=== PATIENT | male | born 1950 | race Caucasian/White ===

== ENCOUNTER 2018-02-26 09:21 | Day surgery (SDC) | payer BC, SELFPAY ==
[2018-02-26 09:40] VITALS: BP 147/73; PULSE 65; RESP 16; TEMP 36.6; O2SAT 96
[2018-02-26] MEDS: Lactated Ringers 1,000 ML 80 ML IV (09:59)
--- NOTE | 2018-02-26 12:24 | ROE_ITS ---
Date of service: 02/26/18 Time of Service: 12:22 Operative Note DATE OF PROCEDURE: 02/26/18 PRE-OP DIAGNOSIS: Dysphagia POST-OP DIAGNOSIS: same PROCEDURE: Esophagogastroduodenoscopy with dilitation SURGEON: Jack Fine ANESTHESIA: MAC (Narciso Castillo, SENIOR PYTHON DEVELOPER: ASA 2 Mallampati class III) ESTIMATED BLOOD LOSS: 1 PATHOLOGY: other (1. Duodenal biopsies 2. Esophageal biopsies at 24 cm) COMPLICATIONS: None Patient was transported to: same day Patient's condition: stable Implants: Cypress esophageal dilation balloon used for 2 thang, 54 Bulgarian, 18 mm, dilation. Indications: 67-year-old male who returns for follow-up EGD after 6 months from last EGD which was performed for dysphagia. Biopsies at the time demonstrated reactive squamous tissue with ulceration. He has been doing well since the procedure, and reports near complete resolution of his dysphagia. Esophagogastroduodenoscopy and dilation procedure were reviewed with him again, and the risks of the procedure were discussed. All his questions were answered to his satisfaction. Consent was obtained to proceed with EGD and possible esophageal dilatation. Findings: In examining the upper gastrointestinal tract from the oropharynx to the third portion of the duodenum, several small polyps were identified in the first portion of the duodenum just past the pylorus which were biopsied by cold forceps. Again noted in the mid esophagus was a area of tightness associated with what appeared to be an ulceration multiple biopsies were taken from this it was then dilated up to 54 Bulgarian, or 18 mm. Procedure Description: The patient was brought to the procedure room. Monitoring for telemetry, end- tidal CO2, O2 saturation, blood pressure were applied. An appropriate timeout was taken reviewing the patient's identification, allergies, medications,and procedure. Sedation was titrated for effect by the SENIOR PYTHON DEVELOPER, and a bite block placed to protect the patient's teeth and the endoscope. An Olympus variable stiffness endoscope was advanced from the oropharynx to the third portion of the duodenum without difficulty. The scope was then withdrawn in circumferential manner from the duodenum back to the oropharynx. In performing withdrawal of the scope, the duodenum appeared grossly normal, except for several small polyps located in the first portion of the duodenum just past the pylorus. These were biopsied. The scope was then withdrawn into the gastric antrum and retroflexed to examine the entire stomach. No abnormalities of the gastric antrum, anterior, posterior surfaces of the stomach , lesser curvature, greater curvature, and fundus were noted. The scope was then withdrawn to the GE junction which I measured at 34 cm cm The Z line was at 34 cm cm and appeared regular. I withdrew the scope through the remainder of the esophagus. In this esophagus at 24 cm again was noted a small ulceration and narrowing for which the scope had difficulty at first passing. I did take multiple biopsies from around the ulceration site, and circumferentially around the esophagus at this level. I then performed dilation of the esophagus at 24 cm using a Cypress standard size dilation balloon. I dilated the esophagus up to 18 mm then 20 mm, at 2 thang and then 6 thang respectively. The patient did experience some desaturation at this point and possible laryngeal spasm. The procedure was halted momentarily Y the patient was aggressively oxygenated. Once patient was stable, I re?examined the esophagus from the GE junction back to the oropharynx. The scope easily passed through the esophagus, I felt no more dilation was necessary. The scope was then withdrawn terminating the endoscopy. Plan: We will await pathology before making further recommendations.
--- NOTE | 2018-02-26 12:24 | W.PM.DSUDISC ---
Discharge Plan Disposition Patient Disposition: HOME Condition: Good Discharge Details Reason For Visit: Dysphagia Attending Provider: Jack Fine Primary Care Provider: Timmy Iglesias Home Meds and New Rx's Prescriptions: Continue aspirin [Aspirin Low-Strength] 81 MG tablet,chewable 81 mg PO DAILY RF: 0 CENTRUM SILVER TABLET 1 EACH tablet 1 ea PO DAILY RF: 0 amlodipine 5 MG tablet 1 - 2 tab PO DIRECTED Qty: 270 RF: 3 chlorthalidone 50 MG tablet 25 mg PO DAILY Qty: 45 RF: 3 potassium chloride 20 MEQ tablet,ER particles/crystals 1.5 tab PO DAILY Qty: 145 RF: 4 lisinopril 40 MG tablet 40 mg PO DAILY Qty: 90 RF: 3 metoprolol tartrate [Lopressor] 50 MG tablet 1.5 tab PO BID Qty: 270 RF: 3 doxazosin [Cardura] 8 MG tablet 8 mg PO HS RF: 0 Discharge Instructions Instructions: Upper Endoscopy (DC), Esophageal Dilation (DC) Activity:: Activity as Tolerated Diet:: As Tolerated Discharge Orders Discharge Orders: Discharge Order (Routine); Ordered 02/26/18 Ordered By: Jack Fine DS: Diagnosis Discharge Diagnosis (1) Dysphagia: Status: Acute
--- NOTE | 2018-02-26 12:40 | BOWEL_PTH ---
PATIENT: Manuel Crystal LOC: [facility] U#:[id number] AGE/SX: 67/M ROOM: RE02/26/[address]: Jack Fine DO : 1950 BED: DIS: 02/26/2018 SPEC #: [id number] RECD: 02/26/18 16:42 STATUS: TAMMY REQ #: [id number] KADEN: 02/26/18 12:[address]: Jack Fine DEPT: Surgical Specimen RECD BY: Jennifer Callejas ENTERED: 02/26/18 16:44 SP TYPE: Bowel OTHR DR: Timmy Iglesias MD Tissues: 1 - BIOPSY BOWEL 2 - ESOPHAGUS BIOPSY Procedures: GROSS AND MICRO LEVEL 4 Comments: [id number]
--- NOTE | 2018-02-26 13:11 | W.PM.DSUDISC ---
Discharge Plan Disposition Patient Disposition: HOME Condition: Good Discharge Details Reason For Visit: Dysphagia Attending Provider: Jack Fine Primary Care Provider: Timmy Iglesias Home Meds and New Rx's Prescriptions: Continue aspirin [Aspirin Low-Strength] 81 MG tablet,chewable 81 mg PO DAILY RF: 0 CENTRUM SILVER TABLET 1 EACH tablet 1 ea PO DAILY RF: 0 amlodipine 5 MG tablet 1 - 2 tab PO DIRECTED Qty: 270 RF: 3 chlorthalidone 50 MG tablet 25 mg PO DAILY Qty: 45 RF: 3 potassium chloride 20 MEQ tablet,ER particles/crystals 1.5 tab PO DAILY Qty: 145 RF: 4 lisinopril 40 MG tablet 40 mg PO DAILY Qty: 90 RF: 3 metoprolol tartrate [Lopressor] 50 MG tablet 1.5 tab PO BID Qty: 270 RF: 3 doxazosin [Cardura] 8 MG tablet 8 mg PO HS RF: 0 Discharge Instructions Instructions: Upper Endoscopy (DC), Esophageal Dilation (DC) Stand Alone Forms: DSU Post EGD Instructions, Obie Miguel (DSU) Activity:: Activity as Tolerated Diet:: As Tolerated Discharge Orders Discharge Orders: Discharge Order (Routine); Ordered 02/26/18 Ordered By: Jack Fine Discharge Data Discharge Date/Time-TO BE ENTERED AT DEPARTURE: 02/26/18 14:10 Discharge Comment: DC'D HOME WITH VIA PRIVATE CAR DS: Diagnosis Discharge Diagnosis (1) Dysphagia: Status: Acute
[2018-02-26 13:48] VITALS: BP 134/77; PULSE 66; RESP 18; TEMP 37.7; O2SAT 97
== END 2018-02-26 14:10 | disposition home or self-care (01) ==
PROVIDERS: PCP Family Medicine; Visit Provider Surgery
PROC: 0DJ68ZZ Inspection of Stomach, Via Natural or Artificial Opening Endoscopic (ICD-10-PCS; CPT 43235; principal; 2018-02-26 11:30)
DX: Z09 Encounter for follow-up examination after completed treatment for conditions other than malignant neoplasm (principal); K22.10 Ulcer of esophagus without bleeding; K20.0 Eosinophilic esophagitis; K22.2 Esophageal obstruction; K31.89 Other diseases of stomach and duodenum; E11.9 Type 2 diabetes mellitus without complications; I10 Essential (primary) hypertension
CPT/HCPCS: 43239; 43249; 88305; J2250; J3010

== ENCOUNTER 2018-04-10 09:55 | Outpatient (CLI) | payer BC, MEDICARE, SELFPAY ==
[2018-04-10 13:22] LABS: CREATININE 1.85 mg/dL (0.70-1.30); Estimated GFR 36.76 (mL/min/1.73m2)
[2018-04-10 13:32] LABS: Hemoglobin A1C 6.4 % (4.5-6.2)
== END 2018-04-10 10:15 ==
PROVIDERS: PCP Family Medicine; Visit Provider Family Medicine
DX: E11.9 Type 2 diabetes mellitus without complications (principal); N28.9 Disorder of kidney and ureter, unspecified
CPT/HCPCS: 36415; 82565; 83036

== ENCOUNTER 2018-04-16 10:44 | Outpatient (REF) | payer BC, MEDICARE, SELFPAY ==
--- NOTE | 2018-04-16 10:30 | SKI_PTH ---
PATIENT: Manuel Crystal LOC: [facility] U#:[id number] AGE/SX: 67/M ROOM: RE04/16/[address]: Timmy Iglesias MD : 1950 BED: DIS: 04/16/2018 SPEC #: [id number] RECD: 04/16/18 13:02 STATUS: TAMMY RECasimiro #: [id number] KADEN: 04/16/18 10:[address]: Timmy Iglesias DEPT: Surgical Specimen RECD BY: Jennifer Callejas Tissues: 1 - SKIN BIOPSY(SHAVE/PUNCH) Procedures: SKIN LEVEL 4 Comments: [id number]
== END 2018-04-16 11:04 ==
LOC: LBN 10:44
PROVIDERS: PCP Family Medicine; Visit Provider Family Medicine
DX: D22.5 Melanocytic nevi of trunk
CPT/HCPCS: 88305

== ENCOUNTER 2019-04-15 01:54 | Outpatient (CLI) | payer BC, SELFPAY ==
[2019-04-15 13:02] LABS: Hemoglobin A1C 7.6 % (4.5-6.2)
[2019-04-15 13:50] LABS: CREATININE 2.06 mg/dL (0.70-1.30); Calculated LDL 108 mg/dL; Cholesterol 164 mg/dL (<200); Estimated GFR 32.37 (mL/min/1.73m2); HDL Cholesterol 34 mg/dL (40-60); Potassium 3.6 mmol/L (3.5-5.1); Triglyceride 111 mg/dL (<150)
== END 2019-04-15 02:14 ==
PROVIDERS: PCP Family Medicine; Visit Provider Family Medicine
DX: I10 Essential (primary) hypertension (principal); E11.9 Type 2 diabetes mellitus without complications
CPT/HCPCS: 36415; 80061; 82565; 83036; 84132

== ENCOUNTER 2020-04-14 13:32 | Outpatient (REF) | payer BC, SELFPAY ==
[2020-04-14 13:47] LABS: CREATININE 2.29 mg/dL (0.70-1.30); Calculated LDL 108 mg/dL (<100); Cholesterol 174 mg/dL (<200); Estimated GFR 28.56 (mL/min/1.73m2); HDL Cholesterol 34 mg/dL (40-60); Potassium 3.8 mmol/L (3.5-5.1); Triglyceride 164 mg/dL (<150)
[2020-04-14 13:50] LABS: Hemoglobin A1C 7.1 % (<5.7)
== END 2020-04-14 13:52 ==
LOC: LBN 13:32
PROVIDERS: PCP Family Medicine; Visit Provider Family Medicine
DX: E11.65 Type 2 diabetes mellitus with hyperglycemia (principal); E78.5 Hyperlipidemia, unspecified
CPT/HCPCS: 80061; 82565; 83036; 84132

== ENCOUNTER 2020-10-28 20:48 | Outpatient (REF) | payer BC, SELFPAY ==
[2020-10-29 17:48] LABS: PSA, Screening 1.7 ng/mL (0.0-4.5)
== END 2020-10-28 20:49 | disposition home or self-care (01) ==
LOC: LBN 20:48
PROVIDERS: PCP Family Medicine; Visit Provider Nurse Practitioner Family
DX: R33.9 Retention of urine, unspecified (principal); Z12.5 Encounter for screening for malignant neoplasm of prostate
CPT/HCPCS: 84153

== ENCOUNTER 2020-10-29 16:46 | Outpatient (REF) | payer BC, SELFPAY | END 2020-10-29 16:47 | disposition home or self-care (01) | LOC: LBN 16:46 | PROVIDERS: PCP Family Medicine; Visit Provider Nurse Practitioner Family | DX: R33.9 Retention of urine, unspecified (principal) | CPT/HCPCS: 87086 ==

== ENCOUNTER 2021-04-25 03:28 | Outpatient (CLI) | payer BC, SELFPAY ==
[2021-04-25 08:04] LABS: Hemoglobin A1C 6.7 % (<5.7)
[2021-04-25 08:59] LABS: CREATININE 2.5 mg/dL (0.70-1.30); Calculated LDL 106 mg/dL (<100); Cholesterol 163 mg/dL (<200); Estimated GFR 25.74 (mL/min/1.73m2); HDL Cholesterol 36 mg/dL (40-60); Potassium 3.7 mmol/L (3.5-5.1); Triglyceride 108 mg/dL (<150)
== END 2021-04-25 03:29 | disposition home or self-care (01) ==
LOC: LBO 03:29
PROVIDERS: PCP Family Medicine; Visit Provider Family Medicine
DX: I10 Essential (primary) hypertension (principal); E78.5 Hyperlipidemia, unspecified; R73.9 Hyperglycemia, unspecified
CPT/HCPCS: 36415; 80061; 82565; 83036; 84132

== ENCOUNTER 2021-11-01 02:55 | Outpatient (CLI) | payer BC, SELFPAY ==
[2021-11-01 13:02] LABS: CREATININE 2.4 mg/dL (0.70-1.30)
== END 2021-11-01 02:56 | disposition home or self-care (01) ==
LOC: LOS 02:55
PROVIDERS: PCP Family Medicine; Visit Provider Family Medicine
DX: I10 Essential (primary) hypertension (principal)
CPT/HCPCS: 36415; 82565

== ENCOUNTER 2022-04-11 03:41 | Outpatient (CLI) | payer BC, SELFPAY ==
[2022-04-11 12:01] LABS: Hemoglobin A1C 6.7 % (<5.7)
[2022-04-11 12:08] LABS: Anion Gap 9.7 mmol/L (3-11); BUN 40 mg/dL (7-18); CO2 26.3 mmol/L (21.0-32.0); CREATININE 2.6 mg/dL (0.70-1.30); Calcium 8.5 mg/dL (8.5-10.1); Calculated LDL 89 mg/dL (<100); Chloride 102 mmol/L (98-107); Cholesterol 158 mg/dL (<200); Estimated GFR 25.72 (mL/min/1.73m2); Glucose 148 mg/dL (74-106); HDL Cholesterol 37 mg/dL (40-60); Potassium 3.7 mmol/L (3.5-5.1); Sodium 138 mmol/L (136-145); Triglyceride 164 mg/dL (<150)
== END 2022-04-11 03:42 | disposition home or self-care (01) ==
PROVIDERS: PCP Family Medicine; Visit Provider Family Medicine
DX: E87.1 Hypo-osmolality and hyponatremia (principal); E78.5 Hyperlipidemia, unspecified; R73.9 Hyperglycemia, unspecified
CPT/HCPCS: 36415; 80048; 80061; 83036

== ENCOUNTER 2022-04-18 09:53 | Outpatient (CLI) | payer BC, SELFPAY ==
[2022-04-18 12:41] LABS: ALT 29 U/L (16-63); AST 29 U/L (15-37)
[2022-06-30 07:44] LABS: Lab Add On Test DONE
== END 2022-04-18 09:54 | disposition home or self-care (01) ==
LOC: LOS 09:53
PROVIDERS: PCP Family Medicine; Referring Provider Family Medicine; Visit Provider Family Medicine
DX: Z12.5 Encounter for screening for malignant neoplasm of prostate (principal); E78.5 Hyperlipidemia, unspecified; K76.0 Fatty (change of) liver, not elsewhere classified
CPT/HCPCS: 36415; 84450; 84460

== ENCOUNTER 2022-07-27 04:16 | Outpatient (CLI) | payer BC, SELFPAY ==
[2022-07-27 11:43] LABS: AST 27 U/L (15-37)
[2022-07-27 16:00] LABS: Lab Add On Test DONE
[2022-07-27 16:28] LABS: Calculated LDL 48 mg/dL (<100); Cholesterol 106 mg/dL (<200); HDL Cholesterol 35 mg/dL (40-60); Triglyceride 115 mg/dL (<150)
== END 2022-07-27 04:17 | disposition home or self-care (01) ==
LOC: LBO 04:16
PROVIDERS: PCP Family Medicine; Visit Provider Family Medicine
DX: E11.69 Type 2 diabetes mellitus with other specified complication (principal); E78.5 Hyperlipidemia, unspecified; K76.0 Fatty (change of) liver, not elsewhere classified
CPT/HCPCS: 36415; 80061; 84450

== ENCOUNTER 2023-02-01 08:30 | Day surgery (SDC) | payer BC, SELFPAY ==
--- NOTE | 2023-01-31 20:31 | W.PM.DSUDISC ---
Date of service: 02/01/23 Time of Service: 10:25 Discharge Plan Disposition Patient Disposition: Home Condition: Good Discharge Details Reason For Visit: Screening colonoscopy Attending Provider: Dakota Hendrix Primary Care Provider: Timmy Iglesias Home Meds and New Rx's Prescriptions: Continued CENTRUM SILVER TABLET 1 EACH tablet 1 ea PO DAILY potassium chloride 20 mEq tablet,ER particles/crystals 30 meq PO DAILY Qty: 145 4RF Rx Instructions: 30 meq daily amlodipine 5 mg tablet 5 - 10 mg PO BID Qty: 270 3RF Rx Instructions: TAKE 5 MG AM AND 10 MG HS lisinopril 40 mg tablet 40 mg PO DAILY Qty: 90 3RF atorvastatin 10 mg tablet 10 mg PO DAILY Qty: 90 3RF doxazosin [Cardura] 8 mg tablet 8 mg PO HS Qty: 90 3RF Rx Instructions: 1 TAB DAILY omeprazole 40 mg capsule,delayed release(DR/EC) 40 mg PO DAILY Qty: 90 3RF Farxiga 10 mg tablet 10 mg PO DAILY Qty: 30 2RF chlorthalidone 50 mg tablet See Rx Instructions .ROUTE .COMPLEX Qty: 90 3RF Dose Instruction: TAKE ONE TABLET BY MOUTH DAILY Rx Instructions: TAKE ONE TABLET BY MOUTH DAILY metoprolol tartrate 50 mg tablet See Rx Instructions .ROUTE .COMPLEX Qty: 270 3RF Dose Instruction: TAKE ONE AND ONE-HALF TABLETS BY MOUTH TWO TIMES A DAY Rx Instructions: TAKE ONE AND ONE-HALF TABLETS BY MOUTH TWO TIMES A DAY Discontinued bisacodyl [Dulcolax (bisacodyl)] 5 mg tablet,delayed release (DR/EC) 5 mg PO ONCE Qty: 4 0RF Rx Instructions: Take per colonoscopy instructions provided by ordering providers office Discharge Instructions Instructions: Diverticulosis (GEN), Diverticulosis Diet (GEN), Colorectal Polyps (GEN) Additional Instructions: Manuel, we were able to complete your colonoscopy today without any difficulty. I did find and removed 2 polyps. I will send them off to the pathologist, and be in touch when I have the results of the pathology report regarding the nature of the tissue (similar to your previous experience). Incidentally, you also have some diverticulosis. Diverticuli are weak spots in the colon wall that typically accumulate with age. Generally speaking, the best way to manage them is to maintain a balanced diet that is rich in fiber. Avoiding dehydration and constipation type symptoms is also useful. Have attached some general information here regarding diverticulosis. If you have any questions in the meantime, please do not hesitate to call. 1. If tolerated, consume a soft, low fiber diet for 1-2 days. 2. Do not drive, drink alcohol, operate machinery, make critical decisions, or do activities that require coordination or balance for 24 hours. 3. Because air was put into your colon during the procedure, expelling air from your rectum (passing gas or farting) is normal. 4. You may not have a bowel movement for 1-3 days because of the colonoscopy prep. This is normal. 5. Go directly to the emergency room if you notice any of the following: Develop chills (warm to touch), or if you have a thermometer and your temperature is above 101 Difficulty breathing or difficultly swallowing Persistent vomiting Severe abdominal pain, other than gas cramps Severe chest pain Black, tarry stools Any bleeding ? exceeding one tablespoon 6. Call your physician if the site where your intravenous was started becomes red, swollen, painful, and warm to touch. 7. Your physician has reviewed your pre-procedure medications. Please continue to take those medications as previously ordered. You will be given specific information/education regarding any changes to your medications before leaving. Activity:: Activity as Tolerated Diet:: As Tolerated Discharge Orders Discharge Orders: Discharge Order (Routine); Ordered 01/31/23 Ordered By: Dakota Hendrix DS: Diagnosis Discharge Diagnosis (1) Encounter for screening colonoscopy: Status: Acute Asessment and Plan: I will follow-up on polypectomy results
--- NOTE | 2023-01-31 20:33 | W.COLOREPORT ---
Date of service: 02/01/23 Time of Service: 10: Colonoscopy Report Date of procedure: 02/01/23 Pre-op diagnosis general: screening colonoscopy Post-op diagnosis procedure note: other (Diverticulosis, colon polyps) Procedure: Colonoscopy with polypectomy Surgeon: Dakota Hendrix Anesthesia Type: General:No Airway Estimated blood loss (mL): 5 Pathology: other (Colon polyp at 110 cm, colon polyp at 50 cm) Complications: None Disposition: same day Indications: Manuel is 72 years old and he needs another screening colonoscopy Prep: Miralax/Dulcolax Procedure Start Time: :53 Procedure End Time: :13 Retraction Time: 12 Findings: Diverticulosis, 0.25 cm polyp at 110 cm, 0.25 cm polyp at 50 cm Procedure Description: After the induction of monitored anesthetic care, and with the patient in left lateral decubitus position, I began by performing an external anorectal exam.? Perineum and skin were normal, as was the anal verge.? There was no evidence of external hemorrhoids.? Next, I performed a digital rectal exam.? I did not appreciate any abnormal findings.? Next, I advanced a colonoscope into the rectal vault.? I performed retroflexion.? This looked normal.? Using insufflation, I then advanced the colonoscope beyond the rectal folds and into the sigmoid colon before advancing towards the cecum.? There was sigmoid diverticulosis. The quality of the prep was adequate.? The scope was noted to be in the cecum by identification of the ileocecal valve and appendiceal orifice.? I then began withdrawing the colonoscope using repeated irrigation as necessary for full evaluation of the colonic mucosa. Around 110 cm from the anal verge I identified a 0.25 cm polyp. ?It appeared sessile in character. ?I was able to remove this with a cold forcep polypectomy. ?I examined the site, and there was minimal bleeding. ?Similarly, I found another 0.25 cm polyp around 50 cm from the anal verge. This was also removed with cold forceps without any difficulty. Once this was completed, I continued to withdraw the scope and examine the remainder of the colonic mucosa.?Once the scope was withdrawn to the level of the rectum, great care was taken to examine portions of the rectal folds.? Finally, the scope was withdrawn and the patient was brought to the same-day surgery recovery unit as the anesthetic wore off. ?The findings and instructions were shared with the patient prior to discharge.
[2023-02-01 08:46] VITALS: BP 132/72; PULSE 71; RESP 16; TEMP 36.5; O2SAT 94
[2023-02-01] MEDS: Lactated Ringers 1,000 ML 80 ML IV (09:00)
--- NOTE | 2023-02-01 09:22 | W.ANESPRE ---
General Info Date of Service Date Performed: 02/01/23 Height: 5 ft 11 in Weight: 123.377 kg Body Mass Index (BMI): 37.9 Surgical Procedure: Operation Date: 02/01/23 09:50 Proposed Procedure Side Surgeon alon Hendrix MD Meds Allergies and Home Medications Allergies Allergy/AdvReac Type Severity Reaction Status Date / Time No Known Allergies Allergy Verified 02/01/23 08:50 Home Medication Medication Instructions Recorded Centrum Silver Tablet 1 ea PO DAILY 10/05/12 potassium chloride 20 mEq 30 meq PO DAILY #145 tab-caps 05/22/22 tablet,extended release(part/cryst) amlodipine 5 mg tablet 5 - 10 mg PO BID #270 tab-caps 06/08/22 lisinopril 40 mg tablet 40 mg PO DAILY #90 tab-caps 06/08/22 atorvastatin 10 mg tablet 10 mg PO DAILY #90 tabs 08/01/22 doxazosin 8 mg tablet (Cardura) 8 mg PO HS #90 tabs 08/22/22 omeprazole 40 mg capsule,delayed 40 mg PO DAILY #90 caps 09/18/22 release dapagliflozin propanediol 10 mg 10 mg PO DAILY #30 tabs 10/28/22 tablet (Farxiga) chlorthalidone 50 mg tablet See Rx Instructions .Route 12/08/22 .COMPLEX #90 tabs metoprolol tartrate 50 mg tablet See Rx Instructions .Route 12/08/22 .COMPLEX #270 tabs Current Visit Medications: Current Medications Generic Name Dose Route Start Last Admin Trade Name Freq PRN Reason Stop Dose Admin Hyoscyamine Sulfate 0.125 mg 01/31/23 20:35 Hyoscyamine 0.125 Mg Sl/Oral/Chew SL 03/02/23 20:34 DIRECTED PRN Ringer's Solution 1,000 mls @ 80 mls/hr 02/01/23 06:00 02/01/23 09:00 IV 02/01/23 23:59 80 mls/hr INFUSION RONY Administration IV Miscellaneous Supplies 1 each 02/01/23 06:00 Iv Access IV 02/01/23 23:59 DIRECTED RONY Ondansetron HCl 4 mg 01/31/23 20:35 Ondansetron 4 Mg/2 Ml Vial IVP 03/02/23 20:34 Q4H PRN PRN Nausea / Vomiting Sodium Chloride 0 ml 02/01/23 06:00 Normal Saline Flush 10 Ml Syr IV 02/01/23 23:59 PRN PRN Sodium Chloride 0 ml 02/01/23 06:00 Normal Saline 10 Ml Vial IJ 02/01/23 23:59 DIRECTED PRN Sterile Water 0 ml 02/01/23 06:00 Water,Injection,Sterile 10 Ml Vial IJ 02/01/23 23:59 DIRECTED PRN PFSH Active Problems Active Problems: Problem Status Onset Code Encounter for screening colonoscopy Z12.11 Abdominal wall hernia 10/20/15 K43.9 Abnormal renal function 04/11/13 N28.9 Diabetes mellitus 10/07/12 E11.9 Diverticulosis of colon without diverticulitis 06/17/12 K57.30 Erectile dysfunction 04/13/14 N52.9 Essential hypertension 04/10/13 I10 Hemorrhoids 06/17/12 K64.9 Kidney stone 04/11/13 N20.0 Dysphagia R13.10 Eosinophilic esophagitis ~02/26/18 K20.0 Diabetic retinopathy E11.319 Tinea pedis B35.3 Retention of urine R33.9 Urinary tract infection N39.0 Hyperlipidemia associated with type 2 diabetes mellitus E11.69, E78.5 Screening for colon cancer Z12.11 Obesity E66.9 Medical History Medical History Diverticulosis large intestine w/o perforation or abscess w/bleeding DM (diabetes mellitus) Essential hypertension Impaired renal function Obesity (BMI 30-39.9) Surgical History Surgical History Cholecystectomy Colonoscopy - MAC (06/07/12) DR. 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 Tobacco Smoking/Tobacco Use Status: Never Passive smoking exposure: Yes Second hand exposure: Yes Alcohol Alcohol Intake: current Alcohol intake frequency: holidays/special occasions only Alcohol type: beer and hard liquor Substance Use Substance use: Never Substance use type: does not use Vital Signs and Lab Results Vital Signs Most Recent Vital Signs in EMR: Most Recent Vital Signs Temp Pulse Resp BP Pulse Ox 36.5 C 71 16 132/72 94 02/01/23 08:46 02/01/23 08:46 02/01/23 08:46 02/01/23 08:46 02/01/23 08:46 Point of Care Results Point of Care Results: Finger Stick Blood Glucose 133 02/01/23 08:41 Lab Results Blood Type / Crossmatch: No Data to Display Complete Blood Count: No Data to Display Complete Metabolic Panel: No Data to Display Liver Function Panel: No Data to Display Coagulation Panel: No Data to Display Cardiac Panel: No Data to Display Arterial Blood Gas: No Data to Display Venous Blood Gas: No Data to Display Pancreas Panel: No Data to Display Thyroid Panel: No Data to Display Infectious Disease: No Data to Display Blood Cultures: No Data to Display Toxicology Panel: No Data to Display Anesthesia Assessment and Plan Anesthesia History Personal History: No History of Anesthesia Complications Family History: No Family History of Anesthesia Complications Exercise Tolerance Exercise Tolerance: Metabolic Equivalents>4 Pertinent Negatives Pertinent Negatives: No Symptoms of GERD, No Major Cardiovascular Symptoms or Complaints and No Major Pulmonary Symptoms or Complaints Cardiac & Pulmonary Exam Cardiac Exam: Normal S1/S2 Heart Sounds Pulmonary Exam: Clear Bilateral Breath Sounds Implantable Cardiac Device Does patient have a Pacemaker or an ICD?: No Airway Exam Known Difficult Airway: No Mallampati Class: 2 Mouth Opening: Normal (> 3cm) Thyromental Distance: Less than 3 cm Neck Range of Motion: Full ROM Neck Circumference: Normal Teeth Condition: Generalized Poor Dentition ASA Classification ASA Score: ASA 2 Emergency Case?: No NPO Status NPO Status: NPO Clears >2 hours, Solids >8 hours Anesthesia Plan Resuscitation Status: Full Code Anesthesia Technique: General Anesthesia Airway Planned: Natural Airway Monitors Used: Standard Monitors
[2023-02-01 09:24] VITALS: BMI 37.9
--- NOTE | 2023-02-01 10:04 | BOWEL_PTH ---
PATIENT: Manuel Crystal LOC: [facility] U#:[id number] AGE/SX: 72/M ROOM: RE02/01/[address]: Dakota Hendrix MD : 1950 BED: DIS: 02/01/2023 SPEC #: [id number] RECD: 02/01/23 13:12 STATUS: CYNTHIAYvrose RE #: [id number] KADEN: 02/01/23 10:[address]: Dakota Hendrix DEPT: Surgical Specimen RECD BY: Jennifer Callejas ENTERED: 02/01/23 13:13 SP TYPE: Bowel OTHR DR: Timmy Iglesias MD Tissues: 1 - BIOPSY BOWEL 2 - BIOPSY BOWEL Procedures: GROSS AND MICRO LEVEL 4 Comments: [id number]
[2023-02-01 10:21] VITALS: BP 84/58; PULSE 73; RESP 24; TEMP 36.5; O2SAT 93
[2023-02-01 10:55] VITALS: BP 123/72; PULSE 66; RESP 16; TEMP 36.7; O2SAT 95
--- NOTE | 2023-02-01 11:20 | W.ANESPOSTOP ---
Postoperative Evaluation Date, Time and Location Date Performed: 02/01/23 Time Performed: 11:20 Patient Location: Day Surgery Unit Vital Signs Most Recent Imported Vital Signs: Most Recent Vital Signs Temp Pulse Resp BP Pulse Ox 36.7 C 66 16 123/72 95 02/01/23 10:55 02/01/23 10:55 02/01/23 10:55 02/01/23 10:55 02/01/23 10:55 Pain Score Most Recent Pain Score: Most Recent Pain Score Pain Level 0 02/01/23 10:55 Assessment Mental Status: Awake (Alert & Oriented to Patient Baseline) Airway and Respiratory Function: Patent airway with normal (patient baseline) respiratory exam Cardiovascular Function: Hemodynamically Stable Hydration Status: Adequately Hydrated Nausea & Vomiting: No Nausea or Vomiting Pain: Pt. Denies Any Pain Peripheral Nerve Block: Patient did not receive a nerve block
== END 2023-02-01 11:14 | disposition home or self-care (01) ==
PROVIDERS: PCP Family Medicine; Visit Provider Surgery
PROC: 0DJD8ZZ Inspection of Lower Intestinal Tract, Via Natural or Artificial Opening Endoscopic (ICD-10-PCS; CPT 45378; principal; 2023-02-01 09:45)
DX: Z12.11 Encounter for screening for malignant neoplasm of colon (principal); D12.3 Benign neoplasm of transverse colon; K57.30 Diverticulosis of large intestine without perforation or abscess without bleeding
CPT/HCPCS: 45380; 88305

== ENCOUNTER 2023-06-06 04:40 | Outpatient (CLI) | payer BC, SELFPAY ==
[2023-06-06 12:52] LABS: BUN 45 mg/dL (7-18); CREATININE 2.5 mg/dL (0.70-1.30); Calcium 8.6 mg/dL (8.5-10.1); Chloride 97 mmol/L (98-107); Glucose 264 mg/dL (74-106); Potassium 3.8 mmol/L (3.5-5.1); Sodium 134 mmol/L (136-145)
== END 2023-06-06 04:41 | disposition home or self-care (01) ==
LOC: LOS 04:44
PROVIDERS: PCP Family Medicine; Visit Provider Family Medicine
DX: E87.1 Hypo-osmolality and hyponatremia (principal); I10 Essential (primary) hypertension; E11.9 Type 2 diabetes mellitus without complications
CPT/HCPCS: 36415; 80048

== ENCOUNTER 2024-04-22 13:55 | Emergency (ER) | payer MEDICARE, SELFPAY ==
[2024-04-22] VITALS (40 sets, daily range): BP systolic 89–135; BP diastolic 47–65; PULSE 70–88; RESP 17–29; TEMP 36.2–36.6; O2SAT 92–100
--- NOTE | 2024-04-22 14:15 | RT.EKG_ITS ---
APPROVED REPORT Exam: Resting ECG Reason for Exam: epigastric pain Patient Location: E HR:81 bpm ECG Measurements Heart Rate 81 AXIS PA 249 P 34 QRSd 111 QRS -28 QT 385 T 15 QTc 449 Conclusion Sinus rhythm...normal P axis, V-rate 60- 99 Ventricular premature complex...V complex w/ short R-R interval Physician: no stemi
[2024-04-22] MEDS: Lactated Ringers 1,000 ML 1000 ML IV (14:30)
[2024-04-22 14:36] LABS: Abs Immature Grans 0.15 10^3/uL (0.0-0.06); Absolute Eosinophil Count 0.06 10^3/uL (0.0-0.7); Absolute Monocyte Count 1.28 10^3/uL (0.1-0.8); Absolute Neutrophil Count 16.05 10^3/uL (1.2-6.7); Basophils % 0.3 %; Eosinophils % 0.3 %; HCT 37.3 % (40.0-50.0); HGB 13.5 g/dL (13.5-17.5); Immature Grans % 0.8 %; Lymphocytes % 5.4 %; MCH 32.1 pg (27.0-33.0); MCHC 36.2 % (32.0-36.0); MCV 89 fL (80-95); MPV 9.5 fL (8.0-11.0); Monocytes % 6.9 %; Neutrophils % 86.3 %; Platelet Count 170 10^3/uL (130-400); RBC 4.21 10^6/uL (4.36-5.78); RDW 12.3 % (11.8-14.1); RDW-SD 39.8 fL
[2024-04-22 14:41] LABS: Absolute Basophil Count 0.06 10^3/uL (0.0-0.2)
--- NOTE | 2024-04-22 14:56 | W.ED.GENAD ---
Discharge Plan Disposition Patient Disposition: Home Condition: Good Discharge Details Clinical Impression: Dehydration, Hyponatremia, Acute hypokalemia, Hypocalcemia Primary Care Provider: Timmy Iglesias ED Provider: Rayray Jalloh Home Meds and New Rx's Prescriptions: No Action doxazosin [Cardura] 8 mg tablet 8 mg PO HS Qty: 90 3RF CENTRUM SILVER TABLET 1 EACH tablet 1 ea PO DAILY amlodipine 5 mg tablet 5 - 10 mg PO BID Qty: 270 3RF Rx Instructions: TAKE 5 MG AM AND 10 MG HS lisinopril 40 mg tablet 40 mg PO DAILY Qty: 90 3RF metoprolol tartrate 50 mg tablet See Rx Instructions .ROUTE .COMPLEX Qty: 270 3RF Dose Instruction: TAKE ONE AND ONE-HALF TABLETS BY MOUTH TWO TIMES A DAY Rx Instructions: TAKE ONE AND ONE-HALF TABLETS BY MOUTH TWO TIMES A DAY chlorthalidone 50 mg tablet See Rx Instructions .ROUTE .COMPLEX Qty: 90 3RF Dose Instruction: TAKE ONE TABLET BY MOUTH DAILY Rx Instructions: TAKE ONE TABLET BY MOUTH DAILY omeprazole 40 mg capsule,delayed release(DR/EC) 40 mg PO DAILY Qty: 90 3RF atorvastatin 10 mg tablet 10 mg PO DAILY Qty: 90 3RF potassium chloride 20 mEq tablet,ER particles/crystals 30 meq PO DAILY Qty: 145 4RF Rx Instructions: 30 meq daily dapagliflozin propanediol [Farxiga] 10 mg tablet 10 mg PO DAILY Qty: 90 3RF Discharge Instructions Instructions: Hypokalemia, Dehydration, Adult ED, Hyponatremia Additional Instructions: At this time your renal function is transitioning towards an improved state. Your sodium and potassium are improving but are still slightly low. You have elected to continued therapy at home. Please do the following over the next 2 to 3 days. 1) in regards to your slightly low sodium, please hydrate yourself well with Gatorade or Powerade electrolyte solutions. Drink 5 to 6 cups of this per day for the next 2 to 3 days. Drink a total of 10 to 12 cups/day of fluids to stay well-hydrated. 2) in regards to your slightly low potassium, please resume taking your oral potassium 20 mEq every day. Please stick to a diet high in potassium like bananas, legumes and avocados. 3) in regards to your low calcium, please take 2 or 3 Tums twice daily for the next 2 or 3 days to help increase your calcium level. Please get your blood work redrawn prior to following up with your primary care provider at the end of this week to recheck your levels to make sure they are heading in the right direction. If they have not normalized you may need to change your dietary protocol. Please follow-up closely with your primary care provider in regards to this. If you notice any worsening of your symptoms, or any new symptoms such as vomiting, diarrhea, fever, chills, shortness of breath, chest pain, numbness, weakness, or fainting , please return immediately to the emergency department for reevaluation. Please follow up with your primary care provider as soon as possible for reassessment and reevaluation. As always, it was a pleasure participating in your medical care today. Referrals: Timmy Iglesias MD [Primary Care Provider] - [facility] General Date/Time Provider Initiated Documentation: 04/22/24 14:00. [facility] Narrative: This is a pleasant 73-year-old male with a past medical history of type 2 diabetes, hypertension, high cholesterol, left sided kidney failure secondary to a stone, previous esophageal stricture requiring dilatation, cholecystectomy, who presents today for evaluation of nausea vomiting diarrhea and left-sided neck pain. Patient states that for the past week he has had vomiting. He has had 7 persistent days of vomiting, initially multiple episodes per day, and now 1 episode every few hours with dry heaving. He has not been able to eat or keep anything down. He has also had 4 days of diarrhea, however this has been improving over the last 24 hours. Additionally the patient states that he developed some left-sided neck pain last night which she describes as a stabbing sensation. It is slightly improved since last night, but still mildly persistent. He denies any numbness or tingling vision changes or headache. Around the time that the neck sensation was severe he also had some pleuritic chest pain and diminished/shallow breathing during the evening at that time. At this time he denies any chest pain. He denies any cough. He denies any hematemesis or hematochezia. He denies any other complaints at this time. Related Data Home Medications ?Medication ?Instructions ?Recorded ?Confirmed Centrum Silver Tablet 1 ea PO DAILY 10/05/12 04/22/24 amlodipine 5 mg tablet 5 - 10 mg (1 - 2 x 5 mg) PO BID 11/28/23 04/22/24 #270 tab-caps atorvastatin 10 mg tablet 10 mg PO DAILY #90 tabs 11/28/23 04/22/24 chlorthalidone 50 mg tablet See Rx Instructions .Route 11/28/23 04/22/24 .COMPLEX #90 tabs lisinopril 40 mg tablet 40 mg PO DAILY #90 tab-caps 11/28/23 04/22/24 metoprolol tartrate 50 mg tablet See Rx Instructions .Route 11/28/23 04/22/24 .COMPLEX #270 tabs omeprazole 40 mg capsule,delayed 40 mg PO DAILY #90 caps 11/28/23 04/22/24 release doxazosin 8 mg tablet (Cardura) 8 mg PO HS #90 tabs 11/29/23 04/22/24 potassium chloride 20 mEq 30 meq (1.5 x 20 mEq) PO DAILY 12/13/23 04/22/24 tablet,extended release(part/cryst) #145 tab-caps dapagliflozin propanediol 10 mg 10 mg PO DAILY #90 tabs 02/07/24 04/22/24 tablet (Farxiga) Previous Rx's ?Medication ?Instructions ?Recorded amlodipine 5 mg tablet 5 - 10 mg (1 - 2 x 5 mg) PO BID 11/28/23 #270 tab-caps atorvastatin 10 mg tablet 10 mg PO DAILY #90 tabs 11/28/23 chlorthalidone 50 mg tablet See Rx Instructions .Route 11/28/23 .COMPLEX #90 tabs lisinopril 40 mg tablet 40 mg PO DAILY #90 tab-caps 11/28/23 metoprolol tartrate 50 mg tablet See Rx Instructions .Route 11/28/23 .COMPLEX #270 tabs omeprazole 40 mg capsule,delayed 40 mg PO DAILY #90 caps 11/28/23 release doxazosin 8 mg tablet (Cardura) 8 mg PO HS #90 tabs 11/29/23 potassium chloride 20 mEq 30 meq (1.5 x 20 mEq) PO DAILY 12/13/23 tablet,extended release(part/cryst) #145 tab-caps dapagliflozin propanediol 10 mg 10 mg PO DAILY #90 tabs 02/07/24 tablet (Farxiga) Allergies Allergy/AdvReac Type Severity Reaction Status Date / Time No Known Allergies Allergy Verified 04/22/24 14:02 General Stated Complaint: Nausea/Vomit/Diar NICOLE: 3 Review of Systems All systems reviewed & are unremarkable except as noted in HPI and below Exam Narrative Exam Narrative: 1.Const: Well-nourished, Well-developed, appearing stated age 2.Eyes: PERRL, no conjunctival injection, and symmetrical lids. 3.ENT: Atraumatic external nose and ears. Dry MM. Neck: Symmetric, trachea midline, No thyromegaly. 4.CVS: +S1/S2, Peripheral pulses 2+ and equal in all extremities. Brisk capillary refill in all extremities. 5.RESP: Unlabored respiratory effort. Clear to auscultation bilaterally. No wheezes rales or rhonchi 6.GI: Soft, Nontender/Nondistended, No hepatosplenomegaly. No guarding or rebound. Moderate size nontender nonerythematous nondistended periumbilical hernia. 7.MSK: Normocephalic/Atraumatic, Extremities w/o deformity or ttp No cyanosis or clubbing, Normal movement of all extremities 8.Skin: Warm, Dry. No rashes or lesions. 9.Neuro: seeing eye dog teacher II-XII grossly intact. Sensation grossly intact, no focal neurologic deficits. 10.Psych: (AAO) x3. Appropriate mood and affect Course Vital Signs Vital signs: Vital Signs Temperature 36.2 C L 04/22/24 13:56 Pulse 88 04/22/24 13:56 Respiratory Rate 20 04/22/24 13:56 Blood Pressure 93/64 L 04/22/24 13:56 Pulse Oximetry 96 04/22/24 13:56 Temperature 36.2 C L 04/22/24 13:56 Temperature Source Oral 04/22/24 13:56 Pulse 88 04/22/24 13:56 Respiratory Rate 20 04/22/24 13:56 Blood Pressure 93/64 L 04/22/24 13:56 Blood Pressure Position Sitting 04/22/24 13:56 Pulse Oximetry 96 04/22/24 13:56 Oxygen Delivery Method Room Air 04/22/24 13:56 Oxygen Flow Rate 0 04/22/24 13:56 Pain Level 3 04/22/24 13:56 Lab/Test Results Lab/Test Results: Laboratory Tests Range/Units 04/22/24 14:15 WBC (4.4-10.8) 10^3/uL 18.60 H RBC (4.36-5.78) 10^6/uL 4.21 L Hgb (13.5-17.5) g/dL 13.5 Hct (40.0-50.0) % 37.3 L MCV (80-95) fL 89 MCH (27.0-33.0) pg 32.1 MCHC (32.0-36.0) % 36.2 H RDW (11.8-14.1) % 12.3 Plt Count (130-400) 10^3/uL 170 MPV (8.0-11.0) fL 9.5 Immature Gran % % 0.8 Neutrophils % % 86.3 Lymphocytes % % 5.4 Monocytes % % 6.9 Eosinophils % % 0.3 Basophils % % 0.3 Nucleated RBC % (0.0-0.3) % 0.0 Absolute Neutrophils (1.2-6.7) 10^3/uL 16.05 H Absolute Lymphocytes (1.2-3.4) 10^3/uL 1.00 L Absolute Monocytes (0.1-0.8) 10^3/uL 1.28 H Absolute Eosinophils (0.0-0.7) 10^3/uL 0.06 Absolute Basophils (0.0-0.2) 10^3/uL 0.06 Medical Decision Making This is a pleasant 73-year-old male with a past medical history of type 2 diabetes, hypertension, high cholesterol, left sided kidney failure secondary to a stone, previous esophageal stricture requiring dilatation, cholecystectomy, who presents today for evaluation of nausea vomiting diarrhea and left-sided neck pain. Patient states that for the past week he has had vomiting. He has had 7 persistent days of vomiting, initially multiple episodes per day, and now 1 episode every few hours with dry heaving. He has not been able to eat or keep anything down. He has also had 4 days of diarrhea, however this has been improving over the last 24 hours. Additionally the patient states that he developed some left-sided neck pain last night which she describes as a stabbing sensation. It is slightly improved since last night, but still mildly persistent. He denies any numbness or tingling vision changes or headache. Around the time that the neck sensation was severe he also had some pleuritic chest pain and diminished/shallow breathing during the evening at that time. At this time he denies any chest pain. He denies any cough. He denies any hematemesis or hematochezia. He denies any other complaints at this time. Exam demonstrates no abnormal lung sounds, no carotid bruits, no abdominal tenderness. There is evidence of a periumbilical hernia, but this is nontender nondistended not erythematous. Suspect the patient has an episode of gastroenteritis that initially brought about his symptoms, however pancreatitis is on the differential although does not drink alcohol. Diverticulitis unlikely. Symptoms appear inconsistent with acute mesenteric ischemia, or volvulus or obstruction given his persistent bowel movements. The neck pain and atypical chest sensation is also unexpected. However differential certainly does include aspiration pneumonia, less likely Boerhaave tear. Neck pain is concerning for carotid pathology, including dissection although this is unlikely. Unfortunately patient's renal function is notably poor, with a creatinine of 3 and a GFR of 21. Will evaluate for these concerning etiologies, but we will have to get an ultrasound of the neck for further assessment. Will get CT imaging of the chest and abdomen. 4:57 PM Laboratory workup has returned, patient's white count is 18.6, moderate left shift but no bandemia. Electrolytes demonstrate a mild hyponatremia, mild hypokalemia, slightly worsening renal function with a creatinine of 3. Lipase minimally elevated at 80, troponin normal. Transaminases normal. On reassessment patient feels improved. He continues to deny any abdominal pain or chest pain at this time. CT scan of the abdomen shows evidence of some fat-containing hernias, with mild stranding but he is notably nontender on palpation there. Carotid and vertebral artery ultrasound shows no evidence of dissection. He does have a small pericardial effusion, but no large pneumonia and no evidence of large infiltrate. No clear evidence of significant small bowel obstruction, additionally he is still having bowel movements. I do feel that the patient may be able to continue outpatient management. He has received a liter of lactated ringer, and is now getting a liter of normal saline for the hyponatremia. Will get a repeat basic metabolic panel once this in the potassium is done, will monitor closely and reassess. 8 PM Repeat evaluation demonstrates a normalized blood pressure at 130/60, moist mucous membranes, normal heart rate, afebrile, clinically the patient states he is feeling much better. He feels well and is requesting to go home. He is performed p.o. trial and has not had any vomiting whatsoever. Patient's electrolytes have improved, sodium is now 129, potassium 3.4, and creatinine has improved to 2.8. Calcium has decreased with all of the hydration. Calcium has decreased with all dehydration. I did discuss with the patient continued hydration, continued potassium replacement, calcium at this time patient states that he feels current and would prefer to go home. He is tolerating p.o. well, and will be able to take additional medications at home. He states he does not want any Zofran for nausea at home as this is notably diminished. I discussed the advantages of staying for continued IV hydration and continued electrolyte replacement he understands but politely declines. Understanding this will recommend the following for continued home management. Recommend drinking an electrolyte rich solution like Gatorade or Powerade daily for the next 2 or 3 days to help with the slightly low sodium. Recommend taking his oral potassium as prescribed, as well as eating a potassium rich diet for the next 2 or 3 days. For his low calcium will recommend eating a few Tums with each meal. And understanding that all of this is slightly less ideal, I have written a lab order form for outpatient electrolyte recheck. Will recommend that he gets these done just prior to seeing his primary care doctor within the next 48 to 72 hours. If his electrolytes are still off he will need to come back for further replacement. Patient understands this. Patient otherwise looks well, with no signs of dysrhythmia, altered mental status, severe weakness, or other abnormalities. Patient stable for discharge. Discussed red flags which to return. I have extensively reviewed the treatment plan and discharge instructions with the patient. I have addressed all patient concerns at this time. The patient was made aware of what symptoms to monitor for that would warrant a return to the emergency department. Discussed the plan with the patient, they demonstrate verbal understanding and agreement with our assessment and plan at this time. The documentation in this chart was dictated using Circle dictation software. Please excuse any dictation errors. FINDINGS: CHEST: LUNGS: There are mild benign-appearing increased markings in the left lower lobe posterior basal segment and inferior lingular segment of the left lung. There is a tiny amount of left pleural fluid versus mild pleural thickening.. No ominous lung masses. MEDIASTINUM: No obvious hilar nor mediastinal adenopathy. There is some circumferential mural thickening of the lower esophagus. No evidence of esophageal rupture nor pneumomediastinum (as per request). Small hiatal hernia. CARDIAC: Heart size is normal. There is a small pericardial effusion with maximum thickness 7-8 mm.The diameter of the ascending thoracic aorta is slightly prominent measuring 3.9 cm. Diameter of the aortic arch and descending thoracic aorta are are upper normal. OSSEOUS: No significant osseous lesions.No fractures.. ABDOMEN: ABDOMINAL WALL/GI: There are 2 adjacent anterior abdominal wall para-supraumbilical hernia sacs which contains mesenteric fat which exhibits some streaking but no fluid levels. There is a small bowel loop evident near the neck of 1 of these hernia sacs but not within the actual sac. Nevertheless, there does appear to be an element of transition point in the bowel diameter at this level with mildly dilated small bowel loops below this level. Also some mild mesenteric streaking at this level. No free air. No ascites.. LIVER: There are no obvious focal hepatic lesions evident of this noninfused study. GALLBLADDER/BILIARY: The gallbladder surgically absent. CBD is not dilated. PANCREAS: Pancreatic head is partially obscured by duodenal diverticulum. No evidence of pancreatic mass nor dilatation of the pancreatic duct. SPLEEN: Spleen is not enlarged. No obvious intrasplenic lesions. ADRENALS: There are no significant adrenal masses. KIDNEYS: The left kidney is atrophic. There are prominent calculi in the lower pole calyx of the left kidney, the largest measuring 1.7 cm size. There are no radiopaque calculi seen within the nondilated left ureter nor within the urinary bladder. There are no calculi in the opposite-right kidney. There is a benign cyst in the anterior cortex of the right kidney which measures 7 by 7 cm with a single mural calcification noted. No other significant focal findings in the right kidney and no hydronephrosis nor hydroureter.. Urinary bladder appears unremarkable. ABDOMINAL AORTA: Abdominal aorta is not enlarged. LYMPH NODES: There is no retroperitoneal nor para-aortic adenopathy. PELVIS: LYMPH NODES: There is no intrapelvic nor inguinal adenopathy. GI: No evidence of appendicitis.No evidence of sigmoid diverticulitis. URINARY BLADDER: No calculi nor obvious masses evident REPRODUCTIVE: Mildly enlarged prostate. Seminal vesicles unremarkable. No obturator adenopathy. OSSEOUS: No significant osseous lesions. IMPRESSION: 1. There is a small pericardial effusion evident. 2. There are 2 adjacent para-supra umbilical hernias which contain mesenteric fat which exhibits some streaking. There are no bowel loops within the hernia sacs but 1 small bowel loop is immediately adjacent to the neck of 1 of the hernia sacs and there are a few mildly dilated small bowel loop with some adjacent mesenteric streaking, consistent with an element of small bowel obstruction at this level. This probably explains the patient's vomiting 3. There is a small hiatal hernia and some circumferential thickening of the lower esophagus. Probable element of esophagitis. Should be further investigated with endoscopy. There is no evidence of pneumomediastinum, as per request. 4. Left kidney is atrophic and contains calculi. There are no calculi in the opposite-right kidney. However, there is a 7 cm cyst incidentally noted in the right kidney. Bosniak type 2, containing a mural calcification. 5. Left lower lobe and lingular segment findings as described above. Appropriate follow-up recommended if there is any recent history of aspiration. Findings discussed by phone with ER physician 04/22/2024 at 4:15 p.m. FINDINGS: CAROTID ARTERIES: There is only mild plaque at the level carotid bulbs and proximal internal carotid arteries. There are no elevated velocities. VERTEBRAL ARTERIES: Antegrade flow was demonstrated in both vertebral arteries.. Measurements: R Bulb: 77.6cm/s PS / 14.1cm/s ED R CCA: 84.3cm/s PS / 15.5cm/s ED R ECA: 88cm/s PS / 0cm/s ED R ICA Prox: 67.2cm/s PS / 16.7cm/s ED R ICA Mid: 84.7cm/s PS / 19.2cm/s ED R ICA Distal: 91.1cm/s PS /14cm/s ED R Vert: 58.7cm/s PS / 11.4cm/s ED R SVR: 1.1 R DVR: 0.9 L Bulb: 51.7cm/s PS / 15cm/s ED L CCA: 89.3cm/s PS / 17.8cm/s ED L ECA: 89.6cm/s PS / 0cm/s ED L ICA Prox: 65cm/s PS / 17.4cm/s ED L ICA Mid: 72.5cm/s PS / 19.9cm/s ED L ICA Distal: 89.7cm/s PS / 24.8cm/s ED L Vert: 61cm/s PS / 12.3cm/s ED L SVR: 1 L DVR: 1.4 IMPRESSION: Mild plaque. No elevated velocities. This implies that amount of stenosis in the carotid arteries is less than 50 percent bilaterally. Visually estimated amount of stenosis is less than 20 percent bilaterally. Antegrade flow is demonstrated in both vertebral arteries. Quality:SDOH Health Related Social Needs: Health related social needs inadequate housing(Z59.1) Health related social needs details all good PFSH All Active Problems (Updated 04/22/24 @ 19:36 by Rayray Jalloh DO) Hypocalcemia (Acute) Acute hypokalemia (Acute) Hyponatremia (Acute) Dehydration (Acute) Vomiting (Acute) Tubular adenoma (Acute ~02/01/23) Encounter for screening colonoscopy (Acute) Abdominal wall hernia (Acute 10/20/15) Abnormal renal function (Acute 04/11/13) Atrophic Left Kidney Nephrectomy Diabetes mellitus (Acute 10/07/12) Diverticulosis of colon without diverticulitis (Acute 06/17/12) Erectile dysfunction (Acute 04/13/14) Essential hypertension (Acute 04/10/13) Hemorrhoids (Acute 06/17/12) Kidney stone (Acute 04/11/13) Dysphagia (Acute) Eosinophilic esophagitis (Acute ~02/26/18) 02/26/18; DR. AYON Diabetic retinopathy (Acute) 04/22/18 [place]; MILD IN THE RIGHT EYE-kb Tinea pedis (Acute) Retention of urine (Acute) Urinary tract infection (Acute) Hyperlipidemia associated with type 2 diabetes mellitus (Acute) Screening for colon cancer (Acute) Obesity (Chronic) Medical History Obesity (BMI 30-39.9) Impaired renal function Essential hypertension DM (diabetes mellitus) Diverticulosis large intestine w/o perforation or abscess w/bleeding Surgical History 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 AYON; COLON POLYP;DIVERTICULOSIS; GRADE 2 HEMORRHOIDS Cholecystectomy Family History Mother , AGE 95 Hypertension Father , AGE 88 Hypertension Stroke Sister , 85 No problems noted. Brother , AGE 75 Crohn's disease Brother Melanoma Maternal Grandfather , AGE 74 Heart disease Paternal Grandfather , AGE 88 No problems noted. Maternal Grandmother , AGE 48 Heart disease Paternal Grandmother No problems noted. Son No problems noted. Son No problems noted. Social History Smoking/Tobacco Use Status: Never Second Hand Exposure: Yes Smoking risk assessment performed?: Yes Alcohol Intake: current Alcohol Intake frequency: holidays/special occasions only Alcohol type: beer and hard liquor Drug use: Never Substance use type: does not use Caregiver/Support person: No Household members: spouse Housing: house Communication Needs: None Do you need help understanding health information?: Never Pets and animals: Yes Pets and animals: dog(s) Sexually active: No Do you think of yourself as: straight/heterosexual Current gender identity: male What is your relationship status?: How often do you talk on the phone with friends or family?: once per week How often do you get together with friends or relatives?: once per week How often do you attend episcopalian or latter day services?: decline to answer Do you belong to any clubs or organized social groups?: no Panel score (0-1 are the most socially isolated patients): 1 What type of physical activity do you participate in: none Frequency: does not exercise Tamiko/Alevism: None Special tamkio needs: No Seatbelt use: always Helmet use: Yes Helmet use: sometimes Drive intox or ride w/intox 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
--- NOTE | 2024-04-22 15:00 | DI.CT_ITS ---
Exam(s) CT CHEST/ABD/PEL WO EXAM: CT CHEST/ABD/PEL WO CLINICAL HISTORY: Retching, vomiting, rule out Boerhaave's. TECHNIQUE: Imaging Protocol: Axial computed tomography images with coronal and sagittal reformatted images were created and reviewed CONTRAST MATERIAL: Intravenous: none Oral: None COMPARISON: CR ABDOMEN FLAT PLATE from 09/03/2013 FINDINGS: CHEST: LUNGS: There are mild benign-appearing increased markings in the left lower lobe posterior basal segm ent and inferior lingular segment of the left lung. There is a tiny amount of left pleural fluid danni sandra mild pleural thickening.. No ominous lung masses. MEDIASTINUM: No obvious hilar nor mediastinal adenopathy. There is some circumferential mural thicken ing of the lower esophagus. No evidence of esophageal rupture nor pneumomediastinum (as per request) . Small hiatal hernia. CARDIAC: Heart size is normal. There is a small pericardial effusion with maximum thickness 7-8 mm.T he diameter of the ascending thoracic aorta is slightly prominent measuring 3.9 cm. Diameter of the aortic arch and descending thoracic aorta are are upper normal. OSSEOUS: No significant osseous lesions.No fractures.. ABDOMEN: ABDOMINAL WALL/GI: There are 2 adjacent anterior abdominal wall para-supraumbilical hernia sacs which contains mesenteri c fat which exhibits some streaking but no fluid levels. There is a small bowel loop evident near th e neck of 1 of these hernia sacs but not within the actual sac. Nevertheless, there does appear to b e an element of transition point in the bowel diameter at this level with mildly dilated small bowel loops below this level. Also some mild mesenteric streaking at this level. No free air. No ascites .. LIVER: There are no obvious focal hepatic lesions evident of this noninfused study. GALLBLADDER/BILIARY: The gallbladder surgically absent. CBD is not dilated. PANCREAS: Pancreatic head is partially obscured by duodenal diverticulum. No evidence of pancreatic mass nor dilatation of the pancreatic duct. SPLEEN: Spleen is not enlarged. No obvious intrasplenic lesions. ADRENALS: There are no significant adrenal masses. KIDNEYS: The left kidney is atrophic. There are prominent calculi in the lower pole calyx of the lef t kidney, the largest measuring 1.7 cm size. There are no radiopaque calculi seen within the nondila brendon left ureter nor within the urinary bladder. There are no calculi in the opposite-right kidney. There is a benign cyst in the anterior cortex of the right kidney which measures 7 by 7 cm with a sin gle mural calcification noted. No other significant focal findings in the right kidney and no hydron ephrosis nor hydroureter.. Urinary bladder appears unremarkable. ABDOMINAL AORTA: Abdominal aorta is not enlarged. LYMPH NODES: There is no retroperitoneal nor para-aortic adenopathy. PELVIS: LYMPH NODES: There is no intrapelvic nor inguinal adenopathy. GI: No evidence of appendicitis.No evidence of sigmoid diverticulitis. URINARY BLADDER: No calculi nor obvious masses evident REPRODUCTIVE: Mildly enlarged prostate. Seminal vesicles unremarkable. No obturator adenopathy. OSSEOUS: No significant osseous lesions. IMPRESSION: 1. There is a small pericardial effusion evident. 2. There are 2 adjacent para-supra umbilical hernias which contain mesenteric fat which exhibits some streaking. There are no bowel loops within the hernia sacs but 1 small bowel loop is immediately ad jacent to the neck of 1 of the hernia sacs and there are a few mildly dilated small bowel loop with s ome adjacent mesenteric streaking, consistent with an element of small bowel obstruction at this leve l. This probably explains the patient's vomiting 3. There is a small hiatal hernia and some circumferential thickening of the lower esophagus. Probab le element of esophagitis. Should be further investigated with endoscopy. There is no evidence of p neumomediastinum, as per request. 4. Left kidney is atrophic and contains calculi. There are no calculi in the opposite-right kidney. However, there is a 7 cm cyst incidentally noted in the right kidney. Bosniak type 2, containing a mural calcification. 5. Left lower lobe and lingular segment findings as described above. Appropriate follow-up recommen ded if there is any recent history of aspiration. Findings discussed by phone with ER physician 04/22/2024 at 4:15 p.m. RADIATION DOSE DELIVERED: 891.75mGy.cm Total DLP DATA REPOSITORY: All CT scans at this facility are submitted to the National Radiology Data Registry (NRDR) Dose Index Registry (DIR) with the [employer] ([employer]). RADIATION OPTIMIZATION: All CT scans at this facility use at least one of these dose optimization te chniques: automated exposure control; mA and/or kV adjustment per patient size (includes targeted exa ms where dose is matched to clinical indication); or iterative reconstruction.
[2024-04-22 15:02] LABS: ALT 23 U/L (16-63); AST 19 U/L (15-37); Albumin 3.4 g/dL (3.4-5.0); Alkaline Phosphatase 64 U/L (46-116); Anion Gap 12.1 mmol/L (3-11); BUN 56 mg/dL (7-18); Bilirubin, Total 1.09 mg/dL (0.2-1.0); CO2 24.9 mmol/L (21.0-32.0); Chloride 89 mmol/L (98-107); Glucose 163 mg/dL (74-106); Lipase 80 U/L (<78); Potassium 3.3 mmol/L (3.5-5.1); Sodium 126 mmol/L (136-145); Total Protein 7.5 g/dL (6.4-8.2); Troponin I 8 ng/L (<or=76)
[2024-04-22 15:07] LABS: Calcium 7.6 mg/dL (8.5-10.1)
[2024-04-22 15:39] LABS: Troponin I 7 ng/L (<or=76)
--- NOTE | 2024-04-22 15:45 | DI.US_ITS ---
Exam(s) US CAROTID EXAM: US CAROTID CLINICAL HISTORY: Attention left carotid for dissection. TECHNIQUE: Ultrasound carotids performed using grayscale, color-flow, and spectral Doppler imaging. COMPARISON: US RENAL ULTRASOUND(P) from 09/15/2013 FINDINGS: CAROTID ARTERIES: There is only mild plaque at the level carotid bulbs and proximal internal carotid arteries. There a re no elevated velocities. VERTEBRAL ARTERIES: Antegrade flow was demonstrated in both vertebral arteries.. Measurements: R Bulb: 77.6cm/s PS / 14.1cm/s ED R CCA: 84.3cm/s PS / 15.5cm/s ED R ECA: 88cm/s PS / 0cm/s ED R ICA Prox: 67.2cm/s PS / 16.7cm/s ED R ICA Mid: 84.7cm/s PS / 19.2cm/s ED R ICA Distal: 91.1cm/s PS /14cm/s ED R Vert: 58.7cm/s PS / 11.4cm/s ED R SVR: 1.1 R DVR: 0.9 L Bulb: 51.7cm/s PS / 15cm/s ED L CCA: 89.3cm/s PS / 17.8cm/s ED L ECA: 89.6cm/s PS / 0cm/s ED L ICA Prox: 65cm/s PS / 17.4cm/s ED L ICA Mid: 72.5cm/s PS / 19.9cm/s ED L ICA Distal: 89.7cm/s PS / 24.8cm/s ED L Vert: 61cm/s PS / 12.3cm/s ED L SVR: 1 L DVR: 1.4 IMPRESSION: Mild plaque. No elevated velocities. This implies that amount of stenosis in the carotid arteries i s less than 50 percent bilaterally. Visually estimated amount of stenosis is less than 20 percent bi laterally. Antegrade flow is demonstrated in both vertebral arteries. Criteria for Carotid Stenosis: Normal: ICA PSV <125 cm/s no plaque or intimal thickening is visible. <50% stenosis: ICA PSV <125 cm/s and plaque or intimal thickening is visible. 50-69% stenosis: ICA PSV is 125-250 cm/s and plaque is visible. >70% stenosis to near occlusion: ICA PSV >250 cm/s with visible plaque and luminal narrowing. DATA REPOSITORY:
[2024-04-22] MEDS: Normal Saline 1,000 ML 1000 ML IV (16:17)
[2024-04-22] MEDS: POTASSIUM CHLORIDE 20 MEQ/100 ML BAG 50 MEQ IV_INF (16:18)
[2024-04-22 18:38] LABS: Lab Add On Test DONE
[2024-04-22 18:41] LABS: Anion Gap 9.5 mmol/L (3-11); BUN 54 mg/dL (7-18); CO2 24.5 mmol/L (21.0-32.0); CREATININE 2.8 mg/dL (0.70-1.30); Calcium 7.1 mg/dL (8.5-10.1); Chloride 95 mmol/L (98-107); Estimated GFR 23.24 (mL/min/1.73m2); Glucose 129 mg/dL (74-106); Potassium 3.4 mmol/L (3.5-5.1); Sodium 129 mmol/L (136-145)
[2024-04-22 19:00] LABS: Magnesium 1.6 mg/dL (1.8-2.4)
== END 2024-04-22 19:41 | disposition home or self-care (01) ==
PROVIDERS: Emergency Provider Student in an Organized Health Care Education/Training Program; PCP Family Medicine
DX: E87.1 Hypo-osmolality and hyponatremia (principal); E86.0 Dehydration; E87.6 Hypokalemia; E83.51 Hypocalcemia; E11.9 Type 2 diabetes mellitus without complications; I10 Essential (primary) hypertension; E78.00 Pure hypercholesterolemia, unspecified
CPT/HCPCS: 36415; 71250; 80048; 80053; 83690; 93005; 96361; 96365; 96366; 99285; 74176; 83735; 84484; 85025; 93010; 93880; J3480

== ENCOUNTER 2024-04-28 12:18 | Outpatient (CLI) | payer MEDICARE, SELFPAY ==
[2024-04-28 12:04] LABS: Abs Immature Grans 0.06 10^3/uL (0.0-0.06); Absolute Basophil Count 0.04 10^3/uL (0.0-0.2); Absolute Eosinophil Count 0.03 10^3/uL (0.0-0.7); Absolute Monocyte Count 0.75 10^3/uL (0.1-0.8); Absolute Neutrophil Count 7.68 10^3/uL (1.2-6.7); Basophils % 0.4 %; Eosinophils % 0.3 %; HCT 37.5 % (40.0-50.0); HGB 13.2 g/dL (13.5-17.5); Immature Grans % 0.6 %; Lymphocytes % 10.5 %; MCH 31.3 pg (27.0-33.0); MCHC 35.2 % (32.0-36.0); MCV 89 fL (80-95); MPV 8.4 fL (8.0-11.0); Monocytes % 7.8 %; Neutrophils % 80.4 %; Platelet Count 232 10^3/uL (130-400); RBC 4.22 10^6/uL (4.36-5.78); RDW 12.3 % (11.8-14.1); RDW-SD 39.6 fL; WBC 9.56 10^3/uL (4.4-10.8)
--- OUTSIDE RECORDS SUMMARY | 2024-04-28 12:20 | XMS_ITS | Encounter Summary ---
Author Organization [facility] Address [address] [place] [id number] Care Team Providers Care Internal Medicine Physician Name Role Phone Maurizio Nathan MD Primary Care Provider [phone] Encounter Details Date Type Department Care Team (Latest Contact Info) Description 02/26/2018 14:11 EDT - 02/26/2018 23:59 EDT Hospital Encounter [address] [id number] Unknown, Provider, MD Discharge Disposition: Home or Self Care Social History Tobacco Use Types Packs/Day Years Used Date Smoking Tobacco: Never Assessed Sex and Gender Information Value Date Recorded Sex Assigned at Not on file Legal Sex Male 18:26 EST Gender Identity Not on file Sexual Orientation Not on file documented as of this encounter Discharge Disposition Disposition Code Departure Means Destination Home or Self Half-Way documented in this encounter Plan of Treatment Not on file documented as of this encounter Visit Diagnoses Not on filedocumented in this encounter Care Teams Internal Medicine Physician Relationship Specialty Start Date End Date Maurizio Nathan MD [address] [place] [id number] PCP - General 06/12/12 02/28/18 documented as of this encounter
--- OUTSIDE RECORDS SUMMARY | 2024-04-28 12:20 | XMS_ITS | Encounter Summary ---
Author Organization [facility] Address [facility] [place] [address] Care Team Providers Care Manager Planning Name Role Phone Timmy Iglesias MD Primary Care Provider [phone] Reason for Visit * Auth/Cert Specialty Diagnoses / Procedures Referred By Contsamra t Referred To Contact Diagnoses EE (IVCS) Procedures PRO UPPER GI ENDOSCOPY, DIAGNOSTIC EGD, UPPER GI ENDOSCOPY Referral ID Status Reason Start Date Expiration Date Visits Re quested Visits Authorized [id number] 1 1 Encounter Details Date Type Department Care Team (Late st Contact Info) Description 06/20/2018 11:30 AM EST - 06/20/2018 12:00 PM EST Surgery [place] [address] Filiberto Brambila MD [facility] [place] [address] EGD WITH BIOPSY (WRVU 2.39) Social History Tobacco Use Types Packs/Day Years Used Date Smoking Tobacco: Never Smokeless Tobacco: Never Comments:per MD office note 7.22.11 Alcohol Use Standard Drinks/Week Comments Yes 0 (1 standard drink = 0.6 oz pur e alcohol) 1X/month Sex and Gender Information Value Date Recorded Sex Assigned at Not on file Gender Identity Not on file Sexual Orientation Not on file documented as of this encounter Last Filed Vital Signs Vital Sign Reading Time Taken Comments Blood Pressure 136/80 06/20/2018 12:00 PM EST Pulse 62 06/20/2018 11:30 AM EST Temperature 36.6 ??C (97.9 ??F) 06/20/2018 10:[address] Respiratory Rate 16 06/20/2018 12:00 PM EST Oxygen Saturation 93% 06/20/2018 12:00 PM EST Inhaled Oxygen Concentration - - Weight - - Height - - Body Mass Index - - documented in this encounter Discharge Instructions * Discharge Instructions* Natasha Rocha RN - 06/20/2018 11:46 AM EST UPPER GI ENDOSCOPY WHAT TO EXPECT AFTER THE PROCEDURE After the test you may feel a little more gassy or bloated than usual, this is normal. ACTIVITY Because of the sedation that you received Your judgement and reaction time are affected ?? Go home and rest quietly for the remainder of the day. You may resume your normal activities tomorrow. ?? Change from one position to the next slowly. You may lose your balance unexpectedly Be careful on stairs, as you may be unsteady on your feet. FOR THE NEXT 24 HRS ?? DO NOT DRIVE OR OPERATE ANY MACHINERY ?? DO NOT DRINK ALCOHOLIC BEVERAGES ?? DO NOT SIGN LEGAL DOCUMENTS ?? If you are a smoker: DO NOT SMOKE WHILE YOU ARE ALONE Diet ?? Start by eating small portions of foods that ordinarily will not upset your stomach. Be gentle with what you choose to start with. ?? Drink plenty of fluids ( unless otherwise told not to) Medications You may have a mild sore throat. Ice chips, popsicles, over the counter throat lozenges or spray may help numb your throat. This procedure should not cause a fever. IV SITE-- slight redness or tenderness is normal, you can use warm compresses if you get concerned.If the tenderness +/or redness increases or foul drainage and a red streak occurs, please contact your PCP immediately. WHEN SHOULD YOU CALL FOR HELP? Call 911 anytime you think that you need emergency care. For example, call if: You passed out (lost consciousness). You cough up blood. You vomit blood or what looks like coffee grounds. You pass maroon or very bloody stools. Call your healthcare provider or seek immediate medical attention if: You have trouble swallowing. You have belly pain. Your stools are black or tarlike or have streaks of blood. You are sick to your stomach or cannot keep fluids down. Watch closely for changes in your health, and be sure to contact your doctor IF Your throat still hurts after a day or two You do not get better as expected. Sunday-Sunday Same Day Endo [phone] 7a-8p Otherwise contact [phone] and ask to speak to the assistant professor of biology service station operator Follow-up care is a matos part of your treatment and safety. Be sure to make and go to all appointments, and call your doctor if you are having problems. Instructions have been reviewed and patient expresses understanding documented in this encounter Medications at Time of Discharge Medication Sig Dispensed Refills Start Date End Date lisinopril (PRINIVIL;ZESTRIL) 20 mg tabletIndications:HTN (hypertension) Take 2 tablets by mouth daily. 180 tablet 3 04/01/2013 potassium chloride SA (K-DUR;KLOR-CON) 20 mEq tabletIndications:Hypok alemia Take 1 tablet by mouth daily. 90 tablet 2 12/27/2011 amlodipine (NORVASC) 5 mg tablet Take by mouth. TAKE 5MG IN THE AM AND 10 MG IN THE PM 270 tablet 3 06/23/2011 doxazosin (CARDURA) 2 mg tablet Take 4 tablets by mouth nightly. 120 tablet 4 04/13/2011 metoprolol succinate (TOPROL-XL) 50 mg 24 hr tablet Take 75 mg by mouth daily. aspirin 81 mg EC tablet Take 81 mg by mouth daily. multivitamin with minerals (THERA-M) 9-0.4 mg tablet Take 1 tablet by mouth daily. chlorthalidone (HYGROTEN) 50 mg tabletIndications:HTN (hypertension) Take 0.5 tablets by mouth daily. 90 tablet 3 04/01/2013 omeprazole (PRILOSEC) 40 mg Capsule, Delayed Release(E.C.) Take 1 capsule by mouth daily. 30 capsule 11 05/09/2018 11/26/2018 documented as of this encounter H&P Notes * Filiberto Brambila MD - 06/20/2018 10:46 AM EST Gastroenterology and Hepatology Pre-Procedure History and Physical Exam Procedure: Colonoscopy: EGD Indication: eoe screen Patient Active Problem List Diagnosis Code ??? HTN (hypertension) I10 ??? CKD (chronic kidney disease) N18.9 ??? DMII (diabetes mellitus, type 2) E11.9 ??? Nephrolithiasis N20.0 EXAM: HEENT: Airway examined, oropharynx clear Mallampati Score: II (soft palate, uvula, fauces visible) LUNGS: Clear to auscultation HEART: Regular rate and rhythm, normal S1, S2 ABDOMEN: Normal bowel sounds, soft, non tender, non distended, A/P Proceed with the planned endoscopic procedure. ASA 2 - Patient with mild systemic disease with no functional limitations Sedation Plan: moderate (conscious sedation) Risks and benefits of the procedure explained to the patient. Consent signed. documented in this encounter Plan of Treatment Not on file documented as of this encounter Procedures Procedure Name Priority Date/Time Associated Diagnosis Comments SURGICAL PATHOLOGY REPORT Routine 06/20/2018 11:31 AM EST SPECIMEN TO PATHOLOGY Routine 06/20/2018 11:31 AM EST SPECIMEN TO PATHOLOGY Routine 06/20/2018 11:31 AM EST SPECIMEN TO PATHOLOGY Routine 06/20/2018 11:31 AM EST SPECIMEN TO PATHOLOGY Routine 06/20/2018 11:31 AM EST SPECIMEN TO PATHOLOGY Routine 06/20/2018 11:31 AM EST SPECIMEN TO PATHOLOGY Routine 06/20/2018 11:31 AM EST EGD,WITH DILATION ESOPHAGUS WITH BALLOON,< 30 MM (WRVU 2.67) 06/20/2018 11:02 AM EST EE (eosinophilic esophagitis) EGD WITH BIOPSY (WRVU 2.39) 06/20/2018 11:02 AM EST EE (eosinophilic esophagitis) UPPER GI ENDOSCOPY Routine 06/20/2018 10 :56 AM EST documented in this encounter Results * Surgical Pathology Report (06/20/2018 11:31 AM EST) Final Diagnosis [id number] ? Location: 4T; EA11; A The signing pathologist has (i) examined the relevant preparation(s) for the specimen(s) and (ii) rendered or confirmed the diagnosis(es). . ?Surgical Pathology DIAGNOSIS A - 38 cm, biopsy: - Oxyntocardiac mucosa negative for intestinal metaplasia. B - Esophagus 35 cm, biopsy: - Armas's esophagus, negative for dysplasia. C - Esophagus 33 cm, biopsy: - Armas's esophagus, negative for dysplasia. D - Esophagus 30 cm, biopsy: - Armas's esophagus, negative for dysplasia. E - Esophagus 28 cm, biopsy: - Armas's esophagus, negative for dysplasia. F - Esophagus, biopsy: - ??Squamous mucosa negative for diagnostic abnormality. - A small fragment of ?? Armas's esophagus, negative for dysplasia (contaminant?). Electronically signed by: ??Isiah Storm MD Verified: ??06/24/2018 ?Pathologist Performed at: ??-[facility] [place] [facility] [place], [place], [place] CLINICAL INFORMATION Specimen Submitted: A - 38 cm biopsies B - 35 cm esophageal biopsies C - 33 cm esophageal biopsies D - 30 cm esophageal biopsies E - 28 cm esophageal biopsies F - Esophageal bx's Clinical History and Diagnosis: Normal-appearing mid/proximal esophagus; R/O EOE SPECIMEN PROCESSING A - Labeled/Fixative: 38 cm biopsies, formalin. Quantity/Size: Five, ranging from 0.2-0.4 cm. Tissue Description: Soft, red tissues. Sections/Processi ng: Submitted en toto ??in 1 cassette labeled A1. B - Labeled/Fixative: 35 cm esophageal biopsies, formalin. Quantity/Size: Multiple, averaging 0.2 cm. Tissue Description: Soft, red tissues. Sections/Processi ng: Submitted en toto ??in 2 cassettes labeled B1-B2. C - Labeled/Fixative: 33 cm esophageal biopsies, formalin. Quantity/Size: Multiple, averaging 0.3 cm. Tissue Description: Soft, red tissues. Sections/Processi ng: Submitted en toto ??in 2 cassettes labeled C1-C2. . SPECIMEN PROCESSING D - Labeled/Fixative: 30 cm esophageal biopsies, formalin. Quantity/Size: Multiple, ranging from 0.1-0.3 cm. Tissue Description: Soft, red tissues. Sections/Processi ng: Submitted en toto ??in 2 cassettes labeled D1-D2. E - Labeled/Fixative: 28 cm esophageal biopsies, formalin. Quantity/Size: Multiple, ranging from 0.1-0.3 cm. Tissue Description: Soft, red tissues. Sections/Processi ng: Submitted en toto ??in 3 cassettes labeled E1-E3. F - Labeled/Fixative: Esophageal BX, formalin. Quantity/Size: Four, averaging 0.4 cm. Tissue Description: Soft, white tissues. Sections/Processi ng: Submitted en toto ??in 1 cassette labeled F1. ??sns 06/24/2018 2:40 PM EST [facility] GI Biopsy 06/20/2018 11:3 1 AM EST 06/20/2018 11:31 AM EST GI Biopsy 06/20/2018 11:3 1 AM EST 06/20/2018 11:31 AM EST GI Biopsy 06/20/2018 11:3 1 AM EST 06/20/2018 11:31 AM EST GI Biopsy 06/20/2018 11:3 1 AM EST 06/20/2018 11:31 AM EST GI Biopsy 06/20/2018 11:3 1 AM EST 06/20/2018 11:31 AM EST GI Biopsy 06/20/2018 11:3 1 AM EST 06/20/2018 11:31 AM EST Filiberto Brambila MD PATHOLOGY/CYTOLOGY O RDERABLES [facility] [place] [place] [address] * Specimen to Pathology (06/20/2018 11:31 AM EST) AP Specimen 06/20/2018 11:3 1 AM EST 06/20/2018 11:31 AM EST Narrative [facility] - 06/20/2018 11:31 AM EST Specimen requisition ordered. ??Separate Pathology report to follow Filiberto Brambila MD PATHOLOGY/[place] [address] * Specimen to Pathology (06/20/2018 11:31 AM EST) AP Specimen 06/20/2018 11:3 1 AM EST 06/20/2018 11:31 AM EST Narrative [facility] - 06/20/2018 11:31 AM EST Specimen requisition ordered. ??Separate Pathology report to follow Filiberto Brambila MD PATHOLOGY/[place] [address] * Specimen to Pathology (06/20/2018 11:31 AM EST) AP Specimen 06/20/2018 11:3 1 AM EST 06/20/2018 11:31 AM EST Narrative [facility] - 06/20/2018 11:31 AM EST Specimen requisition ordered. ??Separate Pathology report to follow Filiberto Brambila MD PATHOLOGY/CYTOLOGY O CEZAR Performing Organization Address City/[facility]/[place] [address] * Specimen to Pathology (06/20/2018 11:31 AM EST) AP Specimen 06/20/2018 11:3 1 AM EST 06/20/2018 11:31 AM EST Narrative [facility] - 06/20/2018 11:31 AM EST Specimen requisition ordered. ??Separate Pathology report to follow Filiberto Brambila MD PATHOLOGY/[place] [address] * Specimen to Pathology (06/20/2018 11:31 AM EST) AP Specimen 06/20/2018 11:3 1 AM EST 06/20/2018 11:31 AM EST Narrative [facility] - 06/20/2018 11:31 AM EST Specimen requisition ordered. ??Separate Pathology report to follow Filiberto Brambila MD PATHOLOGY/CYTOLOGY O CEZAR Performing Organization Address [facility] [place] [address] * Specimen to Pathology (06/20/2018 11:31 AM EST) AP Specimen 06/20/2018 11:3 1 AM EST 06/20/2018 11:31 AM EST Narrative [facility] - 06/20/2018 11:31 AM EST Specimen requisition ordered. ??Separate Pathology report to follow Filiberto Brambila MD PATHOLOGY/CYTOLOGY O CEZAR Performing Organization Address [facility] [place] [address] * UPPER GI ENDOSCOPY (06/20/2018 10:56 AM EST) UPPER GI ENDOSCOPY [facility] ___ Procedure Date: 06/20/2018 10:56 AM ? Patient Name: Manuel Crystal ? N: [id number] ? Date of : 1950 ? Age: 68 ? Order #: [id number] ? Instrument Name: [id number] ? ___ Procedure: ? Upper GI endoscopy Indications: ? Pt with h/o esophageal stricture ? dilated and EoE, now on PPI and Asx Providers: ? Filiberto Brambila MD, Lesley Suarez, ? JEAN PAUL, Edinson Lindsay MD: ?Timmy Iglesias MD, Tracia ? MD Misael Medicines: ? Midazolam 4 mg IV, Fentanyl 150 ? micrograms IV Complications: ? No immediate complications. ___ Procedure: ? The procedure, indications, benefits, ? risks and alternatives were explained ? to the patient. Specifically ? discussed were potential ? complications including, but not ? limited to, bleeding, perforation, ? infection, missing a cancer, and ? adverse medication reactions. The ? Endoscope was introduced through the ? mouth, and advanced to the third part ? of duodenum. The patient tolerated ? the procedure well. The upper GI ? endoscopy was accomplished without ? difficulty. The patient tolerated the ? procedure well. ? Findings: ? A medium-sized hiatal hernia was present from 38-44 ? cm. ? One benign-appearing, intrinsic ring like stenosis ? was found 26 cm from the incisors just above a long ? segment of Armas's. This did not offer any ? resistance to the passage of the scope.. The stenosis ? was traversed. A TTS dilator was passed through the ? scope. Dilation with a 15-16.5-18 mm balloon dilator ? was performed to 15 mm. This dilated the stenosis ? creating a small confined mucosal disruption. ? The esophagus and gastroesophageal junction were ? examined with white light. There were esophageal ? mucosal changes suspicious for long-segment Armas's ? esophagus. These changes involved the mucosa at the ? upper extent of the gastric folds (38 cm from the ? incisors) extending to the Z-line (26 cm from the ? incisors). The maximum longitudinal extent of these ? esophageal mucosal changes was 12 cm in length. ? Mucosa was biopsied with a cold forceps for histology ? in 4 quadrants 8 bx at each site at intervals of 2 cm ? at 28, 30, 33, 35 and 38 cm from the incisors. A ? total of 5 specimen bottles were sent to pathology. ? The normal appearing mid and proximal esophagus was ? biopsied to r/o EoE ? The stomach was normal. ? The examined duodenum was normal. ? Moderate Sedation: ? I was present during the intraservice time as ? documented by the sedation RN. Impression: ?- Medium-sized hiatal hernia. ? - Benign-appearing esophageal ? stenosis. Dilated to 15 mm. ? - Esophageal mucosal changes ? suspicious for long-segment Armas's ? esophagus. Biopsied. ? - Normal stomach. ? - Normal examined duodenum. Recommendation: ?- Await pathology results. ? Continue PPI ? Attending Participation: ? I personally performed the entire procedure. ? Filiberto Brambila MD 06/20/2018 11:46:34 AM This report has been signed electronically. Number of Addenda: 0 Note Initiated On: 06/20/2018 10:56 AM PROVATION 06/20/2018 10:5 6 AM EST Timmy Iglesias MD GENERAL SURGICAL ORDERABLES PROVATION documented in this encounter Visit Diagnoses Diagnosis EE (eosinophilic esophagitis) Eosinophilic esophagitis documented in this encounter Administered Medications Inactive Administered Medications - up to 3 most recent administrations Medication Order MAR Action Action Date Dose Rate Site fentaNYL 50 mcg/mL multi-dose injection ONCE PRN, Starting on Esperanza 06/20/18 at 1106, Until Es[place]anza 06/20/18 at 1418, Intra-Operative (Intra-Procedure), Routine Given 06/20/2018 11:14 AM EST 50 mcg Right Arm Given 06/20/2018 11:10 AM EST 50 mcg R ight Arm Given 06/20/2018 11:06 AM EST 50 mcg R ight Arm midazolam (PF) (VERSED) multi-dose injection ONCE PRN, Starting on [place]anza 06/20/18 at 1106, Until [place] 06/20/18 at 1418, Intra-Operative (Intra-Procedure), Routine Given 06/20/2018 11:24 AM EST 0.5 mg Righ t Arm Given 06/20/2018 11:20 AM EST 0.5 mg R ight Arm Given 06/20/2018 11:13 AM EST 1 mg R ight Arm documented in this encounter Active and Recently Administered Medications Times are shown in EST. PRN Medication Order 06/18/2018 06/19/2018 06/20/2018 fentaNYL 50 mcg/mL multi-dose injection (CANCELED) ONCE PRN, Starting on [place] 06/20/18 at 1106, Until [place] 06/20/18 at 1418, Intra-Operative (Intra-Procedure), Routine 1106 (Given - Provid er: Lesley Suarez RN)1110 (Given - Provider: Lesley Suarez RN)1114 (Given - Provider: Lesley Suarez RN) midazolam (PF) (VERSED) multi-dose injection (CANCELED) ONCE PRN, Starting on [place] 06/20/18 at 1106, Until [place] 06/20/18 at 1418, Intra-Operative (Intra-Procedure), Routine 1106 (Given - Provid er: Lesley Suarez RN)1110 (Given - Provider: Lesley Suarez RN)1113 (Given - Provider: Lesley Suarez RN)1120 (Given - Provider: Lesley Suarez RN)1124 (Given - Provider: Lesley Suarez RN) documented in this encounter Care Teams Manager Planning Relationship Specialty Start Date End Date Timmy Iglesias MD [address] [place] [address] PCP - General Family Medicine 05/09/18 documented as of this encounter
--- OUTSIDE RECORDS SUMMARY | 2024-04-28 12:20 | XMS_ITS | Encounter Summary ---
[place] [address] Care Team Providers Care Rod Cup Filler Name Role Phone Timmy Iglesias MD Primary Care Provider [phone] Reason for Visit * Reason Onset Date Comments Medication Refill 11/26/2018 Encounter Details Date Type Department Care Team (Late st Contact Info) Description 11/26/2018 Refill [place] [id number] Paloma Montesinos CMA Social History Tobacco Use Types Packs/Day Years [...] on file documented as of this encounter Plan of Treatment Not on file documented as of this encounter Visit Diagnoses Not on filedocumented in this encounter Care Teams Rod Cup Filler Relationship Specialty Start Date End Date Timmy Iglesias MD [address] [place] [address] [address] [place] [address] PCP - General Family Medicine 05/09/18 documented as of this encounter
--- OUTSIDE RECORDS SUMMARY | 2024-04-28 12:20 | XMS_ITS | Encounter Summary ---
Author Organization [facility] [place] [address] Care Team Providers Care Litigation Support Analyst Name Role Phone Maurizio Daniel MD Primary Care Provider [phone] Encounter Details Date Type Department Care Team (Late st Contact Info) Description 04/01/2013 1:30 PM EST Follow-Up [place] [id number] Poncho Wilkinson MD Graber, Martha L, MD CKD (chronic kidney disease); Nephrolithiasis; HTN (hypertension) Discharge Disposition: Home Social History Tobacco Use Types Packs/Day Years Used Date Smoking Tobacco: Never Comments:per MD office note 7.22.11 Alcohol Use Standard Drinks/Week Comments Not Asked 0 (1 standard drink = 0.6 oz pur e alcohol) Sex and Gender Information Value Date Recorded Sex Assigned at Not on file Gender Identity Not on file Sexual Orientation Not on file documented as of this encounter Last Filed Vital Signs Vital Sign Reading Time Taken Comments Blood Pressure 166/98 04/01/2013 1:42 PM EST Pulse 75 04/01/2013 1:42 PM EST Temperature - - Respiratory Rate - - Oxygen Saturation - - Inhaled Oxygen Concentration - - Weight 119.7 kg (264 lb) 04/01/2013 1:42 PM EST Height - - Body Mass Index 33.9 12/26/2011 2:33 PM EDT documented in this encounter Progress Notes * David Ortiz MD - 04/12/2013 11:00 AM EST The patient was examined together with the renal fellow and I agree with his ecellent note which accurately reflects our findings and assessment * Poncho Wilkinson MD - 04/01/2013 1:57 PM EST [facility] Nephrology/Hypertension Follow Up Manuel Crystal [id number] 1950 ID: 62 y.o. male for Hypertension PAST MEDICAL HX: 1. HTN -for last >15 yrs, difficult to control 2. DM for >10 yrs -diet controlled -no retinopathy, neuropathy, gastroparesis 3. Kidney stone-recent stone removal 4. Obesity 5. Presumed Hemochromatosis -used to have phlebotomies in the past 6. CKD stage 3 -likely from HTN, obstructive uropathy Subjective: Doing well overall, no new complaints. BP at home ~ 145/85. Diabetes is well controlled. Following low salt diet but eating more and has gained some weight. Denies nausea, vomiting, abdominal pain, hematuria, dysuria, or other LTUS ROS: -no fever, chills, night sweats -no headache, blurring of vision, diplopia -no dysphagia, hearing problems -no chest pain, palpitation, no CARDONA, orthopnea -no cough or SOB -no abdominal pain, nausea, vomiting or diarrhea -no LE swelling Medications: Prior to Admission medications Medication Sig Start Date End Date Taking? Authorizing Provider potassium chloride SA (K-DUR;KLOR-CON) 20 mEq tablet Take 1 tablet by mouth daily. 12/27/11 Yes Poncho Wilkinson MD amlodipine (NORVASC) 5 mg tablet Take by mouth. TAKE 5MG IN THE AM AND 10 MG IN THE PM 06/23/11 Yes Shiva Hylton MD doxazosin (CARDURA) 2 mg tablet Take 4 tablets by mouth nightly. 04/13/11 Yes Shiva Hylton MD metoprolol succinate (TOPROL-XL) 50 mg 24 hr tablet Take 75 mg by mouth daily. Yes Peter Thakkar MD lisinopril-hydrochlorothiazide (ZESTORETIC) 20-25 mg per tablet Take 1 tablet by mouth daily. Yes Peter Thakkar MD lisinopril (PRINIVIL;ZESTRIL) 20 mg tablet Take 20 mg by mouth daily. Yes ProviderPeter MD sildenafil (VIAGRA) 25 mg tablet Take 25 mg by mouth as needed. Yes Peter Thakkar MD aspirin 81 mg EC tablet Take 81 mg by mouth daily. Yes Provider, MD Peter multivitamin with minerals (THERA-M) 9-0.4 mg tablet Take 1 tablet by mouth daily. Yes Provider, MD Peter Allergies / ADRs: No Known Allergies PHYSICAL EXAM: Filed Vitals: 04/01/13 1342 BP: 166/98 Pulse: 75 Gen - AAO x 3 in NAD Skin - No rash, no lesions HEENT - MMM Chest: Lungs clear to auscultation, no wheezes/ rhonchi/ crackles. Heart - S1/S2 normal, no murmur, gallop, or rub. JVP not elevated. Abd - Soft. + BS. No bruit. Non tender. No organomegaly. Ext - Warm. No cyanosis. No dependent edema. Labs/ Imaging: Lab Results Component Value Date WBC 9.3 12/26/2011 HGB 13.1* 12/26/2011 HCT 37.2* 12/26/2011 MCV 91.2 12/26/2011 PLATELET 175 12/26/2011 Lab Results Component Value Date CREATININE 1.79* 04/01/2013 BUN 20 04/01/2013 NA 132* 04/01/2013 K 3.6 04/01/2013 CL 93* 04/01/2013 CO2 28 04/01/2013 Lab Results Component Value Date PTH 57 10/03/2011 CALCIUM 9.0 04/01/2013 PHOS 2.6 10/03/2011 Prot/cr ratio: 0.3 Impression/ Plan: 1. CKD stage 3: likely from hypertensive nephrosclerosis vs obstructive nephropathy. Renal duplex negative for FERNANDO. Cr 1.79 today, stable. UPEP normal, SPEP with slight increase in gamma. BP is usually high in the office but normal at home. high at office but on normal range at home. No anemia, proteinuria or secondary hyperparathyroidism 2. HTN- Plan to switch regimen to lisinopril 40 mg PO daily and start chlorthalidone 25 mg PO dailyinstead of HCTZ 3. Nephrolithiasis- left kidney s/p removal with repeat scan showing non functional kidney per patient. No new issues 4. Hypokalemia- stable K, continue kcl Plan: - Switch to lisinopril 40 mg PM and chlorthalidone 25 mg AM - Continue amlodipine, doxazosin and metoprolol - Continue Kcl - Low salt diet - Avoid nephrotoxins Follow up: 6 months Seen and Discussed w/ Dr. Angel Nguyen MD Nephrology Fellow Pager# [phone] MAURIZIO DANIEL MD [address] [place] [id number] documented in this encounter Plan of Treatment Not on file documented as of this encounter Procedures Procedure Name Priority Date/Time Associated Diagnosis Comments BASIC METABOLIC PANEL STAT 04/01/2013 12:58 PM EST CKD (chronic kidney disease) Nephrolithiasis HTN (hypertension) PROTEIN/CREATININE RATIO, URINE Routine 04/01/2013 12:57 PM EST CKD (chronic kidney disease) Nephrolithiasis HTN (hypertension) documented in this encounter Results * (ABNORMAL) Basic Metabolic Panel (non-fasting) (04/01/2013 12:58 PM EST) [facility] Glucose 114 60 - 199 mg/dL CERNER MILLENNIUM Comment:Diabetes: >=200 mg/d L plus symptoms Blood Urea Nitrogen 20 10 - 20 mg/dL CERNER MILLENNIUM Creatinine 1.79(H) 0.80 - 1.50 mg/dL CERNER MILLENNIUM Comment: Please note that the pediatric reference intervals supplied above were not validated at [facility]. Results from pediatric patients should be interpreted in conjunction to the patient's age, height and muscle mass. Sodium 132(L) 135 - 145 mmol/L CERNER MILLENNIUM Potassium 3.6 3.5 - 5.0 mmol/L CERNER MILLENNIUM Comment: Please note: ??Patients with WBC >100,000 may have falsely elevated Potassium levels. ??For accurate Potassium quantification in these patients send serum separator tube (gold top) for subsequent determinations. ??Contact the Clinical Chemistry Laboratory if there are any questions. Chloride 93(L) 98 - 107 mmol/L CERNER MILLENNIUM Carbon Dioxide 28 22 - 31 mmol/L CERNER MILLENNIUM Anion Gap 11 5 - 15 mmol/L CERNER MILLENNIUM Calcium 9.0 8.5 - 10.5 mg/dL CERNER MILLENNIUM Est Glomerular Filtration Rate 39(L) >=60 CERNER MILLENNIUM Comment: This estimated GFR (eGFR) value was calculated using the MDRD equation which has been validated on patients between the ages of 18 and 70. The MDRD should not be used to assess kidney function in patients < 18 years of age or in patients with extremes of body mass, or in patients with acute kidney failure. This value should be multiplied by 1.2 for patients. For further information please copy and paste the following links into your internet browser. http://www.nkdep.nih.gov/lab-evaluation.shtml http://www.kidney.org/professionals/ Blood specimen (specimen) 04/01/2013 12:58 PM EST 04/01/2013 1:05 PM EST Narrative Resulting Agency Comment Spec In Lab Karina Cruz MD CHEMISTRY ORDERABLES Performing Organization Address City/[facility]/ZIP Co de Phone Number MARIA TERESA JOHNSENNIUM * (ABNORMAL) Protein/Creatinine Ratio, urine (04/01/2013 12:57 PM EST) Creatinine, Urine 53 mg/dL CERNER MILLENNIUM Protein, Urine 14(H) 0 - 12 mg/dL CERNER MILLENNIUM Protein / Creatinine Ratio, Urine 0.3 ratio CERNER MILLENNIUM Urine specimen (specimen) 04/01/2013 12:57 PM EST 04/01/2013 1:08 PM EST Narrative Resulting Agency Comment Spec In Lab Karina Cruz MD URINE ORDERABLES MARIA TERESA MONTILLAIUM documented in this encounter Visit Diagnoses Diagnosis CKD (chronic kidney disease) Chronic kidney disease, unspecified Nephrolithiasis Calculus of kidney HTN (hypertension) Unspecified essential hypertension documented in this encounter Care Teams Litigation Support Analyst Relationship Specialty Start Date End Date Maurizio Daniel MD [address] [place] [address] PCP - General 11/25/10 05/08/18 documented as of this encounter
--- OUTSIDE RECORDS SUMMARY | 2024-04-28 12:20 | XMS_ITS | Encounter Summary ---
Author Organization [facility] [place] [address] Care Team Providers Care Boilermaking Supervisor Name Role Phone Timmy Iglesias MD Primary Care Provider [phone] Encounter Details Date Type Department Care Team (Latest Contact Info) Description 06/26/2018 12:30 PM EST Office [place] [address] Patrick Douglas APRN [facility] [place] [address] Gastroesophageal reflux disease without esophagitis Social History Tobacco Use Types Packs/Day Years [...] Sign Reading Time Taken Comments Blood Pressure 172/80 06/26/2018 12:32 PM EST Pulse 88 06/26/2018 12:32 PM EST Temperature - - Respiratory Rate - - Oxygen Saturation - - Inhaled Oxygen Concentration - - Weight 127 kg (280 lb) 06/26/2018 12:32 PM EST Height 185.4 cm (6' 1) 06/26/2018 12:32 PM EST Body Mass Index 36.94 06/26/2018 12:32 PM EST documented in this encounter Progress Notes * Patrick Douglas RN - 06/26/2018 12:30 PM EST _27___minutes of this_32___-minute visit were spent in face to face discussion and/or counseling the patient, regarding symptoms and treatment options as detailed below. Pt is here for follow up regarding progress with medical regimen. Egd: was present during the intraservice time as ?documented by the sedation RN. Impression: ?- Medium-sized hiatal hernia. ?- Benign-appearing esophageal ?stenosis. Dilated to 15 mm. 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 Biopsied. ?- Normal stomach. ?- Normal examined duodenum. Recommendation: ?- Await pathology results. ?Continue PPI Bx: 38 cm, biopsy: - Oxyntocardiac mucosa negative [...] ?? Armas's esophagus, negative for dysplasia (contaminant?). Pt is taking Omeprazole 40mg qd. Pt doing well. No reflux, dysphagia, odynophagia, n/v. Tolerating diet. Weight stable. Plan: 1. Gerd/Barretts: omeprazole 40mg qd; gerd diet and lifestyle modifications. Repeat egd in 2 years. 2. Pt to call gi prn documented in this encounter Plan of Treatment Not on file documented as of this encounter Visit Diagnoses Diagnosis Gastroesophageal reflux disease without esophagitis Esophageal reflux documented in this encounter Care Teams Boilermaking Supervisor Relationship Specialty Start Date End Date Timmy Iglesias MD [address] [place] [address] PCP - General Family Medicine 05/09/18 documented as of this encounter
--- OUTSIDE RECORDS SUMMARY | 2024-04-28 12:20 | XMS_ITS | Encounter Summary ---
[place] [address] Care Team Providers Care Water Pollution Scientist Name Role Phone Maurizio Nathan MD Primary Care Provider [phone] Encounter Details Date Type Department Care Team (Late st Contact Info) Description 07/09/2012 3:30 PM EST Follow-Up Nephrology [place] [phone] Poncho Wilkinson MD Hebert, Albert J, MD [address] [place] [phone] Karina Cruz MD CKD (chronic kidney disease) (Primary Dx) Discharge Disposition: Home Social History Tobacco Use [...] Sign Reading Time Taken Comments Blood Pressure 142/82 07/09/2012 3:04 PM EST Pulse 96 07/09/2012 3:04 PM EST Temperature - - Respiratory Rate - - Oxygen Saturation - - Inhaled Oxygen Concentration - - Weight 115.7 kg (255 lb) 07/09/2012 3:04 PM EST Height - - Body Mass Index 32.74 12/26/2011 2:33 PM EDT documented in this encounter Progress Notes * Karina Cruz MD - 08/01/2012 4:12 PM EDT Nephrology Attending Manuel Denise Bonilla was seen and examined with the Renal Fellow Dr Nguyen The data and chart were reviewed. My findings and recommendations are accurately detailed in the note above. The findings, recommendations, and plan for ongoing care were discussed with the patient and the Renal Fellow * Poncho Wilkinson MD - 07/09/2012 3:10 PM EST [facility] Nephrology/Hypertension Follow Up Manuel Crystal [id number] 1950 ID: 62 y.o. male for follow-up in HTN/CKD PAST MEDICAL HX: 1. HTN -for last >15 yrs, difficult to control 2. DM for >10 yrs -diet controlled -no retinopathy, neuropathy, gastroparesis 3. Kidney stone-recent stone removal 4. Obesity 5. Presumed Hemochromatosis -used to have phlebotomies in the past 6. CKD stage 3 -likely from HTN, obstructive uropathy Subjective: Mr Crystal comes back for 6-month follow-up. Doing well overall, no new complaints. BP ~140s at home.Weight stable, no swelling in the legs, no change in UOP, no hematuria, dysuria, back pain or LTUS. ROS: -no fever, chills, night sweats -no headache, blurring of vision, diplopia -no dysphagia, hearing problems -no chest pain, palpitation, no CARDONA, orthopnea -no cough or SOB -no abdominal pain, nausea, vomiting or diarrhea -no rash -no neuropathy -no LE swelling -no change in mood -no heat or cold intolerance Medications: Prior to Admission medications Medication Sig [...] Take 75 mg by mouth daily. Yes ProviderPeter MD lisinopril-hydrochlorothiazide (ZESTORETIC) 20-25 mg per tablet Take 1 tablet by mouth daily. Yes ProviderPeter MD lisinopril (PRINIVIL;ZESTRIL) 20 mg tablet Take 20 mg by mouth daily. Yes ProviderPeter MD sildenafil (VIAGRA) 25 mg tablet Take 25 mg by mouth as needed. Yes Provider, MD Peter aspirin 81 mg EC tablet Take 81 mg by mouth daily. Yes ProviderPeter MD multivitamin with minerals (THERA-M) 9-0.4 mg tablet Take 1 tablet by mouth daily. Yes Provider, MD Peter Allergies / ADRs: No Known Allergies PHYSICAL EXAM: Filed Vitals: 07/09/12 1504 BP: 142/82 Pulse: 96 Gen - AAO x 3 in NAD Skin - No rash HEENT - Moist mucous membranes Chest: Lungs clear to auscultation, no wheezes/ [...] 12/26/2011 Lab Results Component Value Date CREATININE 1.86* 07/09/2012 BUN 27* 07/09/2012 NA 135 07/09/2012 K 3.3* 07/09/2012 CL 98 07/09/2012 CO2 24 07/09/2012 Lab Results Component Value Date PTH 57 10/03/2011 CALCIUM 8.9 07/09/2012 PHOS 2.6 10/03/2011 Impression/ Plan: 1. CKD stage 3: likely from hypertensive nephrosclerosis vs obstructive nephropathy. Renal duplex negative for FERNANDO. Cr 1.86 today and stable. UPEP normal, SPEP with slight increase in gamma. BP high at office but on normal range at home. No anemia, proteinuria or secondary hyperparathyroidism 2. HTN-well controlled at home 3. Nephrolithiasis- left kidney s/p removal with repeat scan showing non functional kidney per patient. No new issues 4. Hypokalemia- likely in setting of diuretic use. Hyperaldosteronism has been r/o different times.Will continue supplementation and repeat BMP in one month Plan: - Continue current BP medications - Continue KCl 40 meq PO daily - Repeat BMP in one month - Avoid nephrotoxins Follow-up: 6 months Seen and discussed with Dr. Nancy Nguyen MD Nephrology Fellow Pager# [phone] Maurizio Nathan MD [address] [facility] [phone] documented in this encounter Plan of Treatment Not on file documented as of this encounter Procedures Procedure Name Priority Date/Time Associated Diagnosis Comments BASIC METABOLIC PANEL Routine 07/09/2012 3:40 PM EST CKD (chronic kidney disease) documented in this encounter Results * (ABNORMAL) Basic Metabolic Panel (non-fasting) (07/09/2012 3:40 PM EST) [facility] Glucose 160 60 - 199 mg/dL CERNER MILLENNIUM Comment:Diabetes: >=200 mg/d L plus symptoms Blood Urea Nitrogen 27(H) 10 - 20 mg/dL CERNER MILLENNIUM Creatinine 1.86(H) 0.80 - 1.50 mg/dL CERNER MILLENNIUM Comment: Please note that the pediatric reference intervals supplied above were not validated at [facility]. Results from pediatric patients should be interpreted in conjunction to the patient's age, height and muscle mass. Sodium 135 135 - 145 mmol/L CERNER MILLENNIUM Potassium 3.3(L) 3.5 - 5.0 mmol/L CERNER MILLENNIUM Comment: Please note: ??Patients with WBC >100,000 may have falsely elevated Potassium levels. ??For accurate Potassium quantification in these patients send serum separator tube (gold top) for subsequent determinations. ??Contact the Clinical Chemistry Laboratory if there are any questions. Chloride 98 98 - 107 mmol/L CERNER MILLENNIUM Carbon Dioxide 24 22 - 31 mmol/L CERNER MILLENNIUM Anion Gap 13 5 - 15 mmol/L CERNER MILLENNIUM Calcium 8.9 8.5 - 10.5 mg/dL CERNER MILLENNIUM Est Glomerular Filtration Rate 37(L) >=60 CERNER MILLENNIUM Comment: The National Kidney Disease Education Program (NKDEP) has recommended all laboratories report estimated GFR (eGFR) along with plasma creatinine measurements to assist you with recognition of early kidney disease. Caveats: ??Plasma creatinine should be at steady-state (unchanged within the past week). For patients multiply eGFR by 1.2. The MDRD equation was developed using patients between the ages of 18 and 70 years. ?? The MDRD equation has not been validated for patients < 18 years of age and should not be used to assess renal function in the pediatric population. ??The MDRD eGFR equation will also overestimate the true GFR of patients above the age of 70. ??This overestimation is variable but increases with age. At present, NKDEP does NOT recommend using the MDRD equation for drug dosing purposes and pharmacists should continue to use their current dosing methods. In addition, numerical eGFR values greater than 60 ml/min/1.73 square meters should be treated as > 60, and not an exact number due to greater inaccuracies at these higher values. Per NKDEP, they classify normal renal function as any GFR >60ml/min/1.73 square meters; chronic kidney disease when GFR <60, and renal failure when GFR <15. ??This calculation may not be valid for patients with atypical muscle mass (very lean or obese), acute renal failure, and in patients with diabetic kidney disease. References: http://nkdep.nih.gov/resources/NKDEP_Suggestn4Labs_0606_508.pdf http://www.kidney.org/professionals/kls/pdf/faq_gfr.pdf Mary K, Tenisha NA, Carlita AK, Anson TS, Elena AD, Annabella SANDIE. Relative performance of the MDRD and CKD-EPI equations for estimating glomerular filtration rate among patients with varied clinical presentations. Clin J Am Soc Nephrol;6:1963-72. Blood specimen (specimen) 07/09/2012 3:40 PM EST 07/09/2012 3:48 PM EST Narrative Resulting Agency Comment Spec In Lab Karina Cruz MD CHEMISTRY ORDERABLES Performing Organization Address City/State/[facility] Co nm Phone Number MARIA TERESA [facility] documented in this encounter Visit Diagnoses Diagnosis CKD (chronic kidney disease)- Primary Chronic kidney disease, unspecified documented in this encounter Care Teams Water Pollution Scientist Relationship Specialty Start Date End Date Maurizio Nathan MD [address] [place] [address] PCP - General 11/25/10 05/08/18 documented as of this encounter
--- OUTSIDE RECORDS SUMMARY | 2024-04-28 12:20 | XMS_ITS | Encounter Summary ---
Author Organization [facility] Address [facility] [place] [address] Care Team Providers Care Cassandra Developer Name Role Phone Timmy Iglesias MD Primary Care Provider [phone] Reason for Visit * Reason Comments Medication Refill Encounter Details Date Type Department Care Team (Late st Contact Info) Description 10/03/2019 Refill [place] [address] Patrick Douglas APRN [facility] [place] [address] Social History Tobacco Use Types Packs/Day Years [...] on filedocumented in this encounter Care Teams Cassandra Developer Relationship Specialty Start Date End Date Timmy Iglesias MD [address] [place] [address] [address] [place], [place] [address] PCP - General Family Medicine 05/09/18 documented as of this encounter
--- OUTSIDE RECORDS SUMMARY | 2024-04-28 12:20 | XMS_ITS | Encounter Summary ---
Author Organization [facility] Address [address] [place] [address] Care Team Providers Care Personnel Arbitrator Name Role Phone Unknown, Provider Primary Care Provider Unava ilable Encounter Details Date Type Department Care Team (Late st Contact Info) Description 06/07/2012 Results Only [facility] [phone] Saul Ayon, DO [address] [place] [address] Social History Tobacco Use Types Packs/Day Years [...] Priority Date/Time Associated Diagnosis Comments SURGICAL PATHOLOGY Routine 06/07/2012 12 :01 EST documented in this encounter Results * SURGICAL PATHOLOGY (06/07/2012 12:01 EST) Pathology Report: SURGICAL PATHOLOGY REPORT Reports generated via electronic interface contain original data; however they are lacking the format of the original report. Caution should be taken when reading/interpreti ng unformatted reports. Name: ? ROLAND CRYSTAL ? Accession #: ? [id number] ? : ? 1950 (Age: 61) ??M ? Collect Date: ? 06/07/2012 ? Location: ? [facility] ? Receive Date: ? 06/07/2012 ? Provider: SAUL AYON DO Copy to: CHRISTY DANIEL MD ? Final Pathologic Diagnosis: ? Colon, sigmoid, polyp, biopsy: - Colonic mucosa with reactive lymphoid aggregate. ??See comment. Comment: ? Deeper sections have been reviewed. ??(Dr. Haque)/[facility] Document reviewed and electronically signed by: VEE LINDO MD Report ??Date: 06/11/2012 13:24 By the signature above, the attending physician certifies that he/she has personally conducted a gross and/or microscopic examination of the described specimens and rendered or confirmed the above diagnosis. Specimen(s) Received: ? Sigmoid colon polyp Clinical History: ? Screening colonoscopy Gross Description: ? Received in formalin labelled Bonilla, Roland and sigmoid colon polyp is a gonzalez-pink, irregular soft tissue fragment measuring 0.4 x 0.3 x 0.2 cm, the specimen is entirely submitted as (1). ??(Ole Watts)/[facility] End of Report SHERRIE MARTE 06/07/2012 12:0 1 EST 06/07/2012 12:01 EST us Saul Ayon DO PATHOLOGY ORDERABLES Final Res ult SHERRIE MARTE [address] [place] [address] documented in this encounter Visit Diagnoses Not on filedocumented in this encounter Care Teams Personnel Arbitrator Relationship Specialty Start Date End Date Unknown, Provider, PCP - General 06/10/12 06/11/12 documented as of this encounter
--- OUTSIDE RECORDS SUMMARY | 2024-04-28 12:20 | XMS_ITS | Encounter Summary ---
Author Organization [facility] Address [address] [place] [address] Care Team Providers Care Wastewater Technician Name Role Phone Timmy Iglesias MD Primary Care Provider [phone] Encounter Details Date Type Department Care Team (Late st Contact Info) Description 10/29/2020 Lab Requisition [facility] Pathology & Laboratory Medicine - [address] [id number] Outr Resulting Lab, Provider Social History Tobacco Use Types Packs/Day Years Used Date Smoking Tobacco: Never Assessed Interpersonal Safety Answer Date Record ed Physically Hurt Never 12/07/2019 Verbally Threaten Not on file 12/07/2019 Sex and Gender Information Value Date Recorded Sex Assigned at Not on file Legal Sex Male 18:26 EST Gender Identity Not on file Sexual Orientation Not on file documented as of this encounter Plan of Treatment Not on file documented as of this encounter Procedures Procedure Name Priority Date/Time Associated Diagnosis Comments PSA TOTAL, DIAGNOSTIC Routine 10/28/2020 14:00 EDT documented in this encounter Results * PSA TOTAL, DIAGNOSTIC (10/28/2020 14:00 EDT) PSA 1.7 0.0 - 4.5 ng/mL 10/29/2020 17:45 EDT [facility] Blood VENOUS BLOOD / Unknown 10/28/2020 14:00 EDT 10/29/2020 16:32 EDT Narrative [facility] - 10/29/2020 17:45 EDT NOTE: Serum PSA concentration should not be interpreted as absolute evidence for the presence or absence of malignant disease. Assayed on Siemens ADVIA Centaur XPT using chemiluminescent technology.??Values obtained by using different assay methods cannot be used interchangeably. us Provider Outr Resulting Lab CHEMISTRY & BLOOD GA S ORDERABLES Final Result [facility] [address] [place] [address] documented in this encounter Visit Diagnoses Not on filedocumented in this encounter Care Teams Wastewater Technician Relationship Specialty Start Date End Date Timmy Iglesias MD [address] [place] [id number] PCP - General 03/01/18 documented as of this encounter
--- OUTSIDE RECORDS SUMMARY | 2024-04-28 12:20 | XMS_ITS | Encounter Summary ---
Author Organization [facility] Address [address] [place] [address] Care Team Providers Care Flooring Machine Feeder Name Role Phone Timmy Iglesias MD Primary Care Provider [phone] Encounter Details Date Type Department Care Team (Late st Contact Info) Description 02/01/2023 Lab Requisition [facility] Pathology & Laboratory Medicine - [address] [address] Dakota Hendrix MD [address] [place] [address], [address] [place], [place] [id number] Encounter for screening for malignant neoplasm of colon Social History Tobacco Use Types Packs/Day Years [...] Priority Date/Time Associated Diagnosis Comments SURGICAL PATHOLOGY Today 02/01/2023 10 :04 EDT Encounter for screening for malignant neoplasm of colon documented in this encounter Results * SURGICAL PATHOLOGY (02/01/2023 10:04 EDT) Note to Patient The following pathology results have been interpreted by your pathologist and may be available to you before your health provider has had the opportunity to review them. Please allow time for your provider to receive these results and explore management options, if applicable. 02/02/2023 16:27 [facility] Final Diagnosis A. COLON, 110 CMS, POLYP, BIOPSY: - Tubular adenoma. B. COLON, 50 CMS, POLYP, BIOPSY: - Hyperplastic polyp. 02/02/2023 16:27 [facility] Attestation By the signature below, the attending physician certifies that they have 1) personally conducted a gross and/or microscopic examination of the described specimen(s), and/or personally interpreted the results of laboratory testing of the described specimen(s), and 2) personally rendered or confirmed the above diagnosis. 02/02/2023 16:27 [facility] at 1626 Clinical History History polyps 02/02/2023 16:27 [facility] Gross Description A. Received in formalin labelled with proper patient identification (initials D, P) and polyp @ 110 cm is a gonzalez lobulated tissue, 0.5 x 0.3 x 0.2 cm. Entirely submitted in A1. B. Received in formalin labelled with proper patient identification (initials D, P) and polyp @ 50 is a gonzalez lobulated tissue, 0.4 x 0.3 x 0.2 cm. Entirely submitted in B1. YAN AN(ASCP) 02/02/2023 7:38 02/02/2023 16:27 [facility] Performing Lab [facility] 02/02/2023 16:27 [facility] Scanned Images 02/02/2023 16:27 [facility] Tissue COLON STRUCTURE / Unknown 02/01/2023 10:04 EDT 02/01/2023 18:02 EDT Tissue specimen (specimen) COLON STRUCTURE / Unknown 02/01/2023 10:04 EDT 02/01/2023 18:02 EDT us Dakota Hendrix MD PATHOLOGY ORDERABLES Final Resu lt [facility] [address] [place] [address] documented in this encounter Visit Diagnoses Diagnosis Encounter for screening for malignant neoplasm of colon Special screening for malignant neoplasms, colon documented in this encounter Care Teams Flooring Machine Feeder Relationship Specialty Start Date End Date Timmy Iglesias MD [address] [place] [address] PCP - General 03/01/18 documented as of this encounter
--- OUTSIDE RECORDS SUMMARY | 2024-04-28 12:20 | XMS_ITS | Encounter Summary ---
Author Organization [facility] Address [facility] [place] [address] Care Team Providers Care Saw Runner Name Role Phone Timmy Iglesias MD Primary Care Provider [phone] Reason for Visit * Auth/Cert Specialty Diagnoses / Procedures Referred By Contsamra t Referred To Contact Diagnoses EE (IVCS) Procedures PRO UPPER GI ENDOSCOPY, DIAGNOSTIC EGD, UPPER GI ENDOSCOPY Referral ID Status Reason Start Date Expiration Date Visits Re quested Visits Authorized [id number] 1 1 Encounter Details Date Type Department Care Team (Latest Contact Info) Description 06/20/2018 10:13 AM EST - 06/20/2018 12:18 PM EST Hospital Encounter [place] [address] Filiberto Brambila MD [facility] [place] [address] Discharge Disposition: Home Social History Tobacco Use [...] better as expected. Sunday-Sunday Same Day Endo [phone]-8p Otherwise contact [phone] and ask to speak to the training and development specialist career technical education instructor Follow-up care is a matos part of [...] Report (06/20/2018 11:31 AM EST) Final Diagnosis [id number] ? Location: 4T; EA11; A The signing [...] Storm MD Verified: ??06/24/2018 ?Pathologist Performed at: ??-[facility] Dept. of Pathology, [place], [place] CLINICAL INFORMATION Specimen Submitted: A - [...] labeled F1. ??sns 06/24/2018 2:40 PM EST [facility] GI Biopsy 06/20/2018 11:3 1 [...] AM EST Filiberto Brambila MD PATHOLOGY/CYTOLOGY O CEZAR [facility] [place] [address] * Specimen to Pathology (06/20/2018 11:31 AM EST) AP Specimen 06/20/2018 11:3 1 AM EST 06/20/2018 11:31 AM EST Narrative [facility] - 06/20/2018 11:31 AM EST Specimen requisition ordered. ??Separate Pathology report to follow Filiberto Brambila MD PATHOLOGY/[place] [address] * Specimen to Pathology (06/20/2018 11:31 AM EST) AP Specimen 06/20/2018 11:3 1 AM EST 06/20/2018 11:31 AM EST Narrative [facility] - 06/20/2018 11:31 AM EST Specimen requisition ordered. ??Separate Pathology report to follow Filiberto Brambila MD PATHOLOGY/[place] [address] * Specimen to Pathology (06/20/2018 11:31 AM EST) AP Specimen 06/20/2018 11:3 1 AM EST 06/20/2018 11:31 AM EST Narrative [facility] - 06/20/2018 11:31 AM EST Specimen requisition ordered. ??Separate Pathology report to follow Filiberto Brambila MD PATHOLOGY/[place] [address] * Specimen to Pathology (06/20/2018 11:31 AM EST) AP Specimen 06/20/2018 11:3 1 AM EST 06/20/2018 11:31 AM EST Narrative [facility] - 06/20/2018 11:31 AM EST Specimen requisition ordered. ??Separate Pathology report to follow Filiberto Brambila MD PATHOLOGY/[place] [address] * Specimen to Pathology (06/20/2018 11:31 AM EST) AP Specimen 06/20/2018 11:3 1 AM EST 06/20/2018 11:31 AM EST Narrative [facility] - 06/20/2018 11:31 AM EST Specimen requisition ordered. ??Separate Pathology report to follow Filiberto Brambila MD PATHOLOGY/CYTOLOGY O CEZAR Performing Organization Address [facility] [place] [address] * Specimen to Pathology (06/20/2018 11:31 AM EST) AP Specimen 06/20/2018 11:3 1 AM EST 06/20/2018 11:31 AM EST Narrative [facility] - 06/20/2018 11:31 AM EST Specimen requisition ordered. ??Separate Pathology report to follow Filiberto Brambila MD PATHOLOGY/CYTOLOGY O CEZAR Performing Organization Address [facility] [place] [address] * UPPER GI ENDOSCOPY (06/20/2018 10:56 AM EST) UPPER GI ENDOSCOPY [facility] Endoscopy ___ Procedure Date: 06/20/2018 10:56 AM ? Patient Name: Manuel Crystal ? N: [id number] ? Date of : 1950 ? Age: 68 ? Order #: [id number] ? Instrument Name: [id number] ? ___ Procedure: ? Upper GI endoscopy Indications: ? Pt with h/o esophageal stricture ? dilated and EoE, now on PPI and Asx Providers: ? Filiberto Brambila MD, Lesley Suarez, ? RN, Edinson Lindsay MD: ?Timmy Iglesias MD, Tracia [...] PROVATION documented in this encounter Visit Diagnoses Not on filedocumented in this encounter Active and Recently Administered [...] Routine 1106 (Given - Provid er: Lesley Suarez, JEAN PAUL)1110 (Given - Provider: Lesley Suarez RN)1113 (Given - Provider: Lesley Suarez RN)1120 (Given - Provider: Lesley Suarez RN)1124 (Given - Provider: Lesley Suarez RN) documented in this encounter Care Teams Saw Runner Relationship Specialty Start Date End Date Timmy Iglesias MD [address] [place] [address] PCP - General Family Medicine 05/09/18 documented as of this encounter
--- OUTSIDE RECORDS SUMMARY | 2024-04-28 12:20 | XMS_ITS | Clinical Summary ---
Author Organization [facility] Address [address] [place] [address] Care Team Providers Care Yard Conductor Name Role Phone Timmy Iglesias MD Primary Care Provider [phone] Social History Tobacco Use Types Packs/Day Years Used Date Smoking Tobacco: Never Assessed Interpersonal Safety Answer Date Record ed Physically Hurt Never 12/07/2019 Verbally Threaten Not on file 12/07/2019 Sex and Gender Information Value Date Recorded Sex Assigned at Not on file Legal Sex Male 18:26 EST Gender Identity Not on file Sexual Orientation Not on file Plan of Treatment Health Maintenance Due Date Last Done Comments Hepatitis C Screen 1950 Fall Risk Screening 2016 COVID-19 Vaccine (2023- season) 2024 RSV Immunization ( o r 60+ Years) (1 - 1-dose 75+ series) 2026 Insurance [employer] [id number] Care Teams Yard Conductor Relationship Specialty Start Date End Date Timmy Iglesias MD [address] [place] [address] PCP - General 03/01/18
--- OUTSIDE RECORDS SUMMARY | 2024-04-28 12:20 | XMS_ITS | Clinical Summary ---
Author Organization [facility] Address [facility] [place] [address] Care Team Providers Care Polisher Sand Name Role Phone Timmy Iglesias MD Primary Care Provider [phone] Allergies No known active allergies Medications Medication Sig Dispensed Refills Start Date End Date Status metoprolol succinate (TOPROL-XL) 50 mg 24 hr tablet Take 75 mg by mouth daily. Active aspirin 81 mg EC tablet Take 81 mg by mouth daily. Active multivitamin with minerals (THERA-M) 9-0.4 mg tablet Take 1 tablet by mouth daily. Active doxazosin (CARDURA) 2 mg tablet Take 4 tablets by mouth nightly. 120 tablet 4 04/13/2011 Active amlodipine (NORVASC) 5 mg tablet Take by mouth. TAKE 5MG IN THE AM AND 10 MG IN THE PM 270 tablet 3 06/23/2011 Active potassium chloride SA (K-DUR;KLOR-CON) 20 mEq tabletIndications:Hy pokalemia Take 1 tablet by mouth daily. 90 tablet 2 12/27/2011 Active lisinopril (PRINIVIL;ZESTRIL) 20 mg tabletIndications:HT N (hypertension) Take 2 tablets by mouth daily. 180 tablet 3 04/01/2013 Active chlorthalidone (HYGROTEN) 50 mg tabletIndications:HT N (hypertension) Take 0.5 tablets by mouth daily. 90 tablet 3 04/01/2013 Active omeprazole (PriLOSEC) 40 mg Capsule, Delayed Release(E.C.) TAKE ONE CAPSULE BY MOUTH DAILY 90 capsule 3 10/03/2019 Active Active Problems Problem Noted Date Diagnosed Date CKD (chronic kidney disease) 02/15/2011 DMII (diabetes mellitus, type 2) 02/15/2011 Nephrolithiasis 02/15/2011 HTN (hypertension) 11/28/2010 Social History Tobacco Use Types Packs/Day Years Used Date Smoking Tobacco: Never Smokeless Tobacco: Never Comments:per MD office note 7.22.11 Alcohol Use Standard Drinks/Week Comments Yes 0 (1 standard drink = 0.6 oz pur e alcohol) 1X/month Sex and Gender Information Value Date Recorded Sex Assigned at Not on file Gender Identity Not on file Sexual Orientation Not on file Last Filed Vital Signs Vital Sign Reading Time Taken Comments Blood Pressure 172/80 06/26/2018 12:32 PM EST Pulse 88 06/26/2018 12:32 PM EST Temperature 36.6 ??C (97.9 ??F) 06/20/2018 10:[address] Respiratory Rate 16 06/20/2018 12:00 PM EST Oxygen Saturation 93% 06/20/2018 12:00 PM EST Inhaled Oxygen Concentration - - Weight 127 kg (280 lb) 06/26/2018 12:32 PM EST Height 185.4 cm (6' 1) 06/26/2018 12:32 PM EST Body Mass Index 36.94 06/26/2018 12:32 PM EST Plan of Treatment Health Maintenance Due Date Last Done Comments CT Colonography 1950 Colonoscopy 1950 Colorectal Cancer Screening 1950 FIT DNA 1950 FIT 1950 Sigmoidoscopy (10 year) with FIT yearly 1950 Sigmoidoscopy 1950 DM Hemoglobin A1c 1961 DM Opthalmology Exam 1961 DM Urine Microalbumin yearly 1961 Hepatitis C Screening 1969 Lipid Screening 1969 Tetanus/Diphtheria/Pertussis Vaccines (1 - Tdap) 1970 Pneumoccocal Vaccine: 65+ (1 of 1 - PCV) 2001 Zoster vaccine (1 of 2) 2001 DM Creatinine yearly 04/01/2014 04/01/2013, 07/09/2012, 12/26/2011, Additional history exists Covid-19 Vaccine ( - 2023-2 5 season) 2024 Influenza (Flu) vaccine (1 o f 1 - Influenza standard series) 01/06/2024 Procedures Procedure Name Priority Date/Time Associated Diagnosis Comments BASIC METABOLIC PANEL STAT 04/01/2013 12:58 PM EST CKD (chronic kidney disease) Nephrolithiasis HTN (hypertension) from Last 3 Months or Most Recently Relevant to Health Maintenance Results * (ABNORMAL) Basic Metabolic Panel (non-fasting) (04/01/2013 12:58 PM EST) Glucose 114 60 - 199 mg/dL CERNER MILLENNIUM Comment:Diabetes: >=200 mg/d L plus symptoms Blood Urea Nitrogen 20 10 - 20 mg/dL CERNER MILLENNIUM Creatinine 1.79(H) 0.80 - 1.50 mg/dL CERNER MILLENNIUM Comment: Please note that the pediatric reference intervals supplied above were not validated at [facility]. Results from pediatric patients should be interpreted [...] In Lab Karina Cruz MD CHEMISTRY ORDERABLES CERNER MILLENNIUM from Last 3 Months or Most Recently Relevant to Health Maintenance Advance Directives Documents on File Type Date Recorded Patient Supplier Quality Engineer Expl anation Advance Directives and Livin g Will 06/20/2018 4:28 PM Care Teams Polisher Sand Relationship Specialty Start Date End Date Timmy Iglesias MD [address] [place], [place] [address] PCP - General Family Medicine 05/09/18
--- OUTSIDE RECORDS SUMMARY | 2024-04-28 12:20 | XMS_ITS | Encounter Summary ---
Author Organization [facility] Address [address] [place] [address] Care Team Providers Care Shot Hole Driller Name Role Phone Maurizio Nathan MD Primary Care Provider [phone] Encounter Details Date Type Department Care Team (Late st Contact Info) Description 02/26/2018 Results Only [facility] [phone] Saul Ayon, DO [address] [place] [address] Social History Tobacco Use Types [...] Date/Time Associated Diagnosis Comments SURGICAL PATHOLOGY Routine 02/26/2018 8:19 EDT documented in this encounter Results * SURGICAL PATHOLOGY (02/26/2018 8:19 EDT) Pathology Report: SURGICAL PATHOLOGY REPORT Reports generated via electronic interface contain original data; however they are lacking the format of the original report. Caution should be taken when reading/interpreti ng unformatted reports. Name: ? ROLAND CRYSTAL ? Accession #: ? [id number] ? : ? 1950 (Age: 67) ??M ? Collect Date: ? 02/26/2018 ? Location: ? [facility] ? Receive Date: ? 02/26/2018 ? Provider: SAUL AYON DO Copy to: DAYTON LORD MD ? Final Pathologic Diagnosis: A. SMALL BOWEL, DUODENUM, BIOPSY: ?- Polypoid heterotopic gastric-oxyntic mucosa. B. ESOPHAGUS, AT 24 CM, BIOPSY: ?- Eosinophilic Esophagitis. ?- See comment. Comment: The esophageal biopsy at 24 cm shows colonic mucosa with up to 37 eosinophils per HPF, eosinophilic microabscess formation, spongiosis, and basal cell hyperplasia. Considering the clinical information provided (dysphagia) and the location of the biopsy (at 24 cm), these histopathologic findings are most consistent with an Allergic/Idiopathi c Eosinophilic Esophagitis. (Dr. Hernandez)/jds ? Document reviewed and electronically signed by: KRISTIN HERNANDEZ MD Report ??Date: 02/28/2018 15:44 By the signature above, the attending physician certifies that he/she has personally conducted a gross and/or microscopic examination of the described specimens and rendered or confirmed the above diagnosis. Specimen(s) Received: A. ??Duodenum (#1) B. ??Esophagus at 24 cm (#2) Clinical History: Dysphagia Gross Description: A. ?Received in formalin labelled with proper patient identification (initials D, P) and bx duodenum is a light gonzalez biopsy measuring 0.3 x 0.2 x 0.2 cm. Submitted intact in block A1. B. ?Received in formalin labelled with proper patient identification (initials D, P) and bx esophagus at 24 cm are two light gonzalez biopsies measuring 0.2 x 0.2 x 0.1 cm and 0.4 x 0.3 x 0.1 cm. Submitted intact in block B1. YAN Triplett (ASCP) 02/27/2018 8:51 AM End of Report [facility] 02/26/2018 8:19 EDT 02/26/2018 8:19 EDT us Saul Ayon DO PATHOLOGY ORDERABLES Final Res ult [facility] [address] [place] [address] documented in this encounter Visit Diagnoses Not on filedocumented in this encounter Care Teams Shot Hole Driller Relationship Specialty Start Date End Date Maurizio Nathan MD [address] [place] [id number] PCP - General 06/12/12 02/28/18 documented as of this encounter
--- OUTSIDE RECORDS SUMMARY | 2024-04-28 12:20 | XMS_ITS | Encounter Summary ---
Author Organization [facility] Address [address] [place] [address] Care Team Providers Care Staffing Associate Name Role Phone Unavailable Primary Care Provider Unavailabl e Encounter Details Date Type Department Care Team (Late st Contact Info) Description 06/29/2000 Results Only [facility] [address] [place] [address] Denny Canada MD [address] [place] [address] Social History Tobacco Use Types Packs/Day Years [...] Date/Time Associated Diagnosis Comments SURGICAL PATHOLOGY Routine 06/29/2000 0:00 EST documented in this encounter Results * SURGICAL PATHOLOGY (06/29/2000 0:00 EST) Pathology Report: SURGICAL PATHOLOGY REPORT Reports generated via electronic interface contain original data; however they are lacking the format of the original report. Caution should be taken when reading/interpreti ng unformatted reports. Name: ? ROLAND CRYSTAL ? Accession #: ? [id number] ? : ? 1950 (Age: 50) ??M ? Collect Date: ? 06/29/2000 ? Location: ? [facility] ? Receive Date: ? 07/03/2000 ? Provider: DENNY CANADA MD Copy to: MEHRDAD GONZALEZ MD ? Final Pathologic Diagnosis: A. ?Vas deferens, left, vasectomy: 1. ?Full cross sections with no pathologic features. B. ?Vas deferens, right, vasectomy: 1. ?Full cross sections with no pathologic features. Document reviewed and electronically signed by: Patricia Mcgee MD Report ??Date: 07/05/2000 15:26 By the signature above, the attending physician certifies that he/she has personally conducted a gross and/or microscopic examination of the described specimens and rendered or confirmed the above diagnosis. Specimen(s) Received: A. ?L vas deferens B. ?R vas deferens Clinical History: ? Vasectomy; clinical diagnosis code: vasectomy Gross Description: ? Received in formalin labelled Bonilla and vas deferens L is a cylindrically shaped piece of soft tissue which measures 1.9 cm in length with an average diameter of 0.3 cm. ??A personal banking representative section is submitted as (A). Received in formalin labelled Bonilla and R vas def is a cylindrically shaped piece of soft tissue which measures 1.3 cm in length with an average diameter of 0.4 cm. ??A personal banking representative cross-section is submitted as (B). ??(Dr. Horner)/[facility] End of Report [facility] 06/29/2000 07/03/2000 14: 29 EST us Denny Canada MD PATHOLOGY ORDERABLES Final Result Performing Organization Address City/State/[facility] Co de Phone Number [facility] [address] [place] [address] documented in this encounter Visit Diagnoses Not on filedocumented in this encounter
--- OUTSIDE RECORDS SUMMARY | 2024-04-28 12:20 | XMS_ITS | Encounter Summary ---
Author Organization [facility] Address [address] [place] [address] Care Team Providers Care Internal Communications Writer Name Role Phone Timmy Iglesias MD Primary Care Provider [phone] Encounter Details Date Type Department Care Team (Latest Contact Info) Description 04/16/2018 10:26 EST - 04/16/2018 23:59 EST Hospital Encounter [address] [address] Unknown, Provider, MD Discharge Disposition: Home or [...] Code Departure Means Destination Home or Self [facility] documented in this encounter Plan of Treatment Not on file documented as of this encounter Visit Diagnoses Not on filedocumented in this encounter Care Teams Internal Communications Writer Relationship Specialty Start Date End Date Timmy Iglesias MD [address] [place] [address] PCP - General 03/01/18 documented as of this encounter
--- OUTSIDE RECORDS SUMMARY | 2024-04-28 12:20 | XMS_ITS | Encounter Summary ---
Author Organization [facility] Address [address] [place] [address] Care Team Providers Care Property Portfolio Officer Name Role Phone Maurizio Nathan MD Primary Care Provider [phone] Encounter Details Date Type Department Care Team (Latest Contact Info) Description 11/23/2017 10:16 EDT - 11/23/2017 23:59 EDT Hospital Encounter [address] [address] Unknown, Provider, MD Discharge Disposition: Home or [...] Code Departure Means Destination Home or Self Longterm documented in this encounter Plan of Treatment Not on file documented as of this encounter Visit Diagnoses Not on filedocumented in this encounter Care Teams Property Portfolio Officer Relationship Specialty Start Date End Date Maurizio Nathan MD [address] [place] [id number] PCP - General 06/12/12 02/28/18 documented as of this encounter
--- OUTSIDE RECORDS SUMMARY | 2024-04-28 12:20 | XMS_ITS | Encounter Summary ---
Author Organization [facility] Address [address] [place] [address] Care Team Providers Care Fly Rail Operator Name Role Phone Timmy Iglesias MD Primary Care Provider [phone] Encounter Details Date Type Department Care Team (Late st Contact Info) Description 04/16/2018 Results Only [facility] [[email or web address] [phone] Timmy Iglesias MD [address] [place] [address] Social History Tobacco Use Types Packs/Day Years [...] Date/Time Associated Diagnosis Comments SURGICAL PATHOLOGY Routine 04/16/2018 19 :52 EST documented in this encounter Results * SURGICAL PATHOLOGY (04/16/2018 19:52 EST) Pathology Report: SURGICAL PATHOLOGY REPORT Reports generated via electronic interface contain original data; however they are lacking the format of the original report. Caution should be taken when reading/interpreti ng unformatted reports. Name: ? ROLAND CRYSTAL ? Accession #: ? [id number] ? : ? 1950 (Age: 67) ??M ? Collect Date: ? 04/16/2018 ? Location: ? [facility] ? Receive Date: ? 04/16/2018 ? Provider: TIMMY IGLESIAS MD Copy to: ? Final Pathologic Diagnosis: SKIN OF BACK, MID, EXCISION: - Architecturally disordered compound nevus with mild cytologic atypia, completely excised. Document reviewed and electronically signed by: ANUP SALDAÑA MD Report ??Date: 04/18/2018 14:31 By the signature above, the attending physician certifies that he/she has personally conducted a gross and/or microscopic examination of the described specimens and rendered or confirmed the above diagnosis. Specimen(s) Received: Not listed Clinical History: Deeply pigmented lesion mid back Gross Description: ? Received in formalin labelled with proper patient identification (initials D, P) and biopsy mid back is an unoriented elliptical excision of light gonzalez skin (1.5 x 0.7 cm and is excised to a depth of 0.3 cm). There is a dark brown macule with irregular borders at one edge that measures 0.8 x 0.7 cm. The margins are inked black. The specimen is serially sectioned and entirely submitted as central sections in blocks 1 and 2 and tips, reverse en face in block 3. YAN Triplett (ASCP) 04/17/2018 7:39 AM End of Report [facility] 04/16/2018 19:5 2 EST 04/16/2018 19:52 EST us Timmy Iglesias MD PATHOLOGY ORDERABLES Sudha odonnell Result [facility] [address] [place] [address] documented in this encounter Visit Diagnoses Not on filedocumented in this encounter Care Teams Fly Rail Operator Relationship Specialty Start Date End Date Timmy Iglesias MD [address] [place] [address] PCP - General 03/01/18 documented as of this encounter
--- OUTSIDE RECORDS SUMMARY | 2024-04-28 12:20 | XMS_ITS | Referral Summary ---
Author Organization [facility] Address [address] [place] [address] Care Team Providers Care Project Administrative Assistant Name Role Phone Timmy Iglesias MD Primary Care Provider [phone] Social History Tobacco Use Types Packs/Day Years Used Date Smoking Tobacco: Never Assessed Interpersonal Safety Answer Date Record ed Physically Hurt Never 12/07/2019 Verbally Threaten Not on file 12/07/2019 Sex and Gender Information Value Date Recorded Sex Assigned at Not on file Legal Sex Male 18:26 EST Gender Identity Not on file Sexual Orientation Not on file Plan of Treatment Not on file Insurance [employer] [id number] Care Teams Project Administrative Assistant Relationship Specialty Start Date End Date Timmy Iglesias MD [address] [place] [address] [address] [place], [place] [id number] [facility] - General 03/01/18
--- OUTSIDE RECORDS SUMMARY | 2024-04-28 12:20 | XMS_ITS | Encounter Summary ---
Author Organization [facility] Address [facility] [place] [address] Care Team Providers Care Chemicals Distiller Name Role Phone Timmy Iglesias MD Primary Care Provider [phone] Reason for Visit * Consultation (Routine) - Specialty Diagnoses / Procedures Referred By Roddy pabon Referred To Contact Gastroenterology Diagnoses Esophageal stricture causing dysphagia, s/p dilation. Recent bx shows EoE. PPI therpay started. Procedures Consult Jack Fine, DO [address] [place] [address] [facility] [address] [place] [address] Referral ID Status Reason Start Date Expiration Date V isits Requested Visits Authorized [id number] 03/06/2018 03/06/2019 1 1 Encounter Details Date Type Department Care Team (Late st Contact Info) Description 05/09/2018 11:00 AM EST Office [place] [address] Patrick Douglas APRN [facility] [place] [address] EE (eosinophilic esophagitis) Social History Tobacco Use Types Packs/Day Years [...] Sign Reading Time Taken Comments Blood Pressure 161/89 05/09/2018 11:07 AM EST Pulse 87 05/09/2018 11:07 AM EST Temperature - - Respiratory Rate - - Oxygen Saturation - - Inhaled Oxygen Concentration - - Weight 127 kg (280 lb) 05/09/2018 11:07 AM EST Height 185.4 cm (6' 1) 05/09/2018 11:07 AM EST Body Mass Index 36.94 05/09/2018 11:07 AM EST documented in this encounter Patient Instructions * Patient Instructions* Patrick Douglas RN - 05/09/2018 11:00 AM EST egd in 6-8 weeks Gif 1-2 weeks after egd documented in this encounter Progress Notes * Patrick Douglas RN - 05/09/2018 11:00 AM EST Section of Gastroenterology and Hepatology [address] [place] [address] .Manuel Crystal : 1950 Patient is here for further evaluation of gastrointestinal symptoms at the request of Jack Fine DO. HPI: Pt is here for dysphagia. Hx of esophageal stricture and EE. The stricture is not new for the pt but the EE dx is. Pt has a long hx of difficulty swallowing but became progressively worse this past year. Hx of regurgitating bolus of food. Pt was having difficulty swallowing. Underwent a barium swallow, which showed a stricture. All per pt. He had an egd in November 2017 at [facility]. He was dilated. Per pt the bx did not show EE. His swallowing improved. Then had another egd in February 2018. This was per recommendation of provider; pt was not having sx. He was dilated and this is when he was dx with EE. Pt took omeprazole 20mg qd for one month. Pt reports his swallowing improved more. About a week after finishing the ppi, his swallowing is slow. needing water to push food. Pt endorses he does not know what heartburn feels like. But if he eats late and lies down he will have a cough. And can experience nasal congestion. On occasion will have regurgitation. No odynophagia, chest pain, n/v. No change in appetite. No food allergies. Weight stable. No post-prandial sx. No chronic nsaids. Reviewed diet. Usually eats late. 7/8pm is supper. Bed is midnight. No lower gi sx. 2015 colonoscopy; [facility]; per pt normal exam. Social History Socioeconomic History ??? Marital status: Spouse name: Not on file ??? Number of children: Not on file ??? Years of education: Not on file ??? Highest education level: Not on file Social Needs ??? Financial resource strain: Not on file ??? Food insecurity - worry: Not on file ??? Food insecurity - inability: Not on file ??? Transportation needs - medical: Not on file ??? Transportation needs - non-medical: Not on file Occupational History ??? Not on file Tobacco Use ??? Smoking status: Never Smoker ??? Tobacco comment: per MD office note 7.22.11 Substance and Sexual Activity ??? Alcohol use: Not on file ??? Drug use: Not on file ??? Sexual activity: Not on file Other Topics Concern ??? Not on file Social History Narrative ??? Not on file Medical History: gerd, esophageal stricture; htn; DM2; ckd Surgical History: cholecystectomy; lithotrypsy; Family History: 1/2 brother: crohns No Known Allergies Current Outpatient Medications: ??? lisinopril (PRINIVIL;ZESTRIL) 20 mg tablet, Take 2 tablets by mouth daily., Disp: 180 tablet, Rfl: 3 ??? chlorthalidone (HYGROTEN) 50 mg tablet, Take 0.5 tablets by mouth daily., Disp: 90 tablet, Rfl:3 ??? potassium chloride SA (K-DUR;KLOR-CON) 20 mEq tablet, Take 1 tablet by mouth daily., Disp: 90 tablet, Rfl: 2 ??? amlodipine (NORVASC) 5 mg tablet, Take by mouth. TAKE 5MG IN THE AM AND 10 MG IN THE PM, Disp: 270 tablet, Rfl: 3 ??? doxazosin (CARDURA) 2 mg tablet, Take 4 tablets by mouth nightly., Disp: 120 tablet, Rfl: 4 ??? metoprolol succinate (TOPROL-XL) 50 mg 24 hr tablet, Take 75 mg by mouth daily., Disp: , Rfl: ??? sildenafil (VIAGRA) 25 mg tablet, Take 25 mg by mouth as needed., Disp: , Rfl: ??? aspirin 81 mg EC tablet, Take 81 mg by mouth daily., Disp: , Rfl: ??? multivitamin with minerals (THERA-M) 9-0.4 mg tablet, Take 1 tablet by mouth daily., Disp: , Rfl: Review of Systems - Negative except General: Cardiac: Resp: GI: see above : MS: Neuro: Skin: Psyche: Sleep: Endo: Impression: 1. EE: restart omeprazole 40mg qd, 30 minutes before breakfast. Repeat upper endoscopy in 6-8 weeks. After these results determine further plan of care. If pathology normal and no further EE, remain with qd ppi. If ongoing EE, then ppi bid and repeat upper endoscopy in 6-8 weeks. 2. Gif in 1-2 weeks after testing. I spent a total of 52 minutes face to face with this patient; 32 minutes were spent counseling the patient in the medical problems described above. Sincerely, Patrick Douglas NP Section of Gastroenterology and Hepatology documented in this encounter Plan of Treatment Scheduled Orders Name Type Priority Associated Diagnoses Orde r Schedule UPPER GI ENDOSCOPY Procedures Routine EE (eosinophilic esophagitis) Ordered: 05/09/2018 documented as of this encounter Visit Diagnoses Diagnosis EE (eosinophilic esophagitis) Eosinophilic esophagitis documented in this encounter Care Teams Chemicals Distiller Relationship Specialty Start Date End Date Timmy Iglesias MD [address] [address] PCP - General Family Medicine 05/09/18 documented as of this encounter
--- OUTSIDE RECORDS SUMMARY | 2024-04-28 12:20 | XMS_ITS | Encounter Summary ---
Author Organization [facility] Address [address] [place] [address] Care Team Providers Care Dewaxer Name Role Phone Maurizio Nathan MD Primary Care Provider [phone] Encounter Details Date Type Department Care Team (Late st Contact Info) Description 11/23/2017 Results Only [facility] [phone] Saul Ayon, DO [address] [place] [address] Social History Tobacco Use Types [...] Date/Time Associated Diagnosis Comments SURGICAL PATHOLOGY Routine 11/23/2017 7:05 EDT documented in this encounter Results * SURGICAL PATHOLOGY (11/23/2017 7:05 EDT) Pathology Report: SURGICAL PATHOLOGY REPORT Reports generated via electronic interface contain original data; however they are lacking the format of the original report. Caution should be taken when reading/interpret ing unformatted reports. Name: ? ROLAND CRYSTAL ? Accession #: ? [id number] ? : ? 1950 (Age: 67) ??M ? Collect Date: ? 11/23/2017 ? Location: ? [facility] ? Receive Date: ? 11/24/2017 ? Provider: SAUL AYON DO Copy to: DAYTON LORD MD ? Final Pathologic Diagnosis: ESOPHAGUS, STRICTURE, BIOPSY: - Benign reactive squamous mucosa with associated ulcer bed. - Negative for malignancy. Comment: The findings appear to be reactive in nature. No malignancy or viral cytopathic effect is identified on multiple levels examined. This case was shown to Dr. Salas, GI pathologist, who concurs with the above diagnosis. Dr. Seaman 11/27/2017 1:55 PM Document reviewed and electronically signed by: RANULFO SEAMAN MD Report ??Date: 11/27/2017 16:45 By the signature above, the attending physician certifies that he/she has personally conducted a gross and/or microscopic examination of the described specimens and rendered or confirmed the above diagnosis. Specimen(s) Received: Esophageal stricture biopsy Clinical History: Dysphagia, esophageal stricture; clinical diagnosis code: ??R13.10 Gross Description: ? Received in formalin labelled with proper patient identification (initials D, P) and esophageal stricture bx are two fragments of gonzalez-pink tissue measuring 0.3 cm and 0.4 cm in greatest dimension. The specimens are submitted entirely in 1. YAN Huertas (ASCP) 11/26/2017 8:28 AM End of Report [facility] 11/23/2017 7:05 EDT 11/24/2017 7:05 EDT us Saul Ayon DO PATHOLOGY ORDERABLES Final Res ult [facility] [address] [place] [address] documented in this encounter Visit Diagnoses Not on filedocumented in this encounter Care Teams Dewaxer Relationship Specialty Start Date End Date Maurizio Nathan MD [address] [place] [address] PCP - General 06/12/12 02/28/18 documented as of this encounter
--- OUTSIDE RECORDS SUMMARY | 2024-04-28 12:21 | XMS_ITS | Encounter Summary ---
Author Organization [facility] [place] [address] Care Team Providers Care Supervisor Coal Handling Name Role Phone Maurizio Nathan MD Primary Care Provider [phone] Encounter Details Date Type Department Care Team (Late st Contact Info) Description 12/19/2010 Orders Only Neph[place] [id number] Shiva Hylton MD CKD (chronic kidney disease) (Primary Dx) Social History Tobacco Use Types Packs/Day Years Used Date Smoking Tobacco: Never Comments:per office note 7.22.11 Alcohol Use Standard Drinks/Week Comments Not Asked 0 (1 standard drink = 0.6 oz pur e alcohol) Sex and Gender Information Value Date Recorded Sex Assigned at Not on file Gender Identity Not on file Sexual Orientation Not on file documented as of this encounter Plan of Treatment Not on file documented as of this encounter Results * Albumin (12/20/2010 11:19 AM EDT) Albumin 4.3 3.2 - 5.2 gm/dL [facility] Sport Universal [facility] Blood specimen (specimen) 12/20/2010 11:19 AM EDT 12/20/2010 11:28 AM EDT Noe Asif MD CHEMISTRY ORDERABLES [facility] * Phosphorus (12/20/2010 11:19 AM EDT) Phosphorus 3.7 2.5 - 4.5 mg/dL [facility] MILLENNIUM Blood specimen (specimen) 12/20/2010 11:19 AM EDT 12/20/2010 11:28 AM EDT Noe Asif MD CHEMISTRY ORDERABLES [facility] MILLENNIUM * (ABNORMAL) Basic Metabolic Panel (non-fasting) (12/20/2010 11:19 AM EDT) Glucose 122 60 - 199 mg/dL CERNER MILLENNIUM Comment:Diabetes: >=200 mg/d L plus symptoms Blood Urea Nitrogen 27(H) 10 - 20 mg/dL CERNER MILLENNIUM Creatinine 1.88(H) 0.80 - 1.50 mg/dL CERNER MILLENNIUM Sodium 134(L) 135 - 145 mmol/L CERNER MILLENNIUM Potassium 3.6 3.5 - 5.0 mmol/L CERNER MILLENNIUM Comment: Please note: ??Patients with WBC >100,000 may have falsely elevated Potassium levels. ??For accurate Potassium quantification in these patients send serum separator tube (gold top) for subsequent determinations. ??Contact the Clinical Chemistry Laboratory if there are any questions. Chloride 94(L) 98 - 107 mmol/L CERNER MILLENNIUM Carbon Dioxide 31 22 - 31 mmol/L CERNER MILLENNIUM Anion Gap 9 5 - 15 mmol/L CERNER MILLENNIUM Calcium 9.4 8.5 - 10.5 mg/dL CERNER MILLENNIUM Est Glomerular Filtration Rate 37(L) >=60 CERNER MILLENNIUM Comment: The National Kidney Disease Education Program (NKDEP) has recommended all laboratories report estimated GFR (eGFR) along with plasma creatinine measurements to assist you with recognition of early kidney disease. Caveats: ??Plasma creatinine should be at steady-state (unchanged within the past week). For patients multiply eGFR by 1.2.MDRD equation has not been validated for pediatric patients and is only valid for patients with age >= 18 years. At present, NKDEP does NOT recommend using [...] with diabetic kidney disease. References: http://nkdep.nih.gov/resources/NKDEP_Suggestn4Labs_0606_508.pdf http://www.kidney.org/professionals/kls/pdf/faq_gfr.pdf Blood specimen (specimen) 12/20/2010 11:19 AM EDT 12/20/2010 11:28 AM EDT Noe Asif MD CHEMISTRY ORDERABLES [facility] * (ABNORMAL) CBC (with Diff) (12/20/2010 11:19 AM EDT) White Blood Cell 8.9 4.0 - 10.0 x10(3)/mc L CERNER MILLENNIUM Red Blood Cell 4.45(L) 4.63 - 6.08 x10(6)/mc L CERNER MILLENNIUM Hemoglobin 13.7 13.7 - 17.5 gm/dL CERNER MILLENNIUM Hematocrit 37.9(L) 40.0 - 51.0 % CERNER MILLENNIUM Mean Cell Volume 85.2 79.0 - 92.0 fL CERNER MILLENNIUM Mean Cell Hemoglobin 30.8 25.6 - 32.2 pg CERNER MILLENNIUM Mean Cell Hemoglobin Concentration 36.1 32.0 - 36.5 gm/dL CERNER MILLENNIUM Platelet 184 145 - 370 x10(3)/mc L CERNER MILLENNIUM RDW Standard Deviation 41.5 35.0 - 46.0 fL CERNER MILLENNIUM RDW coefficient of variation 13.3 10.9 - 14.4 % CERNER MILLENNIUM Mean Platelet Volume 9.4 9.0 - 12.0 fL CERNER MILLENNIUM Blood specimen (specimen) 12/20/2010 11:19 AM EDT 12/20/2010 11:28 AM EDT Noe Asif MD HEMATOLOGY ORDERABLE S Performing Organization Address City/State/[facility] Co de Phone Number [facility] documented in this encounter Visit Diagnoses Diagnosis CKD (chronic kidney disease)- Primary Chronic kidney disease, unspecified documented in this encounter Care Teams Supervisor Coal Handling Relationship Specialty Start Date End Date Maurizio Nathan MD [address] [place] [address] PCP - General 11/25/10 05/08/18 documented as of this encounter
--- OUTSIDE RECORDS SUMMARY | 2024-04-28 12:21 | XMS_ITS | Encounter Summary ---
Author Organization [facility] [place] [address] Care Team Providers Care Occupational Analyst Name Role Phone Maurizio Nathan MD Primary Care Provider [phone] Encounter Details Date Type Department Care Team (Latest Contact Info) Description 12/20/2010 10:00 AM EDT Procedure visit [place] [phone] Adeola Knight, RVT HTN (hypertension) Social History Tobacco Use Types Packs/Day Years [...] Procedure Name Priority Date/Time Associated Diagnosis Comments RENAL DUPLEX COMPLETE Routine 12/20/2010 9:47 AM EDT HTN (hypertension) documented in this encounter Results * Duplex Study Renal Arteries, Bilat (12/20/2010 9:47 AM EDT) VB Text Report Department: Vascular Surgery Lab Patient: [id number] (FRANCISCO JAVIERROLAND) CPT Code: 08885 ICD-9: 401.9 Referring Physician: JEOVANNY GAN Indication: hypertension, hydronephrosis ICD9 Diagnosis Code: 401.9 Definitions: PSV - Peak Systolic Velocity, EDV - End Diastolic Velocity, RAR - Renal Aortic Ratio, RI - Resistive Index, AT - Acceleration Time Findings: Right Flakita Visceral Aorta ?PSV (cm/s): 101 ?EDV (cm/s): 13 Renal Artery Proximal ?PSV (cm/s): 126 ?EDV (cm/s): 27 ?RAR: 1.2 Renal Artery Mid ?PSV (cm/s): 133 ?EDV (cm/s): 31 ?RAR: 1.3 Renal Artery Distal ?PSV (cm/s): 128 ?EDV (cm/s): 26 ?RAR: 1.3 Upper Pole Renal Parenchyma ?PSV (cm/s): 23 ?EDV (cm/s): 7 ?RI: 0.70 Renal Hilum ?AT (ms): 30 Kidney Length ?Length (cm): 12.0 Left Renal Artery Proximal ?PSV (cm/s): 56 ?EDV (cm/s): 0 ?RAR: 0.6 Renal Artery Mid ?PSV (cm/s): 54 ?EDV (cm/s): 0 ?RAR: 0.5 Renal Artery Distal ?PSV (cm/s): 42 ?EDV (cm/s): 10 ?RAR: 0.4 Upper Pole Renal Parenchyma ?PSV (cm/s): 34 ?EDV (cm/s): 6 ?RI: 0.82 Renal Hilum ?AT (ms): 10 Kidney Length ?Length (cm): 11.9 Interpretation: RIGHT: Patent main renal artery, with no evidence of hemodynamically significant stenosis. There is a 4.8cm cyst on the upper pole of the kidney. LEFT: Patent main renal artery, with no evidence of hemodynamically significant stenosis. Doppler waveforms are consistent with abnormally elevated parenchymal resistance. There a large irregular echolucent area throughout the kidney that may represent hydronephrosis and may be the cause of the unilateral parenchymal resistance identified in this kidney. Comparison: No previous study in our vascular lab database for comparison. Accuracy Data: The following statistics are based on comparisons performed [place] [facility] [place] noninvasive renal artery duplex data and arteriographic evaluation of the same patients from [id number]. Q / A Sens. Spec. PPV NPV Accuracy Renal 87% 92% 93% 85% 90% The diagnostic parameters used to identify a hemodynamically significant stenosis (>60% diameter reduction) are a ratio of peak renal velocity peak aortic velocity (renal/aortic ratio) > 3.5 or a peak systolic velocity > 200 cm/sec. Signed by CARMEL THOMAS on 2010-12-23 10:34:32 AM [facility] VB Text Report End of Report [facility] 12/20/2010 9:47 AM EDT Jeovanny Gan MD VASCULAR ORDERABLES [facility] documented in this encounter Visit Diagnoses Diagnosis HTN (hypertension) Unspecified essential hypertension documented in this encounter Care Teams Occupational Analyst Relationship Specialty Start Date End Date Maurizio Nathan MD [address] [place] [address] PCP - General 11/25/10 05/08/18 documented as of this encounter
--- OUTSIDE RECORDS SUMMARY | 2024-04-28 12:21 | XMS_ITS | Encounter Summary ---
Author Organization [facility] Address [facility] [place] [address] Care Team Providers Care Chaser Tar Name Role Phone Maurizio Nathan MD Primary Care Provider [phone] Encounter Details Date Type Department Care Team (Late st Contact Info) Description 04/13/2011 Orders Only Nephrology [facility] [place] [address] Shiva Hylton MD Social History Tobacco Use Types Packs/Day Years Used Date Smoking Tobacco: Never Comments:per MD office note 7.22.11 Alcohol Use Standard Drinks/Week Comments Not Asked 0 (1 standard drink = 0.6 oz pur e alcohol) Sex and Gender Information Value Date Recorded Sex Assigned at Not on file Gender Identity Not on file Sexual Orientation Not on file documented as of this encounter Progress Notes * Shiva Hylton MD - 04/13/2011 2:41 PM EST Patient called with his BP readings. BP is better controlled in 150/80 on average from 160/90 last time. He is tolerating doxazosin well except on occasions when tried to stand up too fast felt mildly lightheaded. I asked him to increase Doxazosin to 8mg daily and continue to follow BP and watch out for any worsening postural hypotension. He will continue rest of his meds. We will see him in f/u in about a month. documented in this encounter Plan of Treatment Not on file documented as of this encounter Visit Diagnoses Not on filedocumented in this encounter Care Teams Chaser Tar Relationship Specialty Start Date End Date Maurizio Nathan MD [address] [place] [address] PCP - General 11/25/10 05/08/18 documented as of this encounter
--- OUTSIDE RECORDS SUMMARY | 2024-04-28 12:21 | XMS_ITS | Encounter Summary ---
Author Organization [facility] [place] [address] Care Team Providers Care Data Capture Specialist Name Role Phone Maurizio Nathan MD Primary Care Provider Encounter Details Date Type Department Care Team (Late st Contact Info) Description 07/18/2011 Telephone Nephrology Hypertension at [facility] [place] [phone] Shiva Hylton MD Social History Tobacco Use [...] on file documented as of this encounter Miscellaneous Notes * Telephone Encounter - Shiva Hylton MD - 07/18/2011 10:08 AM EDT Results of 24 hr ambulatory BP monitoring. Average BP 144/78 MAP 98 HR 74 Nocturnal dipping 8.8% Percent above systolic 78.6% Percent above diastolic 37.5% Called patient, unable to reach him, left voice message and number to call back. Overall BP better but still above goal of <130/80. I would favor increasing night time dose of Lisinopril to 40mg daily. He is already on high doses of doxazosin and risk of worsening orthostasis symptoms micah if used together with PDE-5 inhibitor. Addendum: Patient called back. He states his BP now is in 120s systolic. Occasional lightheadedness. He states he saw his urologist Dr Yeboah recently, had repeat renal scan done which showed 25% function on the left, advised not to have nephrectomy at this time. I suggest no changes in his BP medication for now/ F/U as scheduled in few months. documented in this encounter Plan of Treatment Not on file documented as of this encounter Visit Diagnoses Not on filedocumented in this encounter Care Teams Data Capture Specialist Relationship Specialty Start Date End Date Maurizio Nathan MD [address] [place] [address] PCP - General 11/25/10 05/08/18 documented as of this encounter
--- OUTSIDE RECORDS SUMMARY | 2024-04-28 12:21 | XMS_ITS | Encounter Summary ---
[place] [address] Care Team Providers Care Quality Control Representative Name Role Phone Maurizio Nathna MD Primary Care Provider [phone] Reason for Visit * Reason Onset Date Comments Medication Refill 06/23/2011 Encounter Details Date Type Department Care Team (Late st Contact Info) Description 06/23/2011 Refill [place] [phone] Shobha Gold LPN Social History Tobacco Use Types Packs/Day Years [...] on filedocumented in this encounter Care Teams Quality Control Representative Relationship Specialty Start Date End Date Maurizio Nathan MD [address] [place] [address] PCP - General 11/25/10 05/08/18 documented as of this encounter
--- OUTSIDE RECORDS SUMMARY | 2024-04-28 12:21 | XMS_ITS | Encounter Summary ---
[place] [address] Care Team Providers Care Compensation And Benefits Analyst Name Role Phone Maurizio Nathan MD Primary Care Provider [phone] Encounter Details Date Type Department Care Team (Late st Contact Info) Description 11/29/2010 Orders Only Ne[place] [phone] Social History Tobacco Use Types Packs/Day Years [...] on filedocumented in this encounter Care Teams Compensation And Benefits Analyst Relationship Specialty Start Date End Date Maurizio Nathan MD [address] [place] [address] PCP - General 11/25/10 05/08/18 documented as of this encounter
--- OUTSIDE RECORDS SUMMARY | 2024-04-28 12:21 | XMS_ITS | Encounter Summary ---
[place] [address] Care Team Providers Care Senior International Tax Manager Name Role Phone Maurizio Nathan MD Primary Care Provider [phone] Encounter Details Date Type Department Care Team (Late st Contact Info) Description 06/05/2011 Orders Only [place] [phone] Shiva Hylton MD CKD (chronic kidney disease) [...] documented as of this encounter Results * VIT D Total 25 Hydroxy (06/06/2011 2:38 PM EST) 25-Hydroxy D2 <4.0 ng/mL [facility] Comment: Test Performed by: [facility] [address] [address] Silver Wrapper: Jennifer Castillo, Ph.D. 25-Hydroxy D3 31 ng/mL [facility] Comment: Test Performed by: [employer] [address] [address] Silver Wrapper: Jennifer Castillo, Ph.D. Vitamin D Total 25 OH 31 ng/mL [facility] Comment: -- REFERENCE VALUE -- 25-HYDROXY D TOTAL (D2+D3) Optimum levels in the normal population are 25-80 Test Performed by: [email or web address] [address], [place] [address] Silver Wrapper: Jennifer Castillo, Ph.D. Blood specimen (specimen) 06/06/2011 2:38 PM EST 06/06/2011 3:36 PM EST Pierce Lyons MD CHEMISTRY ORDERABLES Performing Organization Address [facility] de Phone Number CERNER MILLENNIUM * Calcium (06/06/2011 2:37 PM EST) Calcium 9.7 8.5 - 10.5 mg/dL CERNER MILLENNIUM Blood specimen (specimen) 06/06/2011 2:37 PM EST 06/06/2011 2:49 PM EST Pierce Lyons MD CHEMISTRY ORDERABLES Performing Organization Address [facility] Phone Number CERNER MILLENNIUM * PTH (06/06/2011 2:37 PM EST) Parathyroid Hormone 37 15 - 65 pg/mL CERNER MILLENNIUM Blood specimen (specimen) 06/06/2011 2:37 PM EST 06/06/2011 2:49 PM EST Pierce Lyons MD CHEMISTRY ORDERABLES Performing Organization Address [facility] Phone Number CERNER MILLENNIUM * Albumin Level (06/06/2011 2:37 PM EST) Albumin 4.5 3.2 - 5.2 gm/dL CERNER MILLENNIUM Blood specimen (specimen) 06/06/2011 2:37 PM EST 06/06/2011 2:49 PM EST Pierce Lyons MD CHEMISTRY ORDERABLES Performing Organization Address [facility] de Phone Number CERNER MILLENNIUM * Phosphorus (06/06/2011 2:37 PM EST) Phosphorus 3.8 2.5 - 4.5 mg/dL CERNER MILLENNIUM Blood specimen (specimen) 06/06/2011 2:37 PM EST 06/06/2011 2:49 PM EST Pierce Lyons MD CHEMISTRY ORDERABLES CERNER MILLENNIUM * (ABNORMAL) Basic Metabolic Panel (non-fasting) (06/06/2011 2:37 PM EST) Glucose 112 60 - 199 mg/dL CERNER MILLENNIUM Comment:Diabetes: >=200 mg/d L plus symptoms Blood Urea Nitrogen 28(H) 10 - 20 mg/dL CERNER MILLENNIUM Creatinine 1.73(H) 0.80 - 1.50 mg/dL CERNER MILLENNIUM Sodium 139 135 - 145 mmol/L CERNER MILLENNIUM Potassium 3.9 3.5 - 5.0 mmol/L CERNER MILLENNIUM Comment: Please note: ??Patients with WBC >100,000 may have falsely elevated Potassium levels. ??For accurate Potassium quantification in these patients send serum separator tube (gold top) for subsequent determinations. ??Contact the Clinical Chemistry Laboratory if there are any questions. Chloride 98 98 - 107 mmol/L CERNER MILLENNIUM Carbon Dioxide 27 22 - 31 mmol/L CERNER MILLENNIUM Anion Gap 14 5 - 15 mmol/L CERNER MILLENNIUM Calcium 9.7 8.5 - 10.5 mg/dL CERNER MILLENNIUM Est Glomerular Filtration Rate 41(L) >=60 CERNER MILLENNIUM Comment: The National Kidney Disease Education Program (NKDEP) has recommended all laboratories report estimated GFR (eGFR) along with plasma creatinine measurements to assist you with recognition of early kidney disease. Caveats: ??Plasma creatinine should be at steady-state (unchanged within the past week). For patients multiply eGFR by 1.2. The MDRD equation has not been validated for pediatric [...] disease. References: http://nkdep.nih.gov/resources/NKDEP_Suggestn4Labs_0606_508.pdf http://www.kidney.org/professionals/kls/pdf/faq_gfr.pdf Blood specimen (specimen) 06/06/2011 2:37 PM EST 06/06/2011 2:49 PM EST Pierce A Block CHEMISTRY ORDERABLES CERNER MILLENNIUM * (ABNORMAL) CBC (with Diff) (06/06/2011 2:37 PM EST) White Blood Cell 7.3 4.0 - 10.0 x10(3)/mc L CERNER MILLENNIUM Red Blood Cell 4.48(L) 4.63 - 6.08 x10(6)/mc L CERNER MILLENNIUM Hemoglobin 14.5 13.7 - 17.5 gm/dL CERNER MILLENNIUM Hematocrit 39.8(L) 40.0 - 51.0 % CERNER MILLENNIUM Mean Cell Volume 88.8 79.0 - 92.0 fL CERNER MILLENNIUM Mean Cell Hemoglobin 32.4(H) 25.6 - 32.2 pg CERNER MILLENNIUM Mean Cell Hemoglobin Concentration 36.4 32.0 - 36.5 gm/dL CERNER MILLENNIUM Platelet 150 145 - 370 x10(3)/mc L CERNER MILLENNIUM RDW Standard Deviation 40.7 35.0 - 46.0 fL CERNER MILLENNIUM RDW coefficient of variation 12.6 10.9 - 14.4 % CERNER MILLENNIUM Mean Platelet Volume 9.8 9.0 - 12.0 fL CERNER MILLENNIUM Blood specimen (specimen) 06/06/2011 2:37 PM EST 06/06/2011 2:49 PM EST Pierce A Eloy ARCE HEMATOLOGY ORDERABLE S Performing Organization Address City/State/[facility] Phone Number [facility] documented in this encounter Visit Diagnoses Diagnosis CKD (chronic kidney disease)- Primary Chronic kidney disease, unspecified documented in this encounter Care Teams Senior International Tax Manager Relationship Specialty Start Date End Date Maurizio Nathan MD [address] [place] [address] PCP - General 11/25/10 05/08/18 documented as of this encounter
--- OUTSIDE RECORDS SUMMARY | 2024-04-28 12:21 | XMS_ITS | Encounter Summary ---
[place] [address] Care Team Providers Care Engraver Hand Soft Metals Name Role Phone Maurizio Nathan MD Primary Care Provider [phone] Encounter Details Date Type Department Care Team (Late st Contact Info) Description 10/16/2011 Orders Only Ne[place] [phone] Shiva Hylton MD CKD (chronic kidney disease) [...] as of this encounter Visit Diagnoses Diagnosis CKD (chronic kidney disease)- Primary Chronic kidney disease, unspecified documented in this encounter Care Teams Engraver Hand Soft Metals Relationship Specialty Start Date End Date Maurizio Nathan MD [address] [address] PCP - General 11/25/10 05/08/18 documented as of this encounter
--- OUTSIDE RECORDS SUMMARY | 2024-04-28 12:21 | XMS_ITS | Encounter Summary ---
[place] [address] Care Team Providers Care Pick Up Attendant Name Role Phone Maurizio Nathan MD Primary Care Provider [phone] Encounter Details Date Type Department Care Team (Late st Contact Info) Description 11/28/2010 Abstract Neph[place] [phone] Betty Munoz RN Social History Tobacco Use Types Packs/Day Years [...] on filedocumented in this encounter Care Teams Pick Up Attendant Relationship Specialty Start Date End Date Maurizio Nathan MD [address] [place] [address] PCP - General 11/25/10 05/08/18 documented as of this encounter
--- OUTSIDE RECORDS SUMMARY | 2024-04-28 12:21 | XMS_ITS | Encounter Summary ---
Author [place] [address] Care Team Providers Care Cow Puncher Name Role Phone Maurizio Daniel MD Primary Care Provider [phone] Encounter Details Date Type Department Care Team (Late st Contact Info) Description 02/14/2011 2:30 PM EDT Follow-Up [place] [phone] Shiva Hylton MD CKD (chronic kidney disease) stage 3, GFR 30-59 ml/min (Primary Dx); HTN (hypertension); CKD (chronic kidney disease); DMII (diabetes mellitus, type 2); Nephrolithiasis Discharge Disposition: Home Social History Tobacco Use [...] Sign Reading Time Taken Comments Blood Pressure 183/98 02/14/2011 2:31 PM EDT Pulse 77 02/14/2011 2:31 PM EDT Temperature - - Respiratory Rate - - Oxygen Saturation - - Inhaled Oxygen Concentration - - Weight 97.1 kg (214 lb) 02/14/2011 2:31 PM EDT Height 188 cm (6' 2) 02/14/2011 2:31 PM EDT Body Mass Index 27.48 02/14/2011 2:31 PM EDT documented in this encounter Progress Notes * Pierce Lyons MD - 02/15/2011 3:34 PM EDT Renal Staff Addendum: This patient is seen and examined with Dr. Hylton and I agree with his note and make the following additional observations and comments: A very pleasant man with hypertension and apparent stage IIICKG. He recently had intervention for nephrolithiasis. He is not aware that any fragments of stone were captured for analysis? He is to followup with urology. We will try to get records to see if there is a biochemical diagnosis of the stone. In any case, nonspecific strategy in the meantime would be to promote a high urine flow rate. He should target at least 2 L of urine output per day, which generally means an intake of 2.5-3 L per day. We touched him on this. His blood pressure is above target so his alpha stanley was increased. Note that there is a potential interaction with sildenafil. He needs to be aware of this. We advised him of the potential for postural hypotension or more significant hypotension. He issues the medications together without difficulty in the past. Once he is stabilized on his antihypertensives and has recovered completely from his urologic intervention, a 24-hour urine collection for stone risk analysis might be useful. * Shiva Hylton MD - 02/14/2011 4:06 PM EDT Nephrology/Hypertension Clinic Follow-up Note [id number] ID: 60 y.o.year-old male for follow up of CKD and HTN. Past Medical History: 1. HTN -for last >15 yrs, difficult to control 2. DM for >10 yrs -diet controlled -no retinopathy, neuropathy, gastroparesis 3. Kidney stone-left ->5 yrs ago, no intervention for it -symptomatic pain several times 4. Obesity 5. Presumed Hemochromatosis -used to have phlebotomies in the past 6. CKD stage 3 -likely from HTN, obstructive uropathy Current outpatient prescriptions ordered prior to encounter Medication Sig Dispense Refill ??? metoprolol succinate (TOPROL-XL) 50 mg 24 hr tablet Take 75 mg by mouth daily. ??? lisinopril-hydrochlorothiazide (ZESTORETIC) 20-25 mg per tablet Take 1 tablet by mouth daily. ??? lisinopril (PRINIVIL;ZESTRIL) 20 mg tablet Take 20 mg by mouth daily. ??? sildenafil (VIAGRA) 25 mg tablet Take 25 mg by mouth as needed. ??? aspirin 81 mg EC tablet Take 81 mg by mouth daily. ??? multivitamin with minerals (THERA-M) 9-0.4 mg tablet Take 1 tablet by mouth daily. No Known Allergies S: Patient saw his urologist since last visit. He had stone removal (staged procedure) along with stent placement about 3 weeks ago, had stent removed about a week ago. Had mild hematuria perioperatively which has now resolved. No other complains. BP improved to 140/80s briefly after introduction of doxazosin but back up again in 160s/90s at home. No headache. Review of Systems: System Abnormalities Constitutional no fevers, chills, night sweats Eye no blurrry vision or diplopia ENT no dysphagia or hearing problems CV no chest pain or palpitation Resp no cough or SOB GI no abdominal pain or vomiting, no diarrhea no dysuria, frothy urine, hematuria Skin no rash Endocrine no heat or cold intolerance Neurologic no headache, no weakness or numbness Musculoskeletal no joint pain Psych no depression or altered mood Y N All other systems reviewed and negative. x O: Filed Vitals: 02/14/11 1431 BP: 183/98 Pulse: 77 Repeat BP right arm 175/95 Gen: pleasant gentleman, overweight, no distress HEENT: EOMI, PERRL, normal oropharynx Neck: supple, no JVD, no enlarged thyroid, no carotid bruit CVS: S1 S2 normal, RRR, no murmur/rub/gallop Respi: clear to auscultation bilaterally, no wheezing/rales/rhonci Abd: soft, not tender, not distended, BS+ Extr: no pedal edema, pulse 2+ all extremities Skin: no rash Neuro: no focal weakness, loss of sensation, CN II to XII grossly intact Psych: normal affect Labs: Recent Results (from the past 24 hour(s)) CBC (WITH DIFF) Component Value Range ??? WBC 7.3 4.0 - 10.0 (x10(3)/mcL) ??? RBC 4.17 (*) 4.63 - 6.08 (x10(6)/mcL) ??? Hemoglobin 13.2 (*) 13.7 - 17.5 (gm/dL) ??? Hematocrit 36.6 (*) 40.0 - 51.0 (%) ??? MCV 87.8 79.0 - 92.0 (fL) ??? MCH 31.7 25.6 - 32.2 (pg) ??? MCHC 36.1 32.0 - 36.5 (gm/dL) ??? Platelets 152 145 - 370 (x10(3)/mcL) ??? RDWSD 42.7 35.0 - 46.0 (fL) ??? RDWCV 13.4 10.9 - 14.4 (%) ??? MPV 9.6 9.0 - 12.0 (fL) BASIC METABOLIC PANEL (NON-FASTING) Component Value Range ??? Glucose Lvl 138 60 - 199 (mg/dL) ??? BUN 29 (*) 10 - 20 (mg/dL) ??? Creatinine 1.70 (*) 0.80 - 1.50 (mg/dL) ??? Sodium 135 135 - 145 (mmol/L) ??? Potassium 3.5 3.5 - 5.0 (mmol/L) ??? Chloride 96 (*) 98 - 107 (mmol/L) ??? CO2 31 22 - 31 (mmol/L) ??? Anion Gap 8 5 - 15 (mmol/L) ??? Calcium 9.1 8.5 - 10.5 (mg/dL) ? ? Estimated GFR 41 (*) >=60 ALBUMIN Component Value Range ??? Albumin 4.2 3.2 - 5.2 (gm/dL) PHOSPHORUS Component Value Range ??? Phosphorus 3.3 2.5 - 4.5 (mg/dL) A-DIFF Component Value Range ??? Neutrophils % 65.0 34.0 - 71.0 (%) ??? Neutr Abs (ANC) 4.75 1.50 - 6.30 (x10(3)/mcL) ??? Lymphocytes % 20.4 19.0 - 53.0 (%) ??? Lymphocytes Abs 1.5 1.0 - 3.6 (x10(3)/mcL) ??? Monocytes % 10.1 4.0 - 13.0 (%) ??? Monocyte Abs 0.7 0.2 - 1.0 (x10(3)/mcL) ??? Eosinophils % 4.0 0.0 - 7.0 (%) ??? Eosinophils Abs 0.3 0.0 - 0.5 (x10(3)/mcL) ??? Basophils % 0.4 0.0 - 2.0 (%) ??? Basophils Abs 0.0 0.0 - 0.2 (x10(3)/mcL) ??? Immature Gran % 0.10 0.00 - 0.66 (%) ??? Shelly Gran Abs 0.01 0.00 - 0.05 (x10(3)/mcL) A/P: 60 y/o M with HTN and CKD stage 3 likely from hypertensive nephropathy vs obstructive uropathy. CKD stage 3: renal function has improved since last visit, likely following recent urological procedures for obstructing left renal stone. He has mild proteinuria (Pr/Cr ratio ~ 0.4). PTH was normal done recently. Ca, Ph today normal as well. No anemia. He is going to have repeat renal scan in few mths by his urologist, will continue to follow up on periodic interval to assess if renal function continues to improve. HTN: uncontrolled even with multiple medications (TOSIN-I, CCB, beta stanley). Alpha stanley (doxazosin) recently added and we will increase dose to 2mg nightly for now, based on BP readings he will likely need further uptitration, at that time will increase to 4mg daily. He will call us with BP results. RTC in 3 months. CC: MAURIZIO DANIEL MD [address] [place] [id number] documented in this encounter Plan of Treatment Not on file documented as of this encounter Procedures Procedure Name Priority Date/Time Associated Diagnosis Comments DIFFERENTIAL, AUTOMATED Routine 02/14/2011 3:13 PM EDT CBC (WITH DIFF) Routine 02/14/2011 3:13 PM EDT CKD (chronic kidney disease) stage 3, GFR 30-59 ml/min PHOSPHORUS Routine 02/14/2011 3:13 PM EDT CKD (chronic kidney disease) stage 3, GFR 30-59 ml/min ALBUMIN LEVEL Routine 02/14/2011 3:13 PM EDT CKD (chronic kidney disease) stage 3, GFR 30-59 ml/min BASIC METABOLIC PANEL Routine 02/14/2011 3:13 PM EDT CKD (chronic kidney disease) stage 3, GFR 30-59 ml/min documented in this encounter Results * A-DIFF (02/14/2011 3:13 PM EDT) Neutrophil % 65.0 34.0 - 71.0 % CERNER MILLENNIUM Neutrophil Absolute 4.75 1.50 - 6.30 x10(3)/mcL CERNER MILLENNIUM Lymph % 20.4 19.0 - 53.0 % CERNER MILLENNIUM Lymphocytes Abs 1.5 1.0 - 3.6 x10(3)/mcL CERNER MILLENNIUM Monocyte % 10.1 4.0 - 13.0 % CERNER MILLENNIUM Monocyte Abs 0.7 0.2 - 1.0 x10(3)/mcL CERNER MILLENNIUM Eos % 4.0 0.0 - 7.0 % CERNER MILLENNIUM Eosinophils Abs 0.3 0.0 - 0.5 x10(3)/mcL CERNER MILLENNIUM Basophil % 0.4 0.0 - 2.0 % CERNER MILLENNIUM Baso Absolute 0.0 0.0 - 0.2 x10(3)/mcL CERNER MILLENNIUM Immature Gran % 0.10 0.00 - 0.66 % CERNER MILLENNIUM Comment: Immature granulocytes(IG's)percentage and absolute count will include metamyelocytes, myelocytes, and promyelocytes. Blood smears from CBCs yielding IG's will be scanned manually for concordance. If this scan disagrees with the automated IG or if promyelocytes are noted, a manual differential will be performed. Immature Gran Absolute 0.01 0.00 - 0.05 x10(3)/mcL CERNER MILLENNIUM Blood specimen (specimen) 02/14/2011 3:13 PM EDT 02/14/2011 3:17 PM EDT Pierce Lyons MD HEMATOLOGY ORDERABLE S Performing Organization Address [facility] de Phone Number CERNER MILLENNIUM * Phosphorus (02/14/2011 3:13 PM EDT) Phosphorus 3.3 2.5 - 4.5 mg/dL CERNER MILLENNIUM Blood specimen (specimen) 02/14/2011 3:13 PM EDT 02/14/2011 3:17 PM EDT Pierce Lyons MD CHEMISTRY ORDERABLES Performing Organization Address [facility] Phone Number CERNER ANDREASENNIUM * Albumin (02/14/2011 3:13 PM EDT) Albumin 4.2 3.2 - 5.2 gm/dL CERNER MILLENNIUM Blood specimen (specimen) 02/14/2011 3:13 PM EDT 02/14/2011 3:17 PM EDT Pierce Lyons MD CHEMISTRY ORDERABLES Performing Organization Address [facility] Phone Number CERNER MILLENNIUM * (ABNORMAL) Basic Metabolic Panel (non-fasting) (02/14/2011 3:13 PM EDT) Glucose 138 60 - 199 mg/dL CERNER MILLENNIUM Comment:Diabetes: >=200 mg/d L plus symptoms Blood Urea Nitrogen 29(H) 10 - 20 mg/dL CERNER MILLENNIUM Creatinine 1.70(H) 0.80 - 1.50 mg/dL CERNER MILLENNIUM Sodium 135 135 - 145 mmol/L CERNER MILLENNIUM Potassium 3.5 3.5 - 5.0 mmol/L CERNER MILLENNIUM Comment: Please note: ??Patients with WBC >100,000 may have falsely elevated Potassium levels. ??For accurate Potassium quantification in these patients send serum separator tube (gold top) for subsequent determinations. ??Contact the Clinical Chemistry Laboratory if there are any questions. Chloride 96(L) 98 - 107 mmol/L CERNER MILLENNIUM Carbon Dioxide 31 22 - 31 mmol/L CERNER MILLENNIUM Anion Gap 8 5 - 15 mmol/L CERNER MILLENNIUM Calcium 9.1 8.5 - 10.5 mg/dL CERNER MILLENNIUM Est [...] disease. References: http://nkdep.nih.gov/resources/NKDEP_Suggestn4Labs_0606_508.pdf http://www.kidney.org/professionals/kls/pdf/faq_gfr.pdf Blood specimen (specimen) 02/14/2011 3:13 PM EDT 02/14/2011 3:17 PM EDT Pierce Lyons MD CHEMISTRY ORDERABLES MARIA TERESA JOHNSENNIUM * (ABNORMAL) CBC (with Diff) (02/14/2011 3:13 PM EDT) White Blood Cell 7.3 4.0 - 10.0 x10(3)/mc L CERNER MILLENNIUM Red Blood Cell 4.17(L) 4.63 - 6.08 x10(6)/mc L CERNER MILLENNIUM Hemoglobin 13.2(L) 13.7 - 17.5 gm/dL CERNER MILLENNIUM Hematocrit 36.6(L) 40.0 - 51.0 % CERNER MILLENNIUM Mean Cell Volume 87.8 79.0 - 92.0 fL CERNER MILLENNIUM Mean Cell Hemoglobin 31.7 25.6 - 32.2 pg CERNER MILLENNIUM Mean Cell Hemoglobin Concentration 36.1 32.0 - 36.5 gm/dL CERNER MILLENNIUM Platelet 152 145 - 370 x10(3)/mc L CERNER MILLENNIUM RDW Standard Deviation 42.7 35.0 - 46.0 fL CERNER MILLENNIUM RDW coefficient of variation 13.4 10.9 - 14.4 % CERNER MILLENNIUM Mean Platelet Volume 9.6 9.0 - 12.0 fL CERNER MILLENNIUM Blood specimen (specimen) 02/14/2011 3:13 PM EDT 02/14/2011 3:17 PM EDT Pierce Luis Lyons MD HEMATOLOGY ORDERABLE S MARIA TERESA AGUERO documented in this encounter Visit Diagnoses Diagnosis CKD (chronic kidney disease) stage 3, GFR 30-59 ml/min- Primary Chronic kidney disease, Stage III (moderate) HTN (hypertension) Unspecified essential hypertension CKD (chronic kidney disease) Chronic kidney disease, unspecified DMII (diabetes mellitus, type 2) Type II or unspecified type diabetes mellitus without mention of complication, not stated as uncontrolled Nephrolithiasis Calculus of kidney documented in this encounter Care Teams Cow Puncher Relationship Specialty Start Date End Date Maurizio Daniel MD [address] [place] [address] PCP - General 11/25/10 05/08/18 documented as of this encounter
--- OUTSIDE RECORDS SUMMARY | 2024-04-28 12:21 | XMS_ITS | Encounter Summary ---
[facility] [place] [address] Care Team Providers Care School Clerk Name Role Phone Maurizio Daniel MD Primary Care Provider [phone] Encounter Details Date Type Department Care Team (Late st Contact Info) Description 10/03/2011 3:00 PM EDT Follow-Up Nephrology [place] [id number] Shiva Hylton MD CKD (chronic kidney disease) [...] Sign Reading Time Taken Comments Blood Pressure 139/81 10/03/2011 3:08 PM EDT Pulse 97 10/03/2011 3:08 PM EDT Temperature - - Respiratory Rate - - Oxygen Saturation - - Inhaled Oxygen Concentration - - Weight 105.7 kg (233 lb) 10/03/2011 3:08 PM EDT Height - - Body Mass Index 29.92 06/06/2011 3:36 PM EST documented in this encounter Progress Notes * David Anthony MD - 10/03/2011 5:21 PM EDT The patient was examined together with the renal fellow and I agree with the above note, the patient has low potassium levels on recent labs with prior normal renin and aldosterone levels, review of CIS reveal one prior K level that was normal which argues against an inborn condition such as Little's syndrome, not using licorice, no apparent GI losses, will check renin/aldosterone levels again, a recent renal Duplex ultrasound had been non contributory and the most likely cause of hypokalemia seems to remain the HCTZ, started on potassium supplement * David Anthony MD - 10/03/2011 5:16 PM EDTAddended by: DAVID ANTHONY on: 10/03/2011 Modules accepted: Level of Service * Shiva Hylton MD - 10/03/2011 3:36 PM EDT Nephrology/Hypertension Clinic Follow-up Note [id number] ID: 61 y.o.year-old male for follow up of CKD [...] to encounter Medication Sig Dispense Refill ??? amlodipine (NORVASC) 5 mg tablet Take by mouth. TAKE 5MG IN THE AM AND 10 MG IN THE PM 270 tablet 3 ??? doxazosin (CARDURA) 2 mg tablet Take 4 tablets by mouth nightly. 120 tablet 4 ??? metoprolol succinate (TOPROL-XL) 50 mg [...] by mouth daily. No Known Allergies S: BP has been well controlled now ever since June. In 120-130s/70-80s. Has not felt much lightheadedness or dizziness. Mild orthostasis but usually symptoms stable. Has not had episode of low BPs. He is now taking doxazosin 8mg nightly in addition to Amlodipine, Toprol, Lisinopril, HCTZ. Going to see PCP tomorrow. Overall health has been good. No dysuria, hematuria. Saw his urologist in May, had renal scan done which shows non functional left kidney. Had X ray done after that and this will be followed every year. No more stone pain, dysuria, fever, chills. ROS: negative except as outlined above O: Filed Vitals: 10/03/11 1508 BP: 139/81 Pulse: 97 Gen: alert, no distress Eye: no pallor or icterus HENT: mucus membrane moist CVS: S1 S2, RRR, no murmur/rub/gallop Respi: CTAB, no w/r/r Abd: soft, NT Extr: no edema Neuro: no asterixis Labs: Recent Results (from the past 24 hour(s)) CBC (WITH DIFF) Component Value Range ??? WBC 6.8 4.0 - 10.0 (x10(3)/mcL) ??? RBC 3.93 (*) 4.63 - 6.08 (x10(6)/mcL) ??? Hemoglobin 12.5 (*) 13.7 - 17.5 (gm/dL) ??? Hematocrit 35.2 (*) 40.0 - 51.0 (%) ??? MCV 89.6 79.0 - 92.0 (fL) ??? MCH 31.8 25.6 - 32.2 (pg) ??? MCHC 35.5 32.0 - 36.5 (gm/dL) ??? Platelets 144 (*) 145 - 370 (x10(3)/mcL) ??? RDWSD 41.7 35.0 - 46.0 (fL) ??? RDWCV 12.8 10.9 - 14.4 (%) ??? MPV 9.7 9.0 - 12.0 (fL) BASIC METABOLIC PANEL (NON-FASTING) Component Value Range ??? Glucose Lvl 196 60 - 199 (mg/dL) ??? BUN 30 (*) 10 - 20 (mg/dL) ??? Creatinine 1.90 (*) 0.80 - 1.50 (mg/dL) ??? Sodium 135 135 - 145 (mmol/L) ??? Potassium 3.3 (*) 3.5 - 5.0 (mmol/L) ??? Chloride 98 98 - 107 (mmol/L) ??? CO2 25 22 - 31 (mmol/L) ??? Anion Gap 12 5 - 15 (mmol/L) ??? Calcium 8.7 8.5 - 10.5 (mg/dL) ? ? Estimated GFR 36 (*) >=60 ALBUMIN LEVEL Component Value Range ??? Albumin 4.2 3.2 - 5.2 (gm/dL) PTH Component Value Range ??? PTH 57 15 - 65 (pg/mL) PHOSPHORUS Component Value Range ??? Phosphorus 2.6 2.5 - 4.5 (mg/dL) PROTEIN ELECTROPHORESIS, SERUM Component Value Range ??? Total Prot Elec 7.1 6.1 - 8.0 (gm/dL) DIFFERENTIAL, AUTOMATED Component Value Range ??? Neutrophils % 61.6 34.0 - 71.0 (%) ??? Neutr Abs (ANC) 4.18 1.50 - 6.30 (x10(3)/mcL) ??? Lymphocytes % 27.2 19.0 - 53.0 (%) ??? Lymphocytes Abs 1.8 1.0 - 3.6 (x10(3)/mcL) ??? Monocytes % 6.0 4.0 - 13.0 (%) ??? Monocyte Abs 0.4 0.2 - 1.0 (x10(3)/mcL) ??? Eosinophils % 4.7 0.0 - 7.0 (%) ??? Eosinophils Abs 0.3 0.0 - 0.5 (x10(3)/mcL) ??? Basophils % 0.4 0.0 - 2.0 (%) ??? Basophils Abs 0.0 0.0 - 0.2 (x10(3)/mcL) ??? Immature Gran % 0.10 0.00 - 0.66 (%) ??? Shelly Gran Abs 0.01 0.00 - 0.05 (x10(3)/mcL) PROTEIN ELECTROPHORESIS, URINE, RANDOM Component Value Range ??? U Protein Ran 13 (*) 0 - 12 (mg/dL) PROTEIN/CREATININE RATIO, URINE Component Value Range ??? U Creatinine 104 (mg/dL) ??? U Protein Ran 13 (*) 0 - 12 (mg/dL) ??? Prot/Cre Ratio 0.1 (ratio) Impression: 1. CKD stage 3: likely from hypertensive nephrosclerosis vs obstructive nephropathy. Renal duplex negative for FERNANDO. Mild rise in cr today to 1.9 from 1.7 but renal function has improved overall with improvement in his BP. No anemia, proteinuria or secondary hyperparathyroidism 2. HTN-uncontrolled and very high on initial evaluation, he was off all his meds for 10 years, now well controlled on multiple medications 3. Nephrolithiasis- left kidney s/p removal with repeat scan showing non functional kidney per patient- followed closely by urology with serial imaging. No new stones 4. Hypokalemia- likely in setting of diuretic use but r/o hyperaldo as a cause. Last Nu level andaldo/renin level not high and less suspicion for this Plan: -continue Lisinopril, Amlodipine, HCTZ, Toprol -start KCl 20mEq QD, repeat BMP in 1 week. Counseled on diet with high K -add Mg to today's labs -will recheck nu, renin level RTC 3 months. CC: MAURIZIO DANIEL MD [address] [place] [phone] documented in this encounter Plan of Treatment Not on file documented as of this encounter Procedures Procedure Name Priority Date/Time Associated Diagnosis Comments PROTEIN/CREATININE RATIO, URINE Routine 10/03/2011 2:43 PM EDT CKD (chronic kidney disease) PROTEIN ELECTROPHORESIS, URINE, RANDOM Routine 10/03/2011 2:43 PM EDT CKD (chronic kidney disease) PTH Routine 10/03/2011 2:33 PM EDT CKD (chronic kidney disease) DIFFERENTIAL, AUTOMATED Routine 10/03/2011 2:33 PM EDT VITAMIN D, 25-HYDROXY Routine 10/03/2011 2:33 PM EDT CKD (chronic kidney disease) CBC (WITH DIFF) Routine 10/03/2011 2:33 PM EDT CKD (chronic kidney disease) PROTEIN ELECTROPHORESIS, SERUM Routine 10/03/2011 2:33 PM EDT CKD (chronic kidney disease) PHOSPHORUS Routine 10/03/2011 2:33 PM EDT CKD (chronic kidney disease) MAGNESIUM Routine 10/03/2011 2:33 PM EDT ALBUMIN LEVEL Routine 10/03/2011 2:33 PM EDT CKD (chronic kidney disease) BASIC METABOLIC PANEL Routine 10/03/2011 2:33 PM EDT CKD (chronic kidney disease) documented in this encounter Results * (ABNORMAL) Protein/Creatinine Ratio, urine (10/03/2011 2:43 PM EDT) Creatinine, Urine 104 mg/dL [facility] MILLENNIUM Protein, Urine 13(H) 0 - 12 mg/dL [facility]ILLENNI[facility] Protein / Creatinine Ratio, Urine 0.1 ratio [facility] MILLENNI[facility] Urine specimen (specimen) 10/03/2011 2:43 PM EDT 10/03/2011 2:48 PM EDT Narrative Resulting Agency Comment Spec In Lab Karina Cruz MD URINE ORDERABLES [facility]ARD[facility]EN[facility] * (ABNORMAL) Protein Electrophoresis, urine, random (10/03/2011 2:43 PM EDT) Protein, Urine 13(H) 0 - 12 mg/dL CE RNER MILLENNIUM U Albumin 40 % total [facility] MILLENNI[facility] Globulin, Urine 60 % total [facility] MILLENNI[facility] M1 Band, Urine None Detected None Detected % total [facility]ILLENNI[facility] U Scan See Note [facility] Comment:Please see scanned r eport in Chart Review under the [facility] Laboratory Heading. Urine specimen (specimen) 10/03/2011 2:43 PM EDT 10/03/2011 2:48 PM EDT Narrative Resulting Agency Comment Spec In Lab Karina Cruz MD URINE ORDERABLES Performing Organization Address [facility] de Phone Number CERNER MILLENNIUM * MAGNESIUM (10/03/2011 2:33 PM EDT) Magnesium 0.78 0.69 - 1.07 mmol/L [facility] Blood specimen (specimen) 10/03/2011 2:33 PM EDT 10/03/2011 2:45 PM EDT Narrative Resulting Agency Comment Spec In Lab Karina Cruz MD CHEMISTRY ORDERABLES Performing Organization Address [facility] de Phone Number CERNER MILLENNIUM * DIFFERENTIAL, AUTOMATED (10/03/2011 2:33 PM EDT) Neutrophil % 61.6 34.0 - 71.0 % [facility] MILLENNI[facility] Neutrophil Absolute 4.18 1.50 - 6.30 x10(3)/mcL [facility]EN[facility] Lymph % 27.2 19.0 - 53.0 % [facility] Lymphocytes Abs 1.8 1.0 - 3.6 x10(3)/mcL [facility]ILLEN[facility] Monocyte % 6.0 4.0 - 13.0 % [facility]ILLENNI[facility] Monocyte Abs 0.4 0.2 - 1.0 x10(3)/mcL [facility]ILLENNI[facility] Eos % 4.7 0.0 - 7.0 % [facility]EN[facility] Eosinophils Abs 0.3 0.0 - 0.5 x10(3)/mcL [facility]ILLENNI[facility] Basophil % 0.4 0.0 - 2.0 % [facility] MILLENNIUM Baso Absolute 0.0 0.0 - 0.2 x10(3)/mcL [facility] MILLENNI[facility] Immature Gran % 0.10 0.00 - 0.66 % [facility] Comment: Immature granulocytes(IG's)percentage and absolute count will include metamyelocytes, myelocytes, and promyelocytes. Blood smears from CBCs yielding IG's will be scanned manually for concordance. If this scan disagrees with the automated IG or if promyelocytes are noted, a manual differential will be performed. Immature Gran Absolute 0.01 0.00 - 0.05 x10(3)/mcL [facility] Blood specimen (specimen) 10/03/2011 2:33 PM EDT 10/03/2011 2:39 PM EDT Karina Cruz MD HEMATOLOGY ORDERABLE S [facility] * VIT D Total Evaluation (10/03/2011 2:33 PM EDT) Vitamin D Total 25 OH 31 30 - 100 ng/mL [facility] Comment: Deficient <10 ng/mL Insufficient 10 to 29 ng/mL Sufficient 30 to 100 ng/mL Potential Intoxication >100 ng/mL According to the [place] National Osteoporosis Foundation, Vitamin D concentrations >30 ng/mL are sufficient to protect bone health. ??The National Kidney Foundation has similarly stated that patients with Vitamin D concentrations <30ng/mL should be considered to be insufficient or deficient. http://www.kidney.org/professionals/KDOQI/guidelines_bone/Guide7.htm http://www.nof.org/professionals/clinical-guidelines The [employer] iSYS Vitamin D Immunoassay detects both 25-OH Vitamin D2 and 25-OH Vitamin D3, but only a total Vitamin D concentration is reported. Please note, the performing location for this test has changed. ??As of 06/13/2011 the Vitamin D Total, 25 Hydroxy assays are being analyzed by the [facility] Chemistry Laboratory. ??There is NO CHANGE in units. ??Please contact the chemistry laboratory at [phone] with questions. Blood specimen (specimen) 10/03/2011 2:33 PM EDT 10/03/2011 2:39 PM EDT Narrative Resulting Agency Comment Spec In Lab Karnia Cruz MD CHEMISTRY ORDERABLES Performing Organization Address [facility]/ZIP Co de Phone Number MARIA TERESA [facility]NOT[facility] * (ABNORMAL) Protein Electrophoresis, serum (10/03/2011 2:33 PM EDT) Total Prot Electrophoresis 7.1 6.1 - 8.0 gm/dL [facility]ILLENNI[facility] Albumin Electrophoresis 4.33 3.60 - 6.00 gm/dL [facility] MILLENNI[facility] Alpha 1 Globulin 0.17 0.10 - 0.30 gm/dL CERNER MILLENNIUM Alpha 2 Globulin 0.67 0.40 - 0.90 gm/dL [facility]ILLENNI[facility] Beta Globulin 0.58 0.50 - 1.00 gm/dL [facility]ILLEN[facility] Gamma Globulin 1.34(H) 0.50 - 1.30 gm/dL [facility]ILLENNI[facility] M1 Band None Detected None Detected gm/dL [facility]ILLENNIUM Scan See Note [facility] Comment:Please see scanned r eport in Chart Review under the [facility] Laboratory Heading. Blood specimen (specimen) 10/03/2011 2:33 PM EDT 10/03/2011 2:39 PM EDT Narrative Resulting Agency Comment Spec In Lab Karina Cruz MD CHEMISTRY ORDERABLES Performing Organization Address [facility] Co de Phone Number MARIA TERESA MONTILLAI[facility] * Phosphorus (10/03/2011 2:33 PM EDT) Phosphorus 2.6 2.5 - 4.5 mg/dL [facility] MILLENNI[facility] Blood specimen (specimen) 10/03/2011 2:33 PM EDT 10/03/2011 2:39 PM EDT Narrative Resulting Agency Comment Spec In Lab Karina Cruz MD CHEMISTRY ORDERABLES Performing Organization Address City/[facility]/ZIP Co de Phone Number MARIA TERESA MONTILLAIUM * PTH (10/03/2011 2:33 PM EDT) Parathyroid Hormone 57 15 - 65 pg/mL [facility]ILLENNI[facility] Blood specimen (specimen) 10/03/2011 2:33 PM EDT 10/03/2011 2:39 PM EDT Narrative Resulting Agency Comment Spec In Lab Karina Cruz MD CHEMISTRY ORDERABLES Performing Organization Address City/[facility]/ZIP Co de Phone Number CERNER MILLENNIUM * Albumin Level (10/03/2011 2:33 PM EDT) Albumin 4.2 3.2 - 5.2 gm/dL [facility] MILLENNIUM Blood specimen (specimen) 10/03/2011 2:33 PM EDT 10/03/2011 2:39 PM EDT Narrative Resulting Agency Comment Spec In Lab Karina Cruz MD CHEMISTRY ORDERABLES Performing Organization Address [facility] Co de Phone Number CERNER MILLENNIUM * (ABNORMAL) Basic Metabolic Panel (non-fasting) (10/03/2011 2:33 PM EDT) Glucose 196 60 - 199 mg/dL [facility] Comment:Diabetes: >=200 mg/d L plus symptoms Blood Urea Nitrogen 30(H) 10 - 20 mg/dL [facility]ERNER MILLENNIUM Creatinine 1.90(H) 0.80 - 1.50 mg/dL [facility]ERNER MILLENNIUM Sodium [...] - 107 mmol/L CERNER MILLENNIUM Carbon Dioxide 25 22 - 31 mmol/L CERNER MILLENNIUM Anion Gap 12 5 - 15 mmol/L [facility]ERNER MILLENNIUM Calcium 8.7 8.5 - 10.5 mg/dL CERNER MILLENNIUM Est Glomerular Filtration Rate 36(L) >=60 [facility]ERN[facility] MILLENNIUM Comment: The National Kidney [...] J Am Soc Nephrol;6:1963-72. Blood specimen (specimen) 10/03/2011 2:33 PM EDT 10/03/2011 2:39 PM EDT Narrative Resulting Agency Comment Spec In Lab Karina Cruz MD CHEMISTRY ORDERABLES [facility] TER[facility]A [facility] * (ABNORMAL) CBC (with Diff) (10/03/2011 2:33 PM EDT) White Blood Cell 6.8 4.0 - 10.0 x10(3)/mc L CERNER MILLENNIUM Red Blood Cell 3.93(L) 4.63 - 6.08 x10(6)/mc L CERNER MILLENNIUM Hemoglobin 12.5(L) 13.7 - 17.5 gm/dL CERNER MILLENNIUM Hematocrit 35.2(L) 40.0 - 51.0 % CERNER MILLENNIUM Mean Cell Volume 89.6 79.0 - 92.0 fL CERNER MILLENNIUM Mean Cell Hemoglobin 31.8 25.6 - 32.2 pg CERNER MILLENNIUM Mean Cell Hemoglobin Concentration 35.5 32.0 - 36.5 gm/dL CERNER MILLENNIUM Platelet 144(L) 145 - 370 x10(3)/mc L CERNER MILLENNIUM RDW Standard Deviation 41.7 35.0 - 46.0 fL CERNER MILLENNIUM RDW coefficient of variation 12.8 10.9 - 14.4 % CERNER MILLENNIUM Mean Platelet Volume 9.7 9.0 - 12.0 fL [facility]ERNER MILLENNIUM Blood specimen (specimen) 10/03/2011 2:33 PM EDT 10/03/2011 2:39 PM EDT Narrative Resulting Agency Comment Spec In Lab Karina Cruz MD HEMATOLOGY ORDERABLE S MARIA TERESA AGUERO documented in this encounter Visit Diagnoses Diagnosis CKD (chronic kidney disease)- Primary Chronic kidney disease, unspecified documented in this encounter Care Teams School Clerk Relationship Specialty Start Date End Date Maurizio Daniel MD [address] [place] [address] PCP - General 11/25/10 05/08/18 documented as of this encounter
--- OUTSIDE RECORDS SUMMARY | 2024-04-28 12:21 | XMS_ITS | Encounter Summary ---
Author Organization [facility] [place] [address] Care Team Providers Care Nephrologist Name Role Phone Maurizio Nathan MD Primary Care Provider [phone] Encounter Details Date Type Department Care Team (Late st Contact Info) Description 11/30/2010 E-Visit Ne[place] [address] Shiva Hylton MD Social History [...] Telephone Encounter - Shiva Hylton MD - 11/30/2010 5:11 PM EDT Received results from Dr Nathan's office. Renal US from 11/22/10: Moderate to severe hydronephrosis which may be secondary to an obstructing 13mm stone in the renal pelvis. Left renal parenchymal thinning also seen which indicate long standing obstruction. Rt kidney 11.9 cm in size and normal thickness. Labs: Creatinine 1.7 in September 2010--> 2.0 on 11/18-->2.6 last week With rising creatinine in the setting of obstructing left renal stone, would recommend a urology evaluation for stone removal. Discussed with Dr Gan and discussed plan with Dr Nathan who will arrange a referral. documented in this encounter Plan of Treatment Not on file documented as of this encounter Visit Diagnoses Not on filedocumented in this encounter Care Teams Nephrologist Relationship Specialty Start Date End Date Maurizio Nathan MD [address] [place] [address] PCP - General 11/25/10 05/08/18 documented as of this encounter
--- OUTSIDE RECORDS SUMMARY | 2024-04-28 12:21 | XMS_ITS | Encounter Summary ---
[place] [address] Care Team Providers Care Eligibility Manager Name Role Phone Maurizio Nathan MD Primary Care Provider [phone] Encounter Details Date Type Department Care Team (Late st Contact Info) Description 10/02/2011 Orders Only Neph[place] [id number] Shiva Hylton MD CKD (chronic kidney disease) [...] documented as of this encounter Results * (ABNORMAL) Protein/Creatinine Ratio, urine (10/03/2011 2:43 PM EDT) Creatinine, Urine 104 mg/dL CERNER MILLENNIUM Protein, Urine 13(H) 0 - 12 mg/dL CERNER MILLENNIUM Protein / Creatinine Ratio, Urine 0.1 ratio CERNER MILLENNIUM Urine specimen (specimen) 10/03/2011 2:43 PM EDT 10/03/2011 2:48 PM EDT Narrative Resulting Agency Comment Spec In Lab Karina Cruz MD URINE ORDERABLES [facility] * (ABNORMAL) Protein Electrophoresis, urine, random (10/03/2011 2:43 PM EDT) Protein, Urine 13(H) 0 - 12 mg/dL [facility] U Albumin 40 % total [facility] MILLENNIUM Globulin, Urine 60 % total CERNER MILLENNIUM M1 Band, Urine None Detected None Detected % total CERNER MILLENNIUM U Scan See Note [facility] Comment:Please see scanned r eport in Chart Review under the [facility] Laboratory Heading. Urine specimen (specimen) 10/03/2011 2:43 PM EDT 10/03/2011 2:48 PM EDT Narrative Resulting Agency Comment Spec In Lab Karina Cruz MD URINE ORDERABLES [facility] * VIT D Total Evaluation (10/03/2011 2:33 PM EDT) Vitamin D Total 25 OH 31 30 - 100 ng/mL [facility] Comment: Deficient <10 ng/mL Insufficient 10 to [...] Hydroxy assays are being analyzed by the [facility] Chemistry Laboratory. ??There is NO CHANGE in units. ??Please contact the chemistry laboratory at [phone] with questions. Blood specimen (specimen) 10/03/2011 2:33 PM EDT 10/03/2011 2:39 PM EDT Narrative Resulting Agency Comment Spec In Lab Karina Cruz MD CHEMISTRY ORDERABLES Performing Organization Address [facility]/ZIP Co de Phone Number MARIA TERESA JOHNSCRVIUM * (ABNORMAL) Protein Electrophoresis, serum (10/03/2011 2:33 [...] Cruz MD CHEMISTRY ORDERABLES Performing Organization Address [facility] Co de Phone Number MARIA TERESA MONTILLAIUM * Phosphorus (10/03/2011 2:33 PM EDT) Phosphorus 2.6 2.5 - 4.5 mg/dL CERNER MILLENNIUM Blood specimen (specimen) 10/03/2011 2:33 PM EDT 10/03/2011 2:39 PM EDT Narrative Resulting Agency Comment Spec In Lab Karina Cruz MD CHEMISTRY ORDERABLES Performing Organization Address City/[facility]/ZIP Co de Phone Number MARIA TERESA MONTILLAIUM * PTH (10/03/2011 2:33 PM EDT) Parathyroid Hormone 57 15 - 65 pg/mL CERNER MILLENNIUM Blood specimen (specimen) 10/03/2011 2:33 PM EDT 10/03/2011 2:39 PM EDT Narrative Resulting Agency Comment Spec In Lab Karina Cruz MD CHEMISTRY ORDERABLES Performing Organization Address [facility] Co de Phone Number CERNER MILLENNIUM * Albumin Level (10/03/2011 2:33 PM EDT) Albumin 4.2 3.2 - 5.2 gm/dL CERNER MILLENNIUM Blood specimen (specimen) 10/03/2011 2:33 PM EDT 10/03/2011 2:39 PM EDT Narrative Resulting Agency Comment Spec In Lab Karina Cruz MD CHEMISTRY ORDERABLES Performing Organization Address [facility] Co de Phone Number CERNER MILLENNIUM * [...] Karina Cruz MD CHEMISTRY ORDERABLES [facility] TER[facility]A [facility] * (ABNORMAL) CBC (with Diff) (10/03/2011 2:33 [...] unspecified documented in this encounter Care Teams Eligibility Manager Relationship Specialty Start Date End Date Maurizio Nathan MD [address] [place] [address] PCP - General 11/25/10 05/08/18 documented as of this encounter
--- OUTSIDE RECORDS SUMMARY | 2024-04-28 12:21 | XMS_ITS | Encounter Summary ---
[place] [address] Care Team Providers Care Pocket Machine Operator Name Role Phone Maurizio Nathan MD Primary Care Provider [phone] Encounter Details Date Type Department Care Team (Late st Contact Info) Description 12/26/2011 2:30 PM EDT Follow-Up Nephrology [place] [phone] Poncho Wilkinson MD CKD (chronic kidney disease) (Primary Dx); Hypokalemia; Hypertension Discharge Disposition: Home Social History Tobacco Use [...] Sign Reading Time Taken Comments Blood Pressure 153/78 12/26/2011 2:33 PM EDT Pulse 81 12/26/2011 2:33 PM EDT Temperature - - Respiratory Rate - - Oxygen Saturation - - Inhaled Oxygen Concentration - - Weight 109.8 kg (242 lb) 12/26/2011 2:33 PM EDT Height 188 cm (6' 2) 12/26/2011 2:33 PM EDT Body Mass Index 31.07 12/26/2011 2:33 PM EDT documented in this encounter Progress Notes * David Ortiz MD - 12/28/2011 12:42 PM EDT The patient was examined together with the renal fellow and I agree with the above note which accurately reflects our findings and assessment * Poncho Wilkinson MD - 12/26/2011 3:00 PM EDT [facility] Nephrology/Hypertension Follow Up Manuel Crystal [id number] 1950 ID: [id number] y.o. male for follow-up on CKD and HTN PAST MEDICAL HX: 1. HTN -for last >15 yrs, difficult to control 2. DM for >10 yrs -diet controlled -no retinopathy, neuropathy, gastroparesis 3. Kidney stone-recent stone removal 4. Obesity 5. Presumed Hemochromatosis -used to have phlebotomies in the past 6. CKD stage 3 -likely from HTN, obstructive uropathy Subjective: No new complaints, BP high today but patient brings log with BPs at normal range at home. Patient does not have any symptoms at this moment. ROS: -no fever, chills, night sweats -no chest pain, palpitation, no CARDONA, orthopnea -no cough or SOB -no abdominal pain, nausea, vomiting or diarrhea -no LE swelling Medications: Prior to Admission medications Medication Sig Start Date End Date Taking? Authorizing Provider potassium chloride SA (K-DUR;KLOR-CON) 20 mEq tablet Take 1 tablet by mouth daily. 10/03/11 Yes Shiva Hylton MD amlodipine (NORVASC) 5 mg tablet Take by mouth. TAKE 5MG IN THE AM AND 10 MG IN THE PM 06/23/11 Yes Shiva Hylton MD doxazosin (CARDURA) 2 mg tablet Take 4 tablets by mouth nightly. 04/13/11 Yes Shiva Hylton MD metoprolol succinate (TOPROL-XL) 50 mg 24 hr tablet Take 75 mg by mouth daily. Yes Historical Provider, lisinopril-hydrochlorothiazide (ZESTORETIC) 20-25 mg per tablet Take 1 tablet by mouth daily. Yes Historical Provider, lisinopril (PRINIVIL;ZESTRIL) 20 mg tablet Take 20 mg by mouth daily. Yes Historical Provider, sildenafil (VIAGRA) 25 mg tablet Take 25 mg by mouth as needed. Yes Historical Provider, aspirin 81 mg EC tablet Take 81 mg by mouth daily. Yes Historical Provider, multivitamin with minerals (THERA-M) 9-0.4 mg tablet Take 1 tablet by mouth daily. Yes Historical Provider, Allergies / ADRs: No Known Allergies PHYSICAL EXAM: Filed Vitals: 12/26/11 1433 BP: 153/78 Pulse: 81 Gen - AAO x 3 in NAD Skin - No rash Chest: Lungs clear to auscultation, no wheezes/ [...] 175 12/26/2011 Lab Results Component Value Date Sodium 131* 12/26/2011 Potassium 4.4 12/26/2011 Chloride 96* 12/26/2011 CO2 25 12/26/2011 BUN 29* 12/26/2011 Creatinine 1.74* 12/26/2011 Glucose Lvl 125 12/26/2011 Lab Results Component Value Date PTH 57 10/03/2011 CALCIUM 8.6 12/26/2011 PHOS 2.6 10/03/2011 Prot/Cr ratio: 0.3 Impression/ Plan: 1. CKD stage 3: likely from hypertensive nephrosclerosis vs obstructive nephropathy. Renal duplex negative for FERNANDO. Cr down to 1.78. UPEP normal, SPEP with slight increase in gamma. BP high at officebut on normal range at home. No anemia, proteinuria or secondary hyperparathyroidism 2. HTN-well controlled at home, high at office today 3. Nephrolithiasis- left kidney s/p removal with repeat scan showing non functional kidney per patient. No new issues 4. Hypokalemia- likely in setting of diuretic use but r/o hyperaldo as a cause. Last Nu level andaldo/renin level not high and less suspicion for this. We repeated it today, awaiting results. K+ stable on k-evelyne Plan: - Continue BP medications - Continue KCl, prescription mailed to pharmacy ([facility]) - Avoid nephrotoxins - Await nu/renin ratio Follow up: 6 months Seen and Discussed w/ Dr. Angel Nguyen MD Nephrology Fellow Pager# [phone] documented in this encounter Plan of Treatment Not on file documented as of this encounter Procedures Procedure Name Priority Date/Time Associated Diagnosis Comments PROTEIN/CREATININE RATIO, URINE STAT 12/26/2011 1:48 PM EDT CKD (chronic kidney disease) DIFFERENTIAL, AUTOMATED STAT 12/26/2011 1:45 PM EDT ALDOSTERONE STAT 12/26/2011 1:45 PM EDT CKD (chronic kidney disease) CBC (WITH DIFF) STAT 12/26/2011 1:45 PM EDT CKD (chronic kidney disease) BASIC METABOLIC PANEL STAT 12/26/2011 1:45 PM EDT CKD (chronic kidney disease) documented in this encounter Results * Protein/Creatinine Ratio, urine (12/26/2011 1:48 PM EDT) Creatinine, Urine 38 mg/dL CERNER MILLENNIUM Protein, Urine 11 0 - 12 mg/dL CERNER MILLENNIUM Protein / Creatinine Ratio, Urine 0.3 ratio CERNER MILLENNIUM Urine specimen (specimen) 12/26/2011 1:48 PM EDT 12/26/2011 1:55 PM EDT Narrative Resulting Agency Comment Spec In Lab David Ortiz MD URINE ORDERABLES CERNER Orbital TractionENNIUM * (ABNORMAL) DIFFERENTIAL, AUTOMATED (12/26/2011 1:45 PM EDT) Neutrophil % 68.6 34.0 - 71.0 % CERNER MILLENNIUM Neutrophil Absolute 6.36(H) 1.50 - 6.30 x10(3)/mc L CERNER MILLENNIUM Lymph % 19.5 19.0 - 53.0 % CERNER MILLENNIUM Lymphocytes Abs 1.8 1.0 - 3.6 x10(3)/mc L CERNER MILLENNIUM Monocyte % 8.1 4.0 - 13.0 % CERNER MILLENNIUM Monocyte Abs 0.8 0.2 - 1.0 x10(3)/mc L CERNER MILLENNIUM Eos % 3.3 0.0 - 7.0 % CERNER MILLENNIUM Eosinophils Abs 0.3 0.0 - 0.5 x10(3)/mc L CERNER MILLENNIUM Basophil % 0.2 0.0 - 2.0 % CERNER MILLENNIUM Baso Absolute 0.0 0.0 - 0.2 x10(3)/mc L CERNER MILLENNIUM Immature Gran % 0.30 0.00 - 0.66 % CERNER MILLENNIUM Comment: Immature granulocytes(IG's)percentage and absolute count will include metamyelocytes, myelocytes, and promyelocytes. Blood smears from CBCs yielding IG's will be scanned manually for concordance. If this scan disagrees with the automated IG or if promyelocytes are noted, a manual differential will be performed. Immature Gran Absolute 0.03 0.00 - 0.05 x10(3)/mc L CERNER MILLENNIUM Blood specimen (specimen) 12/26/2011 1:45 PM EDT 12/26/2011 1:54 PM EDT David Ortiz MD HEMATOLOGY ORDERABLE S MARIA TERESA JOHNSENNIUM * Aldosterone (12/26/2011 1:45 PM EDT) Aldosterone (SEPTEMBER) 7.6 <=21 ng/dL C SHERICE JOHNSENNIUM Comment: Reference range based on upright A.M. collection from subjects on ad vivek sodium uptake. Test Performed by: [address] [address] Rn Office: Herson Pollock III, M.D. Blood specimen (specimen) 12/26/2011 1:45 PM EDT 12/26/2011 2:22 PM EDT Narrative Resulting Agency Comment Spec In Lab David Ortiz MD LAB SEND OUT ORDERAB LES Performing Organization Address [facility] Co de Phone Number CERHARDY MONTILLAIUM * (ABNORMAL) CBC (with Diff) (12/26/2011 1:45 PM EDT) White Blood Cell 9.3 4.0 - 10.0 x10(3)/mc L CERNER MILLENNIUM Red Blood Cell 4.08(L) 4.63 - 6.08 x10(6)/mc L CERNER MILLENNIUM Hemoglobin 13.1(L) 13.7 - 17.5 gm/dL CERNER MILLENNIUM Hematocrit 37.2(L) 40.0 - 51.0 % CERNER MILLENNIUM Mean Cell Volume 91.2 79.0 - 92.0 fL CERNER MILLENNIUM Mean Cell Hemoglobin 32.1 25.6 - 32.2 pg CERNER MILLENNIUM Mean Cell Hemoglobin Concentration 35.2 32.0 - 36.5 gm/dL CERNER MILLENNIUM Platelet 175 145 - 370 x10(3)/mc L CERNER MILLENNIUM RDW Standard Deviation 40.5 35.0 - 46.0 fL CERNER MILLENNIUM RDW coefficient of variation 12.3 10.9 - 14.4 % CERNER MILLENNIUM Mean Platelet Volume 9.3 9.0 - 12.0 fL CERNER MILLENNIUM Blood specimen (specimen) 12/26/2011 1:45 PM EDT 12/26/2011 1:54 PM EDT Narrative Resulting Agency Comment Spec In Lab David Ortiz MD HEMATOLOGY ORDERABLE S Performing Organization Address City/[facility]/ZIP Co de Phone Number MARIA TERESA MONTILLAIUM * (ABNORMAL) Basic Metabolic Panel (non-fasting) (12/26/2011 1:45 PM EDT) Glucose 125 60 - 199 mg/dL CERNER MILLENNIUM Comment:Diabetes: >=200 mg/d L plus symptoms Blood Urea Nitrogen 29(H) 10 - 20 mg/dL CERNER MILLENNIUM Creatinine 1.74(H) 0.80 - 1.50 mg/dL CERNER MILLENNIUM Comment: Please note that the pediatric reference intervals supplied above were not validated [place] [facility] [place] Results from pediatric patients should be interpreted in conjunction to the patient's age, height and muscle mass. Sodium 131(L) 135 - 145 mmol/L CERNER MILLENNIUM Potassium 4.4 3.5 - 5.0 mmol/L CERNER MILLENNIUM Comment: [...] - 31 mmol/L CERNER MILLENNIUM Anion Gap 10 5 - 15 mmol/L CERNER MILLENNIUM Calcium 8.6 8.5 - 10.5 mg/dL CERNER MILLENNIUM Est Glomerular Filtration Rate 40(L) >=60 CERNER MILLENNIUM Comment: The National Kidney [...] J Am Soc Nephrol;6:1963-72. Blood specimen (specimen) 12/26/2011 1:45 PM EDT 12/26/2011 1:54 PM EDT Narrative Resulting Agency Comment Spec In Lab David Ortiz MD CHEMISTRY ORDERABLES Performing Organization Address City/State/[facility] Phone Number [facility] documented in this encounter Visit Diagnoses Diagnosis CKD (chronic kidney disease)- Primary Chronic kidney disease, unspecified Hypokalemia Hypopotassemia Hypertension Unspecified essential hypertension documented in this encounter Care Teams Pocket Machine Operator Relationship Specialty Start Date End Date Maurizio Nathan MD [address] [place] [address] PCP - General 11/25/10 05/08/18 documented as of this encounter
--- OUTSIDE RECORDS SUMMARY | 2024-04-28 12:21 | XMS_ITS | Encounter Summary ---
[place] [address] Care Team Providers Care Dry Talc Racker Name Role Phone Maurizio Nathan MD Primary Care Provider Encounter Details Date Type Department Care Team (Late st Contact Info) Description 12/29/2010 Orders Only Nephrology [place] [phone] Social History Tobacco Use Types Packs/Day Years [...] on filedocumented in this encounter Care Teams Dry Talc Racker Relationship Specialty Start Date End Date Maurizio Nathan MD [address] [place] [address] PCP - General 11/25/10 05/08/18 documented as of this encounter
--- OUTSIDE RECORDS SUMMARY | 2024-04-28 12:21 | XMS_ITS | Encounter Summary ---
[place] [address] Care Team Providers Care Surgical Attendant Name Role Phone Maurizio Daniel MD Primary Care Provider [phone] Reason for Visit * Reason Comments Follow-up Encounter Details Date Type Department Care Team (Late st Contact Info) Description 12/20/2010 1:00 PM EDT Follow-Up Nephrology [place] [phone] Shiva Hylton MD CKD (chronic kidney disease) [...] Sign Reading Time Taken Comments Blood Pressure 187/108 12/20/2010 1:16 PM EDT Pulse 75 12/20/2010 1:16 PM EDT Temperature - - Respiratory Rate 20 12/20/2010 1:16 PM EDT Oxygen Saturation 98% 12/20/2010 1:16 PM EDT Inhaled Oxygen Concentration - - Weight 109.6 kg (241 lb 9.6 oz) 12/20/2010 1:16 PM EDT Height 188 cm (6' 2) 12/20/2010 1:16 PM EDT Body Mass Index 31.02 12/20/2010 1:16 PM EDT documented in this encounter Progress Notes * Jeovanny Gan MD - 12/21/2010 8:29 AM EDT Renal Staff Addendum Patient seen and examined with Dr. Hylton. I agree with the above note which represents our jointassessment and plan with the following additions: Stable stage 3 CKD. Htn remains poorly controlled despite lisinopril, HCTZ, metoprolol, amlodipine.HCTZ may not be effective at this GFR but he has no edema so unlikely to benefit from a change to furosemide at this time. Will add alpha stanley for further vasodilation. Avoid NSAID use. * Shiva Hylton MD - 12/20/2010 1:05 PM EDT Nephrology/Hypertension Clinic Follow-up Note [id number] ID: 60 y.o.year-old male for follow up of CKD and HTN. Past Medical History: 1. HTN -for last >15 yrs, uncontrolled 2. DM for >10 yrs -diet controlled -no retinopathy, neuropathy, gastroparesis 3. Kidney stone-left ->5 yrs ago, no intervention for it -symptomatic pain several times 4. Obesity 5. Presumed Hemochromatosis -used to have phlebotomies in the past 6. Renal insufficiency Current outpatient prescriptions ordered prior to encounter Medication Sig Dispense Refill ??? metoprolol succinate (TOPROL-XL) 50 mg 24 hr tablet Take 75 mg by mouth daily. ??? lisinopril-hydrochlorothiazide (ZESTORETIC) 20-25 mg per tablet Take 1 tablet by mouth daily. ??? lisinopril (PRINIVIL;ZESTRIL) 20 mg tablet Take 20 mg by mouth daily. ??? amlodipine (NORVASC) 5 mg tablet Take 5 mg by mouth daily. ??? sildenafil (VIAGRA) 25 mg tablet Take 25 mg by mouth as needed. ??? aspirin 81 mg EC tablet Take 81 mg by mouth daily. ??? multivitamin with minerals (THERA-M) 9-0.4 mg tablet Take 1 tablet by mouth daily. Not on File S: He is doing well overall. BP has been in the range of 140-170/90-110 at home and HR in 50-80s. He has been taking Lisinopril 20mg QD, Amlodipine (recently increased to 5mg BID), zestoretic, Metoprolol tartarate 75 BID. PCP increased the amlodipine to 5mg BID 6 days ago. He saw urologist Dr Zamarripa last Sunday who scheduled a lasix renal scan yesterday, it is reported to show a non functioning leftkidney and a large stone on that side. There is a question about posibillity of removal if that kidney. He does not recall having any pyelonephritis in the past. He had renal duplex done today which showed no evidence of FERNANDO. ROS: No headaches, blurring of vision No chest pain, SOB No abdominal pain, diarrhea, vomiting No dysuria or voiding problems O: Vitals 12/20/2010 SYSTOLIC 187 DIASTOLIC 108 PULSE 75 RESPIRATIONS 20 HEIGHT 6' 2 WEIGHT 241 lb 9.6 oz BODY MASS INDEX 31.01 kg/m2 Repeat BP is 180/95 in the left arm Gen: no distress, mildly overweight HEENT: EOMI, PERRL Neck: supple, no JVD, no enlarged thyroid, no carotid bruit CVS: S1 S2 normal, RRR, no murmur/rub/gallop Respi: clear to auscultation bilaterally Abd: soft, not tender, not distended, BS+ Extr: no pedal edema, pulse 2+ all extremities Skin: no rash Neuro: no focal weakness, loss of sensation, CN II to XII grossly intact Psych: normal affect Labs: Lab Results Component Value Date WBC 8.9 12/20/2010 RBC 4.45* 12/20/2010 HGB 13.7 12/20/2010 HCT 37.9* 12/20/2010 MCV 85.2 12/20/2010 MCH 30.8 12/20/2010 MCHC 36.1 12/20/2010 PLATELET 184 12/20/2010 RDWCV 13.3 12/20/2010 Chemistry Component Value Date/Time NA 134* 12/20/2010 11:19 K 3.6 12/20/2010 11:19 CL 94* 12/20/2010 11:19 CO2 31 12/20/2010 11:19 BUN 27* 12/20/2010 11:19 CREATININE 1.88* 12/20/2010 11:19 Component Value Date/Time CALCIUM 9.4 12/20/2010 11:19 Lab Results Component Value Date PHOS 3.7 12/20/2010 A/P: 60 y/o male comes in for follow up of HTN and renal insufficiency. HTN: likely essential HTN.No evidence of renal artery stenosis. Renin, nu level normal limits. Uncontrolled, he is on multiple medications including diuretic, TOSIN-I, beta stanley, CCB. Will add doxazosin 1mg nightly and titrate it up every week to achieve better control. Target for him is <140/90 however would like to reach that gradually. CKD stage 3: likely from long standing HTN and left dysfunctional kidney in the setting of obstructive uropathy, improved from last visit. He was unable to provide urine sample again today and I havegiven him a lab slip to check urine for urine protein-creatinine ratio. He will also have PTH checked at that time. Ca, Ph within normal limits. No evidence of anemia. Kidney stone (left), hydronephrosis: Per patient lasix renal scan showed non functional left kidney. He is going to discuss with his urologist soon. Unclear if there will be a role in nephrectomy in the absence of any recurrent infections. RTC in 1 month. CC: MAURIZIO DANIEL MD [address] [place] [id number] documented in this encounter Plan of Treatment Not on file documented as of this encounter Procedures Procedure Name Priority Date/Time Associated Diagnosis Comments DIFFERENTIAL, AUTOMATED Routine 12/20/2010 11:19 AM EDT CBC (WITH DIFF) Routine 12/20/2010 11:19 AM EDT CKD (chronic kidney disease) PHOSPHORUS Routine 12/20/2010 11:19 AM EDT CKD (chronic kidney disease) ALBUMIN LEVEL Routine 12/20/2010 11:19 AM EDT CKD (chronic kidney disease) BASIC METABOLIC PANEL Routine 12/20/2010 11:19 AM EDT CKD (chronic kidney disease) documented in this encounter Results * (ABNORMAL) REFLEX LAB-A-DIFF (12/20/2010 11:19 AM EDT) Neutrophil % 69.2 34.0 - 71.0 % CERNER MILLENNIUM Neutrophil Absolute 6.12 1.50 - 6.30 x10(3)/mc L CERNER MILLENNIUM Lymph % 18.4(L) 19.0 - 53.0 % CERNER MILLENNIUM Lymphocytes Abs 1.6 1.0 - 3.6 x10(3)/mc L CERNER MILLENNIUM Monocyte % 8.2 4.0 - 13.0 % CERNER MILLENNIUM Monocyte Abs 0.7 0.2 - 1.0 x10(3)/mc L CERNER MILLENNIUM Eos % 3.5 0.0 - 7.0 % CERNER MILLENNIUM Eosinophils Abs 0.3 0.0 - 0.5 x10(3)/mc L CERNER MILLENNIUM Basophil % 0.5 0.0 - 2.0 % CERNER MILLENNIUM Baso Absolute 0.0 0.0 - 0.2 x10(3)/mc L CERNER MILLENNIUM Immature Gran % 0.20 0.00 - 0.66 % CERNER MILLENNIUM Comment: Immature granulocytes(IG's)percentage and absolute count will include metamyelocytes, myelocytes, and promyelocytes. Blood smears from CBCs yielding IG's will be scanned manually for concordance. If this scan disagrees with the automated IG or if promyelocytes are noted, a manual differential will be performed. Immature Gran Absolute 0.02 0.00 - 0.05 x10(3)/mc L MARIA TERESA JOHNSENNIUM Blood specimen (specimen) 12/20/2010 11:19 AM EDT 12/20/2010 11:28 AM EDT Noe Asif MD HEMATOLOGY ORDERABLE S MARIA TERESA MONTILLAIUM * Albumin (12/20/2010 11:19 AM EDT) Albumin 4.3 3.2 - 5.2 gm/dL MARIA TERESA JOHNSENNIUM Blood specimen (specimen) 12/20/2010 11:19 AM EDT 12/20/2010 11:28 AM EDT Noe Aisf MD CHEMISTRY ORDERABLES CERNER ANDREASENNIUM * Phosphorus (12/20/2010 11:19 AM EDT) Phosphorus 3.7 2.5 - 4.5 mg/dL CERNER MILLENNIUM Blood specimen (specimen) 12/20/2010 11:19 AM EDT 12/20/2010 11:28 AM EDT Noe Asif MD CHEMISTRY ORDERABLES Performing Organization Address City/[facility] Co de Phone Number CERHARDY JOHNSENNIUM * (ABNORMAL) Basic Metabolic Panel (non-fasting) (12/20/2010 [...] AM EDT Noe Asif MD CHEMISTRY ORDERABLES CERHARDY AGUERO * (ABNORMAL) CBC (with Diff) (12/20/2010 11:19 [...] EDT Noe Asif MD HEMATOLOGY ORDERABLE S MARIA TERESA AGUERO documented in this encounter Visit Diagnoses Diagnosis CKD (chronic kidney disease)- Primary Chronic kidney disease, unspecified documented in this encounter Care Teams Surgical Attendant Relationship Specialty Start Date End Date Maurizio Daniel MD [address] [place] [address] PCP - General 11/25/10 05/08/18 documented as of this encounter
--- OUTSIDE RECORDS SUMMARY | 2024-04-28 12:21 | XMS_ITS | Encounter Summary ---
Author Organization [facility] Address [facility] [place] [address] Care Team Providers Care Manager Cardiovascular Name Role Phone Maurizio Nathan MD Primary Care Provider [phone] Encounter Details Date Type Department Care Team (Late st Contact Info) Description 03/09/2011 [place] [phone] Shiva Hylton MD Social History [...] Progress Notes * Shiva Hylton MD - 03/09/2011 5:48 PM EDT Received call from patient. We recently increased dose of doxazosin to 4mg daily, but BP has still been in 160s/90s. He has not had any episodes of hypotension or postural hypotension. Will increase dose of doxazosin to 6mg daily, if BP remains high in 150-160s will increase further up to 8mg daily after a week. I discussed possible side effects again today including postural hypotension, and possible interaction with sildenafil. He will call us with results of BP reading next week. New scripts e-faxed to his pharmacy. documented in this encounter Plan of Treatment Not on file documented as of this encounter Visit Diagnoses Not on filedocumented in this encounter Care Teams Manager Cardiovascular Relationship Specialty Start Date End Date Maurizio Nathan MD [address] [place] [address] PCP - General 11/25/10 05/08/18 documented as of this encounter
--- OUTSIDE RECORDS SUMMARY | 2024-04-28 12:21 | XMS_ITS | Encounter Summary ---
Author Organization [facility] [place] [address] Care Team Providers Care Molasses Preparer Name Role Phone Maurizio Daniel MD Primary Care Provider [phone] Encounter Details Date Type Department Care Team (Late st Contact Info) Description 06/06/2011 3:30 PM EST Follow-Up Nephrology Hypertension at [facility] [place] [id number] Shiva Hylton MD CKD (chronic kidney disease) [...] Sign Reading Time Taken Comments Blood Pressure 170/96 06/06/2011 3:36 PM EST Pulse 75 06/06/2011 3:36 PM EST Temperature - - Respiratory Rate - - Oxygen Saturation - - Inhaled Oxygen Concentration - - Weight 112 kg (247 lb) 06/06/2011 3:36 PM EST Height 188 cm (6' 2) 06/06/2011 3:36 PM EST Body Mass Index 31.71 06/06/2011 3:36 PM EST documented in this encounter Progress Notes * Karina Cruz MD - 06/10/2011 12:25 PM EST Nephrology Attending Physician Manuel Crystal was seen and examined and discussed with Dr Hylton and the data and chart were reviewed. My findings and recommendations are accurately detailed in the note above. We will continue to follow. Thank you for involving us in the care of this patient * Shiva Hylton MD - 06/06/2011 7:16 PM EST Nephrology/Hypertension Clinic Follow-up Note [id number] ID: [id number] y.o.year-old male for follow up of CKD and HTN. Past Medical History: 1. HTN -for last >15 yrs, difficult to control 2. DM for >10 yrs -diet controlled -no retinopathy, neuropathy, gastroparesis 3. Kidney gaxco-nfuo-shdebdqmmex -recent stone removal 4. Obesity 5. Presumed Hemochromatosis -used to have phlebotomies in the past 6. CKD stage 3 -likely from HTN, obstructive uropathy Current outpatient prescriptions ordered prior to encounter Medication Sig Dispense Refill ??? doxazosin (CARDURA) 2 mg tablet Take 4 tablets by mouth nightly. 120 tablet 4 ??? amlodipine (NORVASC) 5 mg tablet Take 1 tablet by mouth 2 times daily. 60 tablet 3 ??? metoprolol succinate (TOPROL-XL) 50 mg 24 [...] by mouth daily. No Known Allergies S: Doing well since last visit. BP is overall better, now in 140-160s/80-90s, but still elevated. He is now taking doxazosin 8mg nightly in addition to Amlodipine, Toprol, Lisinopril, HCTZ. He had mild orthostasis initially but resolved. Denies headache, chest pain. He states he snores at night, at least his remembers him snoring. Has never been screened for sleep apnea. His weight is up by few lbs since last visit, he is trying to exercise and lose some weight but somewhat limited by his sedentary lifestyle. No abdominal pain, flank pain, hematuria. ROS: negative except as outlined above O: Filed Vitals: 06/06/11 1536 BP: 170/96 Pulse: 75 Repeat BP left arm 165/90 Gen: alert, no distress HEENT: EOMI, PERRL, mucus membrane moist CVS: S1 S2, RRR, no murmur Respi: CTAB Abd: soft, NT Extr: no edema Neuro: no asterixis Labs: Recent Results (from the past 24 hour(s)) CBC (WITH DIFF) Component Value Range ??? WBC 7.3 4.0 - 10.0 (x10(3)/mcL) ??? RBC 4.48 (*) 4.63 - 6.08 (x10(6)/mcL) ??? Hemoglobin 14.5 13.7 - 17.5 (gm/dL) ??? Hematocrit 39.8 (*) 40.0 - 51.0 (%) ??? MCV 88.8 79.0 - 92.0 (fL) ??? MCH 32.4 (*) 25.6 - 32.2 (pg) ??? MCHC 36.4 32.0 - 36.5 (gm/dL) ??? Platelets 150 145 - 370 (x10(3)/mcL) ??? RDWSD 40.7 35.0 - 46.0 (fL) ??? RDWCV 12.6 10.9 - 14.4 (%) ??? MPV 9.8 9.0 - 12.0 (fL) BASIC METABOLIC PANEL (NON-FASTING) Component Value Range ??? Glucose Lvl 112 60 - 199 (mg/dL) ??? BUN 28 (*) 10 - 20 (mg/dL) ??? Creatinine 1.73 (*) 0.80 - 1.50 (mg/dL) ??? Sodium 139 135 - 145 (mmol/L) ??? Potassium 3.9 3.5 - 5.0 (mmol/L) ??? Chloride 98 98 - 107 (mmol/L) ??? CO2 27 22 - 31 (mmol/L) ??? Anion Gap 14 5 - 15 (mmol/L) ??? Calcium 9.7 8.5 - 10.5 (mg/dL) ? ? Estimated GFR 41 (*) >=60 PHOSPHORUS Component Value Range ??? Phosphorus 3.8 2.5 - 4.5 (mg/dL) ALBUMIN LEVEL Component Value Range ??? Albumin 4.5 3.2 - 5.2 (gm/dL) CALCIUM Component Value Range ??? Calcium 9.7 8.5 - 10.5 (mg/dL) DIFFERENTIAL, AUTOMATED Component Value Range ??? Neutrophils % 61.9 34.0 - 71.0 (%) ??? Neutr Abs (ANC) 4.53 1.50 - 6.30 (x10(3)/mcL) ??? Lymphocytes % 24.1 19.0 - 53.0 (%) ??? Lymphocytes Abs 1.8 1.0 - 3.6 (x10(3)/mcL) ??? Monocytes % 8.3 4.0 - 13.0 (%) ??? Monocyte Abs 0.6 0.2 - 1.0 (x10(3)/mcL) ??? Eosinophils % 5.3 0.0 - 7.0 (%) ??? Eosinophils Abs 0.4 0.0 - 0.5 (x10(3)/mcL) ??? Basophils % 0.4 0.0 - 2.0 (%) ??? Basophils Abs 0.0 0.0 - 0.2 (x10(3)/mcL) ??? Immature Gran % 0.00 0.00 - 0.66 (%) ??? Shelly Gran Abs 0.00 0.00 - 0.05 (x10(3)/mcL) A/P: 60 y/o M with HTN and CKD stage 3 likely from hypertensive nephrosclerosis vs obstructive uropathy. CKD stage 3: stable renal function since last visit, overall has improved significantly likely bothfrom removal of obstructing renal stone and also better BP control. He is due for a repeat renal scan by his urologist HTN: better but remains above target, will increase night time dose of his Amlodipine to 10mg. He will also continue to take his Lisinopril, Toprol, doxazosin. I suspect also an element of white coatHTN, will arrange for 24 hr BP monitoring. Suspect he also has sleep apnea, he may benefit from a sleep study. Reinforced a low salt intake. He will call me with BP results in few weeks or mail me the readings. He used to have low K in previous labs which seems to have now resolved. We have screened for hyperaldosteronism in the past and it was negative. Patient has been unable to provide us with urine samples even on multiple visits. Would do a urine microscopy with next visit. Also needs SPEP/UPEP. RTC 4 months. CC: MAURIZIO DANIEL MD [address] [facility] [address] documented in this encounter Plan of Treatment Not on file documented as of this encounter Procedures Procedure Name Priority Date/Time Associated Diagnosis Comments VITAMIN D, 25-HYDROXY Routine 06/06/2011 2:38 PM EST CKD (chronic kidney disease) PTH Routine 06/06/2011 2:37 PM EST CKD (chronic kidney disease) DIFFERENTIAL, AUTOMATED Routine 06/06/2011 2:37 PM EST CBC (WITH DIFF) Routine 06/06/2011 2:37 PM EST CKD (chronic kidney disease) PHOSPHORUS Routine 06/06/2011 2:37 PM EST CKD (chronic kidney disease) CALCIUM Routine 06/06/2011 2:37 PM EST CKD (chronic kidney disease) ALBUMIN LEVEL Routine 06/06/2011 2:37 PM EST CKD (chronic kidney disease) BASIC METABOLIC PANEL Routine 06/06/2011 2:37 PM EST CKD (chronic kidney disease) documented in this encounter Results * VIT D Total 25 Hydroxy (06/06/2011 2:38 PM EST) 25-Hydroxy D2 <4.0 ng/mL [facility] Comment: Test Performed by: [employer] [place] [address] Child Care Centre Manager: Jennifer Castillo, Ph.D. 25-Hydroxy D3 31 ng/mL [facility] Comment: Test Performed by: [place] [address] Child Care Centre Manager: Jennifer Castillo, Ph.D. Vitamin D Total 25 OH 31 ng/mL [facility] Comment: -- REFERENCE VALUE -- 25-HYDROXY D TOTAL (D2+D3) Optimum levels in the normal population are 25-80 Test Performed by: [place] [address] Child Care Centre Manager: Jennifer Castillo, Ph.D. Blood specimen (specimen) 06/06/2011 2:38 PM EST 06/06/2011 3:36 PM EST Pierce A Eloy ARCE CHEMISTRY ORDERABLES [facility] * DIFFERENTIAL, AUTOMATED (06/06/2011 2:37 PM EST) Neutrophil % 61.9 34.0 - 71.0 % [facility] MILL[facility] Neutrophil Absolute 4.53 1.50 - 6.30 x10(3)/mcL [facility]NI[facility] Lymph % 24.1 19.0 - 53.0 % [facility] MILLENNI[facility] Lymphocytes Abs 1.8 1.0 - 3.6 x10(3)/mcL [facility]ILLENNI[facility] Monocyte % 8.3 4.0 - 13.0 % [facility]ILLENNI[facility] Monocyte Abs 0.6 0.2 - 1.0 x10(3)/mcL [facility] Eos % 5.3 0.0 - 7.0 % [facility]NI[facility] Eosinophils Abs 0.4 0.0 - 0.5 x10(3)/mcL [facility] Basophil % 0.4 0.0 - 2.0 % [facility]NI[facility] Baso Absolute 0.0 0.0 - 0.2 x10(3)/mcL [facility] Immature Gran % 0.00 0.00 - 0.66 % [facility] Comment: Immature granulocytes(IG's)percentage and absolute count will include metamyelocytes, myelocytes, and promyelocytes. Blood smears from CBCs yielding IG's will be scanned manually for concordance. If this scan disagrees with the automated IG or if promyelocytes are noted, a manual differential will be performed. Immature Gran Absolute 0.00 0.00 - 0.05 x10(3)/mcL [facility] Blood specimen (specimen) 06/06/2011 2:37 PM EST 06/06/2011 2:49 PM EST Pierce Lyons MD HEMATOLOGY ORDERABLE S Performing Organization Address [facility] de Phone Number MARIA TERESA MONTILLAIUM * Calcium (06/06/2011 2:37 PM EST) Calcium 9.7 8.5 - 10.5 mg/dL [facility]ERH[facility] MONTILLAIUM Blood specimen (specimen) 06/06/2011 2:37 PM EST 06/06/2011 2:49 PM EST Pierce Lyons MD CHEMISTRY ORDERABLES Performing Organization Address [facility] de Phone Number MARIA TERESA MONTILLAIUM * PTH (06/06/2011 2:37 PM EST) Parathyroid Hormone 37 15 - 65 pg/mL MARIA TERESA MONTILLAIUM Blood specimen (specimen) 06/06/2011 2:37 PM EST 06/06/2011 2:49 PM EST Pierce Lyons MD CHEMISTRY ORDERABLES Performing Organization Address [facility] de Phone Number MARIA TERESA MONTILLAIUM * Albumin Level (06/06/2011 2:37 PM EST) Albumin 4.5 3.2 - 5.2 gm/dL [facility]ERHARDY JOHNSENNIUM Blood specimen (specimen) 06/06/2011 2:37 PM EST 06/06/2011 2:49 PM EST Pierce Lyons MD CHEMISTRY ORDERABLES Performing Organization Address [facility] de Phone Number [facility] * Phosphorus (06/06/2011 2:37 PM EST) Phosphorus [...] 06/06/2011 2:49 PM EST Pierce Lyons MD HEMATOLOGY ORDERABLE S [facility] TER[facility] MONTILLAREPLACED [facility] documented in this encounter Visit Diagnoses Diagnosis CKD (chronic kidney disease)- Primary Chronic kidney disease, unspecified documented in this encounter Care Teams Molasses Preparer Relationship Specialty Start Date End Date Maurizio Daniel MD [address] [place] [address] PCP - General 11/25/10 05/08/18 documented as of this encounter
--- OUTSIDE RECORDS SUMMARY | 2024-04-28 12:21 | XMS_ITS | Encounter Summary ---
Author Organization [facility] [place] [address] Care Team Providers Care Advertising Director Name Role Phone Maurizio Daniel MD Primary Care Provider [phone] Reason for Visit * Reason Comments Hypertension Encounter Details Date Type Department Care Team (Latest Contact Info) Description 11/25/2010 2:00 PM EDT Office Visit [place] [phone] Shiva Hylton MD HTN (hypertension) (Primary Dx) Discharge Disposition: Home Social History [...] Sign Reading Time Taken Comments Blood Pressure 178/95 11/25/2010 2:03 PM EDT Pulse 89 11/25/2010 2:03 PM EDT Temperature - - Respiratory Rate - - Oxygen Saturation - - Inhaled Oxygen Concentration - - Weight 109.8 kg (242 lb) 11/25/2010 2:03 PM EDT Height 188 cm (6' 2) 11/25/2010 2:03 PM EDT Body Mass Index 31.07 11/25/2010 2:03 PM EDT documented in this encounter Progress Notes * Lana Antonio, [place] - 12/07/2010 7:32 AM EDTAddended by: LANA ANTONIO on: 12/07/2010 Modules accepted: Orders * Mehrdad Briggs MD - 11/30/2010 3:10 PM EDTAddended by: MEHRDAD BRIGGS on: 11/30/2010 Modules accepted: Level of Service * Mehrdad Briggs MD - 11/30/2010 3:05 PM EDT Renal Staff Addendum Patient seen and examined with Dr. Hylton. I agree with the above note which represents our jointassessment and plan with the following additions: Results for MANUEL CRYSTAL ( ) as of 11/30/2010 15:01 Ref. Range 11/25/2010 15:53 Aldosterone-[place] Latest Range: <=21 ng/dL 6.1 Renin Activity-[place] No range found 0.6 Hypertension poorly controlled on 4 medications. Mild hypokalemia which may be due to his diuretic.No evidence of hyperaldosteronism, but renal artery duplex is reasonable given the severity of his hypertension. BP has improved with the addition of amlodipine and further lowering should be done gradually to minimize the risk of hypoperfusion. Cr elevated today; will contact Dr. Daniel's office for baseline labs. * Shiva Hylton MD - 11/25/2010 7:26 PM EDT Hypertension/Nephrology Consultation Manuel Crystal [id number] ID: [id number] y.o. old male seen at the request of Dr. MAURIZIO DANIEL MD for evaluation of HTN. Past Medical History: 1. HTN -for last >15 yrs, uncontrolled 2. DM for >10 yrs -diet controlled -no retinopathy, neuropathy, gastroparesis 3. Kidney stone-left ->5 yrs ago, no intervention for it -symptomatic pain several times 4. Obesity 5. Presumed Hemochromatosis -used to have phlebotomies in the past PSH: 1.cholecystectomy History of Present Illness: Patient is a 60 y/o M who has had HTN for as long as he can remember, but diagnosed in the . At that time, his BP used to be in 150s/90s, he was on different medications including Tenormin, HCTZ, Lisinopril at that time. Somehow he was lost to follow up and did not see a physician for next 10 years since 2000. Within this time, he reports being in good health except few episodes of left flank pain likely related to previously diagnosed kidney stone, which he treated himself at home with pain meds. He was seen in ER this spring (around July) for an episode of bronchitis, when he was found to have BP of 220/120. He also had an EKG done around that time which was supposedly normal. He had renal function checked and reported to be slightly abnormal. He did not have any symptoms other than the bronchitis around that time (specifically no headache, chest pain). He was started on Metoprolol and then he established care with his new PCP. Since then there have been several attempts to control his BP and up until 2 weeks ago, his BP was in 200s systolic and he was at that time on 3 dif ferent medications (Zestoretic, Lisinopril, Metoprolol). At that time, he was started on [id number] daily. He reports his BP has started to come down after this. He also had a renal US done abouta week ago, which was reported to show slightly obstructing stone in the left side but no swollenkidneys. A CT scan was planned initially but this was postponed due to his abnormal renal function as it would involve use of contrast dye. Patient reports he has not had any side effects from any of these medications, he has not felt lightheaded or dizzy. He denies CP, chest pressure, headache, change in his vision. Has not seen an control supervisor before. He has noted some cloudy urine but that has been present for years and has not changed, denies any dysuria or hematuria. No difficulty with voiding. He has mild low back pain intermittently which he treats with ibuprofen (about once a month). He has been snoring at night and has recently started feeling fatigued during day. His reports she has not noticed seeing him gasping or stop breathing momentarily at night. He denies feeling excessively hot or cold all the time. Nopalpitations, panic attacks, diaphoresis. No fevers, chills. No diarrhea, vomiting, abdominal pain. Patient reports his DM has been well controlled on diet and exercise alone. He is trying to lose some weight, has been playing golf this summer and few days ago felt exhausted after playing 18 holes instead of the usual 9. Regarding the hemochromatosis, he reports he had blood tests done, but does not remember having any liver involvement or getting a liver biopsy. Medications: Current outpatient prescriptions:metoprolol succinate (TOPROL-XL) 50 mg 24 hr tablet, Take 75 mg bymouth daily., Disp: , Rfl: ; lisinopril-hydrochlorothiazide (ZESTORETIC) 20-25 mg per tablet, Take 1 tablet by mouth daily., Disp: , Rfl: ; lisinopril (PRINIVIL;ZESTRIL) 20 mg tablet, Take 20 mg by mouth daily., Disp: , Rfl: ; amlodipine (NORVASC) 5 mg tablet, Take 5 mg by mouth daily., Disp: , Rfl: sildenafil (VIAGRA) 25 mg tablet, Take 25 mg by mouth as needed., Disp: , Rfl: ; aspirin 81 mg EC tablet, Take 81 mg by mouth daily., Disp: , Rfl: ; multivitamin with minerals (THERA-M) 9-0.4 mg tablet, Take 1 tablet by mouth daily., Disp: , Rfl: Allergies / ADRs: Not on File NKDA Family History: Both parents had HTN No kidney disease No thyroid disease Social History: Never smoked Occasional ETOH use, maybe once a month No illicit drug use Lives with and has 2 sons who are in good health 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 Equal pulse bilaterally, no radiofemoral delay Resp: Clear to auscultation bilaterally Abd: Soft, not tender, BS+, no abdominal bruit, no renal bruit Lymph: no cervical lymphadenopathy Ext: No edema, distal pulse 2+ bilaterally Skin: No rash Neuro: non focal, CN II to XII grossly intact, normal sensation in both feet Psych: Normal affect Labs: Office Visit on 11/25/10 (from the past 24 hour(s)) CBC (WITH DIFF) Component Value Range ??? WBC 13.2 (*) 4.0 - 10.0 (x10(3)/mcL) ??? RBC 4.31 (*) 4.63 - 6.08 (x10(6)/mcL) ??? Hemoglobin 13.2 (*) 13.7 - 17.5 (gm/dL) ??? Hematocrit 36.5 (*) 40.0 - 51.0 (%) ??? MCV 84.7 79.0 - 92.0 (fL) ??? MCH 30.6 25.6 - 32.2 (pg) ??? MCHC 36.2 32.0 - 36.5 (gm/dL) ??? Platelets 193 145 - 370 (x10(3)/mcL) ??? RDWSD 41.0 35.0 - 46.0 (fL) ??? RDWCV 13.3 10.9 - 14.4 (%) ??? MPV 9.5 9.0 - 12.0 (fL) BASIC METABOLIC PANEL (NON-FASTING) Component Value Range ??? Glucose Lvl 132 60 - 199 (mg/dL) ??? BUN 33 (*) 10 - 20 (mg/dL) ??? Creatinine 2.55 (*) 0.80 - 1.50 (mg/dL) ??? Sodium 133 (*) 135 - 145 (mmol/L) ??? Potassium 3.4 (*) 3.5 - 5.0 (mmol/L) ??? Chloride 94 (*) 98 - 107 (mmol/L) ??? CO2 24 22 - 31 (mmol/L) ??? Anion Gap 15 5 - 15 (mmol/L) ??? Calcium 9.3 8.5 - 10.5 (mg/dL) ? ? Estimated GFR 26 (*) >=60 PHOSPHORUS Component Value Range ??? Phosphorus 3.9 2.5 - 4.5 (mg/dL) TSH Component Value Range ??? TSH 4.32 (*) 0.27 - 4.20 (mcIU/mL) ALBUMIN Component Value Range ??? Albumin 4.4 3.2 - 5.2 (gm/dL) REFLEX LAB-A-DIFF Component Value Range ??? Neutrophils % 83.6 (*) 34.0 - 71.0 (%) ??? Neutr Abs (ANC) 11.05 (*) 1.50 - 6.30 (x10(3)/mcL) ??? Lymphocytes % 10.9 (*) 19.0 - 53.0 (%) ??? Lymphocytes Abs 1.4 1.0 - 3.6 (x10(3)/mcL) ??? Monocytes % 4.8 4.0 - 13.0 (%) ??? Monocyte Abs 0.6 0.2 - 1.0 (x10(3)/mcL) ??? Eosinophils % 0.3 0.0 - 7.0 (%) ??? Eosinophils Abs 0.0 0.0 - 0.5 (x10(3)/mcL) ??? Basophils % 0.2 0.0 - 2.0 (%) ??? Basophils Abs 0.0 0.0 - 0.2 (x10(3)/mcL) ??? Immature Gran % 0.20 0.00 - 0.66 (%) ??? Shelly Gran Abs 0.03 0.00 - 0.05 (x10(3)/mcL) No outside labs to compare Patient unable to provide urine sample for us even after multiple attempts A/P: Manuel Crystal is a 60 y.o. male who comes in today for evaluation of uncontrolled HTN. 1. HTN: By definition patient has resistant hypertension. Although majority of cases of HTN is idiopathic, resistant hypertension is much more associated with secondary causes which includes but not limited to: primary aldosteronism, renal artery stenosis, chronic kidney disease, sleep apnea, pheochromocytoma, coarctation of aorta among others. Among these, we should rule out primary aldosteronism since this is a common cause (10-20% case of resistant HTN), for which we would recommend checkinga serum aldosterone/renin ratio. We should rule out renal artery stenosis as a potential cause, would get a renal artery duplex for this. Sleep apnea is a possibility based on his history (although he does not have the typical apneic episodes), it may be worth doing a sleep study to look for this. Coarctation does not seem likely based on physical exam, no symptoms suggestive of pheochromocytoma either. He could have chronic kidney disease (see below) which could contribute to HTN. Hypertensionin the setting of kidney stone should also raise the possibility of hyperparathyroidism for which we would start with checking Ca, Ph and then will also check PTH. Plan: -to assess for end organ involvement, will check BMP, EKG (planned with next visit, may show LVH) -serum aldosterone and renin activity, ratio >20 would be strongly suggestive of primary aldosteronism -renal artery duplex -check TSH (normal) -check PTH -consider sleep study In terms of management, his BP control has improved since the addition of Amlodipine 2 weeks ago, we would not make any changes in his medications today but will see him in follow up in 2 weeks at which time if BP remains >160/90, will uptitrate dose of Amlodipine. In summary, since he likely had been running a very high BP for a while, we would not be too aggressive with reduction in his BP and try to lower it slowly without causing any symptoms of hypoperfusion. 2. Renal insufficiency: It is unclear what his baseline renal function is. We do not have results of recent blood tests done in ER, which reported an abnormal renal function per patient. We will try to get those records including the renal US which was also done last week. He likely has chronic kidney disease from long standing uncontrolled HTN, but other risk factors include DM, nephrolithiasis. Patient unable to provide us with urine sample today even after multiple attempts, but we will review urine microscopy and also send urine for [id number] ratio with next visit. We will check PTH, vitamin D. RTC 2 weeks (or sooner) with follow up labs, renal artery duplex, EKG. Thank you for allowing me to participate in the care of this interesting patient. Please CC to: MAURIZIO DANIEL MD [address] [address] documented in this encounter Plan of Treatment Scheduled Orders Name Type Priority Associated Diagnoses Orde r Schedule EKG 12 Lead ECG Routine HTN (hypertension) Ordered: 11/25/2010 documented as of this encounter Procedures Procedure Name Priority Date/Time Associated Diagnosis Comments DIFFERENTIAL, AUTOMATED Routine 11/25/2010 3:53 PM EDT ALDOSTERONE Routine 11/25/2010 3:53 PM EDT HTN (hypertension) RENIN ACTIVITY Routine 11/25/2010 3:53 PM EDT HTN (hypertension) CBC (WITH DIFF) Routine 11/25/2010 3:53 PM EDT HTN (hypertension) TSH Routine 11/25/2010 3:53 PM EDT HTN (hypertension) PHOSPHORUS Routine 11/25/2010 3:53 PM EDT HTN (hypertension) ALBUMIN LEVEL Routine 11/25/2010 3:53 PM EDT HTN (hypertension) BASIC METABOLIC PANEL Routine 11/25/2010 3:53 PM EDT HTN (hypertension) documented in this encounter Results * Duplex Study Renal Arteries, Bilat (12/20/2010 9:47 AM EDT) VB Text Report Department: Vascular Surgery Lab Patient: [id number] (MANUEL CRYSTAL) CPT Code: 86053 ICD-9: 401.9 Referring Physician: MEHRDAD BRIGGS Indication: hypertension, hydronephrosis ICD9 Diagnosis Code: 401.9 [...] statistics are based on comparisons performed at [facility] between noninvasive renal artery duplex data and arteriographic evaluation of the same patients from 5031-1443. Q / A Sens. Spec. PPV NPV [...] of Report VASCUBASE 12/20/2010 9:47 AM EDT Mehrdad Briggs MD VASCULAR ORDERABLES VASCUBASE * (ABNORMAL) REFLEX LAB-A-DIFF (11/25/2010 3:53 PM EDT) Neutrophil % 83.6(H) 34.0 - 71.0 % CERNER MILLENNIUM Neutrophil Absolute 11.05(H) 1.50 - 6.30 x10(3)/mc L CERNER MILLENNIUM Lymph % 10.9(L) 19.0 - 53.0 % CERNER MILLENNIUM Lymphocytes Abs 1.4 1.0 - 3.6 x10(3)/mc L CERNER MILLENNIUM Monocyte % 4.8 4.0 - 13.0 % CERNER MILLENNIUM Monocyte Abs 0.6 0.2 - 1.0 x10(3)/mc L CERNER MILLENNIUM Eos % 0.3 0.0 - 7.0 % CERNER MILLENNIUM Eosinophils Abs 0.0 0.0 - 0.5 x10(3)/mc L CERNER MILLENNIUM [...] x10(3)/mc L CERNER MILLENNIUM Blood specimen (specimen) 11/25/2010 3:53 PM EDT 11/25/2010 3:56 PM EDT Mehrdad Briggs MD HEMATOLOGY ORDERABLE S Performing Organization Address [facility] Co de Phone Number [facility] * Albumin (11/25/2010 3:53 PM EDT) Albumin 4.4 3.2 - 5.2 gm/dL [facility] Blood specimen (specimen) 11/25/2010 3:53 PM EDT 11/25/2010 3:56 PM EDT Mehrdad Briggs MD CHEMISTRY ORDERABLES Performing Organization Address [facility] Co de Phone Number [facility] * (ABNORMAL) TSH (11/25/2010 3:53 PM EDT) Thyroid Stimulating Hormone 4.32(H) 0.27 - 4.20 mcIU/mL [facility] Blood specimen (specimen) 11/25/2010 3:53 PM EDT 11/25/2010 3:56 PM EDT Mehrdad Briggs MD CHEMISTRY ORDERABLES Performing Organization Address [facility] de Phone Number [facility] * Renin Activity (11/25/2010 3:53 PM EDT) Renin Activity (MAY) 0.6 ng/ml/hr [facility] Comment: -- REFERENCE VALUE -- (Peripheral vein specimen) Na-deplete, upright: ??Mean: 5.9 ??Range: 2.9-10.8 Na-replete, upright: ??Mean: 1.0 ??Range: <= 0.6-3.0 Test Performed by: [facility] D[facility] of Lab Med and Pathology [address] [place] [id number] [employer]: Herson Pollock III, M.D. Blood specimen (specimen) 11/25/2010 3:53 PM EDT 11/25/2010 4:26 PM EDT Mehrdad Briggs MD LAB SEND OUT ORDERAB LES MARIA TERESA MONTILLAIUM * Aldosterone (11/25/2010 3:53 PM EDT) Pathologist [facility] Aldosterone (SEPTEMBER) 6.1 <=21 ng/dL CERNER MILLENNIUM Comment: Reference range based on upright A.M. collection from subjects on ad vivek sodium uptake. Test Performed by: [facility] Pathology [address] [place] [address] [employer]: Herson Pollock III, M.D. Blood specimen (specimen) 11/25/2010 3:53 PM EDT 11/25/2010 4:26 PM EDT Mehrdad Briggs MD LAB SEND OUT ORDERAB LES Performing Organization Address [facility]/ZIP Co de Phone Number [facility] * Phosphorus (11/25/2010 3:53 PM EDT) [facility] Phosphorus 3.9 2.5 - 4.5 mg/dL [facility] MILLENNIUM Blood specimen (specimen) 11/25/2010 3:53 PM EDT 11/25/2010 3:56 PM EDT Mehrdad Briggs MD CHEMISTRY ORDERABLES Performing Organization Address [facility]/ZIP Co de Phone Number [facility] * (ABNORMAL) Basic Metabolic Panel (non-fasting) (11/25/2010 3:53 PM EDT) [facility] Glucose 132 60 - 199 mg/dL CERNER MILLENNIUM Comment:Diabetes: >=200 mg/d L plus symptoms Blood Urea Nitrogen 33(H) 10 - 20 mg/dL CERNER MILLENNIUM Creatinine 2.55(H) 0.80 - 1.50 mg/dL CERNER MILLENNIUM Sodium 133(L) 135 - 145 mmol/L CERNER MILLENNIUM Potassium 3.4(L) 3.5 - 5.0 mmol/L CERNER MILLENNIUM Comment: [...] - 31 mmol/L CERNER MILLENNIUM Anion Gap 15 5 - 15 mmol/L CERNER MILLENNIUM Calcium 9.3 8.5 - 10.5 mg/dL CERNER MILLENNIUM Est Glomerular Filtration Rate 26(L) >=60 CERNER MILLENNIUM Comment: The National Kidney [...] disease. References: http://nkdep.nih.gov/resources/NKDEP_Suggestn4Labs_0606_508.pdf http://www.kidney.org/professionals/kls/pdf/faq_gfr.pdf Blood specimen (specimen) 11/25/2010 3:53 PM EDT 11/25/2010 3:56 PM EDT Mehrdad Briggs MD CHEMISTRY ORDERABLES [facility] * (ABNORMAL) CBC (with Diff) (11/25/2010 3:53 PM EDT) White Blood Cell 13.2(H) 4.0 - 10.0 x10(3)/mc L CERNER MILLENNIUM Red Blood Cell 4.31(L) 4.63 - 6.08 x10(6)/mc L CERNER MILLENNIUM Hemoglobin 13.2(L) 13.7 - 17.5 gm/dL CERNER MILLENNIUM Hematocrit 36.5(L) 40.0 - 51.0 % CERNER MILLENNIUM Mean Cell Volume 84.7 79.0 - 92.0 fL CERNER MILLENNIUM Mean Cell Hemoglobin 30.6 25.6 - 32.2 pg CERNER MILLENNIUM Mean Cell Hemoglobin Concentration 36.2 32.0 - 36.5 gm/dL CERNER MILLENNIUM Platelet 193 145 - 370 x10(3)/mc L CERNER MILLENNIUM RDW Standard Deviation 41.0 35.0 - 46.0 fL CERNER MILLENNIUM RDW coefficient of variation 13.3 10.9 - 14.4 % CERNER MILLENNIUM Mean Platelet Volume 9.5 9.0 - 12.0 fL CERNER MILLENNIUM Blood specimen (specimen) 11/25/2010 3:53 PM EDT 11/25/2010 3:56 PM EDT Mehrdad Briggs MD HEMATOLOGY ORDERABLE S MARIA TERESA AGUERO documented in this encounter Visit Diagnoses Diagnosis HTN (hypertension)- Primary Unspecified essential hypertension documented in this encounter Care Teams Advertising Director Relationship Specialty Start Date End Date Maurizio Daniel MD [address] [place] [address] PCP - General 11/25/10 05/08/18 documented as of this encounter
--- OUTSIDE RECORDS SUMMARY | 2024-04-28 12:21 | XMS_ITS | Encounter Summary ---
[place] [address] Care Team Providers Care Printing And Stamping Supervisor Name Role Phone Maurizio Nathan MD Primary Care Provider [phone] Encounter Details Date Type Department Care Team (Late st Contact Info) Description 12/20/2010 10:42 AM EDT - 12/20/2010 11:59 PM EDT Hospital Encounter Non-Invasive [place] [phone] Social History Tobacco Use Types Packs/Day Years Used Date Smoking Tobacco: Never Comments:per MD office note 7.22.11 Alcohol Use Standard Drinks/Week Comments Not Asked 0 (1 standard drink = 0.6 oz pur e alcohol) Sex and Gender Information Value Date Recorded Sex Assigned at Not on file Gender Identity Not on file Sexual Orientation Not on file documented as of this encounter Medications at Time of Discharge Medication Sig Dispensed Refills Start Date End Date metoprolol succinate (TOPROL-XL) 50 mg 24 hr tablet Take 75 mg by mouth daily. aspirin 81 mg EC tablet Take 81 mg by mouth daily. multivitamin with minerals (THERA-M) 9-0.4 mg tablet Take 1 tablet by mouth daily. lisinopril-hydrochloroth iazide (ZESTORETIC) 20-25 mg per tablet Take 1 tablet by mouth daily. 04/01/2013 lisinopril (PRINIVIL;ZESTRIL) 20 mg tablet Take 20 mg by mouth daily. 04/01/2013 sildenafil (VIAGRA) 25 mg tablet Take 25 mg by mouth as needed. 06/20/2018 doxazosin (CARDURA) 1 mg tablet Take 1 tablet by mouth nightly. 30 tablet 12 12/20/2010 02/14/2011 amlodipine (NORVASC) 5 mg tablet Take 5 mg by mouth daily. 02/14/2011 documented as of this encounter Plan of Treatment Not on file documented as of this encounter Procedures Procedure Name Priority Date/Time Associated Diagnosis Comments EKG 12-LEAD Routine 12/20/2010 10:53 AM EDT documented in this encounter Results * EKG 12-LEAD (12/20/2010 10:53 AM EDT) Ventricular rate 56 BPM MUSE SYSTEM Atrial Rate 56 BPM MUSE SYSTEM P-R Interval 194 ms MUSE SYSTEM QRS Duration 108 ms MUSE SYSTEM Q-T Interval 450 ms MUSE SYSTEM QTC Calculated (Bezet) 434 ms MUSE SYSTEM Calculated P [place] 2 degrees MUSE SYSTEM Calculated R [place] -18 degrees MUSE SYSTEM Calculated T [place] 80 degrees MUSE SYSTEM INTERPRETATION Sinus bradycardia Minimal voltage criteria for LVH, may be normal variant Borderline ECG No previous ECGs available Confirmed by MD Jeremy, Luis Smith ([id number]) on 12/20/2010 12:34:35 PM MUSE SYSTEM 12/20/2010 10:5 3 AM EDT 12/20/2010 12:34 PM EDT Unknown ECG ORDERABLES MUSE SYSTEM documented in this encounter Visit Diagnoses Not on filedocumented in this encounter Care Teams Printing And Stamping Supervisor Relationship Specialty Start Date End Date Maurizio Nathan MD [address] [place] [address] PCP - General 11/25/10 05/08/18 documented as of this encounter
--- OUTSIDE RECORDS SUMMARY | 2024-04-28 12:21 | XMS_ITS | Encounter Summary ---
Author Organization [facility] [place] [address] Care Team Providers Care Strategic Partnership Specialist Name Role Phone Maurizio Nathan MD Primary Care Provider [phone] Encounter Details Date Type Department Care Team (Late st Contact Info) Description 06/23/2011 Telephone [place] [id number] Shiva Hylton MD Social History Tobacco Use [...] Telephone Encounter - Shiva Hylton MD - 06/23/2011 5:51 PM EST Received BP log from patient. Average BP 130-140s/70-80s. Occasional BP in low 150. Called patient and left message. BP looks better. No change in meds for now. F/U as scheduled. documented in this encounter Plan of Treatment Not on file documented as of this encounter Visit Diagnoses Not on filedocumented in this encounter Care Teams Strategic Partnership Specialist Relationship Specialty Start Date End Date Maurizio Nathan MD [address] [place] [id number] PCP - General 11/25/10 05/08/18 documented as of this encounter
--- OUTSIDE RECORDS SUMMARY | 2024-04-28 12:21 | XMS_ITS | Encounter Summary ---
Author Organization [facility] [place] [address] Care Team Providers Care Radio Broadcaster Name Role Phone Maurizio Nathan MD Primary Care Provider [phone] Encounter Details Date Type Department Care Team (Latest Contact Info) Description 06/23/2011 11:00 AM EST Clinical Support [place] [address] CLINIC[facility] KEE Discharge Disposition: Home Social History Tobacco Use [...] on filedocumented in this encounter Care Teams Radio Broadcaster Relationship Specialty Start Date End Date Mauirzio Nathan MD [address] [place] [id number] PCP - General 11/25/10 05/08/18 documented as of this encounter
[2024-04-28 12:22] LABS: ALT 21 U/L (16-63); AST 20 U/L (15-37); Albumin 3.2 g/dL (3.4-5.0); Alkaline Phosphatase 68 U/L (46-116); Anion Gap 10.9 mmol/L (3-11); BUN 39 mg/dL (7-18); Bilirubin, Total 0.71 mg/dL (0.2-1.0); CO2 22.1 mmol/L (21.0-32.0); CREATININE 2.9 mg/dL (0.70-1.30); Calcium 8.4 mg/dL (8.5-10.1); Chloride 94 mmol/L (98-107); Estimated GFR 22.29 (mL/min/1.73m2); Glucose 210 mg/dL (74-106); Potassium 3.7 mmol/L (3.5-5.1); Sodium 127 mmol/L (136-145); Total Protein 7.4 g/dL (6.4-8.2)
== END 2024-04-28 12:19 | disposition home or self-care (01) ==
LOC: LBO 12:18
PROVIDERS: PCP Family Medicine; Visit Provider Student in an Organized Health Care Education/Training Program
DX: E87.1 Hypo-osmolality and hyponatremia (principal)
CPT/HCPCS: 36415; 80053; 85025

== ENCOUNTER 2024-06-02 02:53 | Outpatient (CLI) | payer MEDICARE, SELFPAY ==
[2024-06-02 16:44] LABS: Anion Gap 7.9 mmol/L (3-11); BUN 33 mg/dL (7-18); CO2 29.1 mmol/L (21.0-32.0); CREATININE 2.5 mg/dL (0.70-1.30); Calcium 8.9 mg/dL (8.5-10.1); Chloride 103 mmol/L (98-107); Estimated GFR 26.63 (mL/min/1.73m2); Glucose 137 mg/dL (74-106); Potassium 3.9 mmol/L (3.5-5.1); Sodium 140 mmol/L (136-145)
== END 2024-06-02 02:54 | disposition home or self-care (01) ==
PROVIDERS: PCP Family Medicine; Visit Provider Family Medicine
DX: E87.1 Hypo-osmolality and hyponatremia (principal)
CPT/HCPCS: 36415; 80048

== ENCOUNTER 2024-08-26 13:02 | Inpatient (IN) | payer MEDICARE, SELFPAY ==
[2024-08-26] VITALS (32 sets, daily range): BP systolic 80–120; BP diastolic 42–81; PULSE 98–134; RESP 18–30; TEMP 36.4–36.7; O2SAT 91–96
--- NOTE | 2024-08-26 13:15 | RT.EKG_ITS ---
APPROVED REPORT Exam: Resting ECG Reason for Exam: abd pain, hiccups Patient Location: E HR:121 bpm ECG Measurements Heart Rate 121 AXIS UT 184 P -35 QRSd 100 QRS -56 QT 306 T 105 QTc 434 Conclusion Sinus tachycardia, rate 121 No interval abnormalities No STEMI PACs
--- NOTE | 2024-08-26 13:26 | W.ED.GENAD ---
Discharge Plan Disposition Patient Disposition: Admit to [facility] Condition: Fair Discharge Details Chief Complaint: Nausea/Vomit/Diar Clinical Impression: SBO (small bowel obstruction), Abdominal wall hernia, Abnormal renal function, Diabetes mellitus, Essential hypertension, Incarcerated hernia Primary Care Provider: Timmy Iglesias ED Provider: Brooklyn Guerra Home Meds and New Rx's Prescriptions: No Action doxazosin [Cardura] 8 mg tablet 8 mg PO HS Qty: 90 3RF CENTRUM SILVER TABLET 1 EACH tablet 1 ea PO DAILY amlodipine 5 mg tablet 5 - 10 mg PO BID Qty: 270 3RF Rx Instructions: TAKE 5 MG AM AND 10 MG HS lisinopril 40 mg tablet 40 mg PO DAILY Qty: 90 3RF metoprolol tartrate 50 mg tablet See Rx Instructions .ROUTE .COMPLEX Qty: 270 3RF Dose Instruction: TAKE ONE AND ONE-HALF TABLETS BY MOUTH TWO TIMES A DAY Rx Instructions: TAKE ONE AND ONE-HALF TABLETS BY MOUTH TWO TIMES A DAY chlorthalidone 50 mg tablet See Rx Instructions .ROUTE .COMPLEX Qty: 90 3RF Dose Instruction: TAKE ONE TABLET BY MOUTH DAILY Rx Instructions: TAKE ONE TABLET BY MOUTH DAILY omeprazole 40 mg capsule,delayed release(DR/EC) 40 mg PO DAILY Qty: 90 3RF atorvastatin 10 mg tablet 10 mg PO DAILY Qty: 90 3RF potassium chloride 20 mEq tablet,ER particles/crystals 30 meq PO DAILY Qty: 145 4RF Rx Instructions: 30 meq daily dapagliflozin propanediol [Farxiga] 10 mg tablet 10 mg PO DAILY Qty: 90 3RF HPI General Mode of arrival: ambulatory. Date/Time Provider Initiated Documentation: 08/26/24 13:11. Limitations to Documentation: no limitations. Information obtained by: patient, family, RN/MD and old records reviewed. HPI Narrative: This is a 74-year-old male patient with a history of diabetes, hypertension, kidney disease, presenting for evaluation of nausea with vomiting and orthostasis. He began experiencing abdominal discomfort on Sunday, which escalated to persistent vomiting throughout the night, occurring at least 12 times. The frequency of vomiting decreased on Sunday but continued intermittently. Over the past two days, he has been vomiting approximately every 5 hours. He reports no diarrhea and his last bowel movement was on Sunday, prior to the onset of vomiting. He has been burping but has not passed any gas. He has a history of an umbilical hernia, which has not been surgically repaired. He has not had any sick contacts at home. He is uncertain about the presence of fever but recalls feeling feverish on a few occasions. He has been attempting to maintain hydration with Gatorade and water, but notes that the fluids are often regurgitated. He also reports experiencing hiccups, which have been severe enough to disrupt his sleep. He has brought a sample of his vomitus for examination, describing it as foul-smelling and brown in color. He experiences abdominal pain in the mid-upper region. His hernia is typically visible and does not retract, and he believes its size fluctuates with his weight changes. He has previously undergone CT scans without any adverse reactions to the contrast dye. He has a history of cholecystectomy but retains his appendix. He has not had any changes in urinary habits. He also reports episodes of lightheadedness upon standing or sitting up. [facility] medical noted him to have a positive orthostatic change with a heart rate as high as 130s, concerning for dehydration. Related Data Home Medications ?Medication ?Instructions ?Recorded ?Confirmed Centrum Silver Tablet 1 ea PO DAILY 10/05/12 08/26/24 amlodipine 5 mg tablet 5 - 10 mg (1 - 2 x 5 mg) PO BID 11/28/23 08/26/24 #270 tab-caps atorvastatin 10 mg tablet 10 mg PO DAILY #90 tabs 11/28/23 08/26/24 chlorthalidone 50 mg tablet See Rx Instructions .Route 11/28/23 08/26/24 .COMPLEX #90 tabs lisinopril 40 mg tablet 40 mg PO DAILY #90 tab-caps 11/28/23 08/26/24 metoprolol tartrate 50 mg tablet See Rx Instructions .Route 11/28/23 08/26/24 .COMPLEX #270 tabs omeprazole 40 mg capsule,delayed 40 mg PO DAILY #90 caps 11/28/23 08/26/24 release doxazosin 8 mg tablet (Cardura) 8 mg PO HS #90 tabs 11/29/23 08/26/24 potassium chloride 20 mEq 30 meq (1.5 x 20 mEq) PO DAILY 12/13/23 08/26/24 tablet,extended release(part/cryst) #145 tab-caps dapagliflozin propanediol 10 mg 10 mg PO DAILY #90 tabs 02/07/24 08/26/24 tablet (Farxiga) Previous Rx's ?Medication ?Instructions ?Recorded amlodipine 5 mg tablet 5 - 10 mg (1 - 2 x 5 mg) PO BID 11/28/23 #270 tab-caps atorvastatin 10 mg tablet 10 mg PO DAILY #90 tabs 11/28/23 chlorthalidone 50 mg tablet See Rx Instructions .Route 11/28/23 .COMPLEX #90 tabs lisinopril 40 mg tablet 40 mg PO DAILY #90 tab-caps 11/28/23 metoprolol tartrate 50 mg tablet See Rx Instructions .Route 11/28/23 .COMPLEX #270 tabs omeprazole 40 mg capsule,delayed 40 mg PO DAILY #90 caps 11/28/23 release doxazosin 8 mg tablet (Cardura) 8 mg PO HS #90 tabs 11/29/23 potassium chloride 20 mEq 30 meq (1.5 x 20 mEq) PO DAILY 12/13/23 tablet,extended release(part/cryst) #145 tab-caps dapagliflozin propanediol 10 mg 10 mg PO DAILY #90 tabs 02/07/24 tablet (Farxiga) Allergies Allergy/AdvReac Type Severity Reaction Status Date / Time No Known Allergies Allergy Verified 08/26/24 13:10 General Stated Complaint: Nausea/Vomit/Diar NICOLE: 3 Exam Narrative Exam Narrative: Gen: Awake and alert, in no apparent distress HEENT: Non-icteric sclera Neck: Supple Lungs: No apparent respiratory distress, normal respiratory effort. CV: Appears well perfused, heart with tachycardic rate but regular rhythm, strong distal pulses Abdomen: Non-distended, soft, nontender to palpation, large umbilical hernia palpable, nonreducible, with slight mottling of the overlying skin. No tenderness to palpation over this area MSK: Moves 4 extremities without apparent limitation in ROM Skin: Visualized skin without rashes, cyanosis. Neuro: Normal Gait, no obvious focal deficits or facial asymmetry. Speaks in full, clear sentences. Psych: Appropriate for situation. Course Vital Signs Vital signs: Vital Signs Temperature 36.4 C L 08/26/24 13:07 Pulse 134 H 08/26/24 13:07 Respiratory Rate 18 08/26/24 13:07 Blood Pressure 106/68 08/26/24 13:07 Pulse Oximetry 96 08/26/24 13:07 Temperature 36.4 C L 08/26/24 13:09 Pulse 134 H 08/26/24 13:09 Respiratory Rate 18 08/26/24 13:09 Blood Pressure 106/68 08/26/24 13:09 Pulse Oximetry 96 08/26/24 13:09 Medical Decision Making This is a 74-year-old male patient presenting for evaluation of vomiting fecal matter and orthostasis. My differential includes but is not limited to incarcerated or strangulated hernia, bowel obstruction, metabolic derangement including dehydration, kidney injury. The patient is status post cholecystectomy, symptoms are less consistent with etiologies such as appendicitis, diverticulitis. No pain out of proportion to suggest mesenteric ischemia, no history of aortic pathology nor pulsatility to the midline mass. Considered perforation the patient has a nonperitonitic abdomen at this time. We will obtain laboratory studies to include CBC, CMP, lactate, and troponin. I will obtain an EKG given the tachycardia, and a CT of the abdomen and pelvis. Given the patient's history of CKD I did wait for labs, and ultimately - Reviewed the laboratory studies, which show leukocytosis to 13 but no anemia or thrombocytopenia. Chemistry panel with mild hyponatremia to 128, evidence of worsening renal dysfunction with a BUN of 68 and creatinine of 3.9, another low magnesium of 1.3 which was repleted intravenously. Lactate is 2, and troponin was negative x 2 checks without interval increase. CT scan shows a high-grade bowel obstruction at the level of the incarcerated hernia. An NG tube was placed and I discussed the case with Dr. Rios with general surgery. He plans to evaluate the patient with likely operative intervention tomorrow, and the hospitalist was contacted who is graciously accepted this patient for admission to their service. Patient remained hemodynamically improved while under my care, and was transferred to their service without incident. Brooklyn Guerra MD Medical Records Medical records reviewed: Yes I reviewed the patient's medical records. Lab Data Lab results reviewed: Yes I reviewed the patient's lab results. Quality:SDOH Health Related Social Needs: Health related social needs inadequate housing (Z59.1) Health related social needs details all good PFSH All Active Problems (Updated 08/26/24 @ 17:03 by Brooklyn Guerra MD) Incarcerated hernia (Acute) SBO (small bowel obstruction) (Acute) Tubular adenoma (Acute ~02/01/23) Encounter for screening colonoscopy (Acute) Abdominal wall hernia (Acute 10/20/15) Abnormal renal function (Acute 04/11/13) Atrophic Left Kidney Nephrectomy Diabetes mellitus (Acute 10/07/12) Diverticulosis of colon without diverticulitis (Acute 06/17/12) Erectile dysfunction (Acute 04/13/14) Essential hypertension (Acute 04/10/13) Hemorrhoids (Acute 06/17/12) Kidney stone (Acute 04/11/13) Dysphagia (Acute) Eosinophilic esophagitis (Acute ~02/26/18) 02/26/18; DR. AYON Diabetic retinopathy (Acute) 04/22/18 [place]; MILD IN THE RIGHT EYE-kb Tinea pedis (Acute) Retention of urine (Acute) Urinary tract infection (Acute) Hyperlipidemia associated with type 2 diabetes mellitus (Acute) Screening for colon cancer (Acute) Obesity (Chronic) Medical History Obesity (BMI 30-39.9) Impaired renal function Essential hypertension DM (diabetes mellitus) Diverticulosis large intestine w/o perforation or abscess w/bleeding Surgical History 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 AYON; COLON POLYP;DIVERTICULOSIS; GRADE 2 HEMORRHOIDS Cholecystectomy Family History Mother , AGE 95 Hypertension Father , AGE 88 Hypertension Stroke Sister , 85 No problems noted. Brother , AGE 75 Crohn's disease Brother Melanoma Maternal Grandfather , AGE 74 Heart disease Paternal Grandfather , AGE 88 No problems noted. Maternal Grandmother , AGE 48 Heart disease Paternal Grandmother No problems noted. Son No problems noted. Son No problems noted. Social History Smoking/Tobacco Use Status: Never Second Hand Exposure: Yes Smoking risk assessment performed?: Yes Alcohol Intake: current Alcohol Intake frequency: holidays/special occasions only Alcohol type: beer and hard liquor Drug use: Never Substance use type: does not use Caregiver/Support person: No Household members: spouse Housing: house Communication Needs: None Do you need help understanding health information?: Never Pets and animals: Yes Pets and animals: dog(s) Sexually active: No Do you think of yourself as: straight/heterosexual Current gender identity: male What is your relationship status?: How often do you talk on the phone with friends or family?: once per week How often do you get together with friends or relatives?: once per week How often do you attend restorationism or methodist services?: decline to answer Do you belong to any clubs or organized social groups?: no Panel score (0-1 are the most socially isolated patients): 1 What type of physical activity do you participate in: none Frequency: does not exercise Tamiko/Lutheran: None Special tamiko needs: No Seatbelt use: always Helmet use: Yes Helmet use: sometimes Drive intox or ride w/intox 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
[2024-08-26] MEDS: Lactated Ringers 1,000 ML 1000 ML IV (13:44)
[2024-08-26] MEDS: Ondansetron 4 MG/2 ML VIAL IVP (13:47)
[2024-08-26 13:48] LABS: Abs Immature Grans 0.05 10^3/uL (0.0-0.06); Absolute Basophil Count 0.03 10^3/uL (0.0-0.2); Absolute Eosinophil Count 0.04 10^3/uL (0.0-0.7); Absolute Lymphocyte Count 1.17 10^3/uL (1.2-3.4); Absolute Monocyte Count 1.46 10^3/uL (0.1-0.8); Basophils % 0.2 %; Eosinophils % 0.3 %; HGB 16.4 g/dL (13.5-17.5); Immature Grans % 0.4 %; Lymphocytes % 8.8 %; MCH 31.2 pg (27.0-33.0); MCHC 34.9 % (32.0-36.0); MCV 90 fL (80-95); MPV 9.6 fL (8.0-11.0); Neutrophils % 79.3 %; Platelet Count 203 10^3/uL (130-400); RBC 5.25 10^6/uL (4.36-5.78); RDW 12.7 % (11.8-14.1); RDW-SD 41.9 fL; WBC 13.24 10^3/uL (4.4-10.8)
--- NOTE | 2024-08-26 14:00 | DI.CT_ITS ---
Exam(s) CT ABDOMEN PELVIS WO EXAM: CT ABDOMEN PELVIS WO CLINICAL HISTORY: vomiting fecal material, umbilical hernia, c/f SBO. TECHNIQUE: Imaging Protocol: Axial computed tomography images with coronal and sagittal reformatted images were created and reviewed CONTRAST MATERIAL: Intravenous: none Oral: None COMPARISON: No exams were available for comparison FINDINGS: VISUALIZED LUNG BASES: Mild increased markings and tiny pleural fluid left lung base is unchanged fro m 04/22/2024. The previously present small pericardial effusion appears to have resolved.. ABDOMEN: GI: There is an anterior abdominal wall midline supraumbilical hernia which contains small bowel and there is a transition point at this level with high-grade bowel obstruction bowel loops measuring up to 4.7 cm. The small bowel loops distal to this transition point in the hernia are collapsed as is t he large bowel. LIVER: There are no obvious focal hepatic lesions evident of this noninfused study. GALLBLADDER/BILIARY: The gallbladder is again noted to be surgically absent. CBD is not dilated. PANCREAS: No evidence of pancreatic mass nor dilatation of the pancreatic duct. SPLEEN: Spleen is not enlarged. No obvious intrasplenic lesions. ADRENALS: There are no significant adrenal masses. KIDNEYS:Large benign cyst in the anterior cortex of the right kidney is again noted which measures 7. 5 x 7 cm in which contains a small amount of calcium in its anterior wall. No calculi nor solid lesi ons nor hydronephrosis in the right kidney. The opposite-left kidney is again noted to be atrophic a nd contains calculi in lower pole calyx, similar to previous. The left ureters not dilated and there are no calculi in either ureter nor within the urinary bladder. The bladder wall is diffusely thick ened which may be related to cystitis or under distension or chronic outlet obstruction as the prosta te appears slightly prominent... ABDOMINAL AORTA: Abdominal aorta is not enlarged. LYMPH NODES: There is no retroperitoneal nor paraaortic adenopathy. ABDOMINAL WALL: Anterior abdominal wall midline supraumbilical hernia as described above which is the cause of the high-grade bowel obstruction. The hernia sac measures 11 cm wide by 8 cm craniocaudal. PELVIS: LYMPH NODES: There is no intrapelvic nor inguinal adenopathy. GI: No evidence of appendicitis.There are sigmoid diverticuli but no evidence of acute diverticulitis of the sigmoid. URINARY BLADDER: No calculi nor obvious masses evident REPRODUCTIVE: Prostate mildly enlarged. OSSEOUS: No fractures nor significant osseous lesions. Multilevel chronic degenerative disc disease throughout the visualized lumbar and lower thoracic spine. No listhesis. IMPRESSION: 1. There is a high-grade mid small-bowel obstruction with the transition point within an anterior abd ominal wall midline supraumbilical hernia. The small bowel and large bowel distal to the transition point are collapsed. There is no ascites. No free air. 2. Atrophic left kidney again noted with prominent calculi in lower pole calyx of the left kidney aga in noted. There are no obstructing calculi in either ureter and no radiopaque calculi seen within th e urinary bladder. 3. There previously present pericardial effusion has resolved. 4. There is circumferential thickening of the lower esophagus again noted which should be further in vestigated with endoscopy to rule out neoplasm at this level Other findings as above. Report called by myself to ER physician 08/26/2024 at 3:30 p.m. RADIATION DOSE DELIVERED: 1,008.84mGy.cm Total DLP DATA REPOSITORY: All CT scans at this facility are submitted to the National Radiology Data Registry (NRDR) Dose Index Registry (DIR) with the [employer] (A[employer]). RADIATION OPTIMIZATION: All CT scans at this facility use at least one of these dose optimization te chniques: automated exposure control; mA and/or kV adjustment per patient size (includes targeted exa ms where dose is matched to clinical indication); or iterative reconstruction.
[2024-08-26 14:06] LABS: ALT 24 U/L (16-63); AST 22 U/L (15-37); Albumin 4.2 g/dL (3.4-5.0); Alkaline Phosphatase 55 U/L (46-116); Anion Gap 13.3 mmol/L (3-11); BUN 68 mg/dL (7-18); Bilirubin, Total 1.9 mg/dL (0.2-1.0); CO2 23.7 mmol/L (21.0-32.0); Calcium 8.9 mg/dL (8.5-10.1); Chloride 91 mmol/L (98-107); Estimated GFR 15.52 (mL/min/1.73m2); Glucose 202 mg/dL (74-106); Magnesium 1.3 mg/dL (1.8-2.4); Potassium 3.6 mmol/L (3.5-5.1); Sodium 128 mmol/L (136-145); Total Protein 9.1 g/dL (6.4-8.2); Troponin I 11 ng/L (<or=76)
[2024-08-26 14:08] LABS: CREATININE 3.9 mg/dL (0.70-1.30)
[2024-08-26] MEDS: MAGNESIUM SULFATE 2 GM/50 ML BAG IV_INF (14:58)
--- NOTE | 2024-08-26 16:30 | DI.RAD_ITS ---
Exam(s) XR PORTABLE CHEST AP EXAM: XR PORTABLE CHEST AP CLINICAL HISTORY: NG tube verification. TECHNIQUE: 2D digital imaging was performed. COMPARISON: No exams were available for comparison FINDINGS: Single AP portable view. Heart size is upper normal. The mediastinum is not widened. No obvious infiltrates although there appears to be a small amount left pleural fluid. There is an NG tube. Is distal tip appears to be in the proximal stomach just at or beyond the GE ju nction. IMPRESSION: As above. Recommend advancing the NG tube somewhat further into the stomach DATA REPOSITORY: RADIATION DOSE DELIVERED:
[2024-08-26 16:40] LABS: Troponin I 11 ng/L (<or=76)
--- NOTE | 2024-08-26 16:59 | W.PM.HP.N ---
Date of service: 08/26/24 Time of Service: 16:59 Assessment and Plan Assessment and plan (1) Acute kidney injury superimposed on CKD: Status: Acute Assessment and plan: LR at 100 cc/hr Cr 3.9 from 2.5 baseline- most likely pre-renal This could also be early sepsis with tachycardia , hypotension but no abdominal source identified on CT - will hold off antibiotics at this time Will order blood culture if febrile or ongoing signs of sepsis abdominal pain is intermittent and not severe - most likely not ischemic bowel with lactate only at 2.0, leukocytosis most likely reactive (2) Incarcerated hernia: Status: Acute Assessment and plan: As per imaging without pneumoperitoneum NGT to LCS NPO Surgical consult PRN APAP for pain (3) SBO (small bowel obstruction): Status: Acute Assessment and plan: As above (4) Diabetes mellitus: Status: Acute Assessment and plan: Gluc Q 6H with SSI coverage (5) Essential hypertension: Status: Acute Assessment and plan: holding oral home meds in the setting of SBO and HARRIET on CDK orthostasis with tachycardia- improving s/p IVF bolus in the ED PRN metoprolol for HR > 120-130 (6) Orthostasis: Status: Acute Assessment and plan: As above (7) On deep vein thrombosis (DVT) prophylaxis: Status: Acute Assessment and plan: SCD's Discussed with Dr. Maddox History of Present Illness History of Present Illness Chief Complaint: nausea, vomiting ,intermittent abdominal pain Narrative: This 74-year-old male patient with a PMHx of HTN, CKD, non- insulin dependent DM II presented to the ED for for evaluation of intermittent abdominal cramps, nausea, vomiting fecal matter starting Sunday. Found to be in orthostasis with HR up to the 130's on arrival to the ED. The patient received 0ne liter of IV crystalloids with improvement. Work-up in the ED showed a WBC of 13, Na 128, BUN/Creat 68/3.9 from baseline around 33/2.5,lactate 2.0 mag was 1.3 and replete. EKG showed ST HR 121 without sign of coronary occlusion.The CT of the abdomen and pelvis was positive for high-grade mid small-bowel obstruction with the transition point within an anterior abdominal wall midline supraumbilical hernia; also seen there is circumferential thickening of the lower esophagus with recommendation for endoscopic evaluation rule out neoplasm. NGT was palced. Surgery was consulted with recommendation for admission to the medical surgical floor to the hospitalist service for probable surgery in AM. Full code status confirmed. The patient denies history of AR, CHF, agina, past abdominal surgery except for cholecystectomy. Reported chills w/o fevers, nausea vomiting w/o hematemesis, no chest pain, no hematochezia or dysuria. Review of Systems All systems reviewed & are unremarkable except as noted in HPI and below PFSH All Active Problems (Updated 08/26/24 @ 19:50 by Mika Rios MD) On deep vein thrombosis (DVT) prophylaxis (Acute) Orthostasis (Acute) Acute kidney injury superimposed on CKD (Acute) Incarcerated hernia (Acute) SBO (small bowel obstruction) (Acute) Tubular adenoma (Acute ~02/01/23) Encounter for screening colonoscopy (Acute) Obesity (Chronic) Screening for colon cancer (Acute) Hyperlipidemia associated with type 2 diabetes mellitus (Acute) Urinary tract infection (Acute) Retention of urine (Acute) Tinea pedis (Acute) Diabetic retinopathy (Acute) 04/22/18 [place]; MILD IN THE RIGHT EYE-kb Eosinophilic esophagitis (Acute ~02/26/18) 02/26/18; DR. AYON Dysphagia (Acute) Kidney stone (Acute 04/11/13) Hemorrhoids (Acute 06/17/12) Essential hypertension (Acute 04/10/13) Erectile dysfunction (Acute 04/13/14) Diverticulosis of colon without diverticulitis (Acute 06/17/12) Diabetes mellitus (Acute 10/07/12) Abnormal renal function (Acute 04/11/13) Atrophic Left Kidney Nephrectomy Abdominal wall hernia (Acute 10/20/15) Medical History Obesity (BMI 30-39.9) Impaired renal function Essential hypertension DM (diabetes mellitus) Diverticulosis large intestine w/o perforation or abscess w/bleeding Surgical History 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 AYON; COLON POLYP;DIVERTICULOSIS; GRADE 2 HEMORRHOIDS Cholecystectomy Family History Mother , AGE 95 Hypertension Father , AGE 88 Hypertension Stroke Sister , 85 No problems noted. Brother , AGE 75 Crohn's disease Brother Melanoma Maternal Grandfather , AGE 74 Heart disease Paternal Grandfather , AGE 88 No problems noted. Maternal Grandmother , AGE 48 Heart disease Paternal Grandmother No problems noted. Son No problems noted. Son No problems noted. Social History Smoking/Tobacco Use Status: Never Second Hand Exposure: Yes Smoking risk assessment performed?: Yes Alcohol Intake: current Alcohol Intake frequency: holidays/special occasions only Alcohol type: beer and hard liquor Drug use: Never Substance use type: does not use Caregiver/Support person: No Household members: spouse Housing: house Communication Needs: None Do you need help understanding health information?: Never Pets and animals: Yes Pets and animals: dog(s) Sexually active: No Do you think of yourself as: straight/heterosexual Current gender identity: male What is your relationship status?: How often do you talk on the phone with friends or family?: once per week How often do you get together with friends or relatives?: once per week How often do you attend zoroastrianism or advent services?: decline to answer Do you belong to any clubs or organized social groups?: no Panel score (0-1 are the most socially isolated patients): 1 What type of physical activity do you participate in: none Frequency: does not exercise Tamiko/Hoahaoism: None Special tamiko needs: No Seatbelt use: always Helmet use: Yes Helmet use: sometimes Drive intox or ride w/intox ice delivery driver: No Do you feel safe at home: Yes Do you feel safe in your relationship?: Yes Meds Allergies and Home Medications Allergies Allergy/AdvReac Type Severity Reaction Status Date / Time No Known Allergies Allergy Verified 08/26/24 13:10 Home Medications ?Medication ?Instructions ?Recorded ?Confirmed ?Type Centrum Silver Tablet 1 ea PO DAILY 10/05/12 08/26/24 History amlodipine 5 mg tablet 5 - 10 mg (1 - 2 x 5 mg) PO BID 11/28/23 08/26/24 Rx #270 tab-caps atorvastatin 10 mg tablet 10 mg PO DAILY #90 tabs 11/28/23 08/26/24 Rx chlorthalidone 50 mg tablet See Rx Instructions .Route 11/28/23 08/26/24 Rx .COMPLEX #90 tabs lisinopril 40 mg tablet 40 mg PO DAILY #90 tab-caps 11/28/23 08/26/24 Rx metoprolol tartrate 50 mg tablet See Rx Instructions .Route 11/28/23 08/26/24 Rx .COMPLEX #270 tabs omeprazole 40 mg capsule,delayed 40 mg PO DAILY #90 caps 11/28/23 08/26/24 Rx release doxazosin 8 mg tablet (Cardura) 8 mg PO HS #90 tabs 11/29/23 08/26/24 Rx potassium chloride 20 mEq 30 meq (1.5 x 20 mEq) PO DAILY 12/13/23 08/26/24 Rx tablet,extended release(part/cryst) #145 tab-caps dapagliflozin propanediol 10 mg 10 mg PO DAILY #90 tabs 02/07/24 08/26/24 Rx tablet (Farxiga) Exam Narrative Exam Narrative: Constitutional The patient is in bed comfortable without acute distress, NGT to wall suction HENMT: Facial structures symmetrical w normal appearance Eyes: Well aligned Neuro:alert and oriented X4 . No neurological focal deficit, PERRLA Resp: Normal respiratory pattern, speaks in full sentences, unlabored breathing, clear lung bilaterally Cardio: regular rhythm, S1, S2, no murmur, positive radial and pedal pulses GI: Abdomen is not distended, soft and + alycia -umbilical tenderness at the site of non-reducible hernia, bowel sounds are absent Integumentary: No skin lesions or rash Extremities: strength 5/5 to bilateral lower and upper extremities Psych: RASS 0, congruent mood and normal affect. Results Labs 08/26/24 13:37 08/26/24 13:37 Labs: Laboratory Results - last 24 hr 08/26/24 08/26/24 13:37 15:44 WBC 13.24 H RBC 5.25 Hgb 16.4 Hct 47.0 MCV 90 MCH 31.2 MCHC 34.9 RDW 12.7 Plt Count 203 MPV 9.6 Immature Gran % 0.4 Neutrophils % 79.3 Lymphocytes % 8.8 Monocytes % 11.0 Eosinophils % 0.3 Basophils % 0.2 Nucleated RBC % 0.0 Absolute Neutrophils 10.50 H Absolute Lymphocytes 1.17 L Absolute Monocytes 1.46 H Absolute Eosinophils 0.04 Absolute Basophils 0.03 VBG Lactate 2.0 Sodium 128 L Potassium 3.6 Chloride 91 L Carbon Dioxide 23.7 Anion Gap 13.3 H BUN 68 H Creatinine 3.9 H* Est GFR (CKD-EPI 2020) 15.52 Glucose 202 H Calcium 8.9 Magnesium 1.3 L Total Bilirubin 1.9 H AST 22 ALT 24 Alkaline Phosphatase 55 Troponin I 11 11 Total Protein 9.1 H Albumin 4.2 Last Vital Signs Temp 36.4 C L 08/26/24 13:09 Pulse 103 H 08/26/24 16:30 Resp 27 H 08/26/24 16:00 BP 114/55 L 08/26/24 15:01 Pulse Ox 94 08/26/24 16:30 Time Spent Time spent with Patient: 55-74 minutes Time was spent: preparing to see the patient(eg.review tests), obtaining and/or reviewing separately otained hiistory, ordering medications,tests, procedures, referring, communicating with other health career services coordinator, indepentently interpreting results, counseling the patient and care coordination
[2024-08-26 17:53] LABS: Troponin I 13 ng/L (<or=76)
[2024-08-26] MEDS: Pantoprazole 40 MG VIAL IVP (18:04)
[2024-08-26] MEDS: Normal Saline Flush 10 ML SYR IVP ×2 (18:05→19:42)
[2024-08-26] MEDS: Lactated Ringers 1,000 ML 100 ML IV (18:11)
--- NOTE | 2024-08-26 18:35 | W.PC.ACHO ---
Registration Status: Primary Language: Preferred Language: ED Information & Data Chief Complaint Nausea/Vomit/Diar 08/26/24 13:29 Triage Note Patient complaining of 08/26/24 13:07 vomiting, abd pain and hiccups for 3 days Medical / Surgical History (Last Reviewed 08/26/24 @ 12:54 by Olivier Castano) Obesity (BMI 30-39.9) Impaired renal function Essential hypertension DM (diabetes mellitus) Diverticulosis large intestine w/o perforation or abscess w/bleeding (Last Reviewed 08/26/24 @ 12:54 by Olivier Castano) Nephrectomy EGD - MAC (11/23/17) Colonoscopy - MAC (01/2023) Cholecystectomy Most Recent Vital Signs Temperature 36.4 C L 08/26/24 13:09 Pulse 111 H 08/26/24 17:20 Pulse Rhythm Regular 08/26/24 18:14 Pulse 111 H 08/26/24 17:20 Respiratory Rate 19 08/26/24 17:20 Respiratory Effort Normal 08/26/24 18:14 Respiratory Depth Normal 08/26/24 18:14 Respiratory Pattern Normal 08/26/24 18:14 Blood Pressure 114/55 L 08/26/24 15:01 Blood Pressure Mean 73 08/26/24 15:01 Pulse Oximetry 94 08/26/24 17:20 Oxygen Delivery Method Room Air 08/26/24 18:14 Oxygen Flow Rate 0 08/26/24 18:14 Pain Level 0 08/26/24 18:14 Allergies No Known Allergies Allergy (Verified 08/26/24 13:10) Precautions Isolation Standard precaution 08/26/24 13:10 Active Medications Generic Name Dose Route Start Last Admin Trade Name Freq PRN Reason Stop Dose Admin Ringer's Solution 1,000 mls @ 100 mls/hr 08/26/24 17:46 08/26/24 18:11 IV 100 mls/hr INFUSION RONY Administration Sodium Chloride 0 ml 08/26/24 17:46 08/26/24 18:05 Normal Saline Flush 10 Ml Syr IVP 10 ml PRN PRN Administration IV IV Catheter Type [Right Wrist] Peripheral IV IV Catheter Gauge [Right Wrist 18 ] Diet Orders Category Date Time Status Nothing Per Oral [DIET] Nutrition 08/26/24 Lunch Active Diagnostics 08/26/24 08/26/24 08/26/24 Range/Units 15:44 13:37 04:59 WBC 13.24 H (4.4-10.8) 10^3/uL RBC 5.25 (4.36-5.78) 10^6/uL Hgb 16.4 (13.5-17.5) g/dL Hct 47.0 (40.0-50.0) % MCV 90 (80-95) fL MCH 31.2 (27.0-33.0) pg MCHC 34.9 (32.0-36.0) % RDW 12.7 (11.8-14.1) % Plt Count 203 (130-400) 10^3/uL MPV 9.6 (8.0-11.0) fL Immature Gran % 0.4 % Neutrophils % 79.3 % Lymphocytes % 8.8 % Monocytes % 11.0 % Eosinophils % 0.3 % Basophils % 0.2 % Nucleated RBC % 0.0 (0.0-0.3) % Absolute Neutrophils 10.50 H (1.2-6.7) 10^3/uL Absolute Lymphocytes 1.17 L (1.2-3.4) 10^3/uL Absolute Monocytes 1.46 H (0.1-0.8) 10^3/uL Absolute Eosinophils 0.04 (0.0-0.7) 10^3/uL Absolute Basophils 0.03 (0.0-0.2) 10^3/uL VBG Lactate 2.0 (<or=2.0) mmol/L Sodium 128 L (136-145) mmol/L Potassium 3.6 (3.5-5.1) mmol/L Chloride 91 L (98-107) mmol/L Carbon Dioxide 23.7 (21.0-32.0) mmol/L Anion Gap 13.3 H (3-11) mmol/L BUN 68 H (7-18) mg/dL Creatinine 3.9 H* (0.70-1.30) mg/dL Est GFR (CKD-EPI 2020) 15.52 (mL/min/1.73m2) Glucose 202 H (74-106) mg/dL Calcium 8.9 (8.5-10.1) mg/dL Magnesium 1.3 L (1.8-2.4) mg/dL Total Bilirubin 1.9 H (0.2-1.0) mg/dL AST 22 (15-37) U/L ALT 24 (16-63) U/L Alkaline Phosphatase 55 (46-116) U/L Troponin I 11 11 13 (<or=76) ng/L Total Protein 9.1 H (6.4-8.2) g/dL Albumin 4.2 (3.4-5.0) g/dL [id number] Documentation Fingerstick Glucose Start: 08/26/24 17:40 Freq: Status: Complete Protocol: Activity Type Activity Date Activity User E-sign Co-sign Detail Recorded Client Recorded Date Recorded By Document 08/26/24 17:39 BKG DAEMON(3) [id number] 08/26/24 17:40 BKG DAEMON(4) Intake and Output - 24 Hour Total 08/26/24 13:02 thru 08/26/24 18:14 Intake Total 1000 Output Total 500 Balance 500 Weight 122.47 kg Intake: IV 1000 Output: Gastric Drainage 400 Left Nare 400 Emesis 100 Other: Urine Appearance Clear Stool Characteristics Soft Formed Brown Gastric Occult Blood Negative Left Nare Negative Falls Risk Assessment History of Falls No History 08/26/24 18:14 Contributing Factors No Factors 08/26/24 18:14 Ambulatory Aids Independent 08/26/24 18:14 Tubes/Lines W/no contributing factors 08/26/24 18:14 Gait Evaluation No gait disturbance 08/26/24 18:14 Cognition No cognitive impairment 08/26/24 13:58 Fall Total Score 10 08/26/24 18:14 Level of Risk Standard/Low Risk 08/26/24 18:14 v v v v v v v v v Sending and/or Receiving Nurses: Please use comment section below to note any information pertinent to the patient hand-off not included above. Information / Comments: Pt arrived to floor via stretcher from ED. Settled into room. Admission assessment completed as follows: HR tachy at 108 on telemetry to monitor Bowel sounds hypoactive NG tube in place. No numbers on NG tube to assess placement. PLacement was confirmed by xray and NG tube draining patently Skin is clean dry and intact with no wounds noted Lung sounds are clear to all lobes to auscultaiton Abdomen soft and non tender Denies flatulance at this time A/O x 4 and able to make needs known NPO for surgical procedure scheduled for tomorrow + pedal pulses and sensations NS started at 100 ml/hr IV flushed and patent Report received from:
--- NOTE | 2024-08-26 19:30 | W.SURGCON ---
Date of service: 08/26/24 Time of Service: 19:30 Assessment and Plan Assessment and plan (1) Incarcerated hernia: Status: Acute Assessment and plan: His hernia has been present for 4 days now, is no peritonitis, and will benefit from volume resuscitation prior to surgery (see below). His lactic acid currently is normal. Plan for laparoscopic ventral hernia repair, with possible intestinal resection. Discussed with patient the risks and expected outcomes of the procedure. Will place ice pack on the hernia site overnight. (2) SBO (small bowel obstruction): Status: Acute Assessment and plan: NG tube was placed in the ER. Initial chest x-ray recommended advancing the NG tube. The NG tube has been advanced. Currently it is on suction. (3) Eosinophilic esophagitis: Status: Acute Assessment and plan: Reviewed patient's prior documentation, back in 2018, he underwent an endoscopy with dilation of esophageal stricture, and multiple biopsies. He does have a listed diagnosis of eosinophilic esophagitis. He has not followed with immigration officer or surgeon since then. He is currently not experiencing any dysphagia nor chest discomfort when eating foods. (He has experienced the symptoms prior to dilation in 2018). After treatment of hernia, he will need outpatient follow-up and repeat EGD. (4) Diabetes mellitus: Status: Acute Assessment and plan: On discussion with the patient, sounds like it is decently controlled. His hemoglobin A1c last checked was 7.1. (5) Acute kidney injury superimposed on CKD: Status: Acute Assessment and plan: He does have a history of CKD, likely stage III. His BUN and creatinine currently 68, and 3.9. The etiology of the CKD is likely from nephrolithiasis, which cause atrophy of the left kidney. He does have superimposed HARRIET. No evidence of fluid retention. He has received 1 L of fluid in the ER, currently getting 100 cc/h of lactated Ringer's which is just fine. History of Present Illness History of Present Illness Chief Complaint: Abdominal pain Narrative: Mr. Crystal is a 74-year-old male, he has a history of type 2 diabetes, CKD (likely stage III), nephrolithiasis, atrophic left kidney, hypertension, and eosinophilic esophagitis, who presents to the hospital having abdominal pain since Sunday (4 days ago now), associated with nausea and vomiting. He has reported decreased urinary output over the past 24 hours. He has no history of shortness of breath. Is very active at baseline. No history of angina. He reports no history of myocardial infarction nor coronary artery disease. He does report that he had similar episode of abdominal pain in periumbilical midline with bulge, this was back in April 2024. He was evaluated in the ER, subsequently discharged home. He thinks that the hernia spontaneously reduced at that time. Review of Systems Constitutional Constitutional: Reports system reviewed and no additional complaints, except as documented PFSH All Active Problems (Updated 08/26/24 @ 19:50 by Mika Rios MD) On deep vein thrombosis (DVT) prophylaxis (Acute) Orthostasis (Acute) Acute kidney injury superimposed on CKD (Acute) Incarcerated hernia (Acute) SBO (small bowel obstruction) (Acute) Tubular adenoma (Acute ~02/01/23) Encounter for screening colonoscopy (Acute) Abdominal wall hernia (Acute 10/20/15) Abnormal renal function (Acute 04/11/13) Atrophic Left Kidney Nephrectomy Diabetes mellitus (Acute 10/07/12) Diverticulosis of colon without diverticulitis (Acute 06/17/12) Erectile dysfunction (Acute 04/13/14) Essential hypertension (Acute 04/10/13) Hemorrhoids (Acute 06/17/12) Kidney stone (Acute 04/11/13) Dysphagia (Acute) Eosinophilic esophagitis (Acute ~02/26/18) 02/26/18; DR. AYON Diabetic retinopathy (Acute) 04/22/18 [place]; MILD IN THE RIGHT EYE-kb Tinea pedis (Acute) Retention of urine (Acute) Urinary tract infection (Acute) Hyperlipidemia associated with type 2 diabetes mellitus (Acute) Screening for colon cancer (Acute) Obesity (Chronic) Medical History Obesity (BMI 30-39.9) Impaired renal function Essential hypertension DM (diabetes mellitus) Diverticulosis large intestine w/o perforation or abscess w/bleeding Surgical History 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 AYON; COLON POLYP;DIVERTICULOSIS; GRADE 2 HEMORRHOIDS Cholecystectomy Family History Mother , AGE 95 Hypertension Father , AGE 88 Hypertension Stroke Sister , 85 No problems noted. Brother , AGE 75 Crohn's disease Brother Melanoma Maternal Grandfather , AGE 74 Heart disease Paternal Grandfather , AGE 88 No problems noted. Maternal Grandmother , AGE 48 Heart disease Paternal Grandmother No problems noted. Son No problems noted. Son No problems noted. Social History Smoking/Tobacco Use Status: Never Second Hand Exposure: Yes Smoking risk assessment performed?: Yes Alcohol Intake: current Alcohol Intake frequency: holidays/special occasions only Alcohol type: beer and hard liquor Drug use: Never Substance use type: does not use Caregiver/Support person: No Household members: spouse Housing: house Communication Needs: None Do you need help understanding health information?: Never Pets and animals: Yes Pets and animals: dog(s) Sexually active: No Do you think of yourself as: straight/heterosexual Current gender identity: male What is your relationship status?: How often do you talk on the phone with friends or family?: once per week How often do you get together with friends or relatives?: once per week How often do you attend cheondoism or shinto services?: decline to answer Do you belong to any clubs or organized social groups?: no Panel score (0-1 are the most socially isolated patients): 1 What type of physical activity do you participate in: none Frequency: does not exercise Tamiko/Restorationist: None Special tamiko needs: No Seatbelt use: always Helmet use: Yes Helmet use: sometimes Drive intox or ride w/intox class c 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 He was examined around 6:30 PM this evening. His vital signs in the emergency department did showed some tachycardia which has been improving. His blood pressure and temperature are normal. His pulmonary exam today is clear to auscultation bilaterally. His cardiac exam is regular rate and rhythm without gross murmur. His abdomen has typical android obesity, within abdominal wall, and a generous intra-abdominal fat deposition. His BMI is 36.6. He has prior surgical scars from laparoscopic cholecystectomy, which have healed nicely. In the periumbilical midline, there is some erythema on the skin, and visible bulge in the supraumbilical region. The hernia is incarcerated on palpation, the fascial orifice palpably is about 3 cm in diameter. There are diminished bowel sounds. The abdomen is without rigidity, minimally tender with the exception of the periumbilical region. Results Last Vital Signs Temp 36.7 C 08/26/24 19:24 Pulse 98 H 08/26/24 19:24 Resp 19 08/26/24 19:24 BP 120/81 08/26/24 19:24 Pulse Ox 94 08/26/24 19:24 Labs 08/26/24 13:37 08/26/24 13:37 Labs: Laboratory Results - last 24 hr 08/26/24 08/26/24 08/26/24 04:59 13:37 15:44 WBC 13.24 H RBC 5.25 Hgb 16.4 Hct 47.0 MCV 90 MCH 31.2 MCHC 34.9 RDW 12.7 Plt Count 203 MPV 9.6 Immature Gran % 0.4 Neutrophils % 79.3 Lymphocytes % 8.8 Monocytes % 11.0 Eosinophils % 0.3 Basophils % 0.2 Nucleated RBC % 0.0 Absolute Neutrophils 10.50 H Absolute Lymphocytes 1.17 L Absolute Monocytes 1.46 H Absolute Eosinophils 0.04 Absolute Basophils 0.03 VBG Lactate 2.0 Sodium 128 L Potassium 3.6 Chloride 91 L Carbon Dioxide 23.7 Anion Gap 13.3 H BUN 68 H Creatinine 3.9 H* Est GFR (CKD-EPI 2020) 15.52 Glucose 202 H Calcium 8.9 Magnesium 1.3 L Total Bilirubin 1.9 H AST 22 ALT 24 Alkaline Phosphatase 55 Troponin I 13 11 11 Total Protein 9.1 H Albumin 4.[address] scan report/results: report reviewed, image reviewed and other Additional studies: Reviewed patient's CT scan, from 04/22/2024, this was at initial ER admission few months ago. There is a hernia that is present, contains fat, there is some minimal stranding that can be seen on the intestinal mesentery near the hernia. There was incidentally noted a small left pleural effusion. Current CT scan, 08/26/2024, shows small bowel obstruction at the site of the hernia, likely proximal ileum. Distal decompressed small intestine and colon. There is incidentally seen some thickening on the distal esophagus, see assessment and plan below here. There is a chest x-ray a comment of the small left pleural effusion. This appears similar to CT scan image.
[2024-08-26] MEDS: ACETAMINOPHEN 1,000 MG/100 ML BAG 400 MG IVPB (19:41)
[2024-08-27] VITALS (171 sets, daily range): BP systolic 77–172; BP diastolic 44–156; PULSE 50–150; RESP 18–36; TEMP 36.4–36.8; O2SAT 86–97; BMI 36.6
[2024-08-27] MEDS: Lactated Ringers 1,000 ML 100 ML IV ×3 (03:13→20:50)
[2024-08-27 06:33] LABS: Abs Immature Grans 0.04 10^3/uL (0.0-0.06); Absolute Basophil Count 0.04 10^3/uL (0.0-0.2); Absolute Eosinophil Count 0.13 10^3/uL (0.0-0.7); Absolute Lymphocyte Count 1.41 10^3/uL (1.2-3.4); Absolute Monocyte Count 1.32 10^3/uL (0.1-0.8); Absolute Neutrophil Count 7.06 10^3/uL (1.2-6.7); Basophils % 0.4 %; Eosinophils % 1.3 %; HGB 14.9 g/dL (13.5-17.5); Immature Grans % 0.4 %; Lymphocytes % 14.1 %; MCH 31.5 pg (27.0-33.0); MCHC 35.5 % (32.0-36.0); MCV 89 fL (80-95); Monocytes % 13.2 %; Neutrophils % 70.6 %; Platelet Count 198 10^3/uL (130-400); RBC 4.73 10^6/uL (4.36-5.78); RDW 12.8 % (11.8-14.1); RDW-SD 41.5 fL
[2024-08-27 06:54] LABS: Anion Gap 14.2 mmol/L (3-11); CO2 24.8 mmol/L (21.0-32.0); Calcium 8.6 mg/dL (8.5-10.1); Chloride 94 mmol/L (98-107); Estimated GFR 15.06 (mL/min/1.73m2); Glucose 135 mg/dL (74-106); Potassium 3.4 mmol/L (3.5-5.1); Sodium 133 mmol/L (136-145)
[2024-08-27 06:56] LABS: BUN 89 mg/dL (7-18)
--- NOTE | 2024-08-27 07:35 | W.ANESPRE ---
General Info Date of Service Date Performed: 08/27/24 Height: 6 ft Weight: 122.47 kg Body Mass Index (BMI): 36.6 Surgical Procedure: Operation Date: 08/27/24 08:25 Proposed Procedure Side Surgeon p Hernia Incisional/Ventral Laparoscopic Mika Rios MD Meds Allergies and Home Medications Allergies Allergy/AdvReac Type Severity Reaction Status Date / Time No Known Allergies Allergy Verified 08/26/24 13:10 Home Medication ?Medication ?Instructions ?Recorded Centrum Silver Tablet 1 ea PO DAILY 10/05/12 amlodipine 5 mg tablet 5 - 10 mg (1 - 2 x 5 mg) PO BID 11/28/23 #270 tab-caps atorvastatin 10 mg tablet 10 mg PO DAILY #90 tabs 11/28/23 chlorthalidone 50 mg tablet See Rx Instructions .Route 11/28/23 .COMPLEX #90 tabs lisinopril 40 mg tablet 40 mg PO DAILY #90 tab-caps 11/28/23 metoprolol tartrate 50 mg tablet See Rx Instructions .Route 11/28/23 .COMPLEX #270 tabs omeprazole 40 mg capsule,delayed 40 mg PO DAILY #90 caps 11/28/23 release doxazosin 8 mg tablet (Cardura) 8 mg PO HS #90 tabs 11/29/23 potassium chloride 20 mEq 30 meq (1.5 x 20 mEq) PO DAILY 12/13/23 tablet,extended release(part/cryst) #145 tab-caps dapagliflozin propanediol 10 mg 10 mg PO DAILY #90 tabs 02/07/24 tablet (Farxiga) Current Visit Medications: Current Medications Generic Name Dose Route Start Last Admin Trade Name Agapitoq PRN Reason Stop Dose Admin Dextrose 0 gm 08/26/24 17:46 Glucose Oral Gel 15 Gm/37.5 Gm Tube PO DIRECTED PRN Dextrose/Water 0 gm 08/26/24 17:46 Dextrose 50%-Water 25 Gm/50 Ml Syr IVP DIRECTED PRN Ringer's Solution 1,000 mls @ 100 mls/hr 08/26/24 17:46 08/27/24 03:13 IV 100 mls/hr INFUSION RONY Administration Acetaminophen 1,000 mg in 100 mls @ 400 mls/hr 08/26/24 18:40 08/26/24 20:00 Ofirmev IVPB Infused Q8H PRN PRN Infusion IV Miscellaneous Supplies 1 each 08/26/24 17:46 Iv Access IV DIRECTED [facility] Insulin Aspart 0 units 08/27/24 08:00 08/27/24 07:13 Insulin Aspart 300 Units/3 Ml Pen SC Not Given 0800,1200,1700 [facility] Protocol Metoprolol Tartrate 2.5 mg 08/26/24 17:51 Metoprolol 5 Mg/5 Ml Vial IVP Q6H PRN PRN tachycardia Pantoprazole Sodium 40 mg 08/27/24 08:30 Pantoprazole 40 Mg Vial IVP DAILY [facility] Sodium Chloride 0 ml 08/26/24 17:46 08/26/24 18:05 Normal Saline Flush 10 Ml Syr IVP 10 ml PRN PRN Administration Sodium Chloride 0 ml 08/26/24 20:00 08/26/24 19:42 Normal Saline Flush 10 Ml Syr IVP 10 ml BID RONY Administration Sodium Chloride 0 ml 08/26/24 17:46 Normal Saline 10 Ml Vial IJ DIRECTED PRN PFSH Active Problems Active Problems: Problem Status Onset Code On deep vein thrombosis (DVT) prophylaxis Acute Z79.899 Orthostasis Acute I95.1 Acute kidney injury superimposed on CKD Acute N17.9, N18.9 Incarcerated hernia Acute K46.0 SBO (small bowel obstruction) Acute K56.609 Tubular adenoma Acute ~02/01/23 D36.9 Encounter for screening colonoscopy Acute Z12.11 Abdominal wall hernia Acute 10/20/15 K43.9 Abnormal renal function Acute 04/11/13 N28.9 Diabetes mellitus Acute 10/07/12 E11.9 Diverticulosis of colon without diverticulitis Acute 06/17/12 K57.30 Erectile dysfunction Acute 04/13/14 N52.9 Essential hypertension Acute 04/10/13 I10 Hemorrhoids Acute 06/17/12 K64.9 Kidney stone Acute 04/11/13 N20.0 Dysphagia Acute R13.10 Eosinophilic esophagitis Acute ~02/26/18 K20.0 Diabetic retinopathy Acute E11.319 Tinea pedis Acute B35.3 Retention of urine Acute R33.9 Urinary tract infection Acute N39.0 Hyperlipidemia associated with type 2 diabetes mellitus Acute E11.69, E78.5 Screening for colon cancer Acute Z12.11 Obesity Chronic E66.9 Medical History Medical History Obesity (BMI 30-39.9) Impaired renal function Essential hypertension DM (diabetes mellitus) Diverticulosis large intestine w/o perforation or abscess w/bleeding Surgical History Surgical History 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 AYON; COLON POLYP;DIVERTICULOSIS; GRADE 2 HEMORRHOIDS Cholecystectomy Tobacco Smoking/Tobacco Use Status: Never Passive smoking exposure: Yes (Occasionally prior to public smoking bans) Second hand exposure: Yes Alcohol Alcohol Intake: current Alcohol intake frequency: holidays/special occasions only Alcohol type: beer and hard liquor Substance Use Substance use: Never Substance use type: does not use Vital Signs and Lab Results Vital Signs Most Recent Vital Signs in EMR: Most Recent Vital Signs Temp Pulse Resp BP Pulse Ox 36.7 C 92 H 18 128/74 94 08/27/24 06:16 08/27/24 06:16 08/27/24 06:16 08/27/24 06:16 08/27/24 06:16 Point of Care Results Point of Care Results: Finger Stick Blood Glucose 127 08/27/24 07:13 Lab Results 08/27/24 05:57 08/27/24 05:57 Blood Type / Crossmatch: No Data to Display Complete Blood Count: White Blood Count 10.00 10^3/uL (4.4-10.8) 08/27/24 05:57 Red Blood Count 4.73 10^6/uL (4.36-5.78) 08/27/24 05:57 Hemoglobin 14.9 g/dL (13.5-17.5) 08/27/24 05:57 Hematocrit 42.0 % (40.0-50.0) 08/27/24 05:57 Platelet Count 198 10^3/uL (130-400) 08/27/24 05:57 Venous Blood Lactate 2.0 mmol/L (<or=2.0) 08/26/24 13:37 Complete Metabolic Panel: Sodium 133 mmol/L (136-145) L 08/27/24 05:57 Potassium 3.4 mmol/L (3.5-5.1) L 08/27/24 05:57 Chloride 94 mmol/L (98-107) L 08/27/24 05:57 Carbon Dioxide 24.8 mmol/L (21.0-32.0) 08/27/24 05:57 BUN 89 mg/dL (7-18) H* 08/27/24 05:57 Creatinine 4.0 mg/dL (0.70-1.30) H* 08/27/24 05:57 Est GFR (CKD-EPI 2020) 15.06 (mL/min/1.73m2) 08/27/24 05:57 Magnesium 2.0 mg/dL (1.8-2.4) 08/27/24 05:57 Calcium 8.6 mg/dL (8.5-10.1) 08/27/24 05:57 Albumin 4.2 g/dL (3.4-5.0) 08/26/24 13:37 Glucose 135 mg/dL (74-106) H 08/27/24 05:57 Liver Function Panel: Alanine Aminotransferase (ALT/SGPT) 24 U/L (16-63) 08/26/24 13:37 Aspartate Amino Transf (AST/SGOT) 22 U/L (15-37) 08/26/24 13:37 Coagulation Panel: No Data to Display Cardiac Panel: Troponin I 11 ng/L (<or=76) 08/26/24 Arterial Blood Gas: No Data to Display Venous Blood Gas: No Data to Display Pancreas Panel: No Data to Display Thyroid Panel: No Data to Display Infectious Disease: No Data to Display Blood Cultures: No Data to Display Toxicology Panel: No Data to Display Imaging and Studies Imaging and Studies Study information below may be from another EMR and interpreted by another provider. Please see original notes in EMR for more complete details. EKG Summary: EKG PATIENT NAME: Manuel Crystal UNIT #: [id number] ORDERING PROVIDER: Brooklyn Guerra M.D. PRIMARY CARE PROVIDER: TIMMY IGLESIAS MD DATE/TIME OF SERVICE: 08/26/24 134 : 1950 PERFORMING LOCATION: ER APPROVED REPORT Exam: Resting ECG Reason for Exam: abd pain, hiccups Patient Location: E HR:121 bpm ECG Measurements Heart Rate 121 AXIS VT 184 P -35 QRSd 100 QRS -56 QT 306 T105 QTc 434 Conclusion Sinus tachycardia, rate 121 No interval abnormalities No STEMI PACs <Electronically signed by Brooklyn Guerra M.D. in OV> E-Sign Date: 08/26/24 E-Sign Time: 1348 ADDENDUM APPROVED REPORT Exam: Resting ECG Reason for Exam: abd pain, hiccups Patient Location: E HR:121 bpm ECG Measurements Heart Rate 121 AXIS VT 184 P -35 QRSd 100 QRS -56 QT 306 T105 QTc 434 Conclusion Sinus tachycardia, rate 121 No interval abnormalities No STEMI PACs I have reviewed and I agree with the emergency room physician's ECG interpretation. Electronically signed by: <Electronically signed by Mar Mcclain M.D. in OV> 08/26/24 1409 Cosigned by: Carotid Artery Summary:: Patient Name: Manuel Crystal Unit #: [id number] Loc: ER Ordering Provider: Rayray Jalloh DO Status: [facility] ER Primary Care Provider: Timmy Iglesias M.D. Date of Exam: 04/22/24 Sex: M Admission Date: 04/22/24 : 1950 Age: 73 Exam(s) US CAROTID EXAM: US CAROTID CLINICAL HISTORY: Attention left carotid for dissection. TECHNIQUE: Ultrasound carotids performed using grayscale, color-flow, and spectral Doppler imaging. COMPARISON: US RENAL ULTRASOUND(P) from 09/15/2013 FINDINGS: CAROTID ARTERIES: There is only mild plaque at the level carotid bulbs and proximal internal carotid arteries. There are no elevated velocities. VERTEBRAL ARTERIES: Antegrade flow was demonstrated in both vertebral arteries.. Measurements: R Bulb: 77.6cm/s PS / 14.1cm/s ED R CCA: 84.3cm/s PS / 15.5cm/s ED R ECA: 88cm/s PS / 0cm/s ED R ICA Prox: 67.2cm/s PS / 16.7cm/s ED R ICA Mid: 84.7cm/s PS / 19.2cm/s ED R ICA Distal: 91.1cm/s PS /14cm/s ED R Vert: 58.7cm/s PS / 11.4cm/s ED R SVR: 1.1 R DVR: 0.9 L Bulb: 51.7cm/s PS / 15cm/s ED L CCA: 89.3cm/s PS / 17.8cm/s ED L ECA: 89.6cm/s PS / 0cm/s ED L ICA Prox: 65cm/s PS / 17.4cm/s ED L ICA Mid: 72.5cm/s PS / 19.9cm/s ED L ICA Distal: 89.7cm/s PS / 24.8cm/s ED L Vert: 61cm/s PS / 12.3cm/s ED L SVR: 1 L DVR: 1.4 IMPRESSION: Mild plaque. No elevated velocities. This implies that amount of stenosis in the carotid arteries is less than 50 percent bilaterally. Visually estimated amount of stenosis is less than 20 percent bilaterally. Antegrade flow is demonstrated in both vertebral arteries. Criteria for Carotid Stenosis: Normal: ICA PSV <125 cm/s no plaque or intimal thickening is visible. <50% stenosis: ICA PSV <125 cm/s and plaque or intimal thickening is visible. 50-69% stenosis: ICA PSV is 125-250 cm/s and plaque is visible. >70% stenosis to near occlusion: ICA PSV >250 cm/s with visible plaque and luminal narrowing. DATA REPOSITORY: Ordered By: Rayray Jalloh DO CC: Dictated By: Brien Brown M.D. 04/22/241630 <Electronically signed by Brien Brown M.D. in OV> 04/22/241630 Transcribed By: Brien Brown MD 04/22/241630 This is privileged, confidential information intended only for the provider named. Any use or distribution by any person other than this provider is strictly prohibited. If you receive this report in error, please notify us immediately at [phone] and return the original report to us at the address above. Thank-you. Anesthesia Assessment and Plan Anesthesia History Personal History: No History of Anesthesia Complications Family History: No Family History of Anesthesia Complications Exercise Tolerance Exercise Tolerance: Metabolic Equivalents>4 Pertinent Negatives Pertinent Negatives: No Major Pulmonary Symptoms or Complaints and No History of CVA/TIA Cardiac & Pulmonary Exam Cardiac Exam: Normal S1/S2 Heart Sounds Pulmonary Exam: Clear Bilateral Breath Sounds Implantable Cardiac Device Does patient have a Pacemaker or an ICD?: No Airway Exam Known Difficult Airway: No Mallampati Class: 2 Mouth Opening: Normal (> 3cm) Thyromental Distance: Less than 3 cm Neck Range of Motion: Full ROM Neck Circumference: Normal Teeth Condition: Generalized Poor Dentition ASA Classification ASA Score: ASA 3 Emergency Case?: Yes NPO Status NPO Status: NPO Clears >2 hours, Solids >8 hours Anesthesia Plan Resuscitation Status: Full Code Anesthesia Technique: General Anesthesia (RSI) Airway Planned: Endotracheal Tube Monitors Used: Standard Monitors and SedLine Preoperative Comments:: Increasing BUN/Chief Inspector in presence of single functioning kidney. Increased Risk aspiration: NGT in place. Discussed risk/benefit alternatives with patient. Patient wants to proceed today recognizes emergent nature of case.
[2024-08-27] MEDS: ceFAZolin 2 GM/50 ML BAG 100 GM (09:01)
[2024-08-27] MEDS: Bupivacaine 0.25% Pres-Free 30 ML VIAL (09:01)
--- NOTE | 2024-08-27 10:14 | W.PM.PROGNOT ---
Date of Service Date of service: 08/27/24 Time of Service: 10:14 Assessment and Plan Assessment and plan (1) Atrial fibrillation: Status: Chronic Assessment and plan: New atrial fibrillation with RVR per-operatively was started on Brevibloc drip and ICU level of care No previous history If ongoing consider DOAC therapy as per stroke risk VS bleeding risk , rate control and cardiology consult (2) Hypotension: Status: Acute Assessment and plan: On Neosynephrine s/p Sx ongoing in ICU for MAP >65 LR at 100 cc/hr ongoing (3) Acute kidney injury superimposed on CKD: Status: Acute Assessment and plan: LR at 100 cc/hr overnight s/p one liter IVF bolus in ED Cr 4.0 from 3.9 with 2.5 baseline- most likely [id number] LR bolus 1 liter was ordered- patient still in the PACU and might need to go to an higher level of care in ICU This could have also been d/t sepsis early VS severe with tachycardia , hypotension, increased Cr but no abdominal source identified on CT - initially holding antibiotics low treshold to order blood culture w fever or ongoing signs of sepsis abdominal pain is intermittent and not severe - Was most likely not ischemic bowel with lactate only at 2.0, leukocytosis was most likely reactive and resolved this AM Questioning retention but no Hx reported - benitez in place and UA ordered Zosyn and blood cultures ordered by Dr. Maddox (4) Incarcerated hernia: Status: Acute Assessment and plan: As per imaging and without pneumoperitoneum NGT to LCS NPO pending surgery then resume diet as per Sx Surgical consult - OR this AM , please read notes scheduled APAP and PRN hydromorphone for pain (5) SBO (small bowel obstruction): Status: Acute Assessment and plan: As above (6) Diabetes mellitus: Status: Acute Assessment and plan: Continue Gluc Q 6H with SSI coverage (7) Essential hypertension: Status: Acute Assessment and plan: holding oral home meds in the setting of SBO and HARRIET on CDK Resolving orthostasis with tachycardia s on arrival to the ED - improving s/p IVF bolus in the ED While NPO-PRN IV metoprolol for HR > 120-130-HR 90-100 overnight , SR HR 94 this AM (8) Orthostasis: Status: Acute Assessment and plan: As above (9) On deep vein thrombosis (DVT) prophylaxis: Status: Acute Assessment and plan: Discontinue SCD's after transition to Heparin SC at ( HS) 12 hours s/p OR Discussed with Dr. Maddox Subjective Subjective Patient reports: pain is less and voiding w/o difficulty; denies tolerating liquids well, tolerating a regular diet, flatus, bowel movement, diarrhea, nausea, vomiting, shortness of breath or fever Exam Narrative Exam Narrative: Constitutional The patient is in bed comfortable without acute distress, NGT to wall suction w minimal drainage Neuro:alert and oriented X4 . No neurological focal deficit Resp: Normal respiratory pattern, speaks in full sentences, unlabored breathing, right basilar fine crackles, decreased left base otherwise clear Cardio: regular rhythm, S1, S2, no murmur, positive radial and pedal pulses GI: Abdomen is not distended, soft and tenderness on deep breathing and palpation at the surgical site, bowel sounds are absent Integumentary: ABD dressing DCI, improved purple discoloration to alycia-umbilical area Extremities: strength 5/5 to bilateral lower and upper extremities Psych: RASS 0, congruent mood and normal affect. Objective Last Vital Signs Temp 36.6 C 08/27/24 07:36 Pulse 97 H 08/27/24 07:36 Resp 18 08/27/24 07:36 BP 113/77 08/27/24 07:36 Pulse Ox 94 08/27/24 07:36 Laboratory Results - last 24 hr 08/26/24 08/26/24 08/26/24 04:59 13:37 15:44 WBC 13.24 H RBC 5.25 Hgb 16.4 Hct 47.0 MCV 90 MCH 31.2 MCHC 34.9 RDW 12.7 Plt Count 203 MPV 9.6 Immature Gran % 0.4 Neutrophils % 79.3 Lymphocytes % 8.8 Monocytes % 11.0 Eosinophils % 0.3 Basophils % 0.2 Nucleated RBC % 0.0 Absolute Neutrophils 10.50 H Absolute Lymphocytes 1.17 L Absolute Monocytes 1.46 H Absolute Eosinophils 0.04 Absolute Basophils 0.03 VBG Lactate 2.0 Sodium 128 L Potassium 3.6 Chloride 91 L Carbon Dioxide 23.7 Anion Gap 13.3 H BUN 68 H Creatinine 3.9 H* Est GFR (CKD-EPI 2020) 15.52 Glucose 202 H Calcium 8.9 Magnesium 1.3 L Total Bilirubin 1.9 H AST 22 ALT 24 Alkaline Phosphatase 55 Troponin I 13 11 11 Total Protein 9.1 H Albumin 4.2 08/27/24 05:57 WBC 10.00 RBC 4.73 Hgb 14.9 Hct 42.0 MCV 89 MCH 31.5 MCHC 35.5 RDW 12.8 Plt Count 198 MPV 10.0 Immature Gran % 0.4 Neutrophils % 70.6 Lymphocytes % 14.1 Monocytes % 13.2 Eosinophils % 1.3 Basophils % 0.4 Nucleated RBC % 0.0 Absolute Neutrophils 7.06 H Absolute Lymphocytes 1.41 Absolute Monocytes 1.32 H Absolute Eosinophils 0.13 Absolute Basophils 0.04 VBG Lactate Sodium 133 L Potassium 3.4 L Chloride 94 L Carbon Dioxide 24.8 Anion Gap 14.2 H BUN 89 H* Creatinine 4.0 H* Est GFR (CKD-EPI 2020) 15.06 Glucose 135 H Calcium 8.6 Magnesium 2.0 Total Bilirubin AST ALT Alkaline Phosphatase Troponin I Total Protein Albumin Time Spent with Patient Time Spent with Patient: >50 minutes Time was spent: preparing to see the patient(eg.review tests), obtaining and/or reviewing separately otained hiistory, ordering medications,tests, procedures, referring, communicating with other health resident care assistant, indepentently interpreting results, counseling the patient and care coordination
--- NOTE | 2024-08-27 10:53 | ROE_ITS ---
Operative Note Operative Note PRE-OP DIAGNOSIS: Incarcerated, strangulated ventral incisional hernia, initial POST-OP DIAGNOSIS: other (Incarcerated, strangulated ventral incisional hernia, initial, 5 cm) PROCEDURE: Laparoscopic initial, incarcerated ventral incisional hernia repair with mesh, laparoscopic partial omentectomy SURGEON: Mika Rios COMMUNICATIONS EXECUTIVE: Francy Forrest ANESTHESIA TYPE: General LMA/ETT Refer to Anesthesia Record ESTIMATED BLOOD LOSS: 20 (cc) PATHOLOGY: other (Omentum, sent for permanent pathology) COMPLICATIONS: None Patient was transported to: PACU Patient's condition: stable Implants: 11 cm, Ventralight ST mesh (Bard) Indications: Patient is a 74-year-old male, he presented to the hospital with 4 days of periumbilical pain, and incarceration of a chronic hernia at this site. His imaging was concerning for bowel obstruction and possible strangulation of intestine. He was planned for procedure as above. Findings: Incarcerated, strangulated, ventral incisional hernia, repaired with mesh Procedure Description: Patient was taken the operating room. He underwent general anesthesia. The abdomen was prepped and draped. A timeout was completed. A Veress needle entry was performed at Martinez's point on the left mid abdomen, lateral to the rectus sheath. A 5 mm trocar was inserted after the abdomen was insufflated to 14 cc of water. A 5 mm port was placed in the left mid abdomen lateral to the rectus sheath, a 5 mm port was placed in the epigastrium, and a 5 mm port was placed in the right mid abdomen lateral to the rectus sheath and about the level of the umbilicus. Abdomen was surveyed, the Ventral hernia was in the periumbilical midline in a slightly supraumbilical position. The defect size of the hernia was about 5 cm in diameter. There was a single loop of small intestine incarcerated within the hernia. The nondilated loop was gently grasped and retracted, but could not be reduced from the defect. On the left and lateral portion of the hernia, the peritoneum and fascia was incised for a length of about 2 cm, enlarging the incision. During the course of this a cautery burn injury was sustained on the incarcerated intestine, this was about quarter centimeter in diameter, and appeared partial thickness. There was a generous amount of incarcerated omentum within the hernia. This was firmly and chronically incarcerated, such that the incarcerated omentum had become chronically devascularized from the proximal and intraperitoneal omentum. This thin fibrotic connection was transected. With some gentle traction and external manipulation, the incarcerated small intestine was able to be reduced, the intestine was examined. It was pink and viable, the site of the cautery burn injury burn injury had become hyperemic at the edges. The length of the segment of incarcerated intestine was about 7 cm. There was a generous amount of chronically incarcerated omentum within the hernia. This was reduced, it was about 100 mL in volume. There was no fluid within the hernia sac. The 5 mm port in the patient's right mid abdomen was upsized to a 12 mm port. The hernia defect was reapproximated with interrupted #1 PDS suture placed using a suture passer. An 11 cm Bard, Ventralight ST mesh was selected, it was brought into the abdomen, it was then affixed circumferentially using a Covidien absorber tack device. The scaffolding was removed from the abdomen. The incarcerated omentum that had been removed from the hernia was placed in an endoscopic retrieval pouch this was removed from the abdomen. The 12 mm port site was closed with interrupted #1 Vicryl suture placed using a suture passer. The incarcerated segment of intestine was examined a third and final time, the site of incarceration was pink and viable. The site of cautery burn was without eschar, had a whitish appearance for about 1/4 cm diameter, with hyperemic edges. Visually this appeared partial-thickness. There was no omentum which would reach to the site. The loop of intestine was turned effacing the fatty and well-vascularized mesentery. Gas was allowed to desufflate from the abdomen, all incision sites were closed with 3-0 Monocryl. Sterile dressings were applied. Patient has tolerated the procedure well, he is transitioned to the recovery unit, he remains in stable condition. Date of Procedure: 08/27/24
--- NOTE | 2024-08-27 11:00 | RT.EKG_ITS ---
APPROVED REPORT Exam: Resting ECG Reason for Exam: Tachycardia Patient Location: I HR:138 bpm ECG Measurements Heart Rate 138 AXIS VT 89 P 0 QRSd 102 QRS -43 QT 327 T 109 QTc 495 Conclusion Atrial fibrillation Left anterior fascicular block Late transition Nonspecific T abnormalities, lateral leads...T <-0.10mV, I aVL V5 V6
--- NOTE | 2024-08-27 11:04 | INITIAL_ITS ---
Date of service: 08/27/24 Time of Service: 11:05 Care Management Initial Assmt Initial Assessment Reason for Hospitalization: HARRIET on CKD incarcerated hernia Functional Status/Living Situation Patient Presentation: Manuel was lying in bed when CM met with him. He went to the OR today for repair of an incarcerated, strangulated ventral hernia. He became tachycardic and hypotensive in PACU and was transferred to ICU for closer monitoring. He was awake and alert and oriented when CM met with him. He stated that his pain was well controlled and he was aware of the complications following his surgery. While Manuel was in the OR, CM met with his Karina. She was able to provide some background information and details about their family and support system, etc. Manuel and Karina live in an old farmhouse in [facility]. They have been slowly restoring it together. Manuel shared that they planned to stay there as long as they are able. Manuel is retired from [employer] where he worked for 35 years. He is independent at baseline and does not receive any community services. Town of Residence: [place] Resides with: Spouse ( Karina) Significant Other/Family: Local Natural Supports: family: Karina, 2 children and 4 grandchildren Employment Status: Retired Instrumental Activities of Daily Living (ADLs): Independent Medications Medication Management: No Issues/Barriers identified Advance Directives Advance Directives: Do you have an Advance Directive: Y 04/14/19 10:13 AD On File at [facility]: Y 04/14/19 10:13 Date Asked 04/10/18 04/14/19 10:13 AD Date Reviewed 05/28/24 05/28/24 09:16 COLST On File at [facility] COLST Date Scanned Code Status Resuscitation Status Full Code Insurance Coverage/Financial Issues Insurance: BC/BS Medicare Advantage Care Team Visit Care Team Role Provider Type Juliet Maier APRN MD [facility] STAFF PHYSICIAN Timmy Iglesias MD Primary Care Provider [facility] STAFF PHYSICIAN Mika Rios MD Other Providers [facility] STAFF PHYSICIAN Brooklyn Guerra MD Emergency Provider [facility] STAFF PHYSICIAN Neto Maddox Admit Provider [facility] STAFF PHYSICIAN Attending Provider Discharge Potential Discharge Needs: PCP F/U Appt Anticipated Barriers to Discharge: None Identified Patient/Family Education Needs: Review discharge instructions, discuss Ask Me Three Transportation: Private vehicle Plan: Anticipate Manuel will be discharged home with no new services when medically cleared. He will follow up with his community providers and plan of care and transport with family. CM will follow and continue to support discharge planning.. Social Determinants of Health Screening Social Determinants of health last assessed in clinic: 08/27/24 Will the Patient Participate in the Screening?: Yes Do you worry about having a steady place to live?: no Problems where you live: no known problems In the past 12 months, have you had to go without electric, gas, oil or water in your home?: no 1. Within the past 12 months, we worried whether our food would run out before we got money to buy more.: Never true 2. Within the past 12 months, the food we bought just didn't last and we didn't have money to get more.: Never true Has lack of transportation kept you from medical appointments or from doing things needed for daily living?: no Has anyone in your life made you feel unsafe or unsupported?: no How hard is it for you to pay for the very basics like food, housing, medical care, and heating? Would you say it is:: Not hard at all Do you want help finding or keeping work or a job?: I do not need or want help If for any reason you need help with day-to-day activities such as bathing, preparing meals, shopping, managing finances, etc., do you get the help you need?: I don?t need any help How often do you feel lonely or isolated from those around you?: Never Do you speak a language other than Bangladeshi at home?: No Does the patient want assistance with any of the above?: No PFSH All Active Problems (Updated 08/27/24 @ 16:03 by Juliet Maier APRN) Atrial fibrillation (Chronic) Atrial fibrillation with RVR (Acute) Hypotension (Acute) On deep vein thrombosis (DVT) prophylaxis (Acute) Orthostasis (Acute) Acute kidney injury superimposed on CKD (Acute) Incarcerated hernia (Acute) SBO (small bowel obstruction) (Acute) Tubular adenoma (Acute ~02/01/23) Encounter for screening colonoscopy (Acute) Abdominal wall hernia (Acute 10/20/15) Abnormal renal function (Acute 04/11/13) Atrophic Left Kidney Nephrectomy Diabetes mellitus (Acute 10/07/12) Diverticulosis of colon without diverticulitis (Acute 06/17/12) Erectile dysfunction (Acute 04/13/14) Essential hypertension (Acute 04/10/13) Hemorrhoids (Acute 06/17/12) Kidney stone (Acute 04/11/13) Dysphagia (Acute) Eosinophilic esophagitis (Acute ~02/26/18) 02/26/18; DR. AYON Diabetic retinopathy (Acute) 04/22/18 [place]; MILD IN THE RIGHT EYE-kb Tinea pedis (Acute) Retention of urine (Acute) Urinary tract infection (Acute) Hyperlipidemia associated with type 2 diabetes mellitus (Acute) Screening for colon cancer (Acute) Obesity (Chronic) Medical History Obesity (BMI 30-39.9) Impaired renal function Essential hypertension DM (diabetes mellitus) Diverticulosis large intestine w/o perforation or abscess w/bleeding Surgical History 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 AYON; COLON POLYP;DIVERTICULOSIS; GRADE 2 HEMORRHOIDS Cholecystectomy Family History Mother , AGE 95 Hypertension Father , AGE 88 Hypertension Stroke Sister , 85 No problems noted. Brother , AGE 75 Crohn's disease Brother Melanoma Maternal Grandfather , AGE 74 Heart disease Paternal Grandfather , AGE 88 No problems noted. Maternal Grandmother , AGE 48 Heart disease Paternal Grandmother No problems noted. Son No problems noted. Son No problems noted. Social History Smoking/Tobacco Use Status: Never Second Hand Exposure: Yes Smoking risk assessment performed?: Yes Alcohol Intake: current Alcohol Intake frequency: holidays/special occasions only Alcohol type: beer and hard liquor Drug use: Never Substance use type: does not use Caregiver/Support person: No Household members: spouse Housing: house Communication Needs: None Do you need help understanding health information?: Never Pets and animals: Yes Pets and animals: dog(s) Sexually active: No Do you think of yourself as: straight/heterosexual Current gender identity: male What is your relationship status?: How often do you talk on the phone with friends or family?: once per week How often do you get together with friends or relatives?: once per week How often do you attend scientologist or buddhism services?: decline to answer Do you belong to any clubs or organized social groups?: no Panel score (0-1 are the most socially isolated patients): 1 What type of physical activity do you participate in: none Frequency: does not exercise Tamiko/Congregation: None Special tamiko needs: No Seatbelt use: always Helmet use: Yes Helmet use: sometimes Drive intox or ride w/intox 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
--- NOTE | 2024-08-27 11:44 | W.ANESPOSTOP ---
Postoperative Evaluation Date, Time and Location Date Performed: 08/27/24 Time Performed: 11:44 Patient Location: PACU Vital Signs Most Recent Imported Vital Signs: Most Recent Vital Signs Temp Pulse Resp BP Pulse Ox 36.6 C 59 L 21 121/79 97 08/27/24 11:26 08/27/24 11:30 08/27/24 11:30 08/27/24 11:26 08/27/24 11:30 Pain Score Most Recent Pain Score: Most Recent Pain Score Pain Level 3 08/27/24 11:34 Assessment Mental Status: Awake (Alert & Oriented to Patient Baseline) Airway and Respiratory Function: Patent airway with normal (patient baseline) respiratory exam Cardiovascular Function: Hemodynamically Unstable (See Explanation) (Patient with new onset tachycardia, possibly AF. Currently phenylephrine dependent. Discussed with Dr. Rios and will go to ICU. Due to potiential need for dialysis, discussion of transfer. ) and Receiving care as an inpatient Hydration Status: Adequately Hydrated Nausea & Vomiting: No Nausea or Vomiting Pain: Pain is tolerable per patient Peripheral Nerve Block: Patient did not receive a nerve block
[2024-08-27 11:53] LABS: Abs Immature Grans 0.08 10^3/uL (0.0-0.06); Absolute Basophil Count 0.05 10^3/uL (0.0-0.2); Absolute Eosinophil Count 0.05 10^3/uL (0.0-0.7); Absolute Lymphocyte Count 0.69 10^3/uL (1.2-3.4); Absolute Monocyte Count 0.53 10^3/uL (0.1-0.8); Absolute Neutrophil Count 11.93 10^3/uL (1.2-6.7); Basophils % 0.4 %; Eosinophils % 0.4 %; HCT 43.9 % (40.0-50.0); Immature Grans % 0.6 %; Lymphocytes % 5.2 %; MCH 31.3 pg (27.0-33.0); MCHC 34.2 % (32.0-36.0); MCV 92 fL (80-95); MPV 9.5 fL (8.0-11.0); Neutrophils % 89.4 %; Platelet Count 176 10^3/uL (130-400); RBC 4.79 10^6/uL (4.36-5.78); RDW 12.6 % (11.8-14.1); RDW-SD 42.9 fL; WBC 13.35 10^3/uL (4.4-10.8)
--- NOTE | 2024-08-27 12:05 | W.PC.ACHO ---
Registration Status: Primary Language: Preferred Language: ED Information & Data Chief Complaint Nausea/Vomit/Diar 08/26/24 13:29 Triage Note Patient complaining of 08/26/24 13:07 vomiting, abd pain and hiccups for 3 days Medical / Surgical History (Last Reviewed 08/26/24 @ 12:54 by Olivier Castano) Obesity (BMI 30-39.9) Impaired renal function Essential hypertension DM (diabetes mellitus) Diverticulosis large intestine w/o perforation or abscess w/bleeding (Last Reviewed 08/26/24 @ 12:54 by Olivier Castano) Nephrectomy EGD - MAC (11/23/17) Colonoscopy - MAC (01/2023) Cholecystectomy Most Recent Vital Signs Temperature 36.6 C 08/27/24 11:56 Temperature Source Temporal Artery Scan 08/27/24 07:36 Pulse 63 08/27/24 11:56 Pulse Rhythm Regular 08/26/24 18:14 Pulse 133 H 08/27/24 11:56 Respiratory Rate 34 H 08/27/24 11:56 Respiratory Effort Normal 08/26/24 18:14 Respiratory Depth Normal 08/26/24 18:14 Respiratory Pattern Normal 08/26/24 18:14 Blood Pressure 97/49 L 08/27/24 11:56 Blood Pressure Mean 64 08/27/24 11:56 Pulse Oximetry 95 08/27/24 11:56 Oxygen Delivery Method Nasal Cannula 08/27/24 11:49 Oxygen Flow Rate 4 08/27/24 11:49 Pain Level 3 08/27/24 11:49 Comment RN present 08/27/24 07:36 Allergies No Known Allergies Allergy (Verified 08/26/24 13:10) Precautions Isolation Standard precaution 08/26/24 13:10 Active Medications Generic Name Dose Route Start Last Admin Trade Name Freq PRN Reason Stop Dose Admin Ringer's Solution 1,000 mls @ 100 mls/hr 08/26/24 17:46 08/27/24 10:34 IV 100 mls/hr INFUSION RONY Administration Phenylephrine HCl 10 mg/ 250 mls @ 60 mls/hr 08/27/24 10:15 08/27/24 12:02 Sodium Chloride IV 40 mcg/min INFUSION RONY 60 mls/hr Titration Protocol 40 MCG/MIN Insulin Aspart 0 units 08/27/24 08:00 08/27/24 07:13 Insulin Aspart 300 Units/3 Ml Pen SC Not Given 0800,1200,1700 [facility] Protocol Pantoprazole Sodium 40 mg 08/27/24 08:30 08/27/24 07:53 Pantoprazole 40 Mg Vial IVP Not Given DAILY [facility] Sodium Chloride 0 ml 08/26/24 17:46 08/26/24 18:05 Normal Saline Flush 10 Ml Syr IVP 10 ml PRN PRN Administration Sodium Chloride 0 ml 08/26/24 20:00 08/27/24 07:53 Normal Saline Flush 10 Ml Syr IVP Not Given BID [facility] IV IV Catheter Type [Right Wrist] Peripheral IV IV Catheter Gauge [Right Wrist 18 ] Diagnostics 08/27/24 08/27/24 08/26/24 Range/Units 11:43 05:57 15:44 WBC 13.35 H 10.00 (4.4-10.8) 10^3/uL RBC 4.79 4.73 (4.36-5.78) 10^6/uL Hgb 15.0 14.9 (13.5-17.5) g/dL Hct 43.9 42.0 (40.0-50.0) % MCV 92 89 (80-95) fL MCH 31.3 31.5 (27.0-33.0) pg MCHC 34.2 35.5 (32.0-36.0) % RDW 12.6 12.8 (11.8-14.1) % Plt Count 176 198 (130-400) 10^3/uL MPV 9.5 10.0 (8.0-11.0) fL Immature Gran % 0.6 0.4 % Neutrophils % 89.4 70.6 % Lymphocytes % 5.2 14.1 % Monocytes % 4.0 13.2 % Eosinophils % 0.4 1.3 % Basophils % 0.4 0.4 % Nucleated RBC % 0.0 0.0 (0.0-0.3) % Absolute Neutrophils 11.93 H 7.06 H (1.2-6.7) 10^3/uL Absolute Lymphocytes 0.69 L 1.41 (1.2-3.4) 10^3/uL Absolute Monocytes 0.53 1.32 H (0.1-0.8) 10^3/uL Absolute Eosinophils 0.05 0.13 (0.0-0.7) 10^3/uL Absolute Basophils 0.05 0.04 (0.0-0.2) 10^3/uL VBG Lactate (<or=2.0) mmol/L Sodium Pending 133 L (136-145) mmol/L Potassium Pending 3.4 L (3.5-5.1) mmol/L Chloride Pending 94 L (98-107) mmol/L Carbon Dioxide Pending 24.8 (21.0-32.0) mmol/L Anion Gap Pending 14.2 H (3-11) mmol/L BUN Pending 89 H* (7-18) mg/dL Creatinine Pending 4.0 H* (0.70-1.30) mg/dL Est GFR (CKD-EPI 2020) Pending 15.06 (mL/min/1.73m2) Glucose Pending 135 H (74-106) mg/dL Calcium Pending 8.6 (8.5-10.1) mg/dL Magnesium 2.0 (1.8-2.4) mg/dL Total Bilirubin Pending (0.2-1.0) mg/dL AST Pending (15-37) U/L ALT Pending (16-63) U/L Alkaline Phosphatase Pending (46-116) U/L Troponin I Pending 11 (<or=76) ng/L Total Protein Pending (6.4-8.2) g/dL Albumin Pending (3.4-5.0) g/dL 08/26/24 08/26/24 Range/Units 13:37 04:59 WBC 13.24 H (4.4-10.8) 10^3/uL RBC 5.25 (4.36-5.78) 10^6/uL Hgb 16.4 (13.5-17.5) g/dL Hct 47.0 (40.0-50.0) % MCV 90 (80-95) fL MCH 31.2 (27.0-33.0) pg MCHC 34.9 (32.0-36.0) % RDW 12.7 (11.8-14.1) % Plt Count 203 (130-400) 10^3/uL MPV 9.6 (8.0-11.0) fL Immature Gran % 0.4 % Neutrophils % 79.3 % Lymphocytes % 8.8 % Monocytes % 11.0 % Eosinophils % 0.3 % Basophils % 0.2 % Nucleated RBC % 0.0 (0.0-0.3) % Absolute Neutrophils 10.50 H (1.2-6.7) 10^3/uL Absolute Lymphocytes 1.17 L (1.2-3.4) 10^3/uL Absolute Monocytes 1.46 H (0.1-0.8) 10^3/uL Absolute Eosinophils 0.04 (0.0-0.7) 10^3/uL Absolute Basophils 0.03 (0.0-0.2) 10^3/uL VBG Lactate 2.0 (<or=2.0) mmol/L Sodium 128 L (136-145) mmol/L Potassium 3.6 (3.5-5.1) mmol/L Chloride 91 L (98-107) mmol/L Carbon Dioxide 23.7 (21.0-32.0) mmol/L Anion Gap 13.3 H (3-11) mmol/L BUN 68 H (7-18) mg/dL Creatinine 3.9 H* (0.70-1.30) mg/dL Est GFR (CKD-EPI 2020) 15.52 (mL/min/1.73m2) Glucose 202 H (74-106) mg/dL Calcium 8.9 (8.5-10.1) mg/dL Magnesium 1.3 L (1.8-2.4) mg/dL Total Bilirubin 1.9 H (0.2-1.0) mg/dL AST 22 (15-37) U/L ALT 24 (16-63) U/L Alkaline Phosphatase 55 (46-116) U/L Troponin I 11 13 (<or=76) ng/L Total Protein 9.1 H (6.4-8.2) g/dL Albumin 4.2 (3.4-5.0) g/dL [id number] Documentation Fingerstick Glucose Start: 08/26/24 17:40 Freq: Status: Complete Protocol: Activity Type Activity Date Activity User E-sign Co-sign Detail Recorded Client Recorded Date Recorded By Document 08/26/24 17:39 LATA ESPINOZA [id number] 08/26/24 17:40 LATA ESPINOZA(2) Fingerstick Glucose Start: 08/26/24 17:46 Freq: Q6H Status: Active Protocol: Activity Type Activity Date Activity User E-sign Co-sign Detail Recorded Client Recorded Date Recorded By Document 08/27/24 11:01 BKG DAEMON(3) [id number] 08/27/24 11:02 BKG DAEMON(4) Intake and Output - 24 Hour Total 08/26/24 13:02 thru 08/27/24 12:02 Intake Total 3016.583 Output Total 2550 Balance 466.583 Weight 122.47 kg Intake: IV 3016.583 Output: Gastric Drainage 1950 Left Nare 1950 Urine 500 Emesis 100 Other: Urine Color Yellow Urine Appearance Cloudy Urine Odor Strong Stool Characteristics Soft Formed Brown Emesis Description None Gastric Occult Blood Negative Left Nare Negative Urinary Catheter Urinary Catheter Date of 08/27/24 Insertion [Urethral ([place])] Time of insertion [Urethral ( 08:33 [place])] Falls Risk Assessment History of Falls No History 08/26/24 18:14 Contributing Factors No Factors 08/26/24 18:14 Ambulatory Aids Independent 08/26/24 18:14 Tubes/Lines W/no contributing factors 08/26/24 18:14 Gait Evaluation No gait disturbance 08/26/24 18:14 Cognition No cognitive impairment 08/26/24 13:58 Fall Total Score 10 08/26/24 18:14 Level of Risk Standard/Low Risk 08/26/24 18:14 Problems (Last Reviewed 08/26/24 @ 12:54 by Olivier Castano) On deep vein thrombosis (DVT) prophylaxis (Acute) Orthostasis (Acute) Acute kidney injury superimposed on CKD (Acute) Incarcerated hernia (Acute) SBO (small bowel obstruction) (Acute) Diabetes mellitus (Acute 10/07/12) Essential hypertension (Acute 04/10/13) Eosinophilic esophagitis (Acute ~02/26/18) v v v v v v v v v Sending and/or Receiving Nurses: Please use comment section below to note any information pertinent to the patient hand-off not included above. Information / Comments: Report given to Lupe REAVES in ICU at 1150 AP RN Report received from:
[2024-08-27 12:13] LABS: ALT 23 U/L (16-63); AST 32 U/L (15-37); Albumin 3.5 g/dL (3.4-5.0); Alkaline Phosphatase 49 U/L (46-116); Anion Gap 14.8 mmol/L (3-11); CO2 23.2 mmol/L (21.0-32.0); Calcium 8.2 mg/dL (8.5-10.1); Chloride 93 mmol/L (98-107); Estimated GFR 15.06 (mL/min/1.73m2); Glucose 192 mg/dL (74-106); Potassium 3.7 mmol/L (3.5-5.1); Sodium 131 mmol/L (136-145); Total Protein 7.7 g/dL (6.4-8.2)
[2024-08-27 12:20] LABS: BUN 90 mg/dL (7-18)
[2024-08-27 12:25] LABS: Troponin I 13 ng/L (<or=76)
--- NOTE | 2024-08-27 12:57 | PHA.REVIEW2 ---
Pharmacy Admission Review Admission Clinical Review Admission Pharmacy Review: On deep vein thrombosis (DVT) prophylaxis (Acute) Orthostasis (Acute) Acute kidney injury superimposed on CKD (Acute) Incarcerated hernia (Acute) SBO (small bowel obstruction) (Acute) Diabetes mellitus (Acute 10/07/12) Essential hypertension (Acute 04/10/13) Eosinophilic esophagitis (Acute ~02/26/18) No Known Allergies Allergy (Verified 08/26/24 13:10) Resuscitation Status Full Code Height 6 ft Weight 122.47 kg Comments Comments/Follow Ups: POD #0 Laparoscopic initial, incarcerated ventral incisional hernia repair with mesh, laparoscopic partial omentectomy Pharmacy Admission Review Renal Dosing Renal Dosing: BUN 90 mg/dL (7-18) H* 08/27/24 11:43 Creatinine 4.0 mg/dL (0.70-1.30) H* 08/27/24 11:43 Medications needing adjustments: Reviewed (CrC l 22.23 mL/min, BUN increased from 68 and SCr increased from 3.9) List of meds needing interventions: Current medications are okay Anticoagulation Anticoagulation: Hgb 15.0 g/dL (13.5-17.5) 08/27/24 11:43 Hct 43.9 % (40.0-50.0) 08/27/24 11:43 Plt Count 176 10^3/uL (130-400) 08/27/24 11:43 Creatinine 4.0 mg/dL (0.70-1.30) H* 08/27/24 11:43 DVT Prophylaxis: Reviewed Medications: Heparin (q8h) Opiate Usage Evaluate Pain Scale/Pains Meds: Reviewed (hydromorphone 1mg IVP q4h PRN - no doses given) Scheduled Bowel Reg ordered if on Opiates?: No Relevant Labs Relevant Labs: Sodium 131 mmol/L (136-145) L 08/27/24 11:43 Potassium 3.7 mmol/L (3.5-5.1) 08/27/24 11:43 Chloride 93 mmol/L (98-107) L 08/27/24 11:43 Magnesium 2.0 mg/dL (1.8-2.4) 08/27/24 05:57 Electrolytes, C-Reactive P, ESR: Reviewed (Na 131 (increased)) DM Control DM Control: Glucose 192 mg/dL (74-106) H 08/27/24 11:43 Finger Stick Blood Glucose 177 1101 Finger Stick Blood Glucose 177 1101 Finger Stick Blood Glucose 127 0713 Finger Stick Blood Glucose 127 0545 Finger Stick Blood Glucose 127 0545 DM Control: Reviewed Insulin Dosing, Diabetic Medication: Has order for SS insulin Cardiac Review Cardiac Review: Troponin I 13 ng/L (<or=76) 08/27/24 11:43 Blood Pressure 172/156 1206 Blood Pressure 82/55 1202 Blood Pressure 88/46 1201 Blood Pressure 97/49 1156 Blood Pressure 100/61 1151 Blood Pressure 91/47 1148 Blood Pressure 82/50 1147 Blood Pressure 99/81 1141 Blood Pressure 96/65 1140 Blood Pressure 151/112 1132 Blood Pressure 121/79 1126 Blood Pressure 111/58 1120 Blood Pressure 105/63 1115 BP, HR, EF%: Reviewed (HR WNL, RR 34 and oxygen flow rate = 4) List meds needing interventions: Has order for metoprolol 2.5mg IVP q6h PRN (no doses given) and phenylephrine infusion @ 40 mcg/min (last increased at 1214). QTc Review QTc: Reviewed (434 from 08/26/24) IV to PO Switch IV Medications: Reviewed (has NGT - currently NPO) Home Meds Home Med List reviewed: Reviewed (on hold for now per H+P - currently NPO) Relevent Home Meds Not ordered & why?: amlodipine, atorvastatin, multivitamin, chlorthalidone, Farxiga, doxazosin, lisinopril, omeprazole (has order for IV pantoprazole) and potassium Current Meds Current Medication Order Review: Reviewed Comments Comments/Follow Ups: POD #0 Laparoscopic initial, incarcerated ventral incisional hernia repair with mesh, laparoscopic partial omentectomy
[2024-08-27] MEDS: ESMOLOL 2,500 MG/250 ML BAG 36.741 MG IV ×2 (13:20→18:56)
[2024-08-27] MEDS: HYDROmorphone 2 MG/ML SYR 1 MG IVP (13:20)
--- NOTE | 2024-08-27 14:28 | PGE_ITS ---
Date of Service Date of service: 08/27/24 Time of Service: 13:10 Assessment and Plan Assessment and plan (1) Hypotension: Status: Acute Assessment and plan: Developed during/after surgery, was not able to taper off phenylephrine. No history of heart disease, negative troponins, no ischemia on EKG. new atrial fibrillation likely contributing, see below No clear source of infection, but given incarcerated hernia, will cover with pip/tazo to address any possible bacteremia, renally dose. Continue phenylephrine, good choice as provided vasoconstriction without chronotropy that would worsen afib. Get STAT echo. I don't think he needs more fluids now. (2) Atrial fibrillation with RVR: Status: Acute Assessment and plan: post op, a/w some hypotension, though hypotension multifactorial. Considered cardioversion but risk of stroke/clot Try to manage with esmolol. risk of hypotension worsening but short acting makes it safer. could also consider digoxin. Mg was good this morning, with renal failure will not give more (3) Acute kidney injury superimposed on CKD: Status: Acute Assessment and plan: Cr 4.0 with 2.5 baseline- most likely pre-renal with acute incarcerated hernia, but some evidence of bladder outlet obstruction as well, did not improve with IV fluids overnight. Some evidence of bladder outlet obstruction on admission CT, but not overt. Has benitez now. Urine output has been good. Add urine creatinine/sodium, follow closely no indications for dialysis as this point. (4) Incarcerated hernia: Status: Acute Assessment and plan: s/p repair today. Dr. Rios did not think it was ischemic. Continue NPO. (5) SBO (small bowel obstruction): Status: Acute Assessment and plan: Secondary to above, NGT, bowel rest. (6) Diabetes mellitus: Status: Acute Assessment and plan: Continue Gluc Q 6H with SSI coverage, if worsening start drip while in ICU (7) Essential hypertension: Status: Acute Assessment and plan: holding oral home meds, BP low currently (8) On deep vein thrombosis (DVT) prophylaxis: Status: Acute Assessment and plan: Discontinue SCD's after transition to Heparin SC at (HS) 12 hours s/p OR Subjective Subjective Patient reports: denies diarrhea, nausea, vomiting, shortness of breath or fever Interval history since last seen: Events: Laparoscopic initial, incarcerated ventral incisional hernia repair with mesh, laparoscopic partial omentectomy with Dr. Rios Hypotension and new atrial fibrillation post-operatively. Started on phenylephrine. Transferred to ICU He feels okay, not in pain when not moving, but abdomen is tender. He denies having chest pain. Not dizzy or short of breath at rest. Exam Narrative Exam Narrative: Gen: The patient is in bed comfortable without acute distress, NGT to wall suction Resp: NC in place, speaks in full sentences, slightly labored breathing, basilar rales bilaterally Cardio: regular rhythm, S1, S2, no murmur, positive radial and pedal pulses GI: Abdomen is soft, non-distended, mildly tender diffusely, port wounds dressed, no discharge. Integumentary: No skin lesions or rash Extremities: warm, no c/c/e Objective Last Vital Signs Temp 36.7 C 08/27/24 12:06 Pulse 89 08/27/24 14:01 Resp 29 H 08/27/24 14:01 BP 102/68 08/27/24 14:01 Pulse Ox 96 08/27/24 14:02 Laboratory Results - last 24 hr 08/26/24 08/26/24 08/27/24 04:59 15:44 05:57 WBC 10.00 RBC 4.73 Hgb 14.9 Hct 42.0 MCV 89 MCH 31.5 MCHC 35.5 RDW 12.8 Plt Count 198 MPV 10.0 Immature Gran % 0.4 Neutrophils % 70.6 Lymphocytes % 14.1 Monocytes % 13.2 Eosinophils % 1.3 Basophils % 0.4 Nucleated RBC % 0.0 Absolute Neutrophils 7.06 H Absolute Lymphocytes 1.41 Absolute Monocytes 1.32 H Absolute Eosinophils 0.13 Absolute Basophils 0.04 Sodium 133 L Potassium 3.4 L Chloride 94 L Carbon Dioxide 24.8 Anion Gap 14.2 H BUN 89 H* Creatinine 4.0 H* Est GFR (CKD-EPI 2020) 15.06 Glucose 135 H Calcium 8.6 Magnesium 2.0 Total Bilirubin AST ALT Alkaline Phosphatase Troponin I 13 11 Total Protein Albumin 08/27/24 11:43 WBC 13.35 H RBC 4.79 Hgb 15.0 Hct 43.9 MCV 92 MCH 31.3 MCHC 34.2 RDW 12.6 Plt Count 176 MPV 9.5 Immature Gran % 0.6 Neutrophils % 89.4 Lymphocytes % 5.2 Monocytes % 4.0 Eosinophils % 0.4 Basophils % 0.4 Nucleated RBC % 0.0 Absolute Neutrophils 11.93 H Absolute Lymphocytes 0.69 L Absolute Monocytes 0.53 Absolute Eosinophils 0.05 Absolute Basophils 0.05 Sodium 131 L Potassium 3.7 Chloride 93 L Carbon Dioxide 23.2 Anion Gap 14.8 H BUN 90 H* Creatinine 4.0 H* Est GFR (CKD-EPI 2020) 15.06 Glucose 192 H Calcium 8.2 L Magnesium Total Bilirubin 1.0 AST 32 ALT 23 Alkaline Phosphatase 49 Troponin I 13 Total Protein 7.7 Albumin 3.5 Time Spent with Patient Time Spent with Patient: >50 minutes Time was spent: preparing to see the patient(eg.review tests), obtaining and/or reviewing separately otained hiistory, ordering medications,tests, procedures, referring, communicating with other health clinical care leader, indepentently interpreting results, counseling the patient and care coordination
[2024-08-27 15:25] LABS: Creatinine,Urine 157.16 mg/dL; Sodium, Urine 42 mmol/L
[2024-08-27 15:37] LABS: Bilirubin Negative (Negative); Glucose Negative (Negative); Nitrite Negative (Negative); Specific Gravity 1.025 (1.005-1.025); Urobilinogen 0.2 mg/dL (Up to 0.2); pH 5.5 (5-8)
[2024-08-27 15:57] LABS: WBC >50 HPF (0-5)
[2024-08-27 16:34] LABS: Leukocyte Esterase Large (Negative)
[2024-08-27 16:35] LABS: Blood Moderate (Negative); Ketones Trace mg/dL (Negative)
[2024-08-27 16:38] LABS: Clarity Turbid (Clear)
[2024-08-27] MEDS: ACETAMINOPHEN 1,000 MG/100 ML BAG 400 MG IVPB (17:42)
[2024-08-27] MEDS: Heparin 5,000 UNITS/ML VIAL 5000 UNITS SC (22:30)
[2024-08-28] VITALS (104 sets, daily range): BP systolic 83–120; BP diastolic 55–78; PULSE 56–123; RESP 11–27; TEMP 36–36.8; O2SAT 84–95
[2024-08-28] MEDS: ACETAMINOPHEN 1,000 MG/100 ML BAG 400 MG IVPB ×3 (01:00→18:06)
[2024-08-28] MEDS: ESMOLOL 2,500 MG/250 ML BAG 36.741 MG IV ×4 (01:59→22:22)
[2024-08-28] MEDS: Heparin 5,000 UNITS/ML VIAL 5000 UNITS SC ×3 (06:02→22:02)
[2024-08-28] MEDS: HYDROmorphone 2 MG/ML SYR 1 MG IVP ×2 (06:03→11:52)
--- NOTE | 2024-08-28 07:00 | DI.US_ITS ---
APPROVED REPORT EXAM: Comprehensive 2D, Doppler, and color-flow Echocardiogram Patient Location: In-Patient Room/Bed: [address] [employer] [employer] Driver: Lele Garcia RDCS (AE) Indications: Hypotension, afib Echo Enhancing Agent Indication: Endocardial border delineation Agent(s) / Amount(s) Used: Definity 2.0 cc Comments: Contrast study was performed with 1 IV injection of 2cc of diluted definity. Conclusion Left ventricular systolic function and wall motion appear normal. Ejection fraction is 60%. Wall motion Left Ventricle The left ventricle is normal size. The left ventricular systolic function is normal. The left ventric ular ejection fraction is within the normal range. There is normal left ventricular wall thickness. T here is normal LV segmental wall motion. LVEF is 58-60%.
[2024-08-28 08:39] LABS: Abs Immature Grans 0.07 10^3/uL (0.0-0.06); Absolute Basophil Count 0.02 10^3/uL (0.0-0.2); Absolute Eosinophil Count 0.02 10^3/uL (0.0-0.7); Absolute Lymphocyte Count 1.02 10^3/uL (1.2-3.4); Absolute Monocyte Count 1.34 10^3/uL (0.1-0.8); Basophils % 0.2 %; Eosinophils % 0.2 %; HCT 40.7 % (40.0-50.0); HGB 13.9 g/dL (13.5-17.5); Immature Grans % 0.6 %; Lymphocytes % 8.3 %; MCH 31.2 pg (27.0-33.0); MCHC 34.2 % (32.0-36.0); MCV 92 fL (80-95); MPV 9.6 fL (8.0-11.0); Monocytes % 10.9 %; Neutrophils % 79.8 %; Platelet Count 165 10^3/uL (130-400); RBC 4.45 10^6/uL (4.36-5.78); RDW 12.7 % (11.8-14.1); RDW-SD 42.2 fL; WBC 12.33 10^3/uL (4.4-10.8)
[2024-08-28 08:41] LABS: Absolute Neutrophil Count 9.84 10^3/uL (1.2-6.7)
[2024-08-28] MEDS: Pantoprazole 40 MG VIAL IVP (08:50)
[2024-08-28] MEDS: Normal Saline Flush 10 ML SYR IVP ×2 (08:50→11:52)
--- NOTE | 2024-08-28 09:00 | DI.RAD_ITS ---
Exam(s) XR ABDOMEN FLAT PLATE EXAM: 2D digital imaging was performed. CLINICAL HISTORY: Ileus. COMPARISON: CT CT ABDOMEN PELVIS WO from 08/26/2024 TECHNIQUE: Supine views of the abdomen performed. Three views were obtained. FINDINGS: BOWEL GAS PATTERN: There are persistent dilated loops of small bowel seen predominantly in the upper abdomen. There has been slight improvement in the extent of the dilatation since the prior examinati on. There is an enteric tube with its tip below the hemidiaphragm in good position. CALCIFICATIONS: No radiopaque calcifications. OSSEOUS STRUCTURES: Normal for age. Degenerative changes are seen in the thoracic and lumbar spine. OTHER FINDINGS: There are surgical clips in the right upper quadrant of the abdomen reflecting prior cholecystectomy. IMPRESSION: 1. Persistently dilated loops of small bowel in the upper in predominantly left abdomen suggesting pe rsistent small bowel obstruction. There is a paucity of air seen in the distal colon and rectum. 2. Enteric tube is in good position. DATA REPOSITORY: RADIATION DOSE DELIVERED:
--- NOTE | 2024-08-28 09:02 | CMPROGNOTE_ITS ---
Date of service: 08/28/24 Time of Service: 09:03 Care Management Progress Note Progress Note Text Progress Note Text: Manuel was sitting up in bed when CM met with him. Hew looked good and stated that he is feeling surprisingly well. His pain is managed and he was able to get up and sit in a chair for a bit. Manuel still has an NG tube and remains NPO. The surgeon informed him that he would likely remain NPO with the tube for at least another 2 days. His came to visit today and Manuel seemed to be in good spirits. His blood pressure is still on the low side with SBP in the 80s and 90s. He is also tachycardic with HR in the 90s to low 100s. Manuel had a CT of the abdomen which confirmed that he still has dilated loops of bowel indicating a persistent SBO. Discharge Potential Discharge Needs: Surgical F/U Appt Anticipated Barriers to Discharge: Medical Status Patient/Family Education Needs: Review discharge instructions, discuss Ask Me Three Transportation: Private vehicle Plan: Anticipate Manuel will be discharged home with no new services when medically cleared. He will follow up with his community providers and plan of care and transport with family. CM will follow and continue to support discharge planning.. Social Determinants of Health Screening Social Determinants of health last assessed in clinic: 08/28/24 Will the Patient Participate in the Screening?: Yes Do you worry about having a steady place to live?: no Problems where you live: no known problems In the past 12 months, have you had to go without electric, gas, oil or water in your home?: no 1. Within the past 12 months, we worried whether our food would run out before we got money to buy more.: Never true 2. Within the past 12 months, the food we bought just didn't last and we didn't have money to get more.: Never true Has lack of transportation kept you from medical appointments or from doing things needed for daily living?: no Has anyone in your life made you feel unsafe or unsupported?: no How hard is it for you to pay for the very basics like food, housing, medical care, and heating? Would you say it is:: Not hard at all Do you want help finding or keeping work or a job?: I do not need or want help If for any reason you need help with day-to-day activities such as bathing, preparing meals, shopping, managing finances, etc., do you get the help you need?: I don?t need any help How often do you feel lonely or isolated from those around you?: Never Do you speak a language other than Telugu at home?: No Does the patient want assistance with any of the above?: No
[2024-08-28 09:03] LABS: ALT 20 U/L (16-63); AST 30 U/L (15-37); Albumin 2.9 g/dL (3.4-5.0); Alkaline Phosphatase 40 U/L (46-116); Anion Gap 10.9 mmol/L (3-11); BUN 77 mg/dL (7-18); Bilirubin, Total 0.8 mg/dL (0.2-1.0); CO2 24.1 mmol/L (21.0-32.0); CREATININE 3.2 mg/dL (0.70-1.30); Chloride 100 mmol/L (98-107); Estimated GFR 19.68 (mL/min/1.73m2); Glucose 116 mg/dL (74-106); Magnesium 1.9 mg/dL (1.8-2.4); Potassium 3.6 mmol/L (3.5-5.1); Sodium 135 mmol/L (136-145); TSH (W/Ref FT4) 3.49 uIU/mL (0.36-3.74); Total Protein 6.8 g/dL (6.4-8.2); Troponin I 18 ng/L (<or=76)
--- NOTE | 2024-08-28 09:10 | DI.RAD_ITS ---
Exam(s) XR PORTABLE CHEST AP EXAM: XR PORTABLE CHEST AP CLINICAL HISTORY: Volume overload TECHNIQUE: 2D digital imaging was performed of the chest. One image was obtained. An AP view was ob tained. COMPARISON: CR XR PORTABLE CHEST AP from 08/26/2024 CR XR ABDOMEN FLAT PLATE from 08/28/2024 FINDINGS: There are low lung volumes. MEDIASTINUM: Normal. HEART: Normal. PULMONARY VASCULATURE: Normal. LUNGS: Ground-glass infiltrate seen in the right upper lobe. There is an infiltrate seen in the left lung base. PLEURAL SPACE: No pleural effusion or pneumothorax. BONE:Within normal limits for the patient's age. OTHER FINDINGS:The enteric tube passes into the stomach. IMPRESSION: 1. Heart size is within normal limits. No pleural effusions. 2. Infiltrate seen in the right upper lobe and left lower lobe. 3. Low lung volumes. 4. The enteric tube passes into the stomach. The tip is beyond the inferior border of the film. DATA REPOSITORY: RADIATION DOSE DELIVERED:
--- NOTE | 2024-08-28 10:22 | PGE_ITS ---
Date of Service Date of service: 08/28/24 Time of Service: 08:00 Assessment and Plan Assessment and plan (1) Hypotension: Status: Acute Assessment and plan: Developed during/after surgery, was not able to taper off phenylephrine until 08/28 AM No history of heart disease, negative troponins, no ischemia on EKG. new atrial fibrillation likely contributing, see below No clear source of infection, but given incarcerated hernia, covering with pip/tazo to address any possible bacteremia, renally dose. Echo showed nl LVEF, IVC not collapsing, suggesting adequate hydration c/w clincal assessment, additional contrast views today (2) Atrial fibrillation with RVR: Status: Acute Assessment and plan: post op, a/w some hypotension, though hypotension multifactorial. Considered cardioversion but risk of stroke/clot Will continue esmolol as he is NPO, this is rapidly titrateable. could also consider digoxin. (3) Acute kidney injury superimposed on CKD: Status: Acute Assessment and plan: Cr 4.0 with 2.5 baseline- most likely pre-renal with acute incarcerated hernia, but some evidence of bladder outlet obstruction as well, did not improve with IV fluids initially. Some evidence of bladder outlet obstruction on admission CT, but not overt. Has benitez now. Urine output continues to be very good. BUN/Cr now trending down, which is encouraging. Urine creatinine/sodium with FENa 0.8% c/w pre-renal. still no no indications for dialysis as this point. (4) Incarcerated hernia: Status: Acute Assessment and plan: s/p repair 08/27. Dr. Rios did not think it was ischemic. This morning's note reviewed, appreciate the input. Continue NPO with NGT until 08/29. (5) SBO (small bowel obstruction): Status: Acute Assessment and plan: Secondary to above, NGT, bowel rest. (6) Diabetes mellitus: Status: Acute Assessment and plan: Continue Gluc Q 6H with SSI coverage, if worsening start drip while in ICU He should have some glucose in fluids as NPO, added this. (7) Essential hypertension: Status: Acute Assessment and plan: holding oral home meds, BP low currently (8) On deep vein thrombosis (DVT) prophylaxis: Status: Acute Assessment and plan: Discontinue SCD's after transitioned to Heparin SC post op, continue Subjective Subjective Patient reports: feels better and no flatus; denies bowel movement, nausea, vomiting, shortness of breath or fever Interval history since last seen: Events: on phenylephrine post op, stopped at 5:30am Started on esmolol for new atrial fibrillation post-op echo done, additional contrast images requested today Off oxygen overnight He feeling okay. Occasional wave of crampy abdominal pain. Abdomen hurts when he moves. no chest pain or palpitations, not dizzy. Exam Narrative Exam Narrative: Gen: Sitting up in bed comfortable without acute distress, NGT to wall suction, off oxygen Resp: speaks in full sentences, unlabored breathing, less basilar rales, only slightly on left side Cardio: irregularly irregular in 90s, 100s with movement, no murmur GI: Abdomen is soft, non-distended, mildly tender diffusely, port wounds dressed, no discharge. Integumentary: No skin lesions or rash Extremities: warm, no c/c/e Objective Last Vital Signs Temp 36.8 C 08/28/24 09:38 Pulse 78 08/28/24 09:01 Resp 22 08/28/24 09:01 BP 83/59 L 08/28/24 09:01 Pulse Ox 91 L 08/28/24 08:31 Laboratory Results - last 24 hr 08/27/24 08/27/24 08/27/24 11:43 14:28 14:28 WBC 13.35 H RBC 4.79 Hgb 15.0 Hct 43.9 MCV 92 MCH 31.3 MCHC 34.2 RDW 12.6 Plt Count 176 MPV 9.5 Immature Gran % 0.6 Neutrophils % 89.4 Lymphocytes % 5.2 Monocytes % 4.0 Eosinophils % 0.4 Basophils % 0.4 Nucleated RBC % 0.0 Absolute Neutrophils 11.93 H Absolute Lymphocytes 0.69 L Absolute Monocytes 0.53 Absolute Eosinophils 0.05 Absolute Basophils 0.05 Sodium 131 L Potassium 3.7 Chloride 93 L Carbon Dioxide 23.2 Anion Gap 14.8 H BUN 90 H* Creatinine 4.0 H* Est GFR (CKD-EPI 2020) 15.06 Glucose 192 H Calcium 8.2 L Magnesium Total Bilirubin 1.0 AST 32 ALT 23 Alkaline Phosphatase 49 Troponin I 13 Total Protein 7.7 Albumin 3.5 TSH Urine Color Yellow Urine Clarity Turbid Urine pH 5.5 Ur Specific [place] 1.025 Urine Protein 100 H Urine Ketones Trace H Urine Blood Moderate H Urine Nitrite Negative Urine Bilirubin Negative Urine Urobilinogen 0.2 Ur Leukocyte Esterase Large H Urine RBC Cancelled Urine WBC >50 H Ur Epithelial Cells Urine Crystals Urine Bacteria Urine Casts Urine Mucus Urine Other Ur Culture Indicated? Ur Random Creatinine Ur Random Sodium Urine Glucose 08/27/24 08/27/24 08/27/24 14:28 14:28 14:28 WBC RBC Hgb Hct MCV MCH MCHC RDW Plt Count MPV Immature Gran % Neutrophils % Lymphocytes % Monocytes % Eosinophils % Basophils % Nucleated RBC % Absolute Neutrophils Absolute Lymphocytes Absolute Monocytes Absolute Eosinophils Absolute Basophils Sodium Potassium Chloride Carbon Dioxide Anion Gap BUN Creatinine Est GFR (CKD-EPI 2020) Glucose Calcium Magnesium Total Bilirubin AST ALT Alkaline Phosphatase Troponin I Total Protein Albumin TSH Urine Color Urine Clarity Urine pH Ur Specific [place] Urine Protein Urine Ketones Urine Blood Urine Nitrite Urine Bilirubin Urine Urobilinogen Ur Leukocyte Esterase Urine RBC Urine WBC Cancelled Ur Epithelial Cells Cancelled Urine Crystals Cancelled Urine Bacteria Urine Casts Urine Mucus Urine Other Ur Culture Indicated? Ur Random Creatinine Ur Random Sodium Urine Glucose 08/27/24 08/27/24 08/27/24 14:28 14:28 14:28 WBC RBC Hgb Hct MCV MCH MCHC RDW Plt Count MPV Immature Gran % Neutrophils % Lymphocytes % Monocytes % Eosinophils % Basophils % Nucleated RBC % Absolute Neutrophils Absolute Lymphocytes Absolute Monocytes Absolute Eosinophils Absolute Basophils Sodium Potassium Chloride Carbon Dioxide Anion Gap BUN Creatinine Est GFR (CKD-EPI 2020) Glucose Calcium Magnesium Total Bilirubin AST ALT Alkaline Phosphatase Troponin I Total Protein Albumin TSH Urine Color Urine Clarity Urine pH Ur Specific [place] Urine Protein Urine Ketones Urine Blood Urine Nitrite Urine Bilirubin Urine Urobilinogen Ur Leukocyte Esterase Urine RBC Urine WBC Ur Epithelial Cells Urine Crystals Urine Bacteria Cancelled Urine Casts Cancelled Urine Mucus Cancelled Urine Other Cancelled Ur Culture Indicated? Cancelled Ur Random Creatinine 157.16 Ur Random Sodium 42 Urine Glucose Negative 08/28/24 08/28/24 08/28/24 08:27 08:27 08:27 WBC 12.33 H RBC 4.45 Hgb 13.9 Hct 40.7 MCV 92 MCH 31.2 MCHC 34.2 RDW 12.7 Plt Count 165 MPV 9.6 Immature Gran % 0.6 Neutrophils % 79.8 Lymphocytes % 8.3 Monocytes % 10.9 Eosinophils % 0.2 Basophils % 0.2 Nucleated RBC % 0.0 Absolute Neutrophils 9.84 H Absolute Lymphocytes 1.02 L Absolute Monocytes 1.34 H Absolute Eosinophils 0.02 Absolute Basophils 0.02 Sodium 135 L Potassium 3.6 Chloride 100 Carbon Dioxide 24.1 Anion Gap 10.9 BUN 77 H Creatinine 3.2 H Est GFR (CKD-EPI 2020) 19.68 Glucose 116 H Calcium 8.0 L Magnesium 1.9 Cancelled Total Bilirubin 0.8 AST 30 ALT 20 Alkaline Phosphatase 40 L Troponin I 18 Cancelled Total Protein 6.8 Albumin 2.9 L TSH 3.49 Urine Color Urine Clarity Urine pH Ur Specific [place] Urine Protein Urine Ketones Urine Blood Urine Nitrite Urine Bilirubin Urine Urobilinogen Ur Leukocyte Esterase Urine RBC Urine WBC Ur Epithelial Cells Urine Crystals Urine Bacteria Urine Casts Urine Mucus Urine Other Ur Culture Indicated? Ur Random Creatinine Ur Random Sodium Urine Glucose 08/28/24 08:27 WBC RBC Hgb Hct MCV MCH MCHC RDW Plt Count MPV Immature Gran % Neutrophils % Lymphocytes % Monocytes % Eosinophils % Basophils % Nucleated RBC % Absolute Neutrophils Absolute Lymphocytes Absolute Monocytes Absolute Eosinophils Absolute Basophils Sodium Potassium Chloride Carbon Dioxide Anion Gap BUN Creatinine Est GFR (CKD-EPI 2020) Glucose Calcium Magnesium Total Bilirubin AST ALT Alkaline Phosphatase Troponin I Total Protein Albumin TSH Cancelled Urine Color Urine Clarity Urine pH Ur Specific [place] Urine Protein Urine Ketones Urine Blood Urine Nitrite Urine Bilirubin Urine Urobilinogen Ur Leukocyte Esterase Urine RBC Urine WBC Ur Epithelial Cells Urine Crystals Urine Bacteria Urine Casts Urine Mucus Urine Other Ur Culture Indicated? Ur Random Creatinine Ur Random Sodium Urine Glucose Time Spent with Patient Time Spent with Patient: >50 minutes Time was spent: preparing to see the patient(eg.review tests), obtaining and/or reviewing separately otained hiistory, ordering medications,tests, procedures, referring, communicating with other health home care associate, indepentently interpreting results, counseling the patient and care coordination
--- NOTE | 2024-08-28 10:36 | PGE_ITS ---
Date of Service Date of service: 08/28/24 Time of Service: 10:36 Assessment and Plan Assessment and plan (1) Abdominal wall hernia: Status: Acute Assessment and plan: He is doing well s/p lap VHR repair yesterday 08/27/24. (2) Ileus following gastrointestinal surgery: Status: Acute Assessment and plan: Does has ileus some dilation of small bowel seen on kub today. Have ordered kub for tomorrow. Will keep NGT to LIWS for next 48 hours, then plan to remove and start diet. Keep NPO until then. (3) Atrial fibrillation with RVR: Status: Acute Assessment and plan: Seems improved some today, but still on esmolol drip. Phenylephrine off. (4) Abnormal renal function: Status: Acute Assessment and plan: Improving from prospective of labs. FeNA showing pre-renal sugestion of arthur. Fluids at 100cc/hr, slightly fluid volume + on I/O today, keep at current rate. Subjective Subjective Interval history since last seen: Feeling well today. Some periumbilical abdominal pain as would be expected. No BM nor gas yet. Stood at side of bed. Phenylepherine off today. Esmolol still running. Exam Narrative Exam Narrative: Vitals with decreased HR, but still in afib w/rvr. No fevers BM improved from yesterday. Examined today with nurse. Abdomen with some tympany to percussion on the upper quadrants, incision dressings are clean. Abdomen is minimally tender. Objective Last Vital Signs Temp 36.8 C 08/28/24 09:38 Pulse 78 08/28/24 09:01 Resp 22 08/28/24 09:01 BP 83/59 L 08/28/24 09:01 Pulse Ox 91 L 08/28/24 08:31 Laboratory Results - last 24 hr 08/27/24 08/27/24 08/27/24 11:43 14:28 14:28 WBC 13.35 H RBC 4.79 Hgb 15.0 Hct 43.9 MCV 92 MCH 31.3 MCHC 34.2 RDW 12.6 Plt Count 176 MPV 9.5 Immature Gran % 0.6 Neutrophils % 89.4 Lymphocytes % 5.2 Monocytes % 4.0 Eosinophils % 0.4 Basophils % 0.4 Nucleated RBC % 0.0 Absolute Neutrophils 11.93 H Absolute Lymphocytes 0.69 L Absolute Monocytes 0.53 Absolute Eosinophils 0.05 Absolute Basophils 0.05 Sodium 131 L Potassium 3.7 Chloride 93 L Carbon Dioxide 23.2 Anion Gap 14.8 H BUN 90 H* Creatinine 4.0 H* Est GFR (CKD-EPI 2020) 15.06 Glucose 192 H Calcium 8.2 L Magnesium Total Bilirubin 1.0 AST 32 ALT 23 Alkaline Phosphatase 49 Troponin I 13 Total Protein 7.7 Albumin 3.5 TSH Urine Color Yellow Urine Clarity Turbid Urine pH 5.5 Ur Specific [place] 1.025 Urine Protein 100 H Urine Ketones Trace H Urine Blood Moderate H Urine Nitrite Negative Urine Bilirubin Negative Urine Urobilinogen 0.2 Ur Leukocyte Esterase Large H Urine RBC Cancelled Urine WBC >50 H Ur Epithelial Cells Urine Crystals Urine Bacteria Urine Casts Urine Mucus Urine Other Ur Culture Indicated? Ur Random Creatinine Ur Random Sodium Urine Glucose 08/27/24 08/27/24 08/27/24 14:28 14:28 14:28 WBC RBC Hgb Hct MCV MCH MCHC RDW Plt Count MPV Immature Gran % Neutrophils % Lymphocytes % Monocytes % Eosinophils % Basophils % Nucleated RBC % Absolute Neutrophils Absolute Lymphocytes Absolute Monocytes Absolute Eosinophils Absolute Basophils Sodium Potassium Chloride Carbon Dioxide Anion Gap BUN Creatinine Est GFR (CKD-EPI 2020) Glucose Calcium Magnesium Total Bilirubin AST ALT Alkaline Phosphatase Troponin I Total Protein Albumin TSH Urine Color Urine Clarity Urine pH Ur Specific [place] Urine Protein Urine Ketones Urine Blood Urine Nitrite Urine Bilirubin Urine Urobilinogen Ur Leukocyte Esterase Urine RBC Urine WBC Cancelled Ur Epithelial Cells Cancelled Urine Crystals Cancelled Urine Bacteria Urine Casts Urine Mucus Urine Other Ur Culture Indicated? Ur Random Creatinine Ur Random Sodium Urine Glucose 08/27/24 08/27/24 08/27/24 14:28 14:28 14:28 WBC RBC Hgb Hct MCV MCH MCHC RDW Plt Count MPV Immature Gran % Neutrophils % Lymphocytes % Monocytes % Eosinophils % Basophils % Nucleated RBC % Absolute Neutrophils Absolute Lymphocytes Absolute Monocytes Absolute Eosinophils Absolute Basophils Sodium Potassium Chloride Carbon Dioxide Anion Gap BUN Creatinine Est GFR (CKD-EPI 2020) Glucose Calcium Magnesium Total Bilirubin AST ALT Alkaline Phosphatase Troponin I Total Protein Albumin TSH Urine Color Urine Clarity Urine pH Ur Specific [place] Urine Protein Urine Ketones Urine Blood Urine Nitrite Urine Bilirubin Urine Urobilinogen Ur Leukocyte Esterase Urine RBC Urine WBC Ur Epithelial Cells Urine Crystals Urine Bacteria Cancelled Urine Casts Cancelled Urine Mucus Cancelled Urine Other Cancelled Ur Culture Indicated? Cancelled Ur Random Creatinine 157.16 Ur Random Sodium 42 Urine Glucose Negative 08/28/24 08/28/24 08/28/24 08:27 08:27 08:27 WBC 12.33 H RBC 4.45 Hgb 13.9 Hct 40.7 MCV 92 MCH 31.2 MCHC 34.2 RDW 12.7 Plt Count 165 MPV 9.6 Immature Gran % 0.6 Neutrophils % 79.8 Lymphocytes % 8.3 Monocytes % 10.9 Eosinophils % 0.2 Basophils % 0.2 Nucleated RBC % 0.0 Absolute Neutrophils 9.84 H Absolute Lymphocytes 1.02 L Absolute Monocytes 1.34 H Absolute Eosinophils 0.02 Absolute Basophils 0.02 Sodium 135 L Potassium 3.6 Chloride 100 Carbon Dioxide 24.1 Anion Gap 10.9 BUN 77 H Creatinine 3.2 H Est GFR (CKD-EPI 2020) 19.68 Glucose 116 H Calcium 8.0 L Magnesium 1.9 Cancelled Total Bilirubin 0.8 AST 30 ALT 20 Alkaline Phosphatase 40 L Troponin I 18 Cancelled Total Protein 6.8 Albumin 2.9 L TSH 3.49 Urine Color Urine Clarity Urine pH Ur Specific [place] Urine Protein Urine Ketones Urine Blood Urine Nitrite Urine Bilirubin Urine Urobilinogen Ur Leukocyte Esterase Urine RBC Urine WBC Ur Epithelial Cells Urine Crystals Urine Bacteria Urine Casts Urine Mucus Urine Other Ur Culture Indicated? Ur Random Creatinine Ur Random Sodium Urine Glucose 08/28/24 08:27 WBC RBC Hgb Hct MCV MCH MCHC RDW Plt Count MPV Immature Gran % Neutrophils % Lymphocytes % Monocytes % Eosinophils % Basophils % Nucleated RBC % Absolute Neutrophils Absolute Lymphocytes Absolute Monocytes Absolute Eosinophils Absolute Basophils Sodium Potassium Chloride Carbon Dioxide Anion Gap BUN Creatinine Est GFR (CKD-EPI 2020) Glucose Calcium Magnesium Total Bilirubin AST ALT Alkaline Phosphatase Troponin I Total Protein Albumin TSH Cancelled Urine Color Urine Clarity Urine pH Ur Specific [place] Urine Protein Urine Ketones Urine Blood Urine Nitrite Urine Bilirubin Urine Urobilinogen Ur Leukocyte Esterase Urine RBC Urine WBC Ur Epithelial Cells Urine Crystals Urine Bacteria Urine Casts Urine Mucus Urine Other Ur Culture Indicated? Ur Random Creatinine Ur Random Sodium Urine Glucose Objective Narrative Objective Narrative: Urine output is acceptable. labs with mild leukocytosis, will follow this. Renal function is improving. Time Spent with Patient Time Spent with Patient: 25-34 minutes Time was spent: preparing to see the patient(eg.review tests), obtaining and/or reviewing [facility], ordering medications,tests, procedures and referring, communicating with other health health care technician
[2024-08-28] MEDS: DEXTROSE 5%-LACTATED RINGERS 1,000 ML 100 ML IV ×2 (10:37→21:48)
--- NOTE | 2024-08-28 16:27 | CHAPLAIN ---
Manuel was resting in bed when I visited. He said he's feeling better and beginning to heal. He was able to sit up in the chair for a while today and appreciated that progress. I explained my role and offered support.
[2024-08-29] VITALS (86 sets, daily range): BP systolic 96–132; BP diastolic 56–87; PULSE 58–151; RESP 15–38; TEMP 36.2–36.8; O2SAT 95
[2024-08-29] MEDS: Heparin 5,000 UNITS/ML VIAL 5000 UNITS SC ×3 (05:41→23:21)
[2024-08-29 05:56] LABS: Abs Immature Grans 0.04 10^3/uL (0.0-0.06); Absolute Basophil Count 0.05 10^3/uL (0.0-0.2); Absolute Eosinophil Count 0.18 10^3/uL (0.0-0.7); Absolute Lymphocyte Count 1.35 10^3/uL (1.2-3.4); Absolute Monocyte Count 0.93 10^3/uL (0.1-0.8); Absolute Neutrophil Count 7.55 10^3/uL (1.2-6.7); Basophils % 0.5 %; Eosinophils % 1.8 %; HCT 40.1 % (40.0-50.0); Immature Grans % 0.4 %; Lymphocytes % 13.4 %; MCH 31.5 pg (27.0-33.0); MCHC 34.9 % (32.0-36.0); MCV 90 fL (80-95); MPV 9.4 fL (8.0-11.0); Monocytes % 9.2 %; Neutrophils % 74.7 %; Platelet Count 165 10^3/uL (130-400); RBC 4.45 10^6/uL (4.36-5.78); RDW 12.5 % (11.8-14.1); RDW-SD 40.6 fL
[2024-08-29 06:10] LABS: BUN 60 mg/dL (7-18); CREATININE 2.5 mg/dL (0.70-1.30); Calcium 8.2 mg/dL (8.5-10.1); Chloride 102 mmol/L (98-107); Estimated GFR 26.47 (mL/min/1.73m2); Glucose 150 mg/dL (74-106); Potassium 3.4 mmol/L (3.5-5.1); Sodium 137 mmol/L (136-145)
[2024-08-29] MEDS: ESMOLOL 2,500 MG/250 ML BAG 29.393 MG IV (06:37)
--- NOTE | 2024-08-29 08:42 | PDOC.CMPRO ---
Date of service: 08/29/24 Time of Service: 08:42 Care Management Progress Note Progress Note Text Progress Note Text: Manuel was sitting up in bed visiting with his Karina when CM met with him. He was smiling and stated that things are going well. He informed CM that his pain is well controlled and only has discomfort when he moves. He was able to ambulate a little in his room and got out of the bed to the chair for a while. Manuel reported that the surgeon indicated that he would likely have his NG tube removed tomorrow. When that happens, anticipate he will be able to start on a clear liquid diet. Manuel's renal function has improved and his creatinine is now down to 2.5 from a high of 4.0. His HR is now controlled and has been in the 70s to 90s and he is no longer hypotensive. CM will follow Discharge Potential Discharge Needs: Surgical F/U Appt Anticipated Barriers to Discharge: None Identified Patient/Family Education Needs: Review discharge instructions, discuss Ask Me Three Transportation: Private vehicle Plan: Anticipate Manuel will be discharged home with no new services when medically cleared. He will follow up with his community providers and plan of care and transport with family. CM will continue to support discharge planning.. Social Determinants of Health Screening Social Determinants of health last assessed in clinic: 08/29/24 Will the Patient Participate in the Screening?: Yes Do you worry about having a steady place to live?: no Problems where you live: no known problems In the past 12 months, have you had to go without electric, gas, oil or water in your home?: no 1. Within the past 12 months, we worried whether our food would run out before we got money to buy more.: Never true 2. Within the past 12 months, the food we bought just didn't last and we didn't have money to get more.: Never true Has lack of transportation kept you from medical appointments or from doing things needed for daily living?: no Has anyone in your life made you feel unsafe or unsupported?: no How hard is it for you to pay for the very basics like food, housing, medical care, and heating? Would you say it is:: Not hard at all Do you want help finding or keeping work or a job?: I do not need or want help If for any reason you need help with day-to-day activities such as bathing, preparing meals, shopping, managing finances, etc., do you get the help you need?: I don?t need any help How often do you feel lonely or isolated from those around you?: Never Do you speak a language other than [place]errat[place] at home?: No Does the patient want assistance with any of the above?: No
--- NOTE | 2024-08-29 08:43 | DI.RAD_ITS ---
Exam(s) XR ABDOMEN FLAT PLATE EXAM: XR ABDOMEN FLAT PLATE CLINICAL HISTORY: Ileus. TECHNIQUE: 2D digital imaging was performed. COMPARISON: CR XR ABDOMEN FLAT PLATE from 08/28/2024 FINDINGS: AP supine view of the abdomen-pelvis. Distal tip of the enteric tube is in the 3rd part of the duodenum, unchanged from yesterday. This is distal to the stomach. There are persistent air-filled dilated bowel loops consistent with an element of persistent small bogdan wel obstruction. There is some air evident in the rectum. IMPRESSION: NG tube position as above. Persistent dilated air-filled small bowel loops. DATA REPOSITORY: RADIATION DOSE DELIVERED:
[2024-08-29] MEDS: POTASSIUM CHLORIDE/D5-0.45NACL 1,000 ML 100 MEQ IV ×2 (08:47→23:21)
[2024-08-29] MEDS: Normal Saline Flush 10 ML SYR IVP ×4 (08:50→23:24)
[2024-08-29] MEDS: HYDROmorphone 2 MG/ML SYR 1 MG IVP (08:51)
[2024-08-29] MEDS: Pantoprazole 40 MG VIAL IVP (08:52)
[2024-08-29] MEDS: Metoprolol 5 MG/5 ML VIAL IVP ×2 (08:57→10:19)
[2024-08-29] MEDS: ACETAMINOPHEN 1,000 MG/100 ML BAG 400 MG IVPB (10:40)
--- NOTE | 2024-08-29 10:51 | W.PM.PROGNOT ---
Date of Service Date of service: 08/29/24 Time of Service: 10:51 Assessment and Plan Assessment and plan (1) Ileus following gastrointestinal surgery: Status: Acute Assessment and plan: Appears stable, not worsening. Continue NG tube. Will order KUB for the morning. (2) Atrial fibrillation with RVR: Status: Acute Assessment and plan: Appears to be improving slowly. He is off of Estronol. (3) Abnormal renal function: Status: Acute Assessment and plan: Renal function is improving from laboratory values, the urine output is good today. Continue fluids as they are. Subjective Subjective Interval history since last seen: Continues to feel better. Is not yet passing gas, the abdominal distention subjectively is improving. He has ambulated out of the bed. Currently off of pressors, as well as labetalol. Exam Narrative Exam Narrative: Vital signs today do not show fevers. His heart rate has improved, although there is still are a few episodes of tachycardia that are recorded in the chart. His abdomen today is soft, minimally tender, still with some tympany to percussion, especially in the left upper quadrant. I's and O's show urine output of 1800, NG tube output of 200. Objective Last Vital Signs Temp 36.2 C L 08/29/24 08:17 Pulse 141 H 08/29/24 10:19 Resp 16 08/29/24 02:01 BP 114/74 08/29/24 10:19 Pulse Ox 91 L 08/28/24 08:31 Laboratory Results - last 24 hr 08/29/24 05:35 WBC 10.10 RBC 4.45 Hgb 14.0 Hct 40.1 MCV 90 MCH 31.5 MCHC 34.9 RDW 12.5 Plt Count 165 MPV 9.4 Immature Gran % 0.4 Neutrophils % 74.7 Lymphocytes % 13.4 Monocytes % 9.2 Eosinophils % 1.8 Basophils % 0.5 Nucleated RBC % 0.0 Absolute Neutrophils 7.55 H Absolute Lymphocytes 1.35 Absolute Monocytes 0.93 H Absolute Eosinophils 0.18 Absolute Basophils 0.05 Sodium 137 Potassium 3.4 L Chloride 102 Carbon Dioxide 25.0 Anion Gap 10.0 BUN 60 H Creatinine 2.5 H Est GFR (CKD-EPI 2020) 26.47 Glucose 150 H Calcium 8.2 L Objective Narrative Objective Narrative: Reviewed KUB from today, the dilation of the small intestine appears to be decreasing, there is gas in the rectum. Time Spent with Patient Time Spent with Patient: 25-34 minutes Time was spent: preparing to see the patient(eg.review tests), ordering medications,tests, procedures and indepentently interpreting results
--- NOTE | 2024-08-29 12:15 | W.PM.PROGNOT ---
Date of Service Date of service: 08/29/24 Time of Service: 12:15 Assessment and Plan Assessment and plan (1) Hypotension: Status: Acute Assessment and plan: Developed during/after surgery, was not able to taper off phenylephrine until 08/28 AM No history of heart disease, negative troponins, no ischemia on EKG. new atrial fibrillation likely contributing, see below No clear source of infection, but given incarcerated hernia, covering with pip/tazo to address any possible bacteremia, renally dosed, increase today with improving GFR. I will leave this for 48H, can stop this evening if cultures remain negative. Echo showed nl LVEF, IVC not collapsing, suggesting adequate hydration c/w clincal assessment. Continue IV fluids at 100/hr while NPO (2) Atrial fibrillation with RVR: Status: Acute Assessment and plan: post op, a/w some hypotension, though hypotension multifactorial. Considered cardioversion but risk of stroke/clot Will transition esmolol to oral metoprolol as he has been stable, transition to oral when able to take PO. could also consider digoxin, but it does not appear we will need this. (3) Acute kidney injury superimposed on CKD: Status: Acute Assessment and plan: Cr 4.0 with 2.5 baseline- most likely pre-renal with acute incarcerated hernia, but some evidence of bladder outlet obstruction as well, did not improve with IV fluids initially. Some evidence of bladder outlet obstruction on admission CT, but not overt. Has benitez now. Urine output continues to be very good. Urine creatinine/sodium with FENa 0.8% c/w pre-renal. This continues to improve and near baseline GFR 08/29 (4) Incarcerated hernia: Status: Acute Assessment and plan: s/p repair 08/27. Dr. Rios did not think it was ischemic. Bowel function does appear to be coming back. This morning's note again reviewed, appreciate the input. Continue NPO with NGT until 08/30 AM. (5) SBO (small bowel obstruction): Status: Acute Assessment and plan: Secondary to above, NGT, bowel rest. (6) Diabetes mellitus: Status: Acute Assessment and plan: Continue Gluc Q 6H with SSI coverage (7) Essential hypertension: Status: Acute Assessment and plan: holding oral home meds, BP normal currently (8) On deep vein thrombosis (DVT) prophylaxis: Status: Acute Assessment and plan: Discontinue SCD's after transitioned to Heparin SC post op, continue Subjective Subjective Patient reports: denies bowel movement, nausea, vomiting, shortness of breath or fever Interval history since last seen: events: No major events, continued esmlolol ggt He is feeling better. Some hunger, no gas but feeling things moving in abdomen. Pain isn't bad. No chest pain or dizziness. Exam Narrative Exam Narrative: Gen: Sitting up in bed comfortable without acute distress, NGT to wall suction Resp: speaks in full sentences, unlabored breathing, lungs CTAB Cardio: irregularly irregular in 90s, 100s with movement, no murmur GI: Abdomen is soft, non-distended, mildly tender diffusely, 5 port wounds dressed, C/D/I Integumentary: No skin lesions or rash Extremities: warm, no c/c/e Objective Last Vital Signs Temp 36.2 C L 08/29/24 08:17 Pulse 141 H 08/29/24 10:19 Resp 16 08/29/24 02:01 BP 114/74 08/29/24 10:19 Pulse Ox 91 L 08/28/24 08:31 Laboratory Results - last 24 hr 08/29/24 05:35 WBC 10.10 RBC 4.45 Hgb 14.0 Hct 40.1 MCV 90 MCH 31.5 MCHC 34.9 RDW 12.5 Plt Count 165 MPV 9.4 Immature Gran % 0.4 Neutrophils % 74.7 Lymphocytes % 13.4 Monocytes % 9.2 Eosinophils % 1.8 Basophils % 0.5 Nucleated RBC % 0.0 Absolute Neutrophils 7.55 H Absolute Lymphocytes 1.35 Absolute Monocytes 0.93 H Absolute Eosinophils 0.18 Absolute Basophils 0.05 Sodium 137 Potassium 3.4 L Chloride 102 Carbon Dioxide 25.0 Anion Gap 10.0 BUN 60 H Creatinine 2.5 H Est GFR (CKD-EPI 2020) 26.47 Glucose 150 H Calcium 8.2 L Time Spent with Patient Time Spent with Patient: >50 minutes Time was spent: preparing to see the patient(eg.review tests), obtaining and/or reviewing separately otained hiistory, ordering medications,tests, procedures, referring, communicating with other health caretaker grounds, indepentently interpreting results, counseling the patient and care coordination
[2024-08-29] MEDS: dilTIAZem 25 MG/5 ML VIAL 10 MG IVP (12:34)
[2024-08-29] MEDS: dilTIAZem 125 MG in Normal Saline 100 ML IV (17:50)
[2024-08-29] MEDS: ACETAMINOPHEN 1,000 MG/100 ML BTL 400 MG IVPB (17:51)
[2024-08-29 21:54] LABS: BUN 47 mg/dL (7-18); CREATININE 2.4 mg/dL (0.70-1.30); Calcium 8.5 mg/dL (8.5-10.1); Chloride 103 mmol/L (98-107); Estimated GFR 27.79 (mL/min/1.73m2); Glucose 138 mg/dL (74-106); Potassium 3.8 mmol/L (3.5-5.1); Sodium 138 mmol/L (136-145)
[2024-08-30] VITALS (35 sets, daily range): BP systolic 101–132; BP diastolic 73–90; PULSE 58–136; RESP 13–29; TEMP 36.4–36.7; O2SAT 94–97
--- NOTE | 2024-08-30 | DI.RAD_ITS ---
Exam(s) XR ABDOMEN FLAT PLATE EXAM: 2D digital imaging was performed. CLINICAL HISTORY: Ileus. COMPARISON: CR XR ABDOMEN FLAT PLATE from 08/29/2024 TECHNIQUE: Supine views of the abdomen performed. Three views were obtained. FINDINGS: BOWEL GAS PATTERN: There are persistent mildly dilated loops of small bowel present. There is air se en in the colon. The findings are suggestive of a ileus. CALCIFICATIONS: No radiopaque calcifications. OSSEOUS STRUCTURES: Normal for age. Degenerative changes are seen in the spine. There is a left conv ex lumbar curvature. OTHER FINDINGS: The enteric tube is in stable position. There are surgical clips in the right upper quadrant of the abdomen likely reflecting prior cholecystectomy. IMPRESSION: 1. Findings suggestive of an ileus. There is air seen in mildly dilated loops of small bowel and air is present in colon. 2. Enteric tube is in stable position. DATA REPOSITORY: RADIATION DOSE DELIVERED:
[2024-08-30] MEDS: ACETAMINOPHEN 1,000 MG/100 ML BTL 400 MG IVPB ×2 (02:20→11:09)
[2024-08-30] MEDS: Normal Saline Flush 10 ML SYR IVP ×3 (03:23→20:01)
[2024-08-30] MEDS: Heparin 5,000 UNITS/ML VIAL 5000 UNITS SC (06:16)
[2024-08-30 06:56] LABS: Anion Gap 9.5 mmol/L (3-11); BUN 42 mg/dL (7-18); CO2 24.5 mmol/L (21.0-32.0); CREATININE 2.3 mg/dL (0.70-1.30); Calcium 8.4 mg/dL (8.5-10.1); Chloride 103 mmol/L (98-107); Estimated GFR 29.25 (mL/min/1.73m2); Glucose 152 mg/dL (74-106); Potassium 3.5 mmol/L (3.5-5.1); Sodium 137 mmol/L (136-145)
[2024-08-30] MEDS: Pantoprazole 40 MG VIAL IVP (09:01)
[2024-08-30 10:52] LABS: HCT 42.4 % (40.0-50.0); HGB 14.4 g/dL (13.5-17.5); MCH 31.6 pg (27.0-33.0); MCV 93 fL (80-95); MPV 10.3 fL (8.0-11.0); Platelet Count 171 10^3/uL (130-400); RBC 4.55 10^6/uL (4.36-5.78); RDW 12.6 % (11.8-14.1); RDW-SD 43.2 fL; WBC 10.58 10^3/uL (4.4-10.8)
[2024-08-30] MEDS: POTASSIUM CHLORIDE/D5-0.45NACL 1,000 ML 100 MEQ IV (10:55)
--- NOTE | 2024-08-30 11:46 | PGE_ITS ---
Date of Service Date of service: 08/30/24 Time of Service: 11:46 Assessment and Plan Assessment and plan (1) Ileus following gastrointestinal surgery: Status: Acute Assessment and plan: He is doing well, has passed stool. Will remove his NG tube, start him on clear liquid diet. Have ordered KUB for the morning. He can likely be transitioned to Med[facility], floor status. Discussed patient's case today personally with Dr. Maddox. Subjective Subjective Interval history since last seen: Patient is feeling well today. He is reporting 2 bowel movements yesterday. No nausea no vomiting. Exam Narrative Exam Narrative: His abdomen today is softer than yesterday, there are normal active bowel sounds. The tympany to percussion is improving as well. Vital signs are unre markable. NG tube output has been about 7-800 over the past 24 hours. Objective Last Vital Signs Temp 36.7 C 08/30/24 10:32 Pulse 82 08/30/24 10:01 Resp 22 08/30/24 10:01 BP 124/76 08/30/24 10:01 Pulse Ox 95 08/29/24 10:34 Laboratory Results - last 24 hr 08/29/24 08/30/24 21:30 06:00 WBC 10.58 RBC 4.55 Hgb 14.4 Hct 42.4 MCV 93 MCH 31.6 MCHC 34.0 RDW 12.6 Plt Count 171 MPV 10.3 Sodium 138 137 Potassium 3.8 3.5 Chloride 103 103 Carbon Dioxide 25.0 24.5 Anion Gap 10.0 9.5 BUN 47 H 42 H Creatinine 2.4 H 2.3 H Est GFR (CKD-EPI 2020) 27.79 29.25 Glucose 138 H 152 H Calcium 8.5 8.4 L Objective Narrative Objective Narrative: Laboratory values are unremarkable today. His CBC is normal. Renal function continues to improve. Time Spent with Patient Time Spent with Patient: <25 minutes Time was spent: preparing to see the patient(eg.review tests) and obtaining and/or [facility]
--- NOTE | 2024-08-30 11:54 | W.PM.PROGNOT ---
Date of Service Date of service: 08/30/24 Time of Service: 11:54 Assessment and Plan Assessment and plan (1) Hypotension: Status: Acute Assessment and plan: Developed during/after surgery, was not able to taper off phenylephrine until 08/28 AM No history of heart disease, negative troponins, no ischemia on EKG. Echo showed nl LVEF, IVC not collapsing, suggesting adequate hydration c/w clincal assessment. new atrial fibrillation likely contributed, see below No clear source of infection, but given incarcerated hernia, covered with pip/tazo to address any possible bacteremia. Cultures negative x 48H +, antibiotics stopped 08/30. Stable for floor status (2) Atrial fibrillation with RVR: Status: Acute Assessment and plan: post op, a/w some hypotension, though hypotension multifactorial. Considered cardioversion but risk of stroke/clot Initially treated with esmolol. Tried IV metoprolol but not very responsive, changed to diltiazeam which worked better, on drip overnight. Now that taking po, given oral diltiazem, titrate off drip so that he can go to the floor. (3) Acute kidney injury superimposed on CKD: Status: Acute Assessment and plan: Cr 4.0 with 2.5 baseline- most likely pre-renal with acute incarcerated hernia, but some evidence of bladder outlet obstruction as well, did not improve with IV fluids initially. Some evidence of bladder outlet obstruction on admission CT, but not overt. Has benitez now. Urine output continues to be very good. Urine creatinine/sodium with FENa 0.8% c/w pre-renal. This continues to improve and at baseline GFR 08/27. Given concern for outlet obstruction, start tamsulosin and give this a couple days before pulling benitez. Get post-voids after benitez out. (4) Incarcerated hernia: Status: Acute Assessment and plan: s/p repair 08/27. Dr. Rios did not think it was ischemic. Bowel function coming back. Discussed with Dr. Rios again this am, NGT out and progress diet. Stop fluids (5) Diabetes mellitus: Status: Acute Assessment and plan: Continue Gluc Q 6H with SSI coverage (6) Essential hypertension: Status: Acute Assessment and plan: holding oral home meds, BP normal currently (7) On deep vein thrombosis (DVT) prophylaxis: Status: Acute Assessment and plan: Discontinue SCD's after transitioned to Heparin SC post op, change to LMWH for less injections Subjective Subjective Patient reports: feels better; denies blood in stool, nausea, vomiting, shortness of breath or fever Interval history since last seen: events: 2 BMs overnight He is feeling better. Pain is minimal. Walked with PT yesterday. not dizzy, no chest pain. Exam Narrative Exam Narrative: Gen: Sitting up in bed comfortable without acute distress, NGT in place (later pulled by surgeon) Resp: speaks in full sentences, unlabored breathing, lungs CTAB Cardio: irregularly irregular in 90s, no murmur GI: Abdomen is soft, non-distended, minimally tender diffusely, 5 port wounds dressed, C/D/I Extremities: warm, no c/c/e Objective Last Vital Signs Temp 36.7 C 08/30/24 10:32 Pulse 82 08/30/24 10:01 Resp 22 08/30/24 10:01 BP 124/76 08/30/24 10:01 Pulse Ox 95 08/29/24 10:34 Laboratory Results - last 24 hr 08/29/24 08/30/24 21:30 06:00 WBC 10.58 RBC 4.55 Hgb 14.4 Hct 42.4 MCV 93 MCH 31.6 MCHC 34.0 RDW 12.6 Plt Count 171 MPV 10.3 Sodium 138 137 Potassium 3.8 3.5 Chloride 103 103 Carbon Dioxide 25.0 24.5 Anion Gap 10.0 9.5 BUN 47 H 42 H Creatinine 2.4 H 2.3 H Est GFR (CKD-EPI 2020) 27.79 29.25 Glucose 138 H 152 H Calcium 8.5 8.4 L Time Spent with Patient Time Spent with Patient: 35-49 minutes Time was spent: preparing to see the patient(eg.review tests), obtaining and/or reviewing separately otained hiistory, ordering medications,tests, procedures, referring, communicating with other health home child care provider, indepentently interpreting results, counseling the patient and care coordination
[2024-08-30] MEDS: dilTIAZem 30 MG TAB PO ×3 (13:18→20:00)
[2024-08-30] MEDS: Enoxaparin 30 MG/0.3 ML SYR SC (16:37)
[2024-08-30] MEDS: Tamsulosin 0.4 MG CAPCR PO (20:00)
[2024-08-31] VITALS (21 sets, daily range): BP systolic 124–150; BP diastolic 67–92; PULSE 0–139; RESP 15–27; TEMP 36.4–36.6; O2SAT 95–97
[2024-08-31 06:15] LABS: BUN 27 mg/dL (7-18); CREATININE 1.8 mg/dL (0.70-1.30); Calcium 8.5 mg/dL (8.5-10.1); Chloride 100 mmol/L (98-107); Estimated GFR 39.25 (mL/min/1.73m2); Glucose 112 mg/dL (74-106); Potassium 3.4 mmol/L (3.5-5.1); Sodium 135 mmol/L (136-145)
--- NOTE | 2024-08-31 08:00 | DI.RAD_ITS ---
Exam(s) XR ABDOMEN FLAT PLATE EXAM: 2D digital imaging was performed. CLINICAL HISTORY: Ileus. COMPARISON: CR XR ABDOMEN FLAT PLATE from 08/30/2024 TECHNIQUE: Supine views of the abdomen performed. Two views were obtained. FINDINGS: BOWEL GAS PATTERN: The enteric tube has been removed. The bowel gas pattern is nonspecific. Air is seen in large and small bowel loops. CALCIFICATIONS: No radiopaque calcifications. OSSEOUS STRUCTURES: Normal for age. OTHER FINDINGS: The lung bases are clear. There are surgical clips in the right upper quadrant of th e abdomen. IMPRESSION: 1. Nonspecific bowel gas pattern. No evidence to suggest obstruction. 2. Interval removal of the enteric tube. DATA REPOSITORY: RADIATION DOSE DELIVERED:
[2024-08-31] MEDS: dilTIAZem 30 MG TAB PO ×3 (08:41→19:39)
[2024-08-31] MEDS: Omeprazole 20 MG CAPCR 40 MG PO (08:41)
[2024-08-31] MEDS: POTASSIUM CHLORIDE 10 MEQ/100 ML BAG 100 MEQ IV_INF ×2 (08:56→10:29)
[2024-08-31] MEDS: Normal Saline Flush 10 ML SYR IVP ×2 (08:56→19:40)
[2024-08-31] MEDS: Insulin Aspart 300 UNITS/3 ML PEN SC ×2 (09:12→21:19)
--- NOTE | 2024-08-31 09:26 | W.PM.PROGNOT ---
Date of Service Date of service: 08/31/24 Time of Service: 09:26 Assessment and Plan Assessment and plan (1) Ileus following gastrointestinal surgery: Status: Acute Assessment and plan: Doing equivocally after removal of NGT yesterday. Some abdominal distention subjectively, some belching. Afib is back in RVR as below. KUB held today b/c of high heart rate. Will do this at bedside this morning. Plan to keep CLD and oral meds for now. Will follow on KUB when it is available. Will not advance diet yet. (2) Atrial fibrillation with RVR: Status: Acute Assessment and plan: Back in RVR, could be from pressure by abdominal distention, could be from poor absorption of oral diltiazem, or from volume status. Good urine output. If needed can change back to parenteral BB. Needs to stay in unit. Subjective Subjective Interval history since last seen: Some feeling of distention today. Has not passed gas today. Did go again in to RVR, this morning with HR of 140's to 150's. Exam Narrative Exam Narrative: Adult male awake and alert. Minimal pain. Sitting up in chair today. Vitals as noted above. Abdomen soft, minimal tympany to percussion, minimal tenderness to palpation. Objective Last Vital Signs Temp 36.6 C 08/30/24 20:05 Pulse 89 08/31/24 02:25 Resp 17 08/31/24 02:25 BP 136/87 08/31/24 02:25 Pulse Ox 96 08/30/24 20:05 Laboratory Results - last 24 hr 08/30/24 08/31/24 06:00 05:36 WBC 10.58 RBC 4.55 Hgb 14.4 Hct 42.4 MCV 93 MCH 31.6 MCHC 34.0 RDW 12.6 Plt Count 171 MPV 10.3 Sodium 135 L Potassium 3.4 L Chloride 100 Carbon Dioxide 23.0 Anion Gap 12.0 H BUN 27 H Creatinine 1.8 H Est GFR (CKD-EPI 2020) 39.25 Glucose 112 H Calcium 8.5 Objective Narrative Objective Narrative: labs today showing mild leukocytosis. UC does show GNR from 10/29/24. Time Spent with Patient Time Spent with Patient: <25 minutes Time was spent: preparing to see the patient(eg.review tests), obtaining and/or reviewing separately otained hiistory and ordering medications,tests, procedures
--- NOTE | 2024-08-31 10:05 | W.PM.PROGNOT ---
Date of Service Date of service: 08/31/24 Time of Service: 10:05 Assessment and Plan Assessment and plan (1) Ileus following gastrointestinal surgery: Status: Acute Assessment and plan: Reviewed KUB today at bedside. Some gas in colon, small intestine appears decompressed. Will advance to bland soft diet. Objective Last Vital Signs Temp 36.6 C 08/30/24 20:05 Pulse 89 08/31/24 02:25 Resp 17 08/31/24 02:25 BP 136/87 08/31/24 02:25 Pulse Ox 96 08/30/24 20:05 Laboratory Results - last 24 hr 08/30/24 08/31/24 06:00 05:36 WBC 10.58 RBC 4.55 Hgb 14.4 Hct 42.4 MCV 93 MCH 31.6 MCHC 34.0 RDW 12.6 Plt Count 171 MPV 10.3 Sodium 135 L Potassium 3.4 L Chloride 100 Carbon Dioxide 23.0 Anion Gap 12.0 H BUN 27 H Creatinine 1.8 H Est GFR (CKD-EPI 2020) 39.25 Glucose 112 H Calcium 8.5 Time Spent with Patient Time Spent with Patient: <25 minutes Time was spent: indepentently interpreting results
--- NOTE | 2024-08-31 11:50 | W.PM.PROGNOT ---
Date of Service Date of service: 08/31/24 Time of Service: 11:50 Assessment and Plan Assessment and plan (1) Hypotension: Status: Acute Assessment and plan: -post-op, required overnight phenylephrine, discontinued since AM 08/28 -No history of heart disease, negative troponins, no ischemia on EKG. -Echo showed nl LVEF, IVC not collapsing, suggesting adequate hydration c/w clincal assessment. -new atrial fibrillation likely contributed, see below (2) Atrial fibrillation with RVR: Status: Acute Assessment and plan: -post op, a/w some hypotension, though hypotension multifactorial. -Considered cardioversion but risk of stroke/clot -Initially treated with esmolol. -Tried IV metoprolol but not very responsive, changed to diltiazeam which worked better, on drip overnight. -Now that taking po, given oral diltiazem, titrated off drip so that he can go to the floor. (3) Acute kidney injury superimposed on CKD: Status: Acute Assessment and plan: -Cr 4.0, 2.5 baseline -Cr back down to 1.8 as of AM 08/31 (4) Incarcerated hernia: Status: Acute Assessment and plan: -s/p repair 08/27. -Dr. Rios did not think it was ischemic. -Bowel function coming back. -Surgery advanced patients diet (5) Diabetes mellitus: Status: Acute Assessment and plan: -ACHS insulin and glucose (6) Essential hypertension: Status: Acute Assessment and plan: -holding oral home meds, BP normal currently (7) On deep vein thrombosis (DVT) prophylaxis: Status: Acute Assessment and plan: -Discontinue SCD's after transitioned to Heparin SC post op, change to LMWH for less injections Subjective Subjective Interval history since last seen: Patient states that he is feeling well today though was a little full in his abdomen this morning. He is happy that he saw the surgeon who is advancing his diet. He is also looking forward to being more ambulatory with nursing staff today. Otherwise he has no other complaints concerns at this time. Exam Narrative Exam Narrative: Well-appearing gentleman sitting up in the bed no acute distress, ANO x 4, heart regular rhythm, lungs clear to auscultation bilaterally, abdomen soft, mild diffuse tenderness to palpation, very mildly distended Objective Last Vital Signs Temp 97.5 F L 08/31/24 10:36 Pulse 61 08/31/24 09:14 Resp 26 H 08/31/24 09:14 BP 150/86 H 08/31/24 10:36 Pulse Ox 96 08/30/24 20:05 Laboratory Results - last 24 hr 08/31/24 05:36 Sodium 135 L Potassium 3.4 L Chloride 100 Carbon Dioxide 23.0 Anion Gap 12.0 H BUN 27 H Creatinine 1.8 H Est GFR (CKD-EPI 2020) 39.25 Glucose 112 H Calcium 8.5 Time Spent with Patient Time Spent with Patient: >50 minutes Time was spent: preparing to see the patient(eg.review tests), obtaining and/or reviewing separately otained hiistory, ordering medications,tests, procedures, referring, communicating with other health career portals teacher, indepentently interpreting results, counseling the patient and care coordination
--- NOTE | 2024-08-31 12:05 | PT.INIE ---
PT Notes Visit Reasons: Small Bowel Obstruction, [place], Vomiting, HARRIET on Inpatient Physical Therapy Evaluation Date: 08/31/24 Referring Doctor: Dr. Pollard PT Orders: PT CONSULT: Precautions: fall, standard, abdominal surgery Patient Profile/Admitting Diagnosis: Manuel is a 74 year old male referred for PT intervention in acute care setting. He was admitted 08/26/24 with SBO and incarcerated hernia. Underwent hernia repair 08/27/24, and developed post-op hypotension and ileus. Social History/Home Situation: Resides in a private home with his , who is present at time of consult. Active and independent at baseline without AD. Equipment Owned/DME: cane- does not use at baseline Subjective: Manuel states that he is feeling well. He is agreeable to PT consultation. Objective: General Observation: Sitting in chair at initiation of session, finishing lunch. IV in LUE. [place] catheter and telemetry in place. Tremor in LUE. Mental Status: A&Ox3 Pain: denies Vital Signs: Monitored via telemetry throughout. HR elevates to 150s with ambulation. ROM: Right Upper Extremity: WFL Left Upper Extremity: WFL Right Lower Extremity: WFL Left Lower Extremity: WFL Strength: Right Upper Extremity: Flexion 3/5 or greater. Biceps 5/5. Triceps 5/5. Left Upper Extremity: Flexion 3/5 or greater. Biceps 5/5. Triceps 5/5. Right Lower Extremity: Hip flexion 3/5 or greater. Quads 5/5. HS 3/5 or greater. Ankle D F 5/5. Left Lower Extremity: Hip flexion 3/5 or greater. Quads 5/5. HS 3/5 or greater. Ankle D F 5/5. Bed Mobility/Transfers: sit-stand: supervision stand-sit: supervision Gait: Ambulates 150' with FWW, CGA, assist for lines. HR elevates into 150s; notified nursing and discontinued activity. Patient assisted back to room via w/c transport. Remains asymptomatic throughout. Balance: Static Sitting: normal Dynamic Sitting: normal Static Standing: good Dynamic Standing: fair Special Tests: Mobility Limitations Standardized Measure [facility] AM-PAC 6 clicks Basic Mobility Inpatient Short Form: Raw Score: 20 Standardized Score: 47.57 CMS Score: 36% impairment Informed Consent/Education: Patient instructed in purpose of PT consult and plan of care. Assessment: Patient is a 74 year old male referred to physical therapy services in acute care setting where he is being managed following incarcerated hernia and SBO, status post hernia repair 08/27/2024 with postoperative hypotension and ileus. He demonstrates good safety and mobility, however with elevated heart rate with minimal activity today. PT intervention limited as a result. He requires PT intervention to address limitations in activity tolerance following surgery with prolonged acute care stay. Anticipate he will be able to transition back home without additional services once medically stable. May require FWW upon discharge; will continue assessing for need as he progresses. He currently demonstrates the following impairment level findings: 1. Decreased activity tolerance 2. Elevated heart rate with light activity 3. Unable to ambulate without assistive device (independent at baseline) Impairments are contributing to the following functional limitations: 1. Decrease tolerance to community distance ambulation 2. Unable to ambulate without assistive device Patient is assessed as Moderate 47008 Complexity based on the following: History: As above. Complicated by elevated heart rate during light activity, limiting PT evaluation and treatment today. Examination: As above Presentation: Evolving Decision Making: moderate complexity Goals: Goals X1 week 1. Supine-Sit : supervision 2. Sit-Supine : supervision 3. Sit-Stand : supervision 4. Stand-Sit : supervision 5. Bed-Chair : supervision with FWW 6. Chair-Bed : supervision with FWW 7. Gait : supervision with FWW x 200' Plan of Care/Treatment Plan: 1-2x/day, 7 days/week x 1 week. Plan of care has been reviewed with the HORTICULTURE/FLORICULTURE TEACHER providing the service under Physical Therapy direction. Initiate Physical Therapy intervention for strengthening, bed mobility, transfers, gait, stairs, balance training, use of assistive device. DISCHARGE RECOMMENDATIONS: Home with no services . May need FWW issued upon discharge, depending on progress. TREATMENT CODE/TIME: 03938 ([id number]) Trudy Rapp, PT, DPT [facility] All Active Problems (Updated 08/28/24 @ 10:42 by Mika Rios MD) Ileus following gastrointestinal surgery (Acute) Atrial fibrillation (Chronic) Atrial fibrillation with RVR (Acute) Hypotension (Acute) On deep vein thrombosis (DVT) prophylaxis (Acute) Orthostasis (Acute) Acute kidney injury superimposed on CKD (Acute) Incarcerated hernia (Acute) SBO (small bowel obstruction) (Acute) Tubular adenoma (Acute ~02/01/23) Encounter for screening colonoscopy (Acute) Abdominal wall hernia (Acute 10/20/15) Abnormal renal function (Acute 04/11/13) Atrophic Left Kidney Nephrectomy Diabetes mellitus (Acute 10/07/12) Diverticulosis of colon without diverticulitis (Acute 06/17/12) Erectile dysfunction (Acute 04/13/14) Essential hypertension (Acute 04/10/13) Hemorrhoids (Acute 06/17/12) Kidney stone (Acute 04/11/13) Dysphagia (Acute) Eosinophilic esophagitis (Acute ~02/26/18) 02/26/18; DR. AYON Diabetic retinopathy (Acute) 04/22/18 [place]; MILD IN THE RIGHT EYE-kb Tinea pedis (Acute) Retention of urine (Acute) Urinary tract infection (Acute) Hyperlipidemia associated with type 2 diabetes mellitus (Acute) Screening for colon cancer (Acute) Obesity (Chronic) Medical History Obesity (BMI 30-39.9) Impaired renal function Essential hypertension DM (diabetes mellitus) Diverticulosis large intestine w/o perforation or abscess w/bleeding Surgical History 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 AYON; COLON POLYP;DIVERTICULOSIS; GRADE 2 HEMORRHOIDS Cholecystectomy
[2024-08-31] MEDS: Enoxaparin 40 MG/0.4 ML SYR SC (16:23)
[2024-08-31] MEDS: Tamsulosin 0.4 MG CAPCR PO (19:40)
[2024-09-01] VITALS (48 sets, daily range): BP systolic 107–144; BP diastolic 66–85; PULSE 56–144; RESP 15–31; TEMP 36.2–36.6; O2SAT 96–97
--- NOTE | 2024-09-01 07:11 | W.PM.PROGNOT ---
Date of Service Date of service: 09/01/24 Time of Service: 07:11 Assessment and Plan Assessment and plan (1) Ileus following gastrointestinal surgery: Status: Acute Assessment and plan: Consider removing benitez today or tomorrow. Keep on solid diet. Ileus resolved. When afib RVR is improved, he can go home. (2) Atrial fibrillation with RVR: Status: Acute Assessment and plan: Still in RVR. Otherwise as above looks good. When RVR and afib are controlled can move from unit and work toward discharge. Subjective Subjective Interval history since last seen: He is feeling well today. Had normal BM yesterday and BM today as well. Tolerating solid food just fine. Exam Narrative Exam Narrative: Abdomen today is soft, and minimally tender. Patient sitting up in chair, abdomen not overtly distended from palpation in this position. Objective Last Vital Signs Temp 36.6 C 09/01/24 05:30 Pulse 84 09/01/24 04:01 Resp 25 H 09/01/24 05:00 BP 136/83 09/01/24 04:01 Pulse Ox 97 09/01/24 05:30 Time Spent with Patient Time Spent with Patient: <25 minutes Time was spent: preparing to see the patient(eg.review tests)
[2024-09-01] MEDS: Omeprazole 20 MG CAPCR 40 MG PO (07:36)
[2024-09-01] MEDS: dilTIAZem 30 MG TAB PO ×2 (07:36→07:57)
[2024-09-01] MEDS: Insulin Aspart 300 UNITS/3 ML PEN SC ×4 (07:58→20:40)
[2024-09-01 08:15] LABS: HCT 42.8 % (40.0-50.0); MCH 31.5 pg (27.0-33.0); MCV 90 fL (80-95); MPV 8.9 fL (8.0-11.0); Platelet Count 223 10^3/uL (130-400); RBC 4.76 10^6/uL (4.36-5.78); RDW 12.2 % (11.8-14.1); RDW-SD 40.5 fL; WBC 13.96 10^3/uL (4.4-10.8)
[2024-09-01 08:25] LABS: Anion Gap 14.8 mmol/L (3-11); BUN 27 mg/dL (7-18); CO2 20.2 mmol/L (21.0-32.0); CREATININE 1.8 mg/dL (0.70-1.30); Calcium 8.7 mg/dL (8.5-10.1); Chloride 94 mmol/L (98-107); Estimated GFR 39.25 (mL/min/1.73m2); Glucose 162 mg/dL (74-106); Magnesium 1.4 mg/dL (1.8-2.4); Potassium 3.5 mmol/L (3.5-5.1); Sodium 129 mmol/L (136-145)
--- NOTE | 2024-09-01 08:44 | PDOC.CMPRO ---
Date of service: 09/01/24 Time of Service: 08:44 Care Management Progress Note Progress Note Text Progress Note Text: Manuel was sitting up in a chair when CM met with him. He appeared to be in good spirits and easily engaged with CM. Manuel's NG tube has been removed and he is tolerating a regular diet. He informed CM that the only reason he remains in the hospital is because of his afib with RVR. Despite medication adjustments his resting HR was in the 120s-130s during CM's visit. Manuel shared that he has been able to ambulate in his room and, overall, feels well. Discharge Potential Discharge Needs: PCP F/U Appt and Other (cardiology follow up) Anticipated Barriers to Discharge: None Identified Patient/Family Education Needs: Review discharge instructions, discuss Ask Me Three Transportation: Private vehicle Plan: Anticipate Manuel will be discharged home with no new services when medically cleared. He will follow up with his community providers and plan of care and transport with his . CM will follow and continue to support discharge planning. Social Determinants of Health Screening Social Determinants of health last assessed in clinic: 09/01/24 Will the Patient Participate in the Screening?: Yes Do you worry about having a steady place to live?: no Problems where you live: no known problems In the past 12 months, have you had to go without electric, gas, oil or water in your home?: no 1. Within the past 12 months, we worried whether our food would run out before we got money to buy more.: Never true 2. Within the past 12 months, the food we bought just didn't last and we didn't have money to get more.: Never true Has lack of transportation kept you from medical appointments or from doing things needed for daily living?: no Has anyone in your life made you feel unsafe or unsupported?: no How hard is it for you to pay for the very basics like food, housing, medical care, and heating? Would you say it is:: Not hard at all Do you want help finding or keeping work or a job?: I do not need or want help If for any reason you need help with day-to-day activities such as bathing, preparing meals, shopping, managing finances, etc., do you get the help you need?: I don?t need any help How often do you feel lonely or isolated from those around you?: Never Do you speak a language other than Citizen [place] at home?: No Does the patient want assistance with any of the above?: No
[2024-09-01] MEDS: dilTIAZem 60 MG TAB PO (14:40)
--- NOTE | 2024-09-01 17:05 | W.PM.PROGNOT ---
Date of Service Date of service: 09/01/24 Time of Service: 17:05 Assessment and Plan Assessment and plan (1) Hypotension: Status: Acute Assessment and plan: -post-op, required overnight phenylephrine, discontinued since AM 08/28 -No history of heart disease, negative troponins, no ischemia on EKG. -Echo showed nl LVEF, IVC not collapsing, suggesting adequate hydration c/w clincal assessment. -new atrial fibrillation likely contributed, see below (2) Atrial fibrillation with RVR: Status: Acute Assessment and plan: -post op, a/w some hypotension, though hypotension multifactorial. -Considered cardioversion but risk of stroke/clot -Initially treated with esmolol. -Tried IV metoprolol but not very responsive, changed to diltiazeam which worked better, - Patient with resting heart rates in the 130s to 140s on the morning of 08/12/2024 on 30 of p.o. Dilts 3 times daily - Currently on 120 mg p.o. Dilt twice daily, if requires additional rate control will add metoprolol in the morning - Started Eliquis, prescription has been sent to pharmacy for authorization (3) Acute kidney injury superimposed on CKD: Status: Acute Assessment and plan: -Cr 4.0, 2.5 baseline -Cr back down to 1.8 as of AM 08/31 (4) Incarcerated hernia: Status: Acute Assessment and plan: -s/p repair 08/27. -Dr. Rios did not think it was ischemic. -Bowel function coming back. -Surgery advanced patients diet (5) Diabetes mellitus: Status: Acute Assessment and plan: -ACHS insulin and glucose (6) Essential hypertension: Status: Acute Assessment and plan: -holding oral home meds, BP normal currently (7) On deep vein thrombosis (DVT) prophylaxis: Status: Acute Assessment and plan: -Discontinue SCD's after transitioned to Heparin SC post op, change to LMWH for less injections Subjective Subjective Interval history since last seen: Patient states that he is feeling well today and has no complaints or concerns. He understands we are continuing to work on his rate control. Exam Narrative Exam Narrative: Well-appearing gentleman sitting up in the bed no acute distress, ANO x 4, heart irregularly irregular with rates in the 120s at rest, lungs clear to auscultation bilaterally, abdomen soft, mild diffuse tenderness to palpation, very mildly distended Objective Last Vital Signs Temp 97.2 F L 09/01/24 15:32 Pulse 73 09/01/24 16:39 Resp 31 H 09/01/24 16:39 BP 121/71 09/01/24 16:39 Pulse Ox 97 09/01/24 10:13 Laboratory Results - last 24 hr 09/01/24 08:08 WBC 13.96 H RBC 4.76 Hgb 15.0 Hct 42.8 MCV 90 MCH 31.5 MCHC 35.0 RDW 12.2 Plt Count 223 MPV 8.9 Sodium 129 L Potassium 3.5 Chloride 94 L Carbon Dioxide 20.2 L Anion Gap 14.8 H BUN 27 H Creatinine 1.8 H Est GFR (CKD-EPI 2020) 39.25 Glucose 162 H Calcium 8.7 Magnesium 1.4 L Time Spent with Patient Time Spent with Patient: >50 minutes Time was spent: preparing to see the patient(eg.review tests), obtaining and/or reviewing separately otained hiistory, ordering medications,tests, procedures, referring, communicating with other health ambulatory care coordinator, indepentently interpreting results, counseling the patient and care coordination
[2024-09-01] MEDS: Apixaban 5 MG TAB PO (20:38)
[2024-09-01] MEDS: Tamsulosin 0.4 MG CAPCR PO (20:38)
[2024-09-01] MEDS: dilTIAZem 60 MG TAB 120 MG PO (20:38)
[2024-09-01] MEDS: Lidocaine 2% Jelly 11 ML SYR UR (22:50)
[2024-09-02] VITALS (8 sets, daily range): BP systolic 117–133; BP diastolic 70–79; PULSE 71–114; RESP 16–31; TEMP 36.4–36.8; O2SAT 96–97
[2024-09-02 06:26] LABS: HGB 13.6 g/dL (13.5-17.5); MCH 31.5 pg (27.0-33.0); MCHC 35.8 % (32.0-36.0); MCV 88 fL (80-95); MPV 9.4 fL (8.0-11.0); Platelet Count 164 10^3/uL (130-400); RBC 4.32 10^6/uL (4.36-5.78); RDW-SD 38.6 fL; WBC 12.41 10^3/uL (4.4-10.8)
[2024-09-02 07:04] LABS: ALT 21 U/L (16-63); AST 22 U/L (15-37); Albumin 2.8 g/dL (3.4-5.0); Alkaline Phosphatase 46 U/L (46-116); Anion Gap 10.9 mmol/L (3-11); BUN 32 mg/dL (7-18); Bilirubin, Total 0.7 mg/dL (0.2-1.0); CO2 22.1 mmol/L (21.0-32.0); Chloride 94 mmol/L (98-107); Estimated GFR 34.59 (mL/min/1.73m2); Glucose 140 mg/dL (74-106); Magnesium 1.3 mg/dL (1.8-2.4); Sodium 127 mmol/L (136-145); Total Protein 6.6 g/dL (6.4-8.2)
[2024-09-02] MEDS: Apixaban 5 MG TAB PO (08:14)
[2024-09-02] MEDS: Potassium Chloride 20 MEQ TABCR 40 MEQ PO (08:14)
[2024-09-02] MEDS: dilTIAZem 60 MG TAB 120 MG PO (08:14)
[2024-09-02] MEDS: Omeprazole 20 MG CAPCR 40 MG PO (08:14)
[2024-09-02] MEDS: Insulin Aspart 300 UNITS/3 ML PEN SC ×2 (08:14→12:13)
[2024-09-02] MEDS: MAGNESIUM SULFATE 2 GM/50 ML BAG IV_INF (08:15)
--- NOTE | 2024-09-02 08:42 | W.NUTRFU ---
Date of service: 09/02/24 Time of Service: 08:42 Nutrition Note NOTE: 74yo male being treated for ileus following GI surgery 08/27 as well as hypotension, Afib. Hx of DMII with recent A1c of 7.1% may of this year - depagliflozin at home. Has had 2 days of npo status and diet upgraded - I did change from regular diet to CHO consistent today to better help manage glucose. Tolerating diet thus far - fair to good appetite reported. Albumin a little depressed at 2.8 however total protein lab wnl today -will encourage protein rich entrees as tolerated and pt aware of ONS options at meals and/or nourishment times. Magnesium lab low today and given IV repletion. fasting glucose this morning at 140 and 190 at breakfast. Pt glucose covered with sensitive sliding scale novolog at meals. Nutrition Dx: short term inadequate intake d/t required npo status for surgery/recover/ileus complication. Nutrition intervention: -Will monitor diet toleration/advancement -Recommend vitamin D lab/ supplementation due to high risk for deficiency and current low calcium lab . -If mealtime glucose continues above 180 would recommend cho coverage at meals as well with 1u:30g CHO. - pt declined diabetes ed - will remain available for questions and outpatient services. Time Spent in Nutritional Counseling and Treatment: 5 min
--- NOTE | 2024-09-02 08:43 | PDOC.CMPRO ---
Date of service: 09/02/24 Time of Service: 08:43 Care Management Progress Note Progress Note Text Progress Note Text: González was sitting up in a chair when CM met with him. He was in his usual good humor and easily engaged with CM. gonzález is being discharged with a new prescription for Apixaban. He has insurance that will cover all but $94 for a 45 day supply. González indicated that it is affordable for him. CM did provide him with a [employer] member's coupon for the first month free. González's HR is finally below 100 today and his renal function has improved. Although he did have some difficulty voiding after his benitez was removal, with increased activity he was able to void about 200cc. The provider wants to ensure he is able to continue to void before discharging him. Discharge Potential Discharge Needs: PCP F/U Appt Anticipated Barriers to Discharge: Medical Status Patient/Family Education Needs: Review discharge instructions, discuss Ask Me Three Transportation: Private vehicle Plan: Anticipate González will be discharged home with no new services when medically cleared. He will follow up with his community providers and plan of care and transport with his . CM will follow and continue to support discharge planning. Social Determinants of Health Screening Social Determinants of health last assessed in clinic: 09/02/24 Will the Patient Participate in the Screening?: Yes Do you worry about having a steady place to live?: no Problems where you live: no known problems In the past 12 months, have you had to go without electric, gas, oil or water in your home?: no 1. Within the past 12 months, we worried whether our food would run out before we got money to buy more.: Never true 2. Within the past 12 months, the food we bought just didn't last and we didn't have money to get more.: Never true Has lack of transportation kept you from medical appointments or from doing things needed for daily living?: no Has anyone in your life made you feel unsafe or unsupported?: no How hard is it for you to pay for the very basics like food, housing, medical care, and heating? Would you say it is:: Not hard at all Do you want help finding or keeping work or a job?: I do not need or want help If for any reason you need help with day-to-day activities such as bathing, preparing meals, shopping, managing finances, etc., do you get the help you need?: I don?t need any help How often do you feel lonely or isolated from those around you?: Never Do you speak a language other than [place] at home?: No Does the patient want assistance with any of the above?: No
--- NOTE | 2024-09-02 14:31 | DSE_ITS ---
Date of service: 09/02/24 Time of Service: 14:31 DS: Diagnosis Discharge Diagnosis (1) Hypotension: Status: Acute (2) Atrial fibrillation with RVR: Status: Acute (3) Acute kidney injury superimposed on CKD: Status: Acute (4) Incarcerated hernia: Status: Acute (5) Diabetes mellitus: Status: Acute (6) Essential hypertension: Status: Acute (7) On deep vein thrombosis (DVT) prophylaxis: Status: Acute Discharge Plan Disposition Patient Disposition: Home Condition: Good Discharge Details Reason For Visit: Small Bowel Obstruction, [place], Vomiting, HARRIET on Admit Date/Time: 08/26/24 17:10 Admit Provider: Neto Maddox Attending Provider: Neto Maddox Primary Care Provider: Timmy Iglesias Hospital Course Hospital Course: Patient initially presented with signs and symptoms of incarcerated abdominal hernia with small bowel obstruction for which patient went to the OR for laparoscopic partial omentum ectomy and ventral incisional hernia repair on 08/27/2024. Postoperatively the patient did have an A-fib RVR and was briefly on IV rate control medications which was ultimately transition to p.o. diltiazem. This was uptitrated to 125 mg p.o. twice daily with good rate control. Additionally, given patient's [id number] 2 score patient was also initiated on Eliquis. Given that he was able to urinate without catheterization, had bowel movements, was able to tolerate p.o. intake, and is now rate controlled it was determined that he was stable for discharge home. Home Meds and New Rx's Prescriptions: New Eliquis 5 mg Tablet 5 mg PO BID Qty: 90 0RF tamsulosin 0.4 mg Capsule 0.4 mg PO HS Qty: 90 0RF diltiazem HCl [Cardizem] 60 mg Tablet 120 mg PO BID Qty: 90 0RF Continued doxazosin [Cardura] 8 mg tablet 8 mg PO HS Qty: 90 3RF CENTRUM SILVER TABLET 1 EACH tablet 1 ea PO DAILY omeprazole 40 mg capsule,delayed release(DR/EC) 40 mg PO DAILY Qty: 90 3RF atorvastatin 10 mg tablet 10 mg PO DAILY Qty: 90 3RF potassium chloride 20 mEq tablet,ER particles/crystals 30 meq PO DAILY Qty: 145 4RF Rx Instructions: 30 meq daily dapagliflozin propanediol [Farxiga] 10 mg tablet 10 mg PO DAILY Qty: 90 3RF Discontinued amlodipine 5 mg tablet 5 - 10 mg PO BID Qty: 270 3RF Rx Instructions: TAKE 5 MG AM AND 10 MG HS lisinopril 40 mg tablet 40 mg PO DAILY Qty: 90 3RF metoprolol tartrate 50 mg tablet See Rx Instructions .ROUTE .COMPLEX Qty: 270 3RF Dose Instruction: TAKE ONE AND ONE-HALF TABLETS BY MOUTH TWO TIMES A DAY Rx Instructions: TAKE ONE AND ONE-HALF TABLETS BY MOUTH TWO TIMES A DAY chlorthalidone 50 mg tablet See Rx Instructions .ROUTE .COMPLEX Qty: 90 3RF Dose Instruction: TAKE ONE TABLET BY MOUTH DAILY Rx Instructions: TAKE ONE TABLET BY MOUTH DAILY Discharge Instructions Activity:: Activity as Tolerated Equipment/Supplies:: No Equipment Needed Diet:: As Tolerated Discharge Orders Discharge Orders: Discharge Order (Routine); Ordered 09/02/24 Ordered By: Saul Pollard DS: Summary Time Spent with Patient providing and/or coordinating discharge services: Greater than 30 minutes Status at Discharge Functional status at discharge: independent ambulation Overall status at discharge: patient is back to baseline Mental Status: mental status grossly normal Speech and Movement: speech and movement normal Mood: congruent mood Affect: normal affect Quality:SDOH Health Related Social Needs: Health related social needs inadequate housing (Z59.1) Health related social needs details all good Exam Narrative Exam Narrative: Well-appearing gentleman sitting up in the bed no acute distress, ANO x 4, heart irregularly irregular with rates in the 80s at rest, lungs clear to auscultation bilaterally, abdomen soft, mild diffuse tenderness to palpation, very mildly distended Psych Mental Status: mental status grossly normal Speech and Movement: speech and movement normal Mood: congruent mood Affect: normal affect DS: Data Vitals/I&O Vitals and I&O: Vital Signs Temperature 97.7 F 09/02/24 11:34 Temperature Source Temporal Artery Scan 09/02/24 11:34 Pulse 91 H 09/02/24 12:02 Pulse Rhythm Regular 08/26/24 18:14 Pulse 112 H 09/02/24 12:02 Respiratory Rate 22 09/02/24 12:02 Respiratory Effort Normal 08/27/24 12:30 Respiratory Depth Normal 08/27/24 12:30 Respiratory Pattern Tachypnea 08/27/24 12:30 Blood Pressure 125/79 09/02/24 12:02 Blood Pressure Mean 92 09/02/24 12:02 Blood Pressure Position Supine 08/27/24 12:30 Pulse Oximetry 97 09/02/24 11:34 Oxygen Delivery Method Room Air 09/02/24 11:34 Oxygen Flow Rate 0 09/02/24 11:34 Fraction of Inspired Oxygen (FIO2) 96 08/27/24 12:30 Pain Level 0 09/01/24 23:32 Comment RN present 08/27/24 07:36 Comment After Diltiazam 10 mg 08/29/24 12:41 Intake & Output 09/01/24 09/02/24 09/02/24 17:59 05:59 17:59 Intake Total 1530 / 1530 1100 / 2630 2009 Output Total 755 / 755 1100 / 1100 Balance 1530 / 1530 345 / 1875 910 / 910 Weight 269 lb 6.478 oz Intake: IV 60 / 60 Oral 1530 / 1530 1100 / 2630 1950 / 1950 Output: Urine 705 / 705 1100 / 1100 Stool 50 / 50 Other: Urine Color Straw Yellow Light Tari Urine Appearance Clear Clear Stool Size Small Small Stool Characteristics Soft Liquid Liquid Brown Data Completed and Pending Labs on day of discharge: Labs from last 24 hours 09/02/24 05:54: WBC 12.41 H, RBC 4.32 L, Hgb 13.6, Hct 38.0 L, MCV 88, MCH 31.5, MCHC 35.8, RDW 12.0, Plt Count 164, MPV 9.4, Sodium 127 L, Potassium 3.0 L, Chloride 94 L, Carbon Dioxide 22.1, Anion Gap 10.9, BUN 32 H, Creatinine 2.0 H, Est GFR (CKD-EPI 2020) 34.59, Glucose 140 H, Calcium 8.0 L, Magnesium 1.3 L, Total Bilirubin 0.7, AST 22, ALT 21, Alkaline Phosphatase 46, Total Protein 6.6, Albumin 2.8 L PFSH All Active Problems (Updated 08/28/24 @ 10:42 by Mika Rios MD) Ileus following gastrointestinal surgery (Acute) Atrial fibrillation (Chronic) Atrial fibrillation with RVR (Acute) Hypotension (Acute) On deep vein thrombosis (DVT) prophylaxis (Acute) Orthostasis (Acute) Acute kidney injury superimposed on CKD (Acute) Incarcerated hernia (Acute) SBO (small bowel obstruction) (Acute) Tubular adenoma (Acute ~02/01/23) Encounter for screening colonoscopy (Acute) Abdominal wall hernia (Acute 10/20/15) Abnormal renal function (Acute 04/11/13) Atrophic Left Kidney Nephrectomy Diabetes mellitus (Acute 10/07/12) Diverticulosis of colon without diverticulitis (Acute 06/17/12) Erectile dysfunction (Acute 04/13/14) Essential hypertension (Acute 04/10/13) Hemorrhoids (Acute 06/17/12) Kidney stone (Acute 04/11/13) Dysphagia (Acute) Eosinophilic esophagitis (Acute ~02/26/18) 02/26/18; DR. AYON Diabetic retinopathy (Acute) 04/22/18 [place]; MILD IN THE RIGHT EYE-kb Tinea pedis (Acute) Retention of urine (Acute) Urinary tract infection (Acute) Hyperlipidemia associated with type 2 diabetes mellitus (Acute) Screening for colon cancer (Acute) Obesity (Chronic) Medical History Obesity (BMI 30-39.9) Impaired renal function Essential hypertension DM (diabetes mellitus) Diverticulosis large intestine w/o perforation or abscess w/bleeding Surgical History 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 AYON; COLON POLYP;DIVERTICULOSIS; GRADE 2 HEMORRHOIDS Cholecystectomy Family History Mother , AGE 95 Hypertension Father , AGE 88 Hypertension Stroke Sister , 85 No problems noted. Brother , AGE 75 Crohn's disease Brother Melanoma Maternal Grandfather , AGE 74 Heart disease Paternal Grandfather , AGE 88 No problems noted. Maternal Grandmother , AGE 48 Heart disease Paternal Grandmother No problems noted. Son No problems noted. Son No problems noted. Social History Smoking/Tobacco Use Status: Never Second Hand Exposure: Yes Smoking risk assessment performed?: Yes Alcohol Intake: current Alcohol Intake frequency: holidays/special occasions only Alcohol type: beer and hard liquor Drug use: Never Substance use type: does not use Caregiver/Support person: No Household members: spouse Housing: house Communication Needs: None Do you need help understanding health information?: Never Pets and animals: Yes Pets and animals: dog(s) Sexually active: No Do you think of yourself as: straight/heterosexual Current gender identity: male What is your relationship status?: How often do you talk on the phone with friends or family?: once per week How often do you get together with friends or relatives?: once per week How often do you attend latter-day or restorationist services?: decline to answer Do you belong to any clubs or organized social groups?: no Panel score (0-1 are the most socially isolated patients): 1 What type of physical activity do you participate in: none Frequency: does not exercise Tamiko/Orthodox: None Special tamiko needs: No Seatbelt use: always Helmet use: Yes Helmet use: sometimes Drive intox or ride w/intox city bus driver: No Do you feel safe at home: Yes Do you feel safe in your relationship?: Yes Time Spent with Patient Time Spent with Patient: <45 minutes Time was spent: preparing to see the patient(eg.review tests), obtaining and/or reviewing separately otained hiistory, ordering medications,tests, procedures, referring, communicating with other health child care specialist, indepentently interpreting results, counseling the patient and care coordination
== END 2024-09-02 16:30 | disposition home or self-care (01) | DRG 354 ==
LOC: ER 17:39 → MS 17:51 → ICU 08-27 12:16
PROVIDERS: Family Medicine; Nurse Anesthetist, Certified Registered; Nurse Practitioner Acute Care; Surgery; Admitting Provider Family Medicine; Emergency Provider Emergency Medicine; PCP Family Medicine; Responsible Provider Family Medicine; Visit Provider Family Medicine
PROC: 0WQF4ZZ Repair Abdominal Wall, Percutaneous Endoscopic Approach (ICD-10-PCS; CPT 49594; principal; 2024-08-27 08:15)
DX: K43.6 Other and unspecified ventral hernia with obstruction, without gangrene (principal); I97.191 Other postprocedural cardiac functional disturbances following other surgery; K56.7 Ileus, unspecified; N17.9 Acute kidney failure, unspecified; K91.89 Other postprocedural complications and disorders of digestive system; K91.81 Other intraoperative complications of digestive system; K20.0 Eosinophilic esophagitis; E11.319 Type 2 diabetes mellitus with unspecified diabetic retinopathy without macular edema; E11.22 Type 2 diabetes mellitus with diabetic chronic kidney disease; I12.9 Hypertensive chronic kidney disease with stage 1 through stage 4 chronic kidney disease, or unspecified chronic kidney disease; I95.81 Postprocedural hypotension; I48.91 Unspecified atrial fibrillation; Z79.899 Other long term (current) drug therapy; Y65.8 Other specified misadventures during surgical and medical care; Y92.234 Operating room of hospital as the place of occurrence of the external cause; N18.30 Chronic kidney disease, stage 3 unspecified; Z90.5 Acquired absence of kidney; E78.5 Hyperlipidemia, unspecified; E66.9 Obesity, unspecified; R33.9 Retention of urine, unspecified; K57.30 Diverticulosis of large intestine without perforation or abscess without bleeding; Z68.36 Body mass index [BMI] 36.0-36.9, adult; D72.829 Elevated white blood cell count, unspecified
CPT/HCPCS: 49594; 00123; 36415; 80048; 80053; 85027; 87040; 93005; 93306; 96361; 96365; 96366; 96375; 97162; 99222; 99231; 99232; 99285; J1650; 71045; 74018; 74176; 81003; 81015; 82565; 83605; 83735; 84300; 84443; 84484; 85025; 93010; 99223; 99233; 99239; C1781; C8924; J0131; J0665; J0690; J1100; J1171; J1644; J1805; J1815; J2003; J2250; J2371; J2405; J2470; J2543; J2598; J2704; J3475; J3480

== ENCOUNTER → 2024-09-11 15:09 | Outpatient (BNVA) | payer MEDICARE, SELFPAY | PROVIDERS: PCP Family Medicine; Referring Provider Family Medicine; Visit Provider Surgery | DX: Z48.817 Encounter for surgical aftercare following surgery on the skin and subcutaneous tissue (principal) ==

== ENCOUNTER 2024-09-12 01:22 | Outpatient (CLI) | payer MEDICARE, SELFPAY ==
[2024-09-12 14:23] LABS: Anion Gap 11.9 mmol/L (3-11); BUN 27 mg/dL (7-18); CO2 20.1 mmol/L (21.0-32.0); CREATININE 2.2 mg/dL (0.70-1.30); Calcium 8.3 mg/dL (8.5-10.1); Chloride 96 mmol/L (98-107); Estimated GFR 30.85 (mL/min/1.73m2); Glucose 157 mg/dL (74-106); Magnesium 1.6 mg/dL (1.8-2.4); Potassium 3.6 mmol/L (3.5-5.1); Sodium 128 mmol/L (136-145)
== END 2024-09-12 01:23 | disposition home or self-care (01) ==
LOC: LBO 01:22
PROVIDERS: PCP Family Medicine; Visit Provider Family Medicine
DX: E83.42 Hypomagnesemia (principal); E87.1 Hypo-osmolality and hyponatremia
CPT/HCPCS: 36415; 80048; 83735

== ENCOUNTER 2024-09-12 11:35 | Outpatient (CLI) | payer MEDICARE, SELFPAY | END 2024-09-12 11:36 | disposition home or self-care (01) | PROVIDERS: PCP Family Medicine; Visit Provider Family Medicine | DX: I48.91 Unspecified atrial fibrillation (principal); R00.2 Palpitations | CPT/HCPCS: 93270 ==

== ENCOUNTER → 2024-09-12 12:22 | Outpatient (BNVA) | payer MEDICARE, SELFPAY | PROVIDERS: PCP Family Medicine; Referring Provider Family Medicine; Visit Provider Surgery | DX: Z09 Encounter for follow-up examination after completed treatment for conditions other than malignant neoplasm (principal) ==

== ENCOUNTER 2024-09-22 04:09 | Outpatient (CLI) | payer MEDICARE, SELFPAY ==
[2024-09-22 14:14] LABS: BUN 22 mg/dL (7-18); CREATININE 2.3 mg/dL (0.70-1.30); Calcium 8.3 mg/dL (8.5-10.1); Chloride 103 mmol/L (98-107); Estimated GFR 29.25 (mL/min/1.73m2); Glucose 122 mg/dL (74-106); Potassium 3.3 mmol/L (3.5-5.1); Sodium 136 mmol/L (136-145)
== END 2024-09-22 04:10 | disposition home or self-care (01) ==
PROVIDERS: PCP Family Medicine; Visit Provider Family Medicine
DX: E87.1 Hypo-osmolality and hyponatremia (principal)
CPT/HCPCS: 36415; 80048

== ENCOUNTER 2024-10-14 06:57 | Outpatient (CLI) | payer MEDICARE, SELFPAY ==
--- NOTE | 2024-10-14 09:06 | W.CARDEVENT ---
Date of service: 10/14/24 Time of Service: 09:06 Cardiac Event Recorder Referring Provider:: Timmy Iglesias Indications:: Paroxysmal atrial fibrillation Cardiac Event Note: This is a cardiac event monitor. Patient was monitored for 30 days. Predominant rhythm was sinus with first-degree AV block. Sinus rhythm was present 98% of the recording. The other 2% was atrial fibrillation Average heart rate overall was 83. Minimum was 42, maximum 160 There were no significant ventricular dysrhythmias Close no high-grade AV block, no pauses greater than 3 seconds There were no apparent symptoms
== END 2024-10-14 06:58 | disposition home or self-care (01) ==
LOC: CARDOPNVT 06:57
PROVIDERS: PCP Family Medicine; Visit Provider Internal Medicine Cardiovascular Disease
DX: R00.2 Palpitations (principal); I48.0 Paroxysmal atrial fibrillation; I44.0 Atrioventricular block, first degree
CPT/HCPCS: 93272